=== PATIENT | female | born 1940 | race Caucasian/White ===

== ENCOUNTER → 2018-03-15 | Outpatient (CLI) | payer OTHER ==
[~2018-03-15] MED LIST: CALC600T PO; CHOL400C7 PO; CTP/1 PO; CTP1X PO; DILT240C57 PO; INDA2.5T PO; LISI-725 PO; LORA-741 PO; SOTA120T PO; WARF10TA PO; WARF5TAB90 PO
--- NOTE | 2018-03-18 07:48 | MAMMOGRAPHY REPORT ---
BILATERAL DIGITAL SCREENING MAMMOGRAM TOMOSYNTHESIS WITH CAD: 03/15/2018 CLINICAL HISTORY: Routine screening. Patient has no complaints. TECHNIQUE: Breast tomosynthesis in addition to standard 2D mammography was performed. Current study was also evaluated with a Computer Aided Detection (CAD) system. COMPARISON: Comparison is made to exams dated: 03/01/2016 mammogram, 03/01/2015 mammogram, 02/25/2014 ma mmogram, 02/24/2013 mammogram, 02/20/2012 mammogram, and 02/13/2011 mammogram - [facility] er. BREAST COMPOSITION: There are scattered areas of fibroglandular density in both breasts. FINDINGS: No suspicious masses, calcifications, or areas of architectural distortion are noted in ei ther breast. There has been no significant interval change compared to prior exams. Scattered bilater al benign-appearing calcifications are not significantly changed. IMPRESSION: ACR BI-RADS CATEGORY 2: BENIGN There is no mammographic evidence of malignancy. A 1 year screening mammogram is recommended. The pa tient will receive written notification of the results. Approximately 10% of breast cancers are not detected with mammography. A negative mammographic report should not delay biopsy if a clinically suggestive mass is present. Joceline Moctezuma M.D. /:03/15/2018 07:46:20 [employer]: Zhane PHILIPPE)(Ana), [facility] letter sent: Normal 1/2 BI-RADS Code: ACR BI-RADS Category 2: Benign
== END | disposition home or self-care (01) ==
LOC: C.MAMM 07:20
PROVIDERS: ATTEND Obstetrics & Gynecology
DX: Z12.31 Encounter for screening mammogram for malignant neoplasm of breast (principal)

== ENCOUNTER 2021-03-28 08:05 | Inpatient (IN) ==
[2021-03-28] MEDS ORDERED: STAT IV Infusion **Titration per Protocol STA ×2 (08:22→13:14)
[2021-03-28] MEDS ORDERED: dilTIAZem HCl 5 MG/ML 5 ML VIAL IV STA (08:22)
[2021-03-28] MEDS ORDERED: SODIUM CHLORIDE 0.9% 500 ML IV STA (08:22)
--- NOTE | 2021-03-28 08:30 | Emergency Department Note ---
Impression & Plan Atrial fibrillation with RVR, Chest pain ED Provider Note NAME: ROCAEL DE LEON AGE: 80 SEX: F : 1940 ARRIVES VIA: Walk-In INFORMANT: Patient ED PROVIDER(S): Chuck Sue DO CHIEF COMPLAINT: Fullness in the chest HPI: Patient is an 80-year-old female who presents the ER for chest fullness associated with shortness of breath. Patient notes that this started 2 and half days ago. Denies any belly pain, nausea, vomiting, or diarrhea. No dysuria, urgency, or frequency. She notes that she has a history of A. fib and is currently on Coumadin. She has a previous ablation as well as cardioversion as well. She has not missed any doses of her diltiazem or metoprolol. ROS: See above HPI for pertinent positives & negatives. A total of 10 systems reviewed and were otherwise negative. PAST MEDICAL HISTORY:See Below PAST SURGICAL HISTORY:See Below FAMILY HISTORY:See Below SOCIAL HISTORY:See Below HOME MEDICATIONS:See Below ALLERGIES:See Below VITALS:See Below PHYSICAL EXAMINATION: GENERAL: Sitting up in bed, alert, well appearing, well nourished, no distress, non-toxic EYE EXAM: normal conjunctiva. OROPHARYNX: no exudate, no erythema, lips, buccal mucosa, and tongue normal and mucous membranes are moist NECK: supple, no nuchal rigidity, no adenopathy, non-tender LUNGS: Clear to auscultation. Normal chest wall mechanics HEART: tachy and irregularly irregular, S1 normal and S2 normal ABDOMEN: abdomen soft, non-tender, normo-active bowel sounds, no masses, no rebound or guarding. UPPER EXTREMITIES: upper extremities are grossly normal. LOWER EXTREMITIES: No pitting edema. NEURO EXAM: Normal sensorium, cranial nerves II-XII grossly intact, normal speech, no gross weakness of arms, no gross weakness of legs. MEDICAL DECISION MAKING: Patient is an 80-year-old female who presents the ER for chest fullness and pressure. IV was established blood work was obtained. Labs show no significant leukocytosis or anemia. INR was slightly supratherapeutic at 3.3. BMP on LFTs bilirubin was unremarkable. Troponin was negative. TSH and lipase was unremarkable. Covid was negative. Chest x-ray with some mild vascular congestion. EKG showed A. fib with RVR and a heart rate of 150. She was placed on a Cardizem drip and given a 10 mg bolus of Cardizem. Patient was updated bedside. Discussed with the hospitalist. Admitted for further work-up. Heart rate trended down to low 100s. Triage Nursing notes reviewed. Limited review of prior medical records performed Vital Signs: reviewed and remarkable for HTN and tachy Differential diagnosis: Differential diagnoses includes but is not limited to pneumonia, bronchitis, COPD/Asthma exacerbation, pneumothorax, pulmonary embolism, congestive heart failure, acute coronary syndrome ER treatment provided: See below Diagnostics interpreted by me: ECG: A. fib RVR rate of 150 Normal axis Low voltage Septal Q waves QTC 486 Cardiac Monitoring: An order was placed for continuous cardiac monitoring. The m onitor shows a rate of 145 with AFIB rhythm. Laboratory studies: As stated above and show below. Imaging studies: Portable AP upright one view the chest shows no focal infiltrate or pneumothorax Consultation(s): Discussed with the hospitalist for further evaluation Procedures: none Critical Care: I have personally spent 35 minutes of critical care time in the direct management of this patient. This includes bedside care, interpretation of diagnostic studies, and testing, discussion with consultants, patient, and family members, and other required patient management activities. This 35 minutes is in excess of all separately billable procedures. Past Med/Surg History Medical History (Updated 03/28/21 @ 13:02 by Chuck Sue DO) A-fib CKD (chronic kidney disease) stage 3, GFR 30-59 ml/min DU (generalized anxiety disorder) History of bladder cancer s/op TURBT HLD (hyperlipidemia) HTN (hypertension) CHAVEZ (nonalcoholic steatohepatitis) Pre-diabetes Surgical History (Updated 03/28/21 @ 11:[address] PA-C) History of cardioversion multiple attempts, last in 2017 History of esophagogastroduodenoscopy (EGD) History of hysterectomy with oophorectomy History of radiofrequency ablation procedure for cardiac arrhythmia History of toe surgery bunion Family History (Updated 03/28/21 @ 11:[address] PA-C) Brother Myocardial infarction, Onset Age: 52 Father Myocardial infarction, Onset Age: 52 Sister Coronary heart disease Atrial fibrillation Mother , 21 [place] Social History (Updated 03/28/21 @ 11:[address] PA-C) Smoking Status: Never smoker Hx Alcohol Use: No Hx Substance Use: No Preferred Language: Lao Communication Ability: Effective marital status: Current Living Situation: Spouse current occupational status: retired Feels Safe at Home: Yes Allergies Allergies Allergy/AdvReac Type Severity Reaction Status Date / Time adhesive AdvReac Unknown Verified 03/28/21 10:54 cat dander AdvReac Unknown Verified 03/28/21 10:54 ezetimibe [From Zetia] AdvReac Unknown Verified 03/28/21 10:54 soy AdvReac Unknown Verified 03/28/21 10:54 Home Meds Home Medications Medication Instructions Recorded Confirmed diltiazem HCl 240 mg PO QAM 03/28/21 03/28/21 indapamide 5 mg PO QAM 03/28/21 03/28/21 lisinopril 5 mg PO QPM 03/28/21 03/28/21 lorazepam 0.5 mg PO BID PRN 03/28/21 03/28/21 metoprolol tartrate 50 mg PO BID 03/28/21 03/28/21 warfarin 10 mg PO UD 03/28/21 03/28/21 Results & Data (ED) Vital Signs Vital Signs - 24 hr 03/28/21 08:11 03/28/21 08:19 03/28/21 08:32 Temperature 37.0 C Temperature Source Temporal Artery Scan Pulse Rate 150 H 134 H Pulse Rate [Right Finger] 120 H Pulse Rate from SpO2 Sensor Respiratory Rate 20 22 20 Respiratory Effort / Characteristics Respiratory Depth Blood Pressure 170/114 H Blood Pressure [Right Arm] 146/84 H Blood Pressure Mean 132 Blood Pressure Mean [Right Arm] 104 Pulse Oximetry 97 94 Oxygen Delivery Method Room Air Room Air Room Air Oxygen Flow Rate Sepsis Recent Fever Within 48 Hours No Sepsis New/Unexplained Change in Mental Status N/A Sepsis Action Taken by Nursing No Action Required Pulse Oximetry Post Tiitration 03/28/21 08:38 03/28/21 08:39 03/28/21 08:40 Temperature Temperature Source Pulse Rate 104 H 119 H 107 H Pulse Rate [Right Finger] Pulse Rate from SpO2 Sensor 103 H 105 H 116 H Respiratory Rate 18 32 H 19 Respiratory Effort / Characteristics Respiratory Depth Blood Pressure 152/90 H 146/111 H Blood Pressure [Right Arm] Blood Pressure Mean 110 122 Blood Pressure Mean [Right Arm] Pulse Oximetry 92 90 93 Oxygen Delivery Method Oxygen Flow Rate Sepsis Recent Fever Within 48 Hours Sepsis New/Unexplained Change in Mental Status Sepsis Action Taken by Nursing Pulse Oximetry Post Tiitration 03/28/21 08:41 03/28/21 08:42 03/28/21 08:44 Temperature Temperature Source Pulse Rate 114 H 109 H Pulse Rate [Right Finger] 114 H 104 H Pulse Rate from SpO2 Sensor 106 H 116 H Respiratory Rate 20 25 H 22 Respiratory Effort / Characteristics Respiratory Depth Blood Pressure 150/94 H 153/83 H Blood Pressure [Right Arm] 150/94 H 153/83 H Blood Pressure Mean 112 106 Blood Pressure Mean [Right Arm] 112 106 Pulse Oximetry 96 95 93 Oxygen Delivery Method Room Air Room Air Oxygen Flow Rate Sepsis Recent Fever Within 48 Hours Sepsis New/Unexplained Change in Mental Status Sepsis Action Taken by Nursing Pulse Oximetry Post Tiitration 03/28/21 08:46 03/28/21 08:47 03/28/21 08:48 Temperature Temperature Source Pulse Rate 110 H 111 H 110 H Pulse Rate [Right Finger] 110 H Pulse Rate from SpO2 Sensor 110 H 112 H 103 H Respiratory Rate 17 17 17 Respiratory Effort / Characteristics Respiratory Depth Blood Pressure 150/104 H 160/85 H 150/93 H Blood Pressure [Right Arm] 160/85 H Blood Pressure Mean 119 110 112 Blood Pressure Mean [Right Arm] 110 Pulse Oximetry 93 93 93 Oxygen Delivery Method Room Air Oxygen Flow Rate Sepsis Recent Fever Within 48 Hours Sepsis New/Unexplained Change in Mental Status Sepsis Action Taken by Nursing Pulse Oximetry Post Tiitration 03/28/21 08:50 03/28/21 08:52 03/28/21 08:54 Temperature Temperature Source Pulse Rate 123 H 113 H 120 H Pulse Rate [Right Finger] 116 H 120 H Pulse Rate from SpO2 Sensor 119 H 101 H 129 H Respiratory Rate 21 19 18 Respiratory Effort / Characteristics Non-Labored Respiratory Depth Normal Normal Blood Pressure 154/106 H 151/95 H 163/91 H Blood Pressure [Right Arm] 154/106 H 163/91 H Blood Pressure Mean 122 113 115 Blood Pressure Mean [Right Arm] 122 115 Pulse Oximetry 92 94 91 Oxygen Delivery Method Room Air Room Air Oxygen Flow Rate Sepsis Recent Fever Within 48 Hours Sepsis New/Unexplained Change in Mental Status Sepsis Action Taken by Nursing Pulse Oximetry Post Tiitration 03/28/21 08:56 03/28/21 08:58 03/28/21 08:59 Temperature Temperature Source Pulse Rate 118 H 112 H Pulse Rate [Right Finger] 118 H Pulse Rate from SpO2 Sensor 106 H 110 H Respiratory Rate 22 18 20 Respiratory Effort / Characteristics Non-Labored Respiratory Depth Normal Blood Pressure 163/98 H 153/80 H Blood Pressure [Right Arm] 153/80 H Blood Pressure Mean 119 104 Blood Pressure Mean [Right Arm] 104 Pulse Oximetry 93 93 93 Oxygen Delivery Method Room Air Oxygen Flow Rate Sepsis Recent Fever Within 48 Hours Sepsis New/Unexplained Change in Mental Status Sepsis Action Taken by Nursing Pulse Oximetry Post Tiitration 03/28/21 09:00 03/28/21 09:01 03/28/21 09:02 Temperature Temperature Source Pulse Rate 111 H 109 H 109 H Pulse Rate [Right Finger] 114 H Pulse Rate from SpO2 Sensor 115 H 122 H 112 H Respiratory Rate 16 17 16 Respiratory Effort / Characteristics Respiratory Depth Blood Pressure 150/92 H 155/99 H Blood Pressure [Right Arm] 155/99 H Blood Pressure Mean 111 117 Blood Pressure Mean [Right Arm] 117 Pulse Oximetry 93 91 89 L Oxygen Delivery Method Room Air Oxygen Flow Rate Sepsis Recent Fever Within 48 Hours Sepsis New/Unexplained Change in Mental Status Sepsis Action Taken by Nursing Pulse Oximetry Post Tiitration 03/28/21 09:04 03/28/21 09:06 03/28/21 09:08 Temperature Temperature Source Pulse Rate 119 H 111 H 116 H Pulse Rate [Right Finger] 120 H 112 H Pulse Rate from SpO2 Sensor 106 H 114 H 119 H Respiratory Rate 16 17 15 Respiratory Effort / Characteristics Respiratory Depth Blood Pressure 137/98 145/95 H 153/90 H Blood Pressure [Right Arm] 137/98 153/90 H Blood Pressure Mean 111 111 111 Blood Pressure Mean [Right Arm] 111 111 Pulse Oximetry 91 91 89 L Oxygen Delivery Method Room Air Room Air Oxygen Flow Rate Sepsis Recent Fever Within 48 Hours Sepsis New/Unexplained Change in Mental Status Sepsis Action Taken by Nursing Pulse Oximetry Post Tiitration 03/28/21 09:10 03/28/21 09:12 03/28/21 09:14 Temperature Temperature Source Pulse Rate 100 H 115 H 110 H Pulse Rate [Right Finger] 106 H Pulse Rate from SpO2 Sensor 103 H 109 H 111 H Respiratory Rate 20 16 17 Respiratory Effort / Characteristics Respiratory Depth Blood Pressure 151/71 H 144/81 H 143/84 H Blood Pressure [Right Arm] 144/81 H Blood Pressure Mean 97 102 103 Blood Pressure Mean [Right Arm] 102 Pulse Oximetry 90 94 94 Oxygen Delivery Method Nasal Cannula Nasal Cannula Oxygen Flow Rate 2 2 Sepsis Recent Fever Within 48 Hours Sepsis New/Unexplained Change in Mental Status Sepsis Action Taken by Nursing Pulse Oximetry Post Tiitration 95 03/28/21 09:15 03/28/21 09:17 03/28/21 09:20 Temperature Temperature Source Pulse Rate 109 H 113 H Pulse Rate [Right Finger] 110 H Pulse Rate from SpO2 Sensor 101 H 109 H Respiratory Rate 14 14 14 Respiratory Effort / Characteristics Respiratory Depth Blood Pressure 135/83 138/82 Blood Pressure [Right Arm] 135/83 Blood Pressure Mean 100 100 Blood Pressure Mean [Right Arm] 100 Pulse Oximetry 93 94 93 Oxygen Delivery Method Nasal Cannula Oxygen Flow Rate 2 Sepsis Recent Fever Within 48 Hours Sepsis New/Unexplained Change in Mental Status Sepsis Action Taken by Nursing Pulse Oximetry Post Tiitration 03/28/21 09:24 03/28/21 09:25 03/28/21 09:30 Temperature Temperature Source Pulse Rate 101 H 109 H 114 H Pulse Rate [Right Finger] 108 H Pulse Rate from SpO2 Sensor 100 H 111 H 113 H Respiratory Rate 15 14 19 Respiratory Effort / Characteristics Non-Labored Respiratory Depth Normal Blood Pressure 140/83 134/84 134/96 Blood Pressure [Right Arm] 140/83 Blood Pressure Mean 102 100 108 Blood Pressure Mean [Right Arm] 102 Pulse Oximetry 90 91 91 Oxygen Delivery Method Nasal Cannula Oxygen Flow Rate 2 Sepsis Recent Fever Within 48 Hours Sepsis New/Unexplained Change in Mental Status Sepsis Action Taken by Nursing Pulse Oximetry Post Tiitration 03/28/21 09:31 03/28/21 09:35 03/28/21 09:40 Temperature Temperature Source Pulse Rate 107 H 107 H 112 H Pulse Rate [Right Finger] Pulse Rate from SpO2 Sensor 99 H 106 H 110 H Respiratory Rate 21 20 21 Respiratory Effort / Characteristics Respiratory Depth Blood Pressure 143/82 H 149/86 H Blood Pressure [Right Arm] Blood Pressure Mean 102 107 Blood Pressure Mean [Right Arm] Pulse Oximetry 92 97 96 Oxygen Delivery Method Oxygen Flow Rate Sepsis Recent Fever Within 48 Hours Sepsis New/Unexplained Change in Mental Status Sepsis Action Taken by Nursing Pulse Oximetry Post Tiitration 03/28/21 09:45 03/28/21 09:50 03/28/21 09:55 Temperature Temperature Source Pulse Rate 110 H 113 H 105 H Pulse Rate [Right Finger] Pulse Rate from SpO2 Sensor 109 H 102 H 105 H Respiratory Rate 24 21 19 Respiratory Effort / Characteristics Respiratory Depth Blood Pressure 141/99 H 145/86 H 152/89 H Blood Pressure [Right Arm] Blood Pressure Mean 113 105 110 Blood Pressure Mean [Right Arm] Pulse Oximetry 96 98 96 Oxygen Delivery Method Oxygen Flow Rate Sepsis Recent Fever Within 48 Hours Sepsis New/Unexplained Change in Mental Status Sepsis Action Taken by Nursing Pulse Oximetry Post Tiitration 03/28/21 10:00 03/28/21 10:01 03/28/21 10:05 Temperature Temperature Source Pulse Rate 108 H 104 H 112 H Pulse Rate [Right Finger] Pulse Rate from SpO2 Sensor 109 H 99 H 101 H Respiratory Rate 19 17 18 Respiratory Effort / Characteristics Respiratory Depth Blood Pressure 142/88 H 140/88 Blood Pressure [Right Arm] Blood Pressure Mean 106 105 Blood Pressure Mean [Right Arm] Pulse Oximetry 96 95 96 Oxygen Delivery Method Oxygen Flow Rate Sepsis Recent Fever Within 48 Hours Sepsis New/Unexplained Change in Mental Status Sepsis Action Taken by Nursing Pulse Oximetry Post Tiitration 03/28/21 10:10 03/28/21 10:15 03/28/21 10:20 Temperature Temperature Source Pulse Rate 108 H 99 H 98 H Pulse Rate [Right Finger] 110 H Pulse Rate from SpO2 Sensor 105 H 103 H 105 H Respiratory Rate 19 15 22 Respiratory Effort / Characteristics Non-Labored Respiratory Depth Normal Blood Pressure 144/90 H 157/92 H 145/77 H Blood Pressure [Right Arm] 145/77 H Blood Pressure Mean 108 113 99 Blood Pressure Mean [Right Arm] 99 Pulse Oximetry 98 96 97 Oxygen Delivery Method Room Air Oxygen Flow Rate Sepsis Recent Fever Within 48 Hours Sepsis New/Unexplained Change in Mental Status Sepsis Action Taken by Nursing Pulse Oximetry Post Tiitration 03/28/21 10:25 03/28/21 10:30 03/28/21 10:31 Temperature Temperature Source Pulse Rate 110 H 103 H 98 H Pulse Rate [Right Finger] Pulse Rate from SpO2 Sensor 105 H 100 H 104 H Respiratory Rate 23 27 H 18 Respiratory Effort / Characteristics Respiratory Depth Blood Pressure 141/100 H 147/79 H Blood Pressure [Right Arm] Blood Pressure Mean 113 101 Blood Pressure Mean [Right Arm] Pulse Oximetry 97 96 99 Oxygen Delivery Method Oxygen Flow Rate Sepsis Recent Fever Within 48 Hours Sepsis New/Unexplained Change in Mental Status Sepsis Action Taken by Nursing Pulse Oximetry Post Tiitration 03/28/21 10:35 03/28/21 10:40 03/28/21 10:45 Temperature Temperature Source Pulse Rate 104 H 102 H 119 H Pulse Rate [Right Finger] Pulse Rate from SpO2 Sensor 107 H 113 H 119 H Respiratory Rate 17 23 21 Respiratory Effort / Characteristics Respiratory Depth Blood Pressure 153/98 H 155/92 H 153/98 H Blood Pressure [Right Arm] Blood Pressure Mean 116 113 116 Blood Pressure Mean [Right Arm] Pulse Oximetry 97 93 95 Oxygen Delivery Method Oxygen Flow Rate Sepsis Recent Fever Within 48 Hours Sepsis New/Unexplained Change in Mental Status Sepsis Action Taken by Nursing Pulse Oximetry Post Tiitration 03/28/21 10:50 03/28/21 10:55 03/28/21 11:00 Temperature Temperature Source Pulse Rate 123 H 112 H 114 H Pulse Rate [Right Finger] Pulse Rate from SpO2 Sensor 111 H 117 H 108 H Respiratory Rate 19 23 21 Respiratory Effort / Characteristics Respiratory Depth Blood Pressure 150/87 H 149/107 H 153/92 H Blood Pressure [Right Arm] Blood Pressure Mean 108 121 112 Blood Pressure Mean [Right Arm] Pulse Oximetry 92 92 91 Oxygen Delivery Method Oxygen Flow Rate Sepsis Recent Fever Within 48 Hours Sepsis New/Unexplained Change in Mental Status Sepsis Action Taken by Nursing Pulse Oximetry Post Tiitration 03/28/21 11:30 03/28/21 11:31 03/28/21 12:00 Temperature Temperature Source Pulse Rate 115 H 87 85 Pulse Rate [Right Finger] Pulse Rate from SpO2 Sensor 106 H 90 82 Respiratory Rate 23 24 21 Respiratory Effort / Characteristics Respiratory Depth Blood Pressure 157/117 H 142/88 H Blood Pressure [Right Arm] Blood Pressure Mean 130 106 Blood Pressure Mean [Right Arm] Pulse Oximetry 92 95 93 Oxygen Delivery Method Oxygen Flow Rate Sepsis Recent Fever Within 48 Hours Sepsis New/Unexplained Change in Mental Status Sepsis Action Taken by Nursing Pulse Oximetry Post Tiitration 03/28/21 12:30 Temperature Temperature Source Pulse Rate 79 Pulse Rate [Right Finger] Pulse Rate from SpO2 Sensor 85 Respiratory Rate 21 Respiratory Effort / Characteristics Respiratory Depth Blood Pressure 130/75 Blood Pressure [Right Arm] Blood Pressure Mean 93 Blood Pressure Mean [Right Arm] Pulse Oximetry 94 Oxygen Delivery Method Oxygen Flow Rate Sepsis Recent Fever Within 48 Hours Sepsis New/Unexplained Change in Mental Status Sepsis Action Taken by Nursing Pulse Oximetry Post Tiitration Laboratory Data Result diagrams: 03/28/21 08:25 03/28/21 08:25 Lab Results 03/28/21 03/28/21 03/28/21 Range/Units 08:25 08:25 08:25 WBC 7.51 (4.8-10.8) K/uL RBC 4.79 (4.2-5.4) M/uL Hgb 13.8 (12.0-16.0) g/dL Hct 42.8 (37-47) % MCV 89.4 (80-100) fL MCH 28.8 (25-34) pg MCHC 32.2 (32-36) g/dL RDW Std Deviation 48.4 H (36.4-46.3) fL RDW Coeff of Serg 15.0 H (11.5-14.5) % Plt Count 182 (130-400) K/uL MPV 10.6 H (7.4-10.4) fL Immature Gran % (Auto) 0.1 % Neut % (Auto) 82.3 % Lymph % (Auto) 7.5 % White % (Auto) 9.2 % Eos % (Auto) 0.8 % Baso % (Auto) 0.1 % Neut # (Auto) 6.18 (1.4-6.5) K/uL Lymph # (Auto) 0.56 L (1.2-3.4) K/uL White # (Auto) 0.69 H (0.11-0.59) K/uL Eos # (Auto) 0.06 (0-0.5) K/uL Baso # (Auto) 0.01 (0-0.2) K/uL Immature Gran # (Auto) 0.01 (0.00-0.02) K/uL PT 30.3 H (9.0-12.0) Seconds INR 3.3 H (0.9-1.1) Sodium 140 (136-145) mmol/L Potassium 3.6 (3.5-5.1) mmol/L Chloride 104 (98-107) mmol/L Carbon Dioxide 28 (21-32) mmol/L Anion Gap 7.0 (3-11) BUN 21 H (7-18) mg/dl Creatinine 0.86 (0.6-1.2) mg/dl Est Cr Clr Drug Dosing 47.2 ml/min Est GFR ( Amer) 72.9 Est GFR (Non-Af Amer) 62.9 BUN/Creatinine Ratio 24.4 H (10-20) Glucose 106 H (70-99) mg/dl Calcium 9.8 (8.5-10.1) mg/dl Magnesium (1.8-2.4) mg/dl Total Bilirubin 1.0 (0.2-1) mg/dl AST 44 H (15-37) U/L ALT 69 (12-78) U/L Alkaline Phosphatase 73 (45-117) U/L Troponin I < 0.015 (0-0.045) ng/ml Total Protein 7.8 (6.4-8.2) gm/dl Albumin 4.2 (3.4-5.0) gm/dl Globulin 3.6 (2.5-4.0) gm/dl Albumin/Globulin Ratio 1.2 (0.9-2) Lipase 179 (73-393) U/L TSH (0.300-4.500) uIu/ml COVID-19 Eval Order SARS-CoV-2 (PCR) (Negative) Influenza Type A (PCR) (Neg) Influenza Type B (PCR) (Neg) RSV (RT-PCR) (Neg) 03/28/21 03/28/21 03/28/21 Range/Units 08:25 08:25 10:28 WBC (4.8-10.8) K/uL RBC (4.2-5.4) M/uL Hgb (12.0-16.0) g/dL Hct (37-47) % MCV (80-100) fL MCH (25-34) pg MCHC (32-36) g/dL RDW Std Deviation (36.4-46.3) fL RDW Coeff of Serg (11.5-14.5) % Plt Count (130-400) K/uL MPV (7.4-10.4) fL Immature Gran % (Auto) % Neut % (Auto) % Lymph % (Auto) % White % (Auto) % Eos % (Auto) % Baso % (Auto) % Neut # (Auto) (1.4-6.5) K/uL Lymph # (Auto) (1.2-3.4) K/uL White # (Auto) (0.11-0.59) K/uL Eos # (Auto) (0-0.5) K/uL Baso # (Auto) (0-0.2) K/uL Immature Gran # (Auto) (0.00-0.02) K/uL PT (9.0-12.0) Seconds INR (0.9-1.1) Sodium (136-145) mmol/L Potassium (3.5-5.1) mmol/L Chloride (98-107) mmol/L Carbon Dioxide (21-32) mmol/L Anion Gap (3-11) BUN (7-18) mg/dl Creatinine (0.6-1.2) mg/dl Est Cr Clr Drug Dosing ml/min Est GFR ( Amer) Est GFR (Non-Af Amer) BUN/Creatinine Ratio (10-20) Glucose (70-99) mg/dl Calcium (8.5-10.1) mg/dl Magnesium 1.9 (1.8-2.4) mg/dl Total Bilirubin (0.2-1) mg/dl AST (15-37) U/L ALT (12-78) U/L Alkaline Phosphatase (45-117) U/L Troponin I (0-0.045) ng/ml Total Protein (6.4-8.2) gm/dl Albumin (3.4-5.0) gm/dl Globulin (2.5-4.0) gm/dl Albumin/Globulin Ratio (0.9-2) Lipase (73-393) U/L TSH 1.720 (0.300-4.500) uIu/ml COVID-19 Eval Order [facility]Rsv at [facility] SARS-CoV-2 (PCR) (Negative) Influenza Type A (PCR) (Neg) Influenza Type B (PCR) (Neg) RSV (RT-PCR) (Neg) 03/28/21 Range/Units 10:28 WBC (4.8-10.8) K/uL RBC (4.2-5.4) M/uL Hgb (12.0-16.0) g/dL Hct (37-47) % MCV (80-100) fL MCH (25-34) pg MCHC (32-36) g/dL RDW Std Deviation (36.4-46.3) fL RDW Coeff of Serg (11.5-14.5) % Plt Count (130-400) K/uL MPV (7.4-10.4) fL Immature Gran % (Auto) % Neut % (Auto) % Lymph % (Auto) % White % (Auto) % Eos % (Auto) % Baso % (Auto) % Neut # (Auto) (1.4-6.5) K/uL Lymph # (Auto) (1.2-3.4) K/uL White # (Auto) (0.11-0.59) K/uL Eos # (Auto) (0-0.5) K/uL Baso # (Auto) (0-0.2) K/uL Immature Gran # (Auto) (0.00-0.02) K/uL PT (9.0-12.0) Seconds INR (0.9-1.1) Sodium (136-145) mmol/L Potassium (3.5-5.1) mmol/L Chloride (98-107) mmol/L Carbon Dioxide (21-32) mmol/L Anion Gap (3-11) BUN (7-18) mg/dl Creatinine (0.6-1.2) mg/dl Est Cr Clr Drug Dosing ml/min Est GFR ( Amer) Est GFR (Non-Af Amer) BUN/Creatinine Ratio (10-20) Glucose (70-99) mg/dl Calcium (8.5-10.1) mg/dl Magnesium (1.8-2.4) mg/dl Total Bilirubin (0.2-1) mg/dl AST (15-37) U/L ALT (12-78) U/L Alkaline Phosphatase (45-117) U/L Troponin I (0-0.045) ng/ml Total Protein (6.4-8.2) gm/dl Albumin (3.4-5.0) gm/dl Globulin (2.5-4.0) gm/dl Albumin/Globulin Ratio (0.9-2) Lipase (73-393) U/L TSH (0.300-4.500) uIu/ml COVID-19 Eval Order SARS-CoV-2 (PCR) NEGATIVE (Negative) Influenza Type A (PCR) Negative (Neg) Influenza Type B (PCR) Negative (Neg) RSV (RT-PCR) Negative (Neg) Administered Medications Diltiazem HCl 125 mg/ Dextrose 125 mls @ 10 mls/hr IV .[id number]; Protocol Stop: 04/27/21 08:29 Last Titration: 03/28/21 12:05 Dose: 5 mg/hr, 5 mls/hr Documented by: [id number] Cosigned by: [id number] Titration: 03/28/21 08:52 Dose: 10 mg/hr, 10 mls/hr Documented by: [id number] Cosigned by: [id number] Admin: 03/28/21 08:34 Dose: 5 mg/hr, 5 mls/hr Documented by: [id number] Cosigned by: [id number] Discontinued Medications Diltiazem HCl (Diltiazem Hcl 5 Mg/Ml 5 Ml Vial) 10 mg IV NOW STA Stop: 03/28/21 08:23 Last Admin: 03/28/21 08:29 Dose: 10 mg Documented by: [id number] Cosigned by: [id number] Diltiazem HCl (Diltiazem Hcl 240 Mg Capcr) 240 mg PO NOW STA Stop: 03/28/21 11:03 Last Admin: 03/28/21 12:18 Dose: 240 mg Documented by: [id number] Sodium Chloride (Nss) 500 mls @ 999 mls/hr IV .[id number] STA Stop: 03/28/21 08:52 Last Infusion: 03/28/21 08:56 Dose: 0 mls/hr Documented by: [id number] Admin: 03/28/21 08:29 Dose: 999 mls/hr Documented by: [id number] Magnesium Sulfate/Dextrose (Magnesium Sulfate / D5w) 1 gm in 100 mls @ 100 mls/hr IV NOW STA Stop: 03/28/21 12:06 Last Admin: 03/28/21 12:18 Dose: 100 mls/hr Documented by: [id number] Metoprolol Tartrate (Metoprolol Tartrate 50 Mg Tab) 50 mg PO NOW STA Stop: 03/28/21 10:41 Last Admin: 03/28/21 11:15 Dose: 50 mg Documented by: [id number] Miscellaneous (Stat Iv Infusion Titration Per Protocol) 1 ea N/A NOW STA Stop: 03/28/21 08:23 Last Admin: 03/28/21 08:52 Dose: 1 ea Documented by: [id number] Potassium Chloride (Potassium Chloride Crtab 20 Meq Tabcr) 40 meq PO NOW STA Stop: 03/28/21 10:41 Last Admin: 03/28/21 11:01 Dose: 40 meq Documented by: [id number] Imaging Data Radiologist's Impression: Chest X-Ray 03/28/21 08:22 XR chest 1V portable HISTORY: 80 years-old Female Chest Pain acute atypical chest pain COMPARISON: Chest radiograph 04/20/2015 TECHNIQUE: Portable AP view of the chest FINDINGS: Cardiomediastinal and hilar silhouettes are within normal limits. Calcified granulomata of the right lung. Reticular interstitial opacities without pneumothorax, large pleural effusion or overt pulmonary edema. 1.3 cm lateral right lung base opacity may reflect conglomerate granulomata, new from compar monique. Degenerative changes of the shoulders and spine. IMPRESSION: 1. Cardiomegaly with reticular opacities are new from prior and may reflect pulmonary edema, interstitial pneumonitis or fibrosis. 2. Prior granulomatous disease with 1.3 cm nodule of the right lung base likely representing a calcified granuloma. This could be confirmed with a follow-up nonemergent chest CT. ACT 112: Negative or not required by law. The above report was generated using voice recognition software. It may contain grammatical, syntax or spelling errors. Electronically signed by: Maury Cardenas M.D. 03/28/2021 9:05 AM Discharge Plan Visit Data Chief Complaint: Arrhythmia/Palpitations Stated Complaint: WATER ON HEART ED Provider: Chuck Sue Discharge Problem: Atrial fibrillation with RVR, Chest pain Patient Disposition: Admitted As Inpatient Discharge Instructions Interventions: ED Discharge Assessment Last Done: 03/28/21 12:48 Forms Stand Alone Forms: [facility] [employer] Prescriptions Prescriptions: No Action indapamide 2.5 mg tablet 5 mg PO QAM RF: 0 metoprolol tartrate 100 mg tablet 50 mg PO BID RF: 0 diltiazem HCl 240 mg capsule,extended release 24hr 240 mg PO QAM RF: 0 lorazepam 0.5 mg tablet 0.5 mg PO BID PRN (Reason: Anxiety) RF: 0 warfarin 5 mg tablet 10 mg PO UD RF: 0 lisinopril 5 mg tablet 5 mg PO QPM RF: 0 Referrals Referrals: Melania Elliott MD [Primary Care Provider] - Discharge Problem: Chest pain Qualifiers: Chest pain type: unspecified Qualified Code(s): R07.9 - Chest pain, unspecified
[2021-03-28] MEDS: dilTIAZem HCL 125 MG in DEXTROSE 5% 100 ML IV SCH (08:34)
[2021-03-28 08:42] LABS: Basophils # (auto) 0.01 K/uL (0-0.2); Basophils % (auto) 0.1 %; Eosinophils # (auto) 0.06 K/uL (0-0.5); Eosinophils % (auto) 0.8 %; Hematocrit (blood only) 42.8 % (37-47); Hemoglobin 13.8 g/dL (12.0-16.0); Immature Granulocytes # (auto) 0.01 K/uL (0.00-0.02); Immature Granulocytes % (auto) 0.1 %; Lymphocytes # (auto) 0.56 K/uL (1.2-3.4); Lymphocytes % (auto) 7.5 %; Mean Corpuscular Hemoglobin 28.8 pg (25-34); Mean Corpuscular Hgb Conc 32.2 g/dL (32-36); Mean Corpuscular Volume 89.4 fL (80-100); Mean Platelet Volume 10.6 fL (7.4-10.4); Monocytes # (auto) 0.69 K/uL (0.11-0.59); Monocytes % (auto) 9.2 %; Neutrophils # (auto) 6.18 K/uL (1.4-6.5); Neutrophils % (auto) 82.3 %; Platelet Count 182 K/uL (130-400); RDW Standard Deviation 48.4 fL (36.4-46.3); Red Blood Count 4.79 M/uL (4.2-5.4); White Blood Count 7.51 K/uL (4.8-10.8)
[2021-03-28 09:00] LABS: Alanine Aminotransferase 69 U/L (12-78); Albumin Level 4.2 gm/dl (3.4-5.0); Aspartate Aminotransferase 44 U/L (15-37); BUN Creatinine Ratio 24.4 (10-20); Blood Urea Nitrogen 21 mg/dl (7-18); Calcium 9.8 mg/dl (8.5-10.1); Carbon Dioxide 28 mmol/L (21-32); Chloride 104 mmol/L (98-107); Creatinine Clr Calc Pharmacy 47.2 ml/min; Est GFR (African American) 72.9; Est GFR (Non-African American) 62.9; Glucose 106 mg/dl (70-99); Lipase 179 U/L (73-393); Potassium 3.6 mmol/L (3.5-5.1); Sodium 140 mmol/L (136-145)
[2021-03-28 09:05] LABS: Albumin Globulin Ratio 1.2 (0.9-2); Alkaline Phosphatase 73 U/L (45-117); Globulin 3.6 gm/dl (2.5-4.0); Total Protein 7.8 gm/dl (6.4-8.2); Troponin I < 0.015 ng/ml (0-0.045)
--- NOTE | 2021-03-28 09:07 | XRay Report ---
XR chest 1V portable HISTORY: 80 years-old Female Chest Pain acute atypical chest pain COMPARISON: Chest radiograph 04/20/2015 TECHNIQUE: Portable AP view of the chest FINDINGS: Cardiomediastinal and hilar silhouettes are within normal limits. Calcified granulomata of the right lung. Reticular interstitial opacities without pneumothorax, large pleural effusion or overt pulmonar y edema. 1.3 cm lateral right lung base opacity may reflect conglomerate granulomata, new from compar monique. Degenerative changes of the shoulders and spine. IMPRESSION: 1. Cardiomegaly with reticular opacities are new from prior and may reflect pulmonary edema, intersti tial pneumonitis or fibrosis. 2. Prior granulomatous disease with 1.3 cm nodule of the right lung base likely representing a calcif ied granuloma. This could be confirmed with a follow-up nonemergent chest CT. ACT 112: Negative or not required by law. The above report was generated using voice recognition software. It may contain grammatical, syntax o r spelling errors. Electronically signed by: Maury Cardenas M.D. 03/28/2021 9:05 AM
--- NOTE | 2021-03-28 10:09 | History & Physical Report ---
Date of Service March 28, 2021 Assessment & Plan (1) Left chest pressure: (2) Atrial fibrillation with RVR: This is a 80-year-old female who has significant past medical history of permanent A. fib anticoagulated on warfarin, history of pulmonary vein isolation ablation and multiple failed DCCV followed by Dr. Beasley [facility] [place], HTN, HLD, prediabetes, CKD stage III, DU, Cabrales who presents ED secondary to chest pressure x2 days. Patient with history of pulmonary vein isolation ablation in 2008, multiple attempts at DCCV, last 2016. Patient has failed cardioversion and sotalol therapy. Currently she has managed rate control only. Follows Dr. Beasley Perla Denise. Admit to PCU Continue diltiazem drip Administer diltiazem 240 mg orally and metoprolol tartrate 50 mg x 1 now (home regimen) obtain echocardiogram repeat trop x 1 consult cardiology - discussed with Dr. Duenas replace mag and K, keep greater than 2.0 and 4.0 respectively hold warfarin today, INR 3.3 (takes 10mg daily) (3) HTN (hypertension): Blood pressure mildly elevated in ED Give metoprolol now She takes lisinopril in evening She has been off her indapamide for 1 week due to her concern for CKD Hold indapamide for now, but would resume at discharge if able (4) Pre-diabetes: Last A1c 6.0 on 12/30/2020 BSG 106 Follow fasting blood sugar, patient does not require insulin at this time (5) CKD (chronic kidney disease) stage 3, GFR 30-59 ml/min: Baseline creatinine 1.0 BUN/creatinine 21 and 0.86 today Monitor (6) Abnormal CXR: IMPRESSION: 1. Cardiomegaly with reticular opacities are new from prior and may reflect pulmonary edema, interstitial pneumonitis or fibrosis. 2. Prior granulomatous disease with 1.3 cm nodule of the right lung base likely representing a calcified granuloma. This could be confirmed with a follow-up nonemergent chest CT. Consider nonemergent CHEST CT as outpt (7) DVT prophylaxis: INR 3.3, hold warfarin today repeat in a.m. Dispo: PCU PCP: Dr. Rajan Elliott DNR/DNI Pt was seen and examined in collaboration with Dr. Plata, please see addendum History of Present Illness Chief Complaint: Chest pressure x2 days. Primary Care Provider: Melania Elliott MD This is a 80-year-old female who has significant past medical history of permanent A. fib anticoagulated on warfarin, history of pulmonary vein isolation ablation and multiple failed DCCV followed by Dr. Beasley [facility] – [place], HTN, HLD, prediabetes, CKD stage III, DU, [place] who presents ED secondary to chest pressure x2 days. Angel is at bedside. She states since Sunday she has been noticing intermittent left-sided, nonradiating chest pressure. She would describe it as a heaviness, rated 5/10, no exacerbating or relieving factors, no associated shortness of breath, nausea or lightheadedness. She states symptoms would come and go over the past 2 days however symptoms were constant ever since last evening. She complains of chronic dyspnea on exertion, but states this is unchanged. She denies any recent illness, fever, chills, sweats, lightheadedness, syncope, fall, shortness of breath at rest, hemoptysis, nausea, vomiting, abdominal pain, change in bowel or urinary habits. She does elicit a chronic cough and sinus drainage due to chronic sinusitis. She states this is unchanged. She describes drainage as clear to white. She admits to being compliant with her medications specifically metoprolol, diltiazem and warfarin. She admits to not taking her indapamide for the past week due to concern for her kidneys. Her appetite has been stable and she denies any weight loss or gain. She does complain of mild increased lower extremity swelling and attributes this to not taking her indapamide. She also has been not taking her potassium. In ED on evaluation patient was found to be in atrial relation with RVR with rates in the 150s. She was given a diltiazem bolus of 10 mg and started on diltiazem drip. Currently she states chest pressure has completely resolved and she is otherwise comfortable. Her CBC and CMP were generally unremarkable. Her potassium was 3.6 and mag was 1.9. Creatinine was stable at 0.86. Her troponin was WNL. Chest x-ray with cardiomegaly with reticular opacities which were new from prior and may reflect pulmonary edema, interstitial pneumonitis or fibrosis. Allergies Allergy/AdvReac Type Severity Reaction Status Date / Time latex Allergy Intermediate Rash Unverified 03/28/21 15:12 adhesive AdvReac Unknown Verified 03/28/21 10:54 cat dander AdvReac Unknown Verified 03/28/21 10:54 ezetimibe [From Zetia] AdvReac Unknown Verified 03/28/21 10:54 soy AdvReac Unknown Verified 03/28/21 10:54 Home Medications Medication Instructions Recorded Confirmed Type diltiazem HCl 240 mg PO QAM 03/28/21 03/28/21 History indapamide 5 mg PO QAM 03/28/21 03/28/21 History lisinopril 5 mg PO QPM 03/28/21 03/28/21 History lorazepam 0.5 mg PO BID PRN 03/28/21 03/28/21 History metoprolol tartrate 50 mg PO BID 03/28/21 03/28/21 History warfarin 10 mg PO UD 03/28/21 03/28/21 History Past Med/Surg History Medical History A-fib CKD (chronic kidney disease) stage 3, GFR 30-59 ml/min DU (generalized anxiety disorder) History of bladder cancer s/op TURBT HLD (hyperlipidemia) HTN (hypertension) CABRALES (nonalcoholic steatohepatitis) Pre-diabetes Surgical History History of cardioversion multiple attempts, last in 2017 History of esophagogastroduodenoscopy (EGD) History of hysterectomy with oophorectomy History of radiofrequency ablation procedure for cardiac arrhythmia History of toe surgery bunion Family History Brother Myocardial infarction, Onset Age: 52 Father Myocardial infarction, Onset Age: 52 Sister Coronary heart disease Atrial fibrillation Mother , 21 [place] Social History Smoking Status: Never smoker Hx Alcohol Use: No Hx Substance Use: No Preferred Language: [place] Communication Ability: Effective Rock Lather Required: No Beliefs That Will Affect Care: None marital status: Current Living Situation: Spouse current occupational status: retired Other Information That Helps Us Care for You: No Feels Safe at Home: No Is there a partner from a previous relationship who is making you feel unsafe now?: No Any Concerns about Your Family Situation: No Assistive Devices: None Review of Systems Review of Systems: All systems reviewed & are unremarkable except as noted in HPI & below Physical Exam Physical Exam: Constitutional: WD/WN, vitals as above, NAD, sitting up in bed, pleasant, conversing easily Head: Normocephalic, Atraumatic Eyes: PERRL, conjunctivae normal, anicteric sclerae ENMT: external ear and nose normal, oropharynx normal Neck: trachea midline, no thyromegaly normal visual inspection Respiratory: normal respiratory effort, lungs clear to auscultation, no wheeze, rales, rhonchi. Normal insp/exp effort, no accessory muscle use Cardiovascular: IRR/IRR, 1/6 SUAD noted RUSB, trace pretibial edema Vessels: no JVD or carotid bruit Chest: normal inspection of chest Abdomen: normal bowel sounds, soft, nontender, no hepatosplenomegaly Musculoskeletal: no cyanosis or clubbing, extremities motor strength 5/5 Skin: no rashes, warm and dry normal turgor Neurologic: PERRL, EOMI, accommodation nl, no face palsy, no dysarthria CN's II-XI intact bilaterally and moves all extremities Psychiatric: A+Ox3, euthymic affect Lymphatic: no cervical or axillary lymphadenopathy : deferred Results & Data Results & Data ([facility]) Vital Signs (Past 12 Hours) Vital Signs Temp Pulse Pulse Resp BP BP Pulse Ox 03/28/21 09:24 108 H 20 140/83 94 03/28/21 09:17 110 H 14 135/83 94 03/28/21 09:12 106 H 16 144/81 H 95 03/28/21 09:10 88 L 03/28/21 09:08 112 H 16 153/90 H 89 L 03/28/21 09:04 120 H 16 137/98 92 03/28/21 09:02 114 H 16 155/99 H 93 03/28/21 08:59 118 H 20 153/80 H 93 03/28/21 08:54 120 H 20 163/91 H 94 03/28/21 08:50 116 H 22 154/106 H 94 03/28/21 08:47 110 H 20 160/85 H 94 03/28/21 08:44 104 H 24 153/83 H 94 03/28/21 08:41 114 H 20 150/94 H 96 03/28/21 08:32 120 H 20 146/84 H 94 03/28/21 08:19 134 H 22 03/28/21 08:11 37.0 C 150 H 20 170/114 H 97 Diagnostic Findings Chest X-Ray 03/28/21 08:22 XR chest 1V portable HISTORY: 80 years-old Female Chest Pain acute atypical chest pain COMPARISON: Chest radiograph 04/20/2015 TECHNIQUE: Portable AP view of the chest FINDINGS: Cardiomediastinal and hilar silhouettes are within normal limits. Calcified granulomata of the right lung. Reticular interstitial opacities without pneumothorax, large pleural effusion or overt pulmonary edema. 1.3 cm lateral right lung base opacity may reflect conglomerate granulomata, new from comparison. Degenerative changes of the shoulders and spine. IMPRESSION: 1. Cardiomegaly with reticular opacities are new from prior and may reflect pulmonary edema, interstitial pneumonitis or fibrosis. 2. Prior granulomatous disease with 1.3 cm nodule of the right lung base likely representing a calcified granuloma. This could be confirmed with a follow-up nonemergent chest CT. ACT 112: Negative or not required by law. The above report was generated using voice recognition software. It may contain grammatical, syntax or spelling errors. Electronically signed by: Maury Cardenas M.D. 03/28/2021 9:05 AM Medications Administered Diltiazem HCl 125 mg/ Dextrose 125 mls @ 10 mls/hr IV .[id number] [facility]; Protocol Stop: 04/27/21 08:29 Last Titration: 03/28/21 08:52 Dose: 10 mg/hr, 10 mls/hr Documented by: [id number] Cosigned by: [id number] Admin: 03/28/21 08:34 Dose: 5 mg/hr, 5 mls/hr Documented by: [id number] Cosigned by: [id number] Discontinued Medications Diltiazem HCl (Diltiazem Hcl 5 Mg/Ml 5 Ml Vial) 10 mg IV NOW STA Stop: 03/28/21 08:23 Last Admin: 03/28/21 08:29 Dose: 10 mg Documented by: [id number] Cosigned by: [id number] Sodium Chloride (Nss) 500 mls @ 999 mls/hr IV .Q31M STA Stop: 03/28/21 08:52 Last Infusion: 03/28/21 08:56 Dose: 0 mls/hr Documented by: [id number] Admin: 03/28/21 08:29 Dose: 999 mls/hr Documented by: [id number] Miscellaneous (Stat Iv Infusion Titration Per Protocol) 1 ea N/A NOW STA Stop: 03/28/21 08:23 Last Admin: 03/28/21 08:52 Dose: 1 ea Documented by: [id number] Potassium Chloride (Potassium Chloride Crtab 20 Meq Tabcr) 40 meq PO NOW STA Stop: 03/28/21 10:41 Last Admin: 03/28/21 11:01 Dose: 40 meq Documented by: [id number] ECG Rate (beats per minute): 140 Rhythm: atrial fibrillation COVID-19 Results Results COVID-19 Adm Lab Results: RBC 4.79 M/uL (4.2-5.4) 03/28/21 WBC 7.51 K/uL (4.8-10.8) 03/28/21 Hgb 13.8 g/dL (12.0-16.0) 03/28/21 Hct 42.8 % (37-47) 03/28/21 Plt Count 182 K/uL (130-400) 03/28/21 Neutrophils (%) (Auto) 82.3 % 03/28/21 Lymphocytes (%) (Auto) 7.5 % 03/28/21 Monocytes # (Auto) 0.69 K/uL (0.11-0.59) H 03/28/21 Eosinophils # (Auto) 0.06 K/uL (0-0.5) 03/28/21 Immature Granulocyte % (Auto) 0.1 % 03/28/21 Neutrophils # (Auto) 6.18 K/uL (1.4-6.5) 03/28/21 Lymphocytes # (Auto) 0.56 K/uL (1.2-3.4) L 03/28/21 Monocytes # (Auto) 0.69 K/uL (0.11-0.59) H 03/28/21 Eosinophils # (Auto) 0.06 K/uL (0-0.5) 03/28/21 Basophils # (Auto) 0.01 K/uL (0-0.2) 03/28/21 Immature Granulocyte # (Auto) 0.01 K/uL (0.00-0.02) 03/28/21 Na 140 mmol/L (136-145) 03/28/21 K 3.6 mmol/L (3.5-5.1) 03/28/21 Cl 104 mmol/L (98-107) 03/28/21 CO2 28 mmol/L (21-32) 03/28/21 Anion Gap 7.0 (3-11) 03/28/21 BUN 21 mg/dl (7-18) H 03/28/21 Creatinine 0.86 mg/dl (0.6-1.2) 03/28/21 BUN/Creatinine Ratio 24.4 (10-20) H 03/28/21 Glucose Level 106 mg/dl (70-99) H 03/28/21 Ca 9.8 mg/dl (8.5-10.1) 03/28/21 Total Bilirubin 1.0 mg/dl (0.2-1) 03/28/21 AST/SGOT 44 U/L (15-37) H 03/28/21 ALT/SGPT 69 U/L (12-78) 03/28/21 Alkaline Phosphatase 73 U/L (45-117) 03/28/21 Total Protein 7.8 gm/dl (6.4-8.2) 03/28/21 Albumin 4.2 gm/dl (3.4-5.0) 03/28/21 Globulin 3.6 gm/dl (2.5-4.0) 03/28/21 Albumin/Globulin Ratio 1.2 (0.9-2) 03/28/21 Troponin I < 0.015 ng/ml (0-0.045) 03/28/21 [id number] Natriuretic Pep 2448 pg/ml (0-1800) H 03/28/21 INR 3.3 (0.9-1.1) H 03/28/21 COVID-19 PCR NEGATIVE (Negative) 03/28/21 Influenza Virus Type A (PCR) Negative (Neg) 03/28/21 Influenza Virus Type B (PCR) Negative (Neg) 03/28/21 Chest X-Ray 03/28/21 Code Status & VTE Plan Code Status DNR/DNI VTE Prophylaxis Plan VTE Prophylaxis will be ordered: Yes Supervising Physician Co-Signing Physician Notes I have seen and examined the patient and have discussed the case with the provider above. I agree with the assessment and plan as stated. 80-year-old female with known history of atrial fibrillation presented with acute chest pressure and generalized lightheadedness for the past couple of days. Found to be in atrial fibrillation with RVR. Symptoms resolved with improvement in rate control. Patient remains in atrial fibrillation with repeat echo revealing no abnormal wall motion abnormalities. Do not suspect ACS at this time. Cardiology has assessed patient. She appears to have some possible element of pulmonary edema/congestion on chest x-ray and notably has stopped taking her indapamide recently out of concerns for worsening kidney function. Her kidney function appears to be at her baseline with a creatinine of 0.86 and a GFR of 63. Will restart indapamide at this time. Rate control medicines have been adjusted per cardiology and she will continue to be monitored in the PCU and optimized. Physical exam reveals a well-nourished well-developed female in no acute distress who appears younger than her stated age. She appears compensated and euvolemic and is not in any respiratory distress. She is mentating normally. Lung exam reveals clear lungs to auscultation throughout. Heart exam reveals a 3 out of 6 stock ejection murmur throughout the precordium. This correlates with some valvulopathy seen on echocardiogram. Continue with additional rate control therapies per cardiology and restarting indapamide therapy tomorrow with monitoring in PCU closely. Additional therapies to control atrial fibrillation as needed overnight. DO Boni
[2021-03-28] MEDS ORDERED: METOPROLOL TARTRATE 50 MG TAB PO STA (10:40)
[2021-03-28] MEDS ORDERED: POTASSIUM CHLORIDE CRTAB 20 MEQ TABCR PO STA (10:40)
[2021-03-28 10:46] LABS: INR 3.3 (0.9-1.1); Prothrombin Time 30.3 Seconds (9.0-12.0)
[2021-03-28] MEDS ORDERED: dilTIAZem HCL 240 MG CAPCR PO STA (11:02)
[2021-03-28] MEDS ORDERED: MAGNESIUM SULFATE / D5W 1 GM/100 ML BAG IV STA (11:07)
[2021-03-28 11:27] LABS: Influenza A virus by PCR Negative (Neg); Influenza B virus by PCR Negative (Neg); RSV by PCR Negative (Neg); SARS CoV2 RNA(COVID-19) InHosp NEGATIVE (Negative)
[2021-03-28] MEDS ORDERED: MAGNESIUM HYDROXIDE SUSP 30 ML UDC PO PRN (13:14)
[2021-03-28] MEDS ORDERED: dilTIAZem HCL 125 MG in DEXTROSE 5% 100 ML IV SCH (13:14)
[2021-03-28] MEDS ORDERED: POLYETHYLENE (MIRALAX) 17 GM PACK PO PRN (13:14)
[2021-03-28] MEDS ORDERED: ONDANSETRON INJ 2 MG/ML 2 ML VIAL IV PRN (13:14)
[2021-03-28] MEDS ORDERED: ACETAMINOPHEN 325 MG TAB PO PRN (13:14)
[2021-03-28] MEDS ORDERED: ALUMINUM/MAGNESIUM SUSP 30 ML UDC PO PRN (13:14)
[2021-03-28] MEDS ORDERED: LORazepam 0.5 MG TAB PO PRN (13:14)
--- NOTE | 2021-03-28 16:47 | Cardiology Consultation ---
Date of Consultation March 28, 2021 Assessment & Plan (1) Atrial fibrillation with RVR: (2) Aortic stenosis: Echocardiogram performed today and reviewed independently revealed moderate concentric left ventricular hypertrophy, normal LV wall motion, LVEF 55%. Moderate mitral valve regurgitation is present Atrial fibrillation, with rapid ventricular response, associated chest pressure: Perhaps there is an element of superimposed volume overload. We will continue IV diltiazem, and wean as tolerated to keep ventricular rate less than 100 bpm. Continue home dose of diltiazem CD 240 mg daily. Increase metoprolol tartrate from 50 mg twice daily to 75 mg twice daily. As previously noted, rhythm control strategy had previously been unsuccessful, and therefore she has had permanent atrial fibrillation since 2017. May need to add a diuretic. Troponin negative x2 thus far she feels better with improved rate control. Murmur, aortic valve stenosis: Echocardiogram reveals a moderately calcified aortic valve. The Doppler data and the 2D data are discordant, as the Doppler data suggests only mild aortic valve stenosis, but the images suggest at least moderate aortic valve stenosis. We will continue to follow this. Perhaps once her rates are better controlled and she is more comfortable, more detailed gradients as an outpatient. Hepatic Cyst: Incidental finding on echo. Noted on remote prior outpatient US of abdomen. History of Present Illness Attending Physician: Corina Plata, DO History of Present Illness Angela Blair is a 80-year-old female seen in cardiology consultation per the request of Sherine Perales PA-C of the [facility] for the evaluation of recent chest pressure and finding of atrial fibrillation with rapid ventricular response. The patient follows with Dr. Noa Beasley of [facility] allergy, with most recent outpatient visit in January, at which time stable cardiac signs and symptoms were noted. Her heart rate at the time of that office visit was recorded to be 96 -110 bpm. She has a history of remote pulmonary vein isolation ablation procedure in 2008, with multiple trials of cardioversion post ablation, the most recent of which took place in 2017 at which time sotalol was discontinued and she has been treated with diltiazem CD 240 mg daily, and metoprolol tartrate 50 mg twice daily for rate control as well as Coumadin for stroke prophylaxis. She describes chest pressure onset 2 days ago as with rest and worse with minimal exertion. She arrived to the emergency department today, atrial fibrillation with rapid ventricular response, ventricular rate in excess of 150 bpm noted. She was placed on a diltiazem infusion remains on this medication at 5 mg/h, and received her outpatient morning doses of metoprolol and diltiazem. At present, she is sitting comfortably in the bedside chair in room 239-2. She has no subjective complaints and states that she is feeling much better. Allergies Allergy/AdvReac Type Severity Reaction Status Date / Time latex Allergy Intermediate Rash Unverified 03/28/21 15:12 adhesive AdvReac Unknown Verified 03/28/21 10:54 cat dander AdvReac Unknown Verified 03/28/21 10:54 ezetimibe [From Zetia] AdvReac Unknown Verified 03/28/21 10:54 soy AdvReac Unknown Verified 03/28/21 10:54 Home Medications Medication Instructions Recorded Confirmed Type diltiazem HCl 240 mg PO QAM 03/28/21 03/28/21 History indapamide 5 mg PO QAM 03/28/21 03/28/21 History lisinopril 5 mg PO QPM 03/28/21 03/28/21 History lorazepam 0.5 mg PO BID PRN 03/28/21 03/28/21 History metoprolol tartrate 50 mg PO BID 03/28/21 03/28/21 History warfarin 10 mg PO UD 03/28/21 03/28/21 History Patient History Medical History A-fib CKD (chronic kidney disease) stage 3, GFR 30-59 ml/min DU (generalized anxiety disorder) History of bladder cancer s/op TURBT HLD (hyperlipidemia) HTN (hypertension) CHAVEZ (nonalcoholic steatohepatitis) Pre-diabetes Surgical History History of cardioversion multiple attempts, last in 2017 History of esophagogastroduodenoscopy (EGD) History of hysterectomy with oophorectomy History of radiofrequency ablation procedure for cardiac arrhythmia History of toe surgery bunion Family History Brother Myocardial infarction, Onset Age: 52 Father Myocardial infarction, Onset Age: 52 Sister Coronary heart disease Atrial fibrillation Mother , 21 [place] Social History Smoking Status: Never smoker Hx Alcohol Use: No Hx Substance Use: No Preferred Language: Slovenian Communication Ability: Effective Press Breaker Required: No Beliefs That Will Affect Care: None marital status: Current Living Situation: Spouse current occupational status: retired Other Information That Helps Us Care for You: No Feels Safe at Home: No Is there a partner from a previous relationship who is making you feel unsafe now?: No Any Concerns about Your Family Situation: No Assistive Devices: None Review of Systems Review of Systems: All systems reviewed & are unremarkable except as noted in HPI & below Physical Exam Physical Exam: Temp Pulse Resp BP Pulse Ox 36.7 C 96 H 20 133/82 94 03/28/21 15:36 03/28/21 15:36 03/28/21 15:36 03/28/21 15:36 03/28/21 15:36 Constitutional: WD/WN, vitals as above Respiratory: normal respiratory effort, lungs clear to auscultation Cardiovascular: Rate/Rhythm: + irregularly irregular Heart Sounds: + murmur (1/6 systolic murmur) Vessels: no JVD Extremities: no edema Gastrointestinal (Abdomen): normal bowel sounds, soft, nontender, no hepatosplenomegaly Skin: no rashes, warm and dry Neurologic: PERRL, EOMI, accommodation nl, no face palsy, no dysarthria Results & Data ([facility]) Laboratory Results Cardiac Enzymes 03/28/21 03/28/21 Range/Units 08:25 13:49 AST 44 H (15-37) U/L Troponin I < 0.015 < 0.015 (0-0.045) ng/ml Coagulation 03/28/21 Range/Units 08:25 PT 30.3 H (9.0-12.0) Seconds CBC 03/28/21 Range/Units 08:25 WBC 7.51 (4.8-10.8) K/uL RBC 4.79 (4.2-5.4) M/uL Hgb 13.8 (12.0-16.0) g/dL Hct 42.8 (37-47) % Plt Count 182 (130-400) K/uL Neut # (Auto) 6.18 (1.4-6.5) K/uL Lymph # (Auto) 0.56 L (1.2-3.4) K/uL [place] # (Auto) 0.69 H (0.11-0.59) K/uL Eos # (Auto) 0.06 (0-0.5) K/uL Baso # (Auto) 0.01 (0-0.2) K/uL Comprehensive Metabolic Panel 03/28/21 Range/Units 08:25 Sodium 140 (136-145) mmol/L Potassium 3.6 (3.5-5.1) mmol/L Chloride 104 (98-107) mmol/L Carbon Dioxide 28 (21-32) mmol/L BUN 21 H (7-18) mg/dl Creatinine 0.86 (0.6-1.2) mg/dl Glucose 106 H (70-99) mg/dl Calcium 9.8 (8.5-10.1) mg/dl AST 44 H (15-37) U/L ALT 69 (12-78) U/L Alkaline Phosphatase 73 (45-117) U/L Total Protein 7.8 (6.4-8.2) gm/dl Albumin 4.2 (3.4-5.0) gm/dl Intake and Output 03/28/21 03/28/21 03/28/21 06:59 14:59 22:59 Intake Total 783.667 / 783.667 Balance 783.667 / 783.667 Intake: IV 633.667 / 633.667 Magnesium Sulfate / D5w 1 gm In 100 / 100 100 ml @ 100 mls/hr IV NOW STA Rx#:[id number] Sodium Chloride 0.9% 500 ml @ 500 / 500 999 mls/hr IV .Q31M STA Rx#: [id number] dilTIAZem HCL 125 mg In 33.667 / 33.667 Dextrose 5% 100 ml @ 5 MG/HR 5 mls/hr IV .Q24H LIZA Rx#: [id number] Oral 150 / 150 Other: Weight 68.8 kg Weight Measurement Method Standing Scale Patient Weight 03/29/21 06:59 Weight 68.8 kg Diagnostic Findings Chest x-ray performed on arrival, per radiology report reveals enlargement of the cardiac silhouette, with reticular opacities new compared to prior and may reflect pulmonary edema interstitial pneumonitis, or pulmonary fibrosis. 1.3 cm right lung nodule likely calcified granuloma EKG performed 03/28/2021 8019 a.m. and reviewed independently revealed atrial fibrillation at 144 bpm, age-indeterminate septal infarction pattern, which is a chronic finding for her, mild nonspecific repolarization abnormality in the inferior and lateral leads.
[2021-03-28] MEDS: METOPROLOL TARTRATE 25 MG TAB PO SCH (20:46)
[2021-03-28] MEDS: lisinopril 5 MG TAB PO SCH (20:46)
[2021-03-28] MEDS ORDERED: METOPROLOL TARTRATE 50 MG TAB PO SCH (21:00)
[2021-03-29] MEDS: dilTIAZem HCL 125 MG in DEXTROSE 5% 100 ML IV SCH ×2 (04:56→19:12)
--- NOTE | 2021-03-29 06:06 | Electrocardiogram Report ---
Test Reason : Blood Pressure : / mmHG Vent. Rate : 144 BPM Atrial Rate : 131 BPM P-R Int : 000 ms QRS Dur : 076 ms QT Int : 314 ms P-R-T Axes : 000 043 -63 degrees QTc Int : 486 ms Atrial fibrillation with rapid ventricular response Septal infarct (cited on or before 21-APR-2004) Nonspecific ST and T wave abnormality Abnormal ECG When compared with ECG of 20-APR-2015 19:56, Atrial fibrillation has replaced Sinus rhythm Vent. rate has increased BY 79 BPM Nonspecific T wave abnormality, worse in Inferior leads Nonspecific T wave abnormality, worse in Lateral leads Confirmed by Jeyson Penaloza ([id number]) on 03/29/2021 6:05:51 AM Referred By: JOAQUINA HAYES Confirmed By:Jeyson Penaloza
[2021-03-29 06:35] LABS: Hematocrit (blood only) 39.5 % (37-47); Hemoglobin 12.7 g/dL (12.0-16.0); Mean Corpuscular Hemoglobin 29.2 pg (25-34); Mean Corpuscular Hgb Conc 32.2 g/dL (32-36); Mean Corpuscular Volume 90.8 fL (80-100); Mean Platelet Volume 10.5 fL (7.4-10.4); Platelet Count 170 K/uL (130-400); RDW Coefficient of Variation 15.1 % (11.5-14.5); RDW Standard Deviation 51.5 fL (36.4-46.3); Red Blood Count 4.35 M/uL (4.2-5.4); White Blood Count 5.69 K/uL (4.8-10.8)
[2021-03-29 06:53] LABS: INR 2.5 (0.9-1.1); Prothrombin Time 23.6 Seconds (9.0-12.0)
[2021-03-29 07:24] LABS: BUN Creatinine Ratio 24.9 (10-20); Blood Urea Nitrogen 20 mg/dl (7-18); Calcium 8.9 mg/dl (8.5-10.1); Carbon Dioxide 27 mmol/L (21-32); Chloride 106 mmol/L (98-107); Creatinine Clr Calc Pharmacy 52.4 ml/min; Est GFR (African American) 80.8; Est GFR (Non-African American) 69.7; Glucose 99 mg/dl (70-99); Magnesium 1.9 mg/dl (1.8-2.4); Sodium 138 mmol/L (136-145)
[2021-03-29 07:30] LABS: Troponin I < 0.015 ng/ml (0-0.045)
[2021-03-29] MEDS: dilTIAZem HCL 240 MG CAPCR PO SCH (08:27)
[2021-03-29] MEDS: METOPROLOL TARTRATE 25 MG TAB PO SCH (08:28)
[2021-03-29] MEDS ORDERED: INDAPAMIDE 1.25 MG TAB PO SCH (09:00)
--- NOTE | 2021-03-29 10:20 | Cardiology Progress Note ---
Date of Service March 29, 2021 Assessment & Plan (1) Atrial fibrillation with RVR: (2) Aortic stenosis: Echocardiogram performed today and reviewed independently revealed moderate concentric left ventricular hypertrophy, normal LV wall motion, LVEF 55%. Moderate mitral valve regurgitation is present Atrial fibrillation, with rapid ventricular response, associated chest pressure: Perhaps there is an element of superimposed volume overload. Patient on indapamide, followed by Dr Blackmon of nephrology as outpatient. No sure if this is due to her h/o latex allergy and will need to review outpatient note, prior to considering transition to a loop diuretic such as furosemide. INR 2.5 today. Continue coumadin. Wean IV diltiazem. Metoprolol increased. Continue PO dilitazem. Murmur, aortic valve stenosis: Echocardiogram reveals a moderately calcified aortic valve. The Doppler data and the 2D data are discordant, as the Doppler data suggests only mild aortic valve stenosis, but the images suggest at least moderate aortic valve stenosis. We will continue to follow this. Perhaps once her rates are better controlled and she is more comfortable, more detailed gradients as an outpatient. Hepatic Cyst: Incidental finding on echo. Noted on remote prior outpatient US of abdomen. Admission and Anticipated Discharge Date Admission Date: March 28, 2021 Subjective Patient seen in cardiology follow up. No chest pressure. AF with ventricular rate of 100-130 noted on telemetry. Physical Exam Physical Exam: Temp Pulse Resp BP Pulse Ox 37.3 C 106 H 16 131/61 90 03/29/21 08:29 03/29/21 08:29 03/29/21 08:29 03/29/21 08:29 03/29/21 08:29 Constitutional: WD/WN, vitals as above Respiratory: normal respiratory effort, lungs clear to auscultation Cardiovascular: Rate/Rhythm: + irregularly irregular Heart Sounds: + murmur (1/6 SM) Gastrointestinal (Abdomen): normal bowel sounds, soft, nontender, no hepatosplenomegaly Neurologic: PERRL, EOMI, accommodation nl, no face palsy, no dysarthria Results & Data ([facility]) Vital Signs (Past 12 Hours) Vital Signs Temp Pulse Pulse Resp BP Pulse Ox 03/29/21 08:29 37.3 C 106 H 16 131/61 90 03/29/21 07:00 106 H 03/29/21 03:38 37.1 C 106 H 18 150/69 H 95 05/11/21 00:00 37.0 C 89 16 131/89 93 Laboratory Results Cardiac Enzymes 03/28/21 03/29/21 Range/Units 13:49 06:18 Troponin I < 0.015 < 0.015 (0-0.045) ng/ml Coagulation 03/28/21 03/29/21 Range/Units 08:25 06:18 PT 30.3 H 23.6 H (9.0-12.0) Seconds CBC 03/29/21 Range/Units 06:18 WBC 5.69 (4.8-10.8) K/uL RBC 4.35 (4.2-5.4) M/uL Hgb 12.7 (12.0-16.0) g/dL Hct 39.5 (37-47) % Plt Count 170 (130-400) K/uL Comprehensive Metabolic Panel 03/29/21 Range/Units 06:18 Sodium 138 (136-145) mmol/L Potassium 4.0 (3.5-5.1) mmol/L Chloride 106 (98-107) mmol/L Carbon Dioxide 27 (21-32) mmol/L BUN 20 H (7-18) mg/dl Creatinine 0.79 (0.6-1.2) mg/dl Glucose 99 (70-99) mg/dl Calcium 8.9 (8.5-10.1) mg/dl Intake and Output 03/28/21 03/29/21 03/29/21 22:59 06:59 14:59 Intake Total 271.041 / 1054.708 11.583 / 11.583 Output Total Balance 271.041 / 1054.708 10.583 / 10.583 Intake: IV 71.041 / 704.708 11.583 / 11.583 dilTIAZem HCL 125 mg In 71.041 / 104.708 11.583 / 11.583 Dextrose 5% 100 ml @ 2.5 MG/HR 2.5 mls/hr IV .Q24H LIZA Rx#: [id number] Oral 200 / 350 Output: # Bowel Movements Other: # Unmeasured Voids 2 Weight 67.5 kg
[2021-03-29] MEDS ORDERED: FUROSEMIDE 20 MG in SYRINGE 0 ML IV ONE (11:32)
[2021-03-29] MEDS ORDERED: FUROSEMIDE 40 MG/4 ML VIAL IV ONE (11:45)
--- NOTE | 2021-03-29 13:22 | Hospitalist Progress Note ---
Date of Service March 29, 2021 Assessment & Plan (1) Atrial fibrillation with RVR: She remains in atrial fibrillation overnight with a heart rate in the low 100s. She remains on 5 mg an hour of diltiazem intravenously and p.o. diltiazem and p.o. metoprolol per cardiology. In the PCU we will continue to wean the ideal diltiazem and the metoprolol has been increased this morning per cardiology. INR therapeutic-restart warfarin 10mg PO daily per home regimen. Patient with history of pulmonary vein isolation ablation in 2008, multiple attempts at DCC, last 2016. Patient has failed cardioversion and sotalol therapy. Follows Dr. Beasley [facility] [place]. (2) Left chest pressure: resolved (3) HTN (hypertension): at goal on home lisinopril and indapamide. Cardiology to switch indapamide to Lasix at this time. BMP in am. (4) Pre-diabetes: Last A1c 6.0 on 12/30/2020 Follow fasting blood sugar, patient does not require insulin at this time (5) Abnormal CXR: New CXR findings consistent with possible edema vs pulmonary fibrosis vs other. she is euvolemic on exam, however, receiving Lasix may be beneficial and this will need to be repeated as outpatient. Also there is a pulmonary nodule that should be followed as outpatient on repeat imaging nonurgently. (6) CKD (chronic kidney disease) stage 3, GFR 30-59 ml/min: Currently at her baseline renal function. Cont to avoid nephrotoxic substances and renally dose medications as appropriate. (7) DVT prophylaxis: Anticoagulated on Coumadin DNR/DNI Disposition-to home when medically stable Corina Plata DO [facility] Hospitalist Admission and Anticipated Discharge Date Admission Date: March 28, 2021 Subjective 80-year-old female admitted with atrial fibrillation with RVR and chest pressure. No issues with chest pressure overnight. She appears very comfortable in her room this morning. Telemetry review reveals heart rate in the 100s overnight consistently with a small burst in the 130s for approximately 30 to 60 minutes. No shortness of breath, lightheadedness, difficulty walking or other issues at this time Review of Systems Review of Systems: All systems reviewed & are unremarkable except as noted in Subjective Physical Exam Physical Exam: CONSTITUTIONAL: WNWD, vitals as above, generally well- appearing EYES: normal conjunctivae, no scleral icterus ENT: external ear and nose normal, MMM RESPIRATORY: clear to auscultation bilaterally, no crackles, rales or wheezes, normal respiratory effort CARDIOVASCULAR: regular rate and rhythm, 3/6 SUAD, no gallops or rubs, no JVD, no peripheral edema GASTROINTESTINAL: soft, nontender, nondistended. MUSCULOSKELETAL: strength 5/5 throughout, head is normocephalic and atraumatic SKIN: warm and dry NEUROLOGIC: CN 2-12 grossly intact, no sensory deficit, normal cognition, normal speech, no tremor PSYCHIATRIC: alert cooperative and oriented to person, place and time. Results & Data Results & Data ([facility]) Vital Signs (Past 12 Hours) Vital Signs Temp Pulse Pulse Resp BP Pulse Ox 03/29/21 11:26 37.3 C 94 H 18 131/78 94 03/29/21 08:29 37.3 C 106 H 16 131/61 90 03/29/21 07:00 106 H 03/29/21 03:38 37.1 C 106 H 18 150/69 H 95 Laboratory Results Short CBC 03/29/21 Range/Units 06:18 WBC 5.69 (4.8-10.8) K/uL Hgb 12.7 (12.0-16.0) g/dL Hct 39.5 (37-47) % Plt Count 170 (130-400) K/uL BMP 03/29/21 06:18 Sodium 138 Potassium 4.0 Chloride 106 Carbon Dioxide 27 BUN 20 H Creatinine 0.79 Glucose 99 Calcium 8.9 Cardiac Enzymes 03/28/21 03/29/21 Range/Units 13:49 06:18 Troponin I < 0.015 < 0.015 (0-0.045) ng/ml Medications Administered Current Inpatient Medications Acetaminophen (Acetaminophen 325 Mg Tab) 650 mg PO Q4H PRN PRN Reason: Pain or Fever Stop: 04/27/21 13:13 Al Hydrox/Mg Hydrox/Simethicone (Aluminum/Magnesium Susp 30 Ml Udc) 15 ml PO Q4H PRN PRN Reason: Dyspepsia Stop: 04/27/21 13:13 Diltiazem HCl (Diltiazem Hcl 240 Mg Capcr) 240 mg PO QAM [facility] Stop: 04/28/21 08:59 Last Admin: 03/29/21 08:27 Dose: 240 mg Documented by: Diltiazem HCl 125 mg/ Dextrose 125 mls @ 5 mls/hr IV .Q24H LIZA; Protocol Stop: 04/27/21 08:29 Last Titration: 03/29/21 07:15 Dose: 5 mg/hr, 5 mls/hr Documented by: Lisinopril (Lisinopril 5 Mg Tab) 5 mg PO QPM [facility] Stop: 04/27/21 20:59 Last Admin: 03/28/21 20:46 Dose: 5 mg Documented by: Lorazepam (Lorazepam 0.5 Mg Tab) 0.5 mg PO BID PRN PRN Reason: Anxiety Stop: 04/27/21 13:13 Magnesium Hydroxide (Magnesium Hydroxide Susp 30 Ml Udc) 30 ml PO Q12H PRN PRN Reason: Constipation Stop: 04/27/21 13:13 Metoprolol Tartrate (Metoprolol Tartrate 25 Mg Tab) 75 mg PO BID [facility] Stop: 04/27/21 20:59 Last Admin: 03/29/21 08:28 Dose: 75 mg Documented by: Ondansetron HCl (Ondansetron Inj 2 Mg/Ml 2 Ml Vial) 4 mg IV Q6H PRN PRN Reason: Nausea Stop: 04/27/21 13:13 Polyethylene Glycol (Polyethylene (Miralax) 17 Gm Pack) 17 gm PO DAILY PRN PRN Reason: Constipation Stop: 04/27/21 13:13
[2021-03-29] MEDS ORDERED: WARFARIN SOD 10 MG TAB PO SCH (16:00)
[2021-03-29] MEDS: lisinopril 5 MG TAB PO SCH (20:06)
[2021-03-29] MEDS: METOPROLOL TARTRATE 100 MG TAB PO SCH (20:06)
--- NOTE | 2021-03-30 06:31 | Electrocardiogram Report ---
Test Reason : Blood Pressure : / mmHG Vent. Rate : 106 BPM Atrial Rate : 159 BPM P-R Int : 000 ms QRS Dur : 078 ms QT Int : 368 ms P-R-T Axes : 000 039 045 degrees QTc Int : 488 ms Atrial fibrillation with rapid ventricular response Low voltage QRS Septal infarct (cited on or before 21-APR-2004) Abnormal ECG When compared with ECG of 28-MAR-2021 08:19, Nonspecific T wave abnormality, improved in Inferior leads Confirmed by Jeyson Penaloza ([id number]) on 03/30/2021 6:30:33 AM Referred By: REFERRED SELF Confirmed By:Jeyson Penaloza
[2021-03-30 07:37] LABS: INR 1.9 (0.9-1.1)
[2021-03-30 08:00] LABS: BUN Creatinine Ratio 28.5 (10-20); Calcium 9.6 mg/dl (8.5-10.1); Creatinine Clr Calc Pharmacy 50.5 ml/min; Est GFR (African American) 77.2; Est GFR (Non-African American) 66.6
[2021-03-30] MEDS: METOPROLOL TARTRATE 100 MG TAB PO SCH (08:05)
[2021-03-30] MEDS: dilTIAZem HCL 240 MG CAPCR PO SCH (08:05)
[2021-03-30 08:06] LABS: Potassium 3.5 mmol/L (3.5-5.1)
--- NOTE | 2021-03-30 14:10 | Cardiology Progress Note ---
Date of Service March 30, 2021 Assessment & Plan (1) Atrial fibrillation with RVR: - IV diltiazem off since yesterday. -Ventricular rates improved to 90s at rest. -Permanent AF -Stable for discharge. -Metoprolol tartrate increased to 100 mg two times per day. -Continue REGISTERED NURSE NURSERY diltiazem 240 mg daily. -DC indapamide. -Start furosemide 20 mg daily, next dose 03/31 at home in am. -Start potassium chloride 10 meq daily , first dose now. -Continue coumadin, INR 1.9 today. Follow up with [facility]. (2) Aortic stenosis: -mild to moderate . -Keep appointment for outpatient echo for reassessment DISPOSITION: -pt to establish with general cardiology at [facility], follow up within 1 month. Admission and Anticipated Discharge Date Admission Date: March 28, 2021 Subjective Ms Blair is seen in cardiology follow up. She feels well. Physical Exam Physical Exam: Temp Pulse Resp BP Pulse Ox 36.9 C 108 H 20 138/82 93 03/30/21 11:48 03/30/21 11:48 03/30/21 11:48 03/30/21 11:48 03/30/21 11:48 Constitutional: WD/WN, vitals as above Respiratory: normal respiratory effort, lungs clear to auscultation Cardiovascular: Rate/Rhythm: + irregularly irregular Heart Sounds: + murmur (1/6 SM) Vessels: no JVD Extremities: no edema Gastrointestinal (Abdomen): normal bowel sounds, soft, nontender, no hepatosplenomegaly Neurologic: PERRL, EOMI, accommodation nl, no face palsy, no dysarthria Results & Data ([facility]) Vital Signs (Past 12 Hours) Vital Signs Temp Pulse Resp BP Pulse Ox 03/30/21 11:48 36.9 C 108 H 20 138/82 93 03/30/21 07:55 135 H 03/30/21 07:21 37.3 C 112 H 20 148/87 H 95 03/30/21 04:05 36.7 C 92 H 18 138/78 92 Laboratory Results Coagulation 03/30/21 Range/Units 07:09 PT 18.0 H (9.0-12.0) Seconds Comprehensive Metabolic Panel 03/30/21 Range/Units 07:09 Sodium 136 (136-145) mmol/L Potassium 3.5 (3.5-5.1) mmol/L Chloride 100 (98-107) mmol/L Carbon Dioxide 31 (21-32) mmol/L BUN 23 H (7-18) mg/dl Creatinine 0.82 (0.6-1.2) mg/dl Glucose 91 (70-99) mg/dl Calcium 9.6 (8.5-10.1) mg/dl Intake and Output 03/29/21 03/30/21 03/30/21 22:59 06:59 14:59 Intake Total 940 / 1463.833 240 / 1463.833 Balance 940 / 1462.833 240 / 1462.833 Intake: Oral 940 / 1420 240 / 1420 Other: # Unmeasured Voids 5 Weight 66.7 kg Weight Measurement Method Standing Scale
[2021-03-30] MEDS ORDERED: POTASSIUM CHLORIDE 10 MEQ TABCR PO SCH (14:15)
--- NOTE | 2021-03-30 14:53 | Hospitalist Progress Note ---
Date of Service March 30, 2021 Assessment & Plan (1) Atrial fibrillation with RVR: Heart rate is better controlled now, appreciate input from cardiology, patient will be discharged with metoprolol tartrate 100 mg twice daily Diltiazem to 40 mg daily Outpatient follow-up with [facility] cardiology Dr. Duenas in 1 month Continue anticoagulation with Coumadin, goal INR 23 (2) Left chest pressure: no Symptom now Possibly secondary to A. fib RVR, heart rate much better now, patient denies of any chest heaviness or discomfort (3) HTN (hypertension): Patient started on Lasix 20 mg daily, will be discharged with diltiazem and metoprolol as low as outlined before, continue home medication of lisinopril 5 mg daily (4) Pre-diabetes: Last A1c 6.0 on 12/30/2020 Follow fasting blood sugar, patient does not require insulin at this time (5) Abnormal CXR: Diastolic heart failure: Patient started on Lasix 20 mg daily with potassium supplement, Volume status stable, cardiology follow-up in 1 month (6) CKD (chronic kidney disease) stage 3, GFR 30-59 ml/min: Currently at her baseline renal function. Cont to avoid nephrotoxic substances and renally dose medications as appropriate. (7) DVT prophylaxis: Anticoagulated on Coumadin DNR/DNI Patient is stable to be discharged home today Admission and Anticipated Discharge Date Admission Date: March 28, 2021 Subjective Patient sitting on the chair, states she is feeling much better, no chest discomfort no palpitation, no dyspnea on exertion Heart rate remains stable in 90s to low 100s Appreciate input from cardiology, stable to be discharged home today Review of Systems Review of Systems: All systems reviewed & are unremarkable except as noted in Subjective Physical Exam Physical Exam: Physical exam: General: No acute distress, alert awake oriented x3 HEENT: PERRLA, EOMI, Heart: Regular S1-S2, no carotid bruit, no JVD, no lower extremity edema Lungs: Clear to auscultate, no wheeze or rales Abdomen: Soft nontender, no organomegaly Extremity: No cyanosis, no deformity, normal strength 5 out of 5 with upper and lower Neuro: No focal neurological deficit normal speech, normal visual field, Motor strength : normal both upper and lower extremity, sensation intact Psych: Alert awake oriented x3, normal affect Results & Data Results & Data ([facility]) Vital Signs (Past 12 Hours) Vital Signs Temp Pulse Resp BP Pulse Ox 03/30/21 11:48 36.9 C 108 H 20 138/82 93 03/30/21 07:55 135 H 03/30/21 07:21 37.3 C 112 H 20 148/87 H 95 03/30/21 04:05 36.7 C 92 H 18 138/78 92
--- NOTE | 2021-03-31 05:59 | Electrocardiogram Report ---
Test Reason : Blood Pressure : / mmHG Vent. Rate : 111 BPM Atrial Rate : 163 BPM P-R Int : 000 ms QRS Dur : 078 ms QT Int : 342 ms P-R-T Axes : 000 041 -09 degrees QTc Int : 465 ms Atrial fibrillation with rapid ventricular response Low voltage QRS Septal infarct (cited on or before 21-APR-2004) Abnormal ECG When compared with ECG of 29-MAR-2021 06:07, No significant change was found Confirmed by Jeyson Penaloza ([id number]) on 03/31/2021 5:59:04 AM Referred By: REFERRED SELF Confirmed By:Jeyson Penaloza
--- NOTE | 2021-03-31 08:00 | Discharge Summary ---
Date of Service March 31, 2021 Admission HPI Per Admitting Provider This is a 80-year-old female who has significant past medical history of permanent A. fib anticoagulated on warfarin, history of pulmonary vein isolation ablation and multiple failed DCCV followed by Dr. Beasley [facility] [place], HTN, HLD, prediabetes, CKD stage III, DU, Cabrales who presents ED secondary to chest pressure x2 days. Angel is at bedside. She states since Sunday she has been noticing intermittent left-sided, nonradiating chest pressure. She would describe it as a heaviness, rated 5/10, no exacerbating or relieving factors, no associated shortness of breath, nausea or lightheadedness. She states symptoms would come and go over the past 2 days however symptoms were constant ever since last evening. She complains of chronic dyspnea on exertion, but states this is unchanged. She denies any recent illness, fever, chills, sweats, lightheadedness, syncope, fall, shortness of breath at rest, hemoptysis, nausea, vomiting, abdominal pain, change in bowel or urinary habits. She does elicit a chronic cough and sinus drainage due to chronic sinusitis. She states this is unchanged. She describes drainage as clear to white. She admits to being compliant with her medications specifically metoprolol, diltiazem and warfarin. She admits to not taking her indapamide for the past week due to concern for her kidneys. Her appetite has been stable and she denies any weight loss or gain. She does complain of mild increased lower extremity swelling and attributes this to not taking her indapamide. She also has been not taking her potassium. In ED on evaluation patient was found to be in atrial relation with RVR with rates in the 150s. She was given a diltiazem bolus of 10 mg and started on diltiazem drip. Currently she states chest pressure has completely resolved and she is otherwise comfortable. Her CBC and CMP were generally unremarkable. Her potassium was 3.6 and mag was 1.9. Creatinine was stable at 0.86. Her troponin was WNL. Chest x-ray with cardiomegaly with reticular o pacities which were new from prior and may reflect pulmonary edema, interstitial pneumonitis or fibrosis. Principal Diagnosis Repeat heart rate: A. fib RVR Chronic kidney disease. Hypertension Generalized anxiety disorder Discharge Exam Constitutional WD/WN, vitals as above Respiratory normal respiratory effort, lungs clear to auscultation Cardiovascular Rate/Rhythm: + irregularly irregular Heart Sounds: + murmur (1/6 SM) Vessels: no JVD Extremities: no edema Gastrointestinal (Abdomen) normal bowel sounds, soft, nontender, no hepatosplenomegaly Skin no rashes, warm and dry Neurologic PERRL, EOMI, accommodation nl, no face palsy, no dysarthria Discharge Data Allergies Allergy/AdvReac Type Severity Reaction Status Date / Time latex Allergy Intermediate Rash Unverified 03/28/21 15:12 adhesive AdvReac Unknown Verified 03/28/21 10:54 cat dander AdvReac Unknown Verified 03/28/21 10:54 ezetimibe [From Zetia] AdvReac Unknown Verified 03/28/21 10:54 soy AdvReac Unknown Verified 03/28/21 10:54 Consultations 03/28/21 09:44 ED Decision to Admit Stat 03/28/21 09:58 Consult Cardiology Routine Hospital Course (1) Atrial fibrillation with RVR: Heart rate is better controlled now, appreciate input from cardiology, patient will be discharged with metoprolol tartrate 100 mg twice daily Diltiazem to 40 mg daily Outpatient follow-up with [facility] cardiology Dr. Duenas in 1 month Continue anticoagulation with Coumadin, goal INR 23 (2) Left chest pressure: no Symptom now Possibly secondary to A. fib RVR, heart rate much better now, patient denies of any chest heaviness or discomfort (3) HTN (hypertension): Patient started on Lasix 20 mg daily, will be discharged with diltiazem and metoprolol as low as outlined before, continue home medication of lisinopril 5 mg daily (4) Pre-diabetes: Last A1c 6.0 on 12/30/2020 Follow fasting blood sugar, patient does not require insulin at this time (5) Abnormal CXR: Diastolic heart failure: Patient started on Lasix 20 mg daily with potassium supplement, Volume status stable, cardiology follow-up in 1 month (6) CKD (chronic kidney disease) stage 3, GFR 30-59 ml/min: Currently at her baseline renal function. Cont to avoid nephrotoxic substances and renally dose medications as appropriate. (7) DVT prophylaxis: Anticoagulated on Coumadin DNR/DNI Patient is stable to be discharged home today Total Time Total Time Spent Total Time Spent (In Minutes): 35 mins Total Time Includes: Examination of the Patient, Discharge Planning, Medication Reconciliation and Communication With Other Providers Discharge Plan Discharge Items Patient Disposition: Home - Self-Care Reason For Visit: AFIB RVR Discharge Diagnosis: Repeat heart rate: A. fib RVR Chronic kidney disease. Hypertension Generalized anxiety disorder Activity: Resume your previous activity Non-emergency contact: Primary Care Provider and Ditch Cleaner Call non-emergency contact if: you have any medication questions Follow-up/Referrals: Rajinder Duenas DO [Ditch Cleaner] - (Cardiology follow-up in 1 month at [facility].) Melania Elliott MD [Primary Care Provider] - 04/05/21 2:00 pm (Date & Time 04/05/2021 2:00 PM Provider Melania Elliott MD Department General Internal Medicine [facility] ) Diet: Heart Healthy Addtl Attending Provider Instructions: Please take all medications as instructed on discharge list below. It is recommended that you follow-up with your primary care physician within 1-2 weeks of hospital discharge to ensure you are still doing well. Please call if you have any questions or problems. You can reach a [facility] hospitalist on duty at [facility] 24 hours a day by calling [phone] Pending Studies at Discharge: No Stand-Alone Forms: My [facility], Smoking Cessation Medications and DC Order Prescriptions: New furosemide 20 mg Tablet 20 mg PO QAM 30 Days Qty: 30 RF: 0 potassium chloride [Klor-Con M10] 10 mEq Tablet,Er Particles/Crystals 10 meq PO DAILY 30 Days Qty: 30 RF: 0 Continued diltiazem HCl 240 mg capsule,extended release 24hr 240 mg PO QAM RF: 0 lorazepam 0.5 mg tablet 0.5 mg PO BID PRN (Reason: Anxiety) RF: 0 warfarin 5 mg tablet 10 mg PO UD RF: 0 lisinopril 5 mg tablet 5 mg PO QPM RF: 0 Changed metoprolol tartrate 100 mg tablet 100 mg PO BID 30 Days Qty: 60 RF: 0 Discontinued indapamide 2.5 mg tablet 5 mg PO QAM RF: 0 Discharge Orders: Discharge Order (Routine); Ordered 03/30/21 Ordered By: Polina Shaw Admission Data Admit Date/Time: 03/28/21 09:58 Attending Provider: Polina Shaw Admit Provider: Cornia Plata Primary Care Provider: Melania Elliott Other Providers: Corina Plata ; Rajinder Duenas Other Interventions: Discharge Summary Assessment (RN) Last Done: 03/30/21 15:20
[2021-03-31] MEDS ORDERED: FUROSEMIDE 20 MG TAB PO SCH (09:00)
--- NOTE | 2021-04-08 07:08 | Coding Query ---
CODING QUERY To promote full compliance with coding requirements relating to patient care, provider participation is requested in all cases of open cut examiner uncertainty. Please assist us with the question(s) below: Coding Question(s): "Diastolic Heart Failure" is documented on progress note and Discharge. Please specify below: Diastolic Heart Failure ( ) Acute xChronic ( ) Acute on Chronic ( ) Unknown ( ) Other Please Explain: Thank you Pierre Goss Principal Diagnosis: "that condition established after study, to be chiefly responsible for occasioning the admission of the patient to the hospital for care." Co-Existing Principal Diagnosis: "when two or more diagnoses equally meet the criteria for principal diagnosis as determined by the circumstances of admission, diagnostic work up, and/or therapy provided, and the Alphabetic Index, Tabular List, or another coding guideline does not provide sequencing direction, any one of the diagnoses may be sequenced first." "When the physician has documented what appears to be a current diagnosis in the body of the record, but has not included the diagnosis in the final diagnostic statement, the physician should be asked whether the diagnosis should be added." (Source Coding Clinic 2 QTR90. p3-4) JARROD
== END 2021-03-30 15:37 | disposition home or self-care (01) | DRG 309 ==
LOC: ED 08:05 → 2S 09:58 → SUATTDRO 09:58 → 2S 12:48

== ENCOUNTER 2021-10-01 13:57 | Inpatient (IN) ==
[2021-10-01] MEDS ORDERED: METOPROLOL TARTRATE 1 MG/ML VIAL IV STA (14:48)
[2021-10-01] MEDS ORDERED: MAGNESIUM SULFATE / D5W 1 GM/100 ML BAG IV SCH (14:50)
--- NOTE | 2021-10-01 15:20 | XRay Report ---
XR chest 1V portable CLINICAL HISTORY: weakness. Evaluate cardiopulmonary status COMPARISON STUDY: 09/26/2021 TECHNIQUE: 1 view of the chest FINDINGS: Single frontal view of the chest demonstrates the cardiomediastinal silhouette to be within normal li mits. The lungs are clear of alveolar opacities. There is no evidence for pleural effusion. There is no evidence for vascular congestion. There is no acute osseous pathology. IMPRESSION: No acute cardiopulmonary disease. ACT 112: Negative or not required by law. Electronically signed by: Koko Ackerman M.D. 10/01/2021 3:18 PM
--- NOTE | 2021-10-01 15:24 | Emergency Department Note ---
Impression & Plan Hallucinations, Atrial fibrillation with RVR, Depression, Acute anxiety ED Provider Note Provider: Josse Szymanski MD DATE OF SERVICE: 10/01/2021 CHIEF COMPLAINT: Hallucinations, anxiety HISTORY OF PRESENT ILLNESS: Patient is a 81-year-old female past medical history including CKD, atrial fibrillation on Coumadin, hypertension, prediabetes, and Cabrales presenting here with her today from home. states over the past several months they have noticed that she has been a little bit more confused to time. Was seen here approximately 5 days ago on Sunday for evaluation of illness and is currently on antibiotics and taking antibiotics for the UTI. Was treated on Sunday with some Lopressor for A. fib RVR and this reportedly improved. states the last day or 2 things have started to get a bit worse and in particular today. He states now the patient is having chirs hallucinations. She reports that of Mr. Foley and Mr. Gomze have been coming and talking to her. She is seeing them at times. She states she believes they may be here at the hospital. Evidently she states that they told her to go outside to an exercise program in the cold weather. Patient's states he went away for very brief period today for some errands and came back and the patient was in the yard by herself. He is concerned about her safety given these changes in her wandering. No traumas reported. She denies significant headache, chest pain, or abdominal pain. She did have some food today. Again she reportedly has been compliant with her home antibiotic. Patient states she is very anxious and is scared of these visual hallucinations and thinks she may . REVIEW OF SYSTEMS: A total of 10 review of systems was obtained and negative except as stated above in the HPI. PAST MEDICAL HISTORY: As noted above MEDICATIONS: Reviewed home medications SOCIAL HISTORY: Lives at home with PHYSICAL EXAM: GENERAL: alert and oriented to person, year, and in the room seated on the stretcher appears quite anxious and trembling at points. Head: normocephalic and atraumatic EYES: No injection, discharge or icterus. NECK: Trachea midline. Supple. ENT: Mucous membranes pink and moist. LUNGS: Airway patent. No retractions. Breath sounds clear with good air entry bilaterally. HEART: Irregular regular tachycardic rate and rhythm. No chest wall tenderness ABDOMEN: Soft and non-tender, without guarding or rebound. SKIN: Acyanotic, warm, dry EXTREMITIES: Without swelling, tenderness or deformity NEUROLOGICAL: No focal deficits. No aphasia. No facial droop or slurred speech. Normal strength and tone in the extremities. Sensation to gross touch normal. Psychiatric: Reports visual hallucinations at times but does not seem better at this point. These loose Nations he reports this talk to her. She is not responding to external stimuli at this time. Appears quite anxious. Patient does report some depression but denies any SI. EK beats radial fibrillation with rapid ventricular response. No acute ST segment elevation but some lateral ST depression and T wave inversions are noted. QTc 422. CONTINUOUS CARDIAC MONITORING: was ordered and showed a heart rate of 70s to 120s bpm in atrial fibrillation with rapid ventricular response Patient's laboratory studies and imaging reviewed. Differential includes Infection, dehydration, metabolic abnormality, hypo/hyperglycemia, electrolyte disturbance, anemia, hypoxia, cardiac sources, intracerebral event, toxicologic, neurologic, psychiatric as well as other pathologies. IMPRESSION/MEDICAL DECISION MAKING: Patient quite anxious and appears to be in A. fib RVR upon arrival given a dose of Lopressor. Patient is reportedly had some mild memory issues mild hallucinations but significant worsened recently according to . Currently under treatment for UTI with Keflex. Urine culture and records from Sunday were reviewed. Denies significant headache and does not have focal neurological deficit given his history of Coumadin usage and hallucinations a CT of the head was obtained. Basic labs were sent. very concerned about her safety at home given the wandering The does not feel comfortable taking home in any event while given his concerns. Heart rate transiently improved with IV metoprolol but given some increase again will start a diltiazem drip at this point. CT the head and chest x-ray per radiology without significant abnormality. No significant anemia or leukocytosis. INR therapeutic at 3. Hyponatremia noted but this is similar to recent values and not sure this explains symptoms. Slight AST ALT elevation noted but no significant abdominal symptoms and unsure if this is significant. Troponin is undetectable and Covid is negative and TSH is within normal limits. and patient both report that she has been depressed and is requesting further evaluation here at the hospital for this while here. Hospitalist was contacted for further care here given her loose Nations and rapid A. fib. DIAGNOSIS: Visual hallucinations, A. fib RVR, depression, anxious DISPOSITION: Hospitalist will evaluate Patient was agreeable with this plan. Critical Care I have personally spent 32 minutes of critical care time in the direct management of this patient. This includes bedside care, interpretation of paxton gnostic studies, and testing, discussion with consultants, patient, and family members, and other required patient management activities. These 32 minutes is in excess of all separately billable procedures. Past Med/Surg History Medical History A-fib CKD (chronic kidney disease) stage 3, GFR 30-59 ml/min DU (generalized anxiety disorder) History of bladder cancer s/op TURBT HLD (hyperlipidemia) HTN (hypertension) CABRALES (nonalcoholic steatohepatitis) Pre-diabetes Surgical History History of cardioversion multiple attempts, last in 2017 History of esophagogastroduodenoscopy (EGD) History of hysterectomy with oophorectomy History of radiofrequency ablation procedure for cardiac arrhythmia History of toe surgery bunion Family History Brother Myocardial infarction, Onset Age: 52 Father Myocardial infarction, Onset Age: 52 Sister Coronary heart disease Atrial fibrillation Mother , 21 [place] Social History Smoking Status: Unknown if ever smoked Hx Alcohol Use: No Hx Substance Use: No Preferred Language: Brazilian Communication Ability: Effective Economic Development Specialist Required: No Beliefs That Will Affect Care: None marital status: Current Living Situation: Spouse current occupational status: retired Feels Safe at Home: Yes Assistive Devices: None Allergies Allergies Allergy/AdvReac Type Severity Reaction Status Date / Time latex Allergy Intermediate Rash Unverified 10/01/21 15:30 adhesive AdvReac Unknown Verified 10/01/21 15:30 cat dander AdvReac Unknown Verified 10/01/21 15:30 ezetimibe [From Zetia] AdvReac Unknown Verified 10/01/21 15:30 soy AdvReac Unknown Verified 10/01/21 15:30 Home Meds Home Medications Medication Instructions Recorded Confirmed diltiazem HCl 240 mg 240 mg PO QAM 03/28/21 10/01/21 capsule,extended release 24 hr lisinopril 5 mg tablet 5 mg PO QPM 03/28/21 10/01/21 lorazepam 0.5 mg tablet 0.5 mg PO BID PRN 03/28/21 10/01/21 warfarin 5 mg tablet 10 mg PO [id number] 03/28/21 10/01/21 potassium chloride 10 mEq 10 meq PO DAILY 06/05/21 10/01/21 tablet,extended release(part/cryst) ipratropium bromide 21 mcg (0.03 2 spray INTRANASAL Q12 09/26/21 10/01/21 %) nasal spray cephalexin 500 mg capsule 500 mg PO TID 10/01/21 10/01/21 furosemide 20 mg tablet 20 mg PO DAILY 10/01/21 10/01/21 metoprolol tartrate 100 mg tablet 100 mg PO BID 10/01/21 10/01/21 warfarin 5 mg tablet 15 mg PO WK 10/01/21 10/01/21 Results & Data (ED) Vital Signs Vital Signs - 24 hr 10/01/21 14:23 10/01/21 15:00 10/01/21 15:33 Temperature 36.8 C 37 C Temperature Source Oral Oral Pulse Rate 129 H Pulse Rate [Apical] 100 H 120 H Respiratory Rate 20 18 24 Blood Pressure 167/100 H Blood Pressure [Left Arm] 161/80 H 160/121 H Blood Pressure Mean 122 Blood Pressure Mean [Left Arm] 107 134 Pulse Oximetry 98 98 98 Oxygen Delivery Method Room Air Room Air Room Air Sepsis Recent Fever Within 48 Hours No Sepsis New/Unexplained Change in Mental Status No Sepsis Action Taken by Nursing No Action Required Laboratory Data Result diagrams: 10/01/21 14:48 10/01/21 14:48 Lab Results 10/01/21 10/01/21 10/01/21 Range/Units 14:48 14:48 14:48 WBC 8.29 (4.8-10.8) K/uL RBC 5.07 (4.2-5.4) M/uL Hgb 14.7 (12.0-16.0) g/dL Hct 43.7 (37-47) % MCV 86.2 (80-100) fL MCH 29.0 (25-34) pg MCHC 33.6 (32-36) g/dL RDW Std Deviation 46.5 H (36.4-46.3) fL RDW Coeff of Serg 14.7 H (11.5-14.5) % Plt Count 305 (130-400) K/uL MPV 10.1 (7.4-10.4) fL Immature Gran % (Auto) 0.1 % Neut % (Auto) 83.9 % Lymph % (Auto) 8.0 % [place] % (Auto) 7.6 % Eos % (Auto) 0.2 % Baso % (Auto) 0.2 % Neut # (Auto) 6.95 H (1.4-6.5) K/uL Lymph # (Auto) 0.66 L (1.2-3.4) K/uL [place] # (Auto) 0.63 H (0.11-0.59) K/uL Eos # (Auto) 0.02 (0-0.5) K/uL Baso # (Auto) 0.02 (0-0.2) K/uL Immature Gran # (Auto) 0.01 (0.00-0.02) K/uL Absolute Nucleated RBC 0.02 H (0-0) K/uL Nucleated RBC % (auto) 0.2 % PT 27.9 H (9.0-12.0) Seconds INR 3.0 H (0.9-1.1) Sodium 130 L (136-145) mmol/L Potassium 4.0 (3.5-5.1) mmol/L Chloride 95 L (98-107) mmol/L Carbon Dioxide 27 (21-32) mmol/L Anion Gap 8.0 (3-11) BUN 25 H (7-18) mg/dl Creatinine 1.05 (0.6-1.2) mg/dl Est Cr Clr Drug Dosing Not Reportable Est GFR ( Amer) 56.9 ml/min Est GFR (Non-Af Amer) 49.1 ml/min BUN/Creatinine Ratio 24.1 H (10-20) Glucose 153 H (70-99) mg/dl Calcium 9.8 (8.5-10.1) mg/dl Magnesium 2.0 (1.8-2.4) mg/dl Total Bilirubin 1.1 H (0.2-1) mg/dl AST 99 H (15-37) U/L ALT 118 H (12-78) U/L Alkaline Phosphatase 107 (45-117) U/L Troponin I < 0.015 (0-0.045) ng/ml Total Protein 8.6 H (6.4-8.2) gm/dl Albumin 4.8 (3.4-5.0) gm/dl Globulin 3.8 (2.5-4.0) gm/dl Albumin/Globulin Ratio 1.3 (0.9-2) TSH 1.500 (0.300-4.500) uIu/ml Administered Medications Diltiazem HCl 125 mg/ Dextrose 125 mls @ 5 mls/hr IV .Q24H LIZA; Protocol Stop: 10/31/21 17:14 Last Admin: 10/01/21 17:36 Dose: 5 mg/hr, 5 mls/hr Documented by: [id number] Cosigned by: [id number] Discontinued Medications Magnesium Sulfate/Dextrose (Magnesium Sulfate / D5w) 1 gm in 100 mls @ 400 mls/hr IV Q15M LIZA Stop: 10/01/21 15:04 Last Infusion: 10/01/21 16:30 Dose: 0 mls/hr Documented by: [id number] Admin: 10/01/21 15:29 Dose: 400 mls/hr Documented by: [id number] Metoprolol Tartrate (Metoprolol Tartrate 1 Mg/Ml Vial) 5 mg IV NOW STA Stop: 10/01/21 14:49 Last Admin: 10/01/21 15:29 Dose: 5 mg Documented by: [id number] Miscellaneous (Stat Iv Infusion Titration Per Protocol) 1 ea N/A NOW STA Stop: 10/01/21 17:10 Last Admin: 10/01/21 17:37 Dose: 1 ea Documented by: [id number] Imaging Data Radiologist's Impression: Chest X-Ray 10/01/21 14:48 XR chest 1V portable CLINICAL HISTORY: weakness. Evaluate cardiopulmonary status COMPARISON STUDY: 09/26/2021 TECHNIQUE: 1 view of the chest FINDINGS: Single frontal view of the chest demonstrates the cardiomediastinal silhouette to be within normal limits. The lungs are clear of alveolar opacities. There is no evidence for pleural effusion. There is no evidence for vascular congestion. There is no acute osseous pathology. IMPRESSION: No acute cardiopulmonary disease. ACT 112: Negative or not required by law. Electronically signed by: Koko Ackerman M.D. 10/01/2021 3:[address] 10/01/21 14:48 CT head/brain wo con CLINICAL HISTORY: hallucinations . Confusion COMPARISON STUDY: No previous studies for comparison. CT DOSE: 537.48 mGy.cm TECHNIQUE: Standard CT of the Brain was performed without IV contrast. A dose lowering technique was utilized adhering to the principles of ALARA. FINDINGS: Extraaxial space: There is no evidence for subdural hematoma. There are no extra-axial fluid collections. Ventricles and cisterns: The ventricles are mildly dilated bilaterally. There i s no evidence for midline shift or mass effect. Parenchyma: There is no subarachnoid or intraparenchymal hemorrhage. There is no evidence for an acute infarct or cerebral edema. There is mild cerebral cortical atrophy and decreased attenuation in the periventricular white matter representing remote small vessel disease. There are no gross mass lesions. Osseous structures: There is no evidence for an acute fracture. The visualized paranasal sinuses are clear. The mastoid air cells are clear bilaterally. Soft tissues: There is no evidence for focal soft tissue swelling. IMPRESSION: No acute intracerebral pathology. Mild cerebral cortical atrophy and extensive remote small vessel disease. ACT 112: Negative or not required by law. Electronically signed by: Koko Ackerman M.D. 10/01/2021 4:47 PM Discharge Plan Visit Data Chief Complaint: Mental Health Evaluation Stated Complaint: HALLUCINATIONS,HIGH BLOOD PRESSURE ED Provider: Josse Szymanski Discharge Problem: Hallucinations, Atrial fibrillation with RVR, Depression, Acute anxiety Patient Disposition: Being Evaluated by Hospitalist Discharge Instructions Interventions: ED Discharge Assessment Last Done: 10/01/21 18:57
[2021-10-01 15:37] LABS: Basophils # (auto) 0.02 K/uL (0-0.2); Basophils % (auto) 0.2 %; Eosinophils # (auto) 0.02 K/uL (0-0.5); Eosinophils % (auto) 0.2 %; Hematocrit (blood only) 43.7 % (37-47); Hemoglobin 14.7 g/dL (12.0-16.0); Immature Granulocytes # (auto) 0.01 K/uL (0.00-0.02); Immature Granulocytes % (auto) 0.1 %; Lymphocytes # (auto) 0.66 K/uL (1.2-3.4); Mean Corpuscular Hgb Conc 33.6 g/dL (32-36); Mean Corpuscular Volume 86.2 fL (80-100); Mean Platelet Volume 10.1 fL (7.4-10.4); Monocytes # (auto) 0.63 K/uL (0.11-0.59); Monocytes % (auto) 7.6 %; Neutrophils # (auto) 6.95 K/uL (1.4-6.5); Neutrophils % (auto) 83.9 %; Nucleated RBC # (auto) 0.02 K/uL (0-0); Nucleated RBC % (auto) 0.2 %; Platelet Count 305 K/uL (130-400); RDW Coefficient of Variation 14.7 % (11.5-14.5); RDW Standard Deviation 46.5 fL (36.4-46.3); Red Blood Count 5.07 M/uL (4.2-5.4); White Blood Count 8.29 K/uL (4.8-10.8)
[2021-10-01 15:47] LABS: Prothrombin Time 27.9 Seconds (9.0-12.0)
[2021-10-01 15:55] LABS: Alanine Aminotransferase 118 U/L (12-78); Albumin Level 4.8 gm/dl (3.4-5.0); Aspartate Aminotransferase 99 U/L (15-37); BUN Creatinine Ratio 24.1 (10-20); Blood Urea Nitrogen 25 mg/dl (7-18); Calcium 9.8 mg/dl (8.5-10.1); Carbon Dioxide 27 mmol/L (21-32); Chloride 95 mmol/L (98-107); Est GFR (African American) 56.9 ml/min; Est GFR (Non-African American) 49.1 ml/min; Glucose 153 mg/dl (70-99); Sodium 130 mmol/L (136-145)
[2021-10-01 16:05] LABS: Albumin Globulin Ratio 1.3 (0.9-2); Alkaline Phosphatase 107 U/L (45-117); Bilirubin,Total 1.1 mg/dl (0.2-1); Globulin 3.8 gm/dl (2.5-4.0); Total Protein 8.6 gm/dl (6.4-8.2); Troponin I < 0.015 ng/ml (0-0.045)
--- NOTE | 2021-10-01 16:49 | CT Scan Report ---
CT head/brain wo con CLINICAL HISTORY: hallucinations . Confusion COMPARISON STUDY: No previous studies for comparison. CT DOSE: 537.48 mGy.cm TECHNIQUE: Standard CT of the Brain was performed without IV contrast. A dose lowering technique was utilized adhering to the principles of ALARA. FINDINGS: Extraaxial space: There is no evidence for subdural hematoma. There are no extra-axial fluid collecti ons. Ventricles and cisterns: The ventricles are mildly dilated bilaterally. There is no evidence for mid line shift or mass effect. Parenchyma: There is no subarachnoid or intraparenchymal hemorrhage. There is no evidence for an acu te infarct or cerebral edema. There is mild cerebral cortical atrophy and decreased attenuation in th e periventricular white matter representing remote small vessel disease. There are no gross mass lesi ons. Osseous structures: There is no evidence for an acute fracture. The visualized paranasal sinuses are clear. The mastoid air cells are clear bilaterally. Soft tissues: There is no evidence for focal soft tissue swelling. IMPRESSION: No acute intracerebral pathology. Mild cerebral cortical atrophy and extensive remote sma ll vessel disease. ACT 112: Negative or not required by law. Electronically signed by: Koko Ackerman M.D. 10/01/2021 4:47 PM
[2021-10-01] MEDS ORDERED: STAT IV Infusion **Titration per Protocol STA (17:09)
--- NOTE | 2021-10-01 17:11 | History & Physical Report ---
Date of Service October 01, 2021 Assessment & Plan (1) Atrial fibrillation with rapid ventricular response: Plan: - Admit PCU - Was given metoprolol in the ER without improvement, Continue on cardizem gtt, hold p.o. Cardizem -Consult cardiology -Currently without any chest pain, patient does not feel flutter/palpitation, lightheadedness, or dizziness and has never in her past felt true symptoms associated with A. fib -INR therapeutic -Takes Coumadin 15 mg on Mondays, 10 mg all other days of the week-continue (2) Urinary tract infection: Plan: -Repeat urine culture in process, patient has not provided sample yet -Continue p.o. 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 agent to men who are threatening to her at this point (4) Depression: Plan: -History of such, as above, appears to be more hallucination involved than depressive mood (5) Aortic stenosis: Plan: -Noted, chronic, continue antihypertensive medications - hold lasix (6) HTN (hypertension): Plan: -Continue diltiazem as above, lisinopril, metoprolol DVT ppx: - teds, scds CODE: Full code Dispo: From home, likely to remain in the hospital x 1-2 days History of Present Illness Primary Care Provider: Melania Elliott MD This is a 81 yo F with PMhx of afib on coumadin, pulmonary vein isolation ablation and multiple failed DC cardioversion followed by Dr. Beasley [facility] [place], HTN, HLD, prediabetes, CKD stage III, UD, CABRALES who presents to the ER with worsening visual and auditory hallucinations. , Angel who is sitting at bedside reports his has been talking to an intercom called "ready photo" over the past 2 to 3 months, but that is significantly worsened within the past 4 to 5 days. Patient admits to seeing and hearing two men, "Mr. Abreu and Mr. Norman" who are from a federal agency who are threatening her, telling her to do certain things, ordering her around, and causing her to become nearly tearful while asking her to describe some of the things they say to her. reports he left the house yesterday to run an errand, and found her outside wandering around the front yard. She is not sleeping well, and reports she is more anxious because of these people who she believes are real. Her at bedside confirms that they are not real people and they have never known anybody by these names. Patient notes that she has not changed any medication other than starting Keflex for urinary tract infections. Feels no further urinary symptoms at this time, but admits to not drinking as much as she should. She feels somewhat constipated and is dry in her mouth. She denies any other abdominal complaints; no nausea no vomiting, no change in appetite. Denies any headaches changes in vision, including diplopia or blurred vision. She is vaccinated against COVID-19 and got booster shot on 09/27 but otherwise feels well. Allergies Allergy/AdvReac Type Severity Reaction Status Date / Time latex Allergy Intermediate Rash Unverified 10/01/21 15:30 adhesive AdvReac Unknown Verified 10/01/21 15:30 cat dander AdvReac Unknown Verified 10/01/21 15:30 ezetimibe [From Zetia] AdvReac Unknown Verified 10/01/21 15:30 soy AdvReac Unknown Verified 10/01/21 15:30 Home Medications Medication Instructions Recorded Confirmed Type diltiazem HCl 240 mg 240 mg PO QAM 03/28/21 10/01/21 History capsule,extended release 24 hr lisinopril 5 mg tablet 5 mg PO QPM 03/28/21 10/01/21 History lorazepam 0.5 mg tablet 0.5 mg PO BID PRN 03/28/21 10/01/21 History warfarin 5 mg tablet 10 mg PO [id number] 03/28/21 10/01/21 History potassium chloride 10 mEq 10 meq PO DAILY 06/05/21 10/01/21 History tablet,extended release(part/cryst) ipratropium bromide 21 mcg (0.03 2 spray INTRANASAL Q12 09/26/21 10/01/21 History %) nasal spray cephalexin 500 mg capsule 500 mg PO TID 10/01/21 10/01/21 History furosemide 20 mg tablet 20 mg PO DAILY 10/01/21 10/01/21 History metoprolol tartrate 100 mg tablet 100 mg PO BID 10/01/21 10/01/21 History warfarin 5 mg tablet 15 mg PO WK 10/01/21 10/01/21 History Past Med/Surg History Medical History A-fib CKD (chronic kidney disease) stage 3, GFR 30-59 ml/min DU (generalized anxiety disorder) History of bladder cancer s/op TURBT HLD (hyperlipidemia) HTN (hypertension) CABRALES (nonalcoholic steatohepatitis) Pre-diabetes Surgical History History of cardioversion multiple attempts, last in 2017 History of esophagogastroduodenoscopy (EGD) History of hysterectomy with oophorectomy History of radiofrequency ablation procedure for cardiac arrhythmia History of toe surgery bunion Family History Brother Myocardial infarction, Onset Age: 52 Father Myocardial infarction, Onset Age: 52 Sister Coronary heart disease Atrial fibrillation Mother , 21 [place] Social History Smoking Status: Never smoker Hx Alcohol Use: Yes Alcohol type: wine Hx Substance Use: No Preferred Language: Palauan Communication Ability: Impaired Electrical Wirer Required: No Beliefs That Will Affect Care: None marital status: Current Living Situation: Spouse current occupational status: retired Feels Safe at Home: Yes Safety Concerns: Feels Safe At This Time Assistive Devices: Glasses Assistive Devices Comment: Reading glasses as needed Review of Systems Review of Systems: Constitutional: No fever, sweats or chills Eyes: No diplopia, no worsening or blurred vision ENT: normal hearing, no trouble swallowing, no headache Respiratory: No cough, sputum, dyspnea at rest or on exertion Cardiovascular: No chest pain, tightness or palpitations Abdomen: No pain, nausea, vomiting, diarrhea, + constipation Musculoskeletal: No joint pain, calf pain, swelling Neurologic: No weakness, numbness/tingling, or balance problems, no falls Psychiatric: + visual and auditory hallucinations, + anxiety, no depression Skin: No rash or itch Physical Exam Physical Exam: General: awake, alert, no apparent distress Head: Normocephalic, atraumatic ENT: PERRL, EOMI, no pharyngeal exudate, mucous membranes slightly dry Chest: Clear to auscultation, on room air, no adventitious breath sounds Cardiac: Irregularly irregular, loud systolic murmur, no JVD, normal peripheral pulses, good capillary refill Abdominal: NABS x 4 quadrants, soft, nondistended, nontender to palpation, no rebound or guarding Extremities: Normal inspection, no peripheral edema or erythema, calfs nontender to palpation Psych: Normal mood and affect Neuro: AAO x 3, strength intact bilaterally and rated 5/5, no motor deficits, speech is clear, no peripheral sensory deficits, negative pronator drift, ambulatory Results & Data Results & Data ([facility]) Vital Signs (Past 12 Hours) Vital Signs Temp Pulse Pulse Resp BP BP Pulse Ox 10/01/21 15:33 37 C 120 H 24 160/121 H 98 10/01/21 14:23 36.8 C 129 H 20 167/100 H 98 Laboratory Results Abnormal Labs 10/01/21 10/01/21 10/01/21 14:48 14:48 14:48 RDW Std Deviation 46.5 H RDW Coeff of Serg 14.7 H Neut # (Auto) 6.95 H Lymph # (Auto) 0.66 L Swain # (Auto) 0.63 H Absolute Nucleated RBC 0.02 H PT 27.9 H INR 3.0 H Sodium 130 L Chloride 95 L BUN 25 H BUN/Creatinine Ratio 24.1 H Glucose 153 H Total Bilirubin 1.1 H AST 99 H ALT 118 H Total Protein 8.6 H Diagnostic Findings Chest X-Ray 10/01/21 14:48 XR chest 1V portable CLINICAL HISTORY: weakness. Evaluate cardiopulmonary status COMPARISON STUDY: 09/26/2021 TECHNIQUE: 1 view of the chest FINDINGS: Single frontal view of the chest demonstrates the cardiomediastinal silhouette to be within normal limits. The lungs are clear of alveolar opacities. There is no evidence for pleural effusion. There is no evidence for vascular congestion. There is no acute osseous pathology. IMPRESSION: No acute cardiopulmonary disease. ACT 112: Negative or not required by law. Electronically signed by: Koko Ackerman M.D. 10/01/2021 3:[address] 10/01/21 14:48 CT head/brain wo con CLINICAL HISTORY: hallucinations . Confusion COMPARISON STUDY: No previous studies for comparison. CT DOSE: 537.48 mGy.cm TECHNIQUE: Standard CT of the Brain was performed without IV contrast. A dose lowering technique was utilized adhering to the principles of ALARA. FINDINGS: Extraaxial space: There is no evidence for subdural hematoma. There are no extra-axial fluid collections. Ventricles and cisterns: The ventricles are mildly dilated bilaterally. There is no evidence for midline shift or mass effect. Parenchyma: There is no subarachnoid or intraparenchymal hemorrhage. There is no evidence for an acute infarct or cerebral edema. There is mild cerebral cortical atrophy and decreased attenuation in the periventricular white matter representing remote small vessel disease. There are no gross mass lesions. Osseous structures: There is no evidence for an acute fracture. The visualized paranasal sinuses are clear. The mastoid air cells are clear bilaterally. Soft tissues: There is no evidence for focal soft tissue swelling. IMPRESSION: No acute intracerebral pathology. Mild cerebral cortical atrophy and extensive remote small vessel disease. ACT 112: Negative or not required by law. Electronically signed by: Koko Ackerman M.D. 10/01/2021 4:47 PM ECG Additional Comments: 01-OCT-2021 14:39:18 [facility]-EDSTAT ROUTINE RETRIEVAL Poor data quality, interpretation may be adversely affected Atrial fibrillation with rapid ventricular response Anteroseptal infarct (cited on or before 21-APR-2004) ST & T wave abnormality, consider inferolateral ischemia Abnormal ECG When compared with ECG of 26-SEP-2021 19:07, Questionable change in initial forces of Anterior leads Non-specific change in ST segment in Inferior leads Nonspecific T wave abnormality, improved in Anterior leads 25mm/s 10mm/mV 150Hz 9.0.9 12SL 241 HD DB: 12 Referred by: REFERRED SELF Unconfirmed Vent. rate 133 BPM FL interval * ms QRS duration 74 ms QT/QTc 284/422 ms Code Status & VTE Plan Code Status Full code - discussed with the patient at bedside Supervising Physician Co-Signing Physician Notes And is an 81-year-old female with history of atrial fibrillation on Coumadin, hypertension, CKD and Cabrales presents with history of worsening auditory and visual hallucinations since past few months. Patient was found to be in A. fib RVR while in ED. She denies any memory loss, vision loss, seizure-like activity, headaches. She also denies any chest pain, shortness of breath, palpitations. She is currently on Keflex for UTI. Please review HPI for complete details of presentation. On exam patient is moderately built and nourished, no apparent distress, normocephalic atraumatic, lungs are clear to auscultation, normal breath sounds, irregularly irregular, tachycardia,+ murmur, trace pedal edema, abdomen soft, nontender, normal bowel sounds, alert, awake, oriented, grossly no focal deficits. Patient is admitted for management of A. fib RVR, hallucinations. She was started on Cardizem drip while in ED. Continue Cardizem drip. INR therapeutic at 3.0. Will consult cardiology, monitor on telemetry. Replace electrolytes as needed. Hyponatremia--? Chronic. Will obtain urine sodium, urine osmolality and serum osmolality. Will give gentle IV fluids. Monitor sodium levels closely. Continue Keflex for UTI--has 4 doses left. Bowel regimen to help with constipation. Will consult psychiatry for evaluation for hallucinations. Check MRI brain, EEG and drug screen. Consider neurology evaluation if needed. Fall precautions, PT OT eval requested. I personally reviewed the record. Patient is interviewed and examined at bedside. Patient's care is coordinated with Dana Cardoza PA-C. Please refer to the documentation above for details of patient's presentation and for discussion of other issues. (1) Urinary tract infection Hematuria presence: without hematuria Urinary tract infection type: acute cystitis Qualified Code(s): N30.00 - Acute cystitis without hematuria (2) Depression Active/Remission status: currently active Depression Type: major depressive disorder Major depression episode severity: unspecified Major depression recurrence: unspecified whether recurrent Qualified Code(s): F32.9 - Major depressive disorder, single episode, unspecified
[2021-10-01] MEDS: dilTIAZem HCL 125 MG in DEXTROSE 5% 100 ML IV SCH (17:36)
[2021-10-01] MEDS ORDERED: ONDANSETRON INJ 2 MG/ML 2 ML VIAL IV PRN (19:03)
[2021-10-01] MEDS ORDERED: ACETAMINOPHEN 325 MG TAB PO PRN (19:03)
[2021-10-01] MEDS ORDERED: WARFARIN SOD 5 MG TAB PO ONE (19:30)
[2021-10-01 19:56] LABS: Appearance Urine Clear (Clear); Bilirubin Urine Negative (Negative); Blood Urine Negative (Negative); Color Urine Yellow; Glucose Urine UA Negative (Negative); Ketones Urine Negative (Negative); Leukocyte Esterase Urine Negative (Negative); Nitrite Urine Negative (Negative); Protein Urine Negative (Negative); Specific Gravity Urine 1.004 (1.000-1.030); Urobilinogen Urine Negative (Negative)
[2021-10-01] MEDS ORDERED: DOCUSATE SODIUM 100 MG CAP PO PRN (20:42)
[2021-10-01] MEDS ORDERED: LABETALOL HCL IV 5 MG/ML 20ML IV PRN (20:47)
[2021-10-01 20:50] LABS: Amphetamines+Metham, Urine Neg (Neg); Barbiturates, Urine Neg (Neg); Benzodiazepine, Urine Neg (Neg); Cocaine, Urine Neg (Neg); MDMA (Ecstacy), Urine Neg (Neg); Methadone, Urine Neg (Neg); Opiate, Urine Neg (Neg); Phencyclidine, Urine Neg (Neg)
[2021-10-01] MEDS ORDERED: OLANZapine ZYDIS 5 MG ORALLY DIS. TAB PO STA (21:38)
[2021-10-01] MEDS: cephALEXin 500 MG CAP PO SCH (21:51)
[2021-10-01] MEDS: METOPROLOL TARTRATE 100 MG TAB PO SCH (21:52)
[2021-10-01] MEDS: lisinopril 5 MG TAB PO SCH (21:53)
[2021-10-01] MEDS: POLYETHYLENE (MIRALAX) 17 GM PACK PO SCH (21:53)
[2021-10-01] MEDS: IPRATROPIUM BROMIDE NASAL SPRAY 0.06% 15ML NAE SCH (21:54)
[2021-10-01] MEDS: bisacodyL 5 MG TABEC PO SCH (21:55)
[2021-10-02 04:40] LABS: Hematocrit (blood only) 42.2 % (37-47); Hemoglobin 14.2 g/dL (12.0-16.0); Mean Corpuscular Hgb Conc 33.6 g/dL (32-36); Mean Corpuscular Volume 86.1 fL (80-100); Mean Platelet Volume 9.4 fL (7.4-10.4); Platelet Count 210 K/uL (130-400); RDW Coefficient of Variation 14.6 % (11.5-14.5); White Blood Count 5.02 K/uL (4.8-10.8)
[2021-10-02 04:55] LABS: INR 2.7 (0.9-1.1); Prothrombin Time 25.1 Seconds (9.0-12.0)
[2021-10-02 04:58] LABS: Albumin Level 3.9 gm/dl (3.4-5.0); BUN Creatinine Ratio 19.9 (10-20); Bilirubin Direct 0.4 mg/dl (0-0.2); Calcium 9.6 mg/dl (8.5-10.1); Creatinine Clr Calc Pharmacy 48.7 ml/min; Est GFR (African American) 69.5 ml/min; Est GFR (Non-African American) 59.9 ml/min; Magnesium 2.2 mg/dl (1.8-2.4); Potassium 3.6 mmol/L (3.5-5.1)
[2021-10-02 05:01] LABS: Bilirubin,Total 1.3 mg/dl (0.2-1); Globulin 3.8 gm/dl (2.5-4.0); Total Protein 7.7 gm/dl (6.4-8.2)
[2021-10-02] MEDS: bisacodyL 5 MG TABEC PO SCH (07:46)
[2021-10-02] MEDS: IPRATROPIUM BROMIDE NASAL SPRAY 0.06% 15ML NAE SCH ×2 (07:47→21:36)
[2021-10-02] MEDS: cephALEXin 500 MG CAP PO SCH ×3 (07:47→21:37)
[2021-10-02] MEDS: POLYETHYLENE (MIRALAX) 17 GM PACK PO SCH (07:48)
[2021-10-02] MEDS: POTASSIUM CHLORIDE 10 MEQ TABCR PO SCH (07:48)
[2021-10-02] MEDS: METOPROLOL TARTRATE 100 MG TAB PO SCH ×2 (07:48→21:38)
--- NOTE | 2021-10-02 09:24 | Magnetic Resonance Report ---
MR brain wo con CLINICAL HISTORY: Hallucination, eval for infarct TECHNIQUE: Multiplanar and multisequence MR images of the brain were obtained without intravenous con trast. Comparison: None available at the time of this dictation. FINDINGS: No abnormal restricted diffusion is identified. Foci of T2 and FLAIR hyperintensity are noted in the paraventricular areas consistent with chronic small vessel ischemic disease. Ex vacuo ventriculomegal y and sulcal enlargement is noted compatible with diffuse encephalomalacia. No extra axial fluid angela ections are seen. There are no masses, mass effect, or midline shift. The corpus callosum, pituitary gland, and cerebellar tonsils appear grossly unremarkable. Flow voids of the major intracranial arterial vessels are identified. The imaged portions of the para nasal sinuses, mastoid air cells, and orbits are unremarkable. IMPRESSION: Expected age-related changes without evidence of acute infarct. ACT 112: Negative or not required by law. Electronically signed by: Laz Hill M.D. 10/02/2021 9:23 AM
[2021-10-02] MEDS: dilTIAZem HCL 125 MG in DEXTROSE 5% 100 ML IV SCH (09:28)
--- NOTE | 2021-10-02 11:42 | Cardiology Consultation ---
Date of Consultation October 02, 2021 Assessment & Plan (1) Atrial fibrillation with rapid ventricular response: (2) Acute delirium: (3) HTN (hypertension): (4) CKD (chronic kidney disease) stage 3, GFR 30-59 ml/min: Patient is an 81-year-old female history of long-term persistent atrial fibrillation who presents with an acute delirium and elevated ventricular response rate. Suspect rhythm issues are being driven by underlying medical issues including acute agitation and delirium. Heart rates however been trending slightly higher on outpatient records. No signs of myocardial injury or congestive heart failure Plan: Discontinue IV diltiazem resuming usual dose of oral diltiazem. Patient may warrant increase in beta-ruchi therapy if rates not adequately controlled Continue chronic anticoagulation with warfarin History of Present Illness Reason for Consultation: Chronic atrial fibrillation with elevated ventricular response Requesting Physician: Dr. Redmond Attending Physician: Karlie Redmond MD History of Present Illness Patient is an 81-year-old female with ongoing issues which include 1. Longstanding persistent atrial fibrillation with prior failed cardioversion and antiarrhythmic therapy 2. Hypertension 3. Moderate aortic stenosis 4. CHAVEZ 5. CKD stage III Patient presents this admission brought by due to increasing delirium and confusion. Had been seen in the emergency room with agitation and urinary tract infection earlier in the week. On presentation patient was found to be in atrial fibrillation with elevated ventricular response rate. Patient was begun on IV diltiazem for rate control. Patient currently appears oriented. Denies any chest pain shortness of breath dizziness or lightheadedness. No bleeding issues on chronic anticoagulation. No fevers chills or unexplained infections currently. Lying flat in bed and comfortable. Appetite is generally good and patient denies difficulty taking medications. Allergies Allergy/AdvReac Type Severity Reaction Status Date / Time latex Allergy Intermediate Rash Unverified 10/01/21 15:30 adhesive AdvReac Unknown Verified 10/01/21 15:30 cat dander AdvReac Unknown Verified 10/01/21 15:30 ezetimibe [From Zetia] AdvReac Unknown Verified 10/01/21 15:30 soy AdvReac Unknown Verified 10/01/21 15:30 Home Medications Medication Instructions Recorded Confirmed Type diltiazem HCl 240 mg 240 mg PO QAM 03/28/21 10/01/21 History capsule,extended release 24 hr lisinopril 5 mg tablet 5 mg PO QPM 03/28/21 10/01/21 History lorazepam 0.5 mg tablet 0.5 mg PO BID PRN 03/28/21 10/01/21 History warfarin 5 mg tablet 10 mg PO [id number] 03/28/21 10/01/21 History potassium chloride 10 mEq 10 meq PO DAILY 06/05/21 10/01/21 History tablet,extended release(part/cryst) ipratropium bromide 21 mcg (0.03 2 spray INTRANASAL Q12 09/26/21 10/01/21 History %) nasal spray cephalexin 500 mg capsule 500 mg PO TID 10/01/21 10/01/21 History furosemide 20 mg tablet 20 mg PO DAILY 10/01/21 10/01/21 History metoprolol tartrate 100 mg tablet 100 mg PO BID 10/01/21 10/01/21 History warfarin 5 mg tablet 15 mg PO WK 10/01/21 10/01/21 History Patient History Medical History A-fib CKD (chronic kidney disease) stage 3, GFR 30-59 ml/min DU (generalized anxiety disorder) History of bladder cancer s/op TURBT HLD (hyperlipidemia) HTN (hypertension) CHAVEZ (nonalcoholic steatohepatitis) Pre-diabetes Surgical History History of cardioversion multiple attempts, last in 2017 History of esophagogastroduodenoscopy (EGD) History of hysterectomy with oophorectomy History of radiofrequency ablation procedure for cardiac arrhythmia History of toe surgery bunion Family History Brother Myocardial infarction, Onset Age: 52 Father Myocardial infarction, Onset Age: 52 Sister Coronary heart disease Atrial fibrillation Mother , 21 [place] Social History Smoking Status: Never smoker Hx Alcohol Use: Yes Alcohol type: wine Hx Substance Use: No Preferred Language: Sinhala Communication Ability: Impaired Gas Worker Required: No Beliefs That Will Affect Care: None marital status: Current Living Situation: Spouse current occupational status: retired Feels Safe at Home: Yes Safety Concerns: Feels Safe At This Time Assistive Devices: Glasses Assistive Devices Comment: Reading glasses as needed Review of Systems Review of Systems: All systems reviewed & are unremarkable except as noted in HPI & below Physical Exam Constitutional: no acute distress Age-appropriate female answering questions appropriately Eyes: PERRL, conjunctivae normal, anicteric sclerae ENMT: external ear and nose normal, oropharynx normal Neck: trachea midline, no thyromegaly Respiratory: normal respiratory effort, lungs clear to auscultation Cardiovascular: Rate/Rhythm: + irregularly irregular Heart Sounds: normal S1, normal S2 and + murmur (Grade 2/6 systolic no diastolic); no gallop Palpation: normal PMI Vessels: normal carotid upstroke and radial pulses present; no JVD and no carotid bruit Extremities: no edema Gastrointestinal (Abdomen): normal bowel sounds, soft, nontender, no hepatosplenomegaly Musculoskeletal: no cyanosis or clubbing, extremities motor strength 5/5 Skin: no rashes, warm and dry Neurologic: PERRL, EOMI, accommodation nl, no face palsy, no dysarthria Psychiatric: A+Ox3, euthymic affect Results & Data ([facility]) Vital Signs (Past 12 Hours) Vital Signs Temp Pulse Pulse Resp BP Pulse Ox Pulse Ox 10/02/21 08:00 37 C 68 80 19 136/80 97 97 10/02/21 03:39 85 23 158/95 H 94 10/01/21 23:39 36.5 C 63 18 144/81 H 94 Laboratory Results Laboratory Results - last 24 hr 10/01/21 10/01/21 10/01/21 11:13 14:48 14:48 WBC 8.29 RBC 5.07 Hgb 14.7 Hct 43.7 MCV 86.2 MCH 29.0 MCHC 33.6 RDW Std Deviation 46.5 H RDW Coeff of Serg 14.7 H Plt Count 305 MPV 10.1 Immature Gran % (Auto) 0.1 Neut % (Auto) 83.9 Lymph % (Auto) 8.0 [place] % (Auto) 7.6 Eos % (Auto) 0.2 Baso % (Auto) 0.2 Neut # (Auto) 6.95 H Lymph # (Auto) 0.66 L [place] # (Auto) 0.63 H Eos # (Auto) 0.02 Baso # (Auto) 0.02 Immature Gran # (Auto) 0.01 Absolute Nucleated RBC 0.02 H Nucleated RBC % (auto) 0.2 PT 27.9 H INR 3.0 H Sodium Potassium Chloride Carbon Dioxide Anion Gap BUN Creatinine Est Cr Clr Drug Dosing Est GFR ( Amer) Est GFR (Non-Af Amer) BUN/Creatinine Ratio Glucose Osmolality Calcium Magnesium Total Bilirubin Direct Bilirubin AST ALT Alkaline Phosphatase Ammonia Troponin I Total Protein Albumin Globulin Albumin/Globulin Ratio TSH Urine Color Urine Appearance Urine pH Ur Specific [place] Urine Protein Urine Glucose (UA) Urine Ketones Urine Blood Urine Nitrite Urine Bilirubin Urine Urobilinogen Ur Leukocyte Esterase Urine Osmolality Ur Random Sodium Urine Opiates Screen Neg Ur Methadone, Qual Neg Urine Barbiturates Neg Ur Phencyclidine (PCP) Neg U Amphetamin/Meth Scrn Neg MDMA (Ecstasy) Screen Neg U Benzodiazepines Scrn Neg Ur Cocaine Metabolite Neg U Marijuana (THC) Screen Neg COVID-19 Eval Order SARS-CoV-2 (PCR) 10/01/21 10/01/21 10/01/21 14:48 20:26 20:26 WBC RBC Hgb Hct MCV MCH MCHC RDW Std Deviation RDW Coeff of Serg Plt Count MPV Immature Gran % (Auto) Neut % (Auto) Lymph % (Auto) [place] % (Auto) Eos % (Auto) Baso % (Auto) Neut # (Auto) Lymph # (Auto) [place] # (Auto) Eos # (Auto) Baso # (Auto) Immature Gran # (Auto) Absolute Nucleated RBC Nucleated RBC % (auto) PT INR Sodium 130 L Potassium 4.0 Chloride 95 L Carbon Dioxide 27 Anion Gap 8.0 BUN 25 H Creatinine 1.05 Est Cr Clr Drug Dosing Not Reportable Est GFR ( Amer) 56.9 Est GFR (Non-Af Amer) 49.1 BUN/Creatinine Ratio 24.1 H Glucose 153 H Osmolality Cancelled Calcium 9.8 Magnesium 2.0 Total Bilirubin 1.1 H Direct Bilirubin AST 99 H ALT 118 H Alkaline Phosphatase 107 Ammonia Cancelled Troponin I < 0.015 Total Protein 8.6 H Albumin 4.8 Globulin 3.8 Albumin/Globulin Ratio 1.3 TSH 1.500 Urine Color Urine Appearance Urine pH Ur Specific [place] Urine Protein Urine Glucose (UA) Urine Ketones Urine Blood Urine Nitrite Urine Bilirubin Urine Urobilinogen Ur Leukocyte Esterase Urine Osmolality Ur Random Sodium Urine Opiates Screen Ur Methadone, Qual Urine Barbiturates Ur Phencyclidine (PCP) U Amphetamin/Meth Scrn MDMA (Ecstasy) Screen U Benzodiazepines Scrn Ur Cocaine Metabolite U Marijuana (THC) Screen COVID-19 Eval Order SARS-CoV-2 (PCR) 10/01/21 10/01/21 10/01/21 21:37 21:37 Unknown WBC RBC Hgb Hct MCV MCH MCHC RDW Std Deviation RDW Coeff of Serg Plt Count MPV Immature Gran % (Auto) Neut % (Auto) Lymph % (Auto) [place] % (Auto) Eos % (Auto) Baso % (Auto) Neut # (Auto) Lymph # (Auto) [place] # (Auto) Eos # (Auto) Baso # (Auto) Immature Gran # (Auto) Absolute Nucleated RBC Nucleated RBC % (auto) PT INR Sodium Potassium Chloride Carbon Dioxide Anion Gap BUN Creatinine Est Cr Clr Drug Dosing Est GFR ( Amer) Est GFR (Non-Af Amer) BUN/Creatinine Ratio Glucose Osmolality 285 Calcium Magnesium Total Bilirubin Direct Bilirubin AST ALT Alkaline Phosphatase Ammonia 11.1 Troponin I Total Protein Albumin Globulin Albumin/Globulin Ratio TSH Urine Color Urine Appearance Urine pH Ur Specific [place] Urine Protein Urine Glucose (UA) Urine Ketones Urine Blood Urine Nitrite Urine Bilirubin Urine Urobilinogen Ur Leukocyte Esterase Urine Osmolality Ur Random Sodium Urine Opiates Screen Ur Methadone, Qual Urine Barbiturates Ur Phencyclidine (PCP) U Amphetamin/Meth Scrn MDMA (Ecstasy) Screen U Benzodiazepines Scrn Ur Cocaine Metabolite U Marijuana (THC) Screen COVID-19 Eval Order Covid19 at [facility] SARS-CoV-2 (PCR) 10/01/21 10/01/21 10/01/21 Unknown Unknown Unknown WBC RBC Hgb Hct MCV MCH MCHC RDW Std Deviation RDW Coeff of Serg Plt Count MPV Immature Gran % (Auto) Neut % (Auto) Lymph % (Auto) [place] % (Auto) Eos % (Auto) Baso % (Auto) Neut # (Auto) Lymph # (Auto) [place] # (Auto) Eos # (Auto) Baso # (Auto) Immature Gran # (Auto) Absolute Nucleated RBC Nucleated RBC % (auto) PT INR Sodium Potassium Chloride Carbon Dioxide Anion Gap BUN Creatinine Est Cr Clr Drug Dosing Est GFR ( Amer) Est GFR (Non-Af Amer) BUN/Creatinine Ratio Glucose Osmolality Calcium Magnesium Total Bilirubin Direct Bilirubin AST ALT Alkaline Phosphatase Ammonia Troponin I Total Protein Albumin Globulin Albumin/Globulin Ratio TSH Urine Color Yellow Urine Appearance Clear Urine pH 7.0 Ur Specific [place] 1.004 Urine Protein Negative Urine Glucose (UA) Negative Urine Ketones Negative Urine Blood Negative Urine Nitrite Negative Urine Bilirubin Negative Urine Urobilinogen Negative Ur Leukocyte Esterase Negative Urine Osmolality 200 L Ur Random Sodium Urine Opiates Screen Ur Methadone, Qual Urine Barbiturates Ur Phencyclidine (PCP) U Amphetamin/Meth Scrn MDMA (Ecstasy) Screen U Benzodiazepines Scrn Ur Cocaine Metabolite U Marijuana (THC) Screen COVID-19 Eval Order SARS-CoV-2 (PCR) NEGATIVE 10/01/21 10/02/21 10/02/21 Unknown 04:30 04:30 WBC 5.02 RBC 4.90 Hgb 14.2 Hct 42.2 MCV 86.1 MCH 29.0 MCHC 33.6 RDW Std Deviation 46.0 RDW Coeff of Serg 14.6 H Plt Count 210 MPV 9.4 Immature Gran % (Auto) Neut % (Auto) Lymph % (Auto) [place] % (Auto) Eos % (Auto) Baso % (Auto) Neut # (Auto) Lymph # (Auto) [place] # (Auto) Eos # (Auto) Baso # (Auto) Immature Gran # (Auto) Absolute Nucleated RBC Nucleated RBC % (auto) PT 25.1 H INR 2.7 H Sodium Potassium Chloride Carbon Dioxide Anion Gap BUN Creatinine Est Cr Clr Drug Dosing Est GFR ( Amer) Est GFR (Non-Af Amer) BUN/Creatinine Ratio Glucose Osmolality Calcium Magnesium Total Bilirubin Direct Bilirubin AST ALT Alkaline Phosphatase Ammonia Troponin I Total Protein Albumin Globulin Albumin/Globulin Ratio TSH Urine Color Urine Appearance Urine pH Ur Specific [place] Urine Protein Urine Glucose (UA) Urine Ketones Urine Blood Urine Nitrite Urine Bilirubin Urine Urobilinogen Ur Leukocyte Esterase Urine Osmolality Ur Random Sodium 73 Urine Opiates Screen Ur Methadone, Qual Urine Barbiturates Ur Phencyclidine (PCP) U Amphetamin/Meth Scrn MDMA (Ecstasy) Screen U Benzodiazepines Scrn Ur Cocaine Metabolite U Marijuana (THC) Screen COVID-19 Eval Order SARS-CoV-2 (PCR) 10/02/21 04:30 WBC RBC Hgb Hct MCV MCH MCHC RDW Std Deviation RDW Coeff of Serg Plt Count MPV Immature Gran % (Auto) Neut % (Auto) Lymph % (Auto) [place] % (Auto) Eos % (Auto) Baso % (Auto) Neut # (Auto) Lymph # (Auto) [place] # (Auto) Eos # (Auto) Baso # (Auto) Immature Gran # (Auto) Absolute Nucleated RBC Nucleated RBC % (auto) PT INR Sodium 132 L Potassium 3.6 Chloride 96 L Carbon Dioxide 32 Anion Gap 4.0 BUN 18 Creatinine 0.89 Est Cr Clr Drug Dosing 48.7 Est GFR ( Amer) 69.5 Est GFR (Non-Af Amer) 59.9 BUN/Creatinine Ratio 19.9 Glucose 102 H Osmolality Calcium 9.6 Magnesium 2.2 Total Bilirubin 1.3 H Direct Bilirubin 0.4 H AST 66 H ALT 91 H Alkaline Phosphatase 88 Ammonia Troponin I Total Protein 7.7 Albumin 3.9 Globulin 3.8 Albumin/Globulin Ratio 1.0 TSH Urine Color Urine Appearance Urine pH Ur Specific [place] Urine Protein Urine Glucose (UA) Urine Ketones Urine Blood Urine Nitrite Urine Bilirubin Urine Urobilinogen Ur Leukocyte Esterase Urine Osmolality Ur Random Sodium Urine Opiates Screen Ur Methadone, Qual Urine Barbiturates Ur Phencyclidine (PCP) U Amphetamin/Meth Scrn MDMA (Ecstasy) Screen U Benzodiazepines Scrn Ur Cocaine Metabolite U Marijuana (THC) Screen COVID-19 Eval Order SARS-CoV-2 (PCR) Diagnostic Findings Echocardiogram 06/23/2021 Normal LV chamber size with mild concentric LVH, sigmoid appearing septum. Normal LV systolic function without regional wall motion abnormality. Calculated LV ejection Fraction = 54% (bi-plane method of discs). Moderate aortic valve stenosis is present. Heavily calcified anterior mitral valve leaflet. Moderate tricuspid regurgitation. The estimated pulmonary artery systolic pressure is 43mm Hg. Severe left atrial enlargement. Chest x-ray 10/01/2021: Normal size cardiac silhouette with mild increase in interstitial markings ECG Additional Comments: EKG on presentation: Atrial fibrillation with elevated ventricular response rate [address] segment changes
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
[2021-10-02] MEDS: dilTIAZem HCL 240 MG CAPCR PO SCH (12:28)
--- NOTE | 2021-10-02 14:35 | Hospitalist Progress Note ---
Date of Service October 02, 2021 Assessment & Plan (1) Atrial fibrillation with rapid ventricular response: Plan: - Was given metoprolol in the ER without improvement, Continue on cardizem gtt, hold p.o. Cardizem -Currently without any chest pain, patient does not feel flutter/palpitation, lightheadedness, or dizziness and has never in her past felt true symptoms associated with A. fib -Has been on Cardizem drip and the rate controlled -Denies any palpitation and/or chest pain or shortness of breath -Appreciate cardiology input and recommendation (2) Urinary tract infection: Plan: -Pansensitive E. coli on 09/26/2021 -Repeat urine culture in process, patient has not provided sample yet -Continue p.o. Keflex for now (3) Hallucinations: Plan: -Check MRI of the brain-extended is related change without any acute infarct. CT of the head was negative -No infection except urine culture positive which was taken on eighth of this month -checking ammonia level with history of Cabrales-has been negative -Noted sodium of 130 appears to have been low in the past however last spring was in the high 130s, continue IV fluids for rehydration -Psych consulted, only psychiatric medication includes lorazepam 0.5 mg twice daily as needed, will continue this for now as she feels extremely anxious from seeing visual/auditory hallucinations of career agent to men who are threatening to her at this point -Appreciate psychiatric input and recommendation-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 -Hallucination has disappeared (4) Depression: Plan: -History of such, as above, appears to be more hallucination involved than depressive mood (5) Aortic stenosis: Plan: -Noted, chronic, continue antihypertensive medications -Asymptomatic, no chest pain, palpitation or CHF - hold lasix (6) HTN (hypertension): Plan: -Continue diltiazem as above, lisinopril, metoprolol DVT ppx: - teds, scds -Has been on Coumadin and INR is therapeutic CODE: Full code Dispo: From home, likely to remain in the hospital x 1-2 days Admission and Anticipated Discharge Date Admission Date: October 01, 2021 Subjective 10/02/2021 The patient was seen and examined in the emergency room in the [facility] area She was admitted with acute confusion with hallucination and noted to have UTI with A. fib and RVR She was noted to be calm and quiet this morning and denies to have any more hallucinations Denied any other symptoms during my examination Review of Systems Review of Systems: All systems reviewed and are unremarkable except as noted below Cardiovascular: Additional Comments: No palpitation and no chest pain Physical Exam Physical Exam: Lying in bed comfortably Constitutional: + ill appearing and average body habitus Eyes: PERRL, conjunctivae normal, anicteric sclerae ENMT: external ear and nose normal, oropharynx normal Neck: trachea midline, no thyromegaly Respiratory: no respiratory distress Auscultation: lungs clear to auscultation bilaterally Cardiovascular: Rate/Rhythm: + irregularly irregular; not tachycardic Heart Sounds: normal S1, normal S2 and + murmur (2/6 ESM over precordium) Gastrointestinal (Abdomen): Inspection/Auscultation: normal bowel sounds; abdomen not distended Percussion/Palpation: abdomen soft; abdomen nontender Musculoskeletal: No acute arthritis in any joint Neurologic: Alert, awake and oriented x3. Generally quite with weakness but no focal neuro deficit and denies any more hallucinations Lymphatic: no cervical or axillary lymphadenopathy Results & Data Results & Data ([facility]) Vital Signs (Past 12 Hours) Vital Signs Temp Pulse Pulse Resp BP Pulse Ox Pulse Ox 10/02/21 12:00 36.6 C 70 17 128/75 95 10/02/21 08:00 37 C 68 80 19 136/80 97 97 10/02/21 03:39 85 23 158/95 H 94 Laboratory Results Short CBC 10/01/21 10/02/21 Range/Units 14:48 04:30 WBC 8.29 5.02 (4.8-10.8) K/uL Hgb 14.7 14.2 (12.0-16.0) g/dL Hct 43.7 42.2 (37-47) % Plt Count 305 210 (130-400) K/uL BMP 10/01/21 10/02/21 14:48 04:30 Sodium 130 L 132 L Potassium 4.0 3.6 Chloride 95 L 96 L Carbon Dioxide 27 32 BUN 25 H 18 Creatinine 1.05 0.89 Glucose 153 H 102 H Calcium 9.8 9.6 Cardiac Enzymes 10/01/21 Range/Units 14:48 Troponin I < 0.015 (0-0.045) ng/ml Liver Function 10/01/21 10/02/21 Range/Units 14:48 04:30 Total Bilirubin 1.1 H 1.3 H (0.2-1) mg/dl Direct Bilirubin 0.4 H (0-0.2) mg/dl AST 99 H 66 H (15-37) U/L ALT 118 H 91 H (12-78) U/L Alkaline Phosphatase 107 88 (45-117) U/L Albumin 4.8 3.9 (3.4-5.0) gm/dl Urine 10/01/21 Range/Units Unknown Urine Color Yellow Urine Appearance Clear (Clear) Urine pH 7.0 (4.5-7.5) Ur Specific [place] 1.004 (1.000-1.030) Urine Protein Negative (Negative) Urine Glucose (UA) Negative (Negative) Medications Administered Current Inpatient Medications Acetaminophen (Acetaminophen 325 Mg Tab) 650 mg PO Q4H PRN PRN Reason: Moderate Pain Stop: 10/31/21 19:02 Bisacodyl (Bisacodyl 5 Mg Tabec) 5 mg PO DAILY [facility] Stop: 10/31/21 19:14 Last Admin: 10/02/21 07:46 Dose: Not Given Documented by: Cephalexin HCl (Cephalexin 500 Mg Cap) 500 mg PO TID [facility]; Protocol Stop: 10/02/21 21:01 Last Admin: 10/02/21 07:47 Dose: 500 mg Documented by: Diltiazem HCl (Diltiazem Hcl 240 Mg Capcr) 240 mg PO QAM [facility] Stop: 11/01/21 11:44 Last Admin: 10/02/21 12:28 Dose: 240 mg Documented by: Docusate Sodium (Docusate Sodium 100 Mg Cap) 100 mg PO BID PRN PRN Reason: Constipation Stop: 10/31/21 20:59 Ipratropium [place] (Ipratropium [place] Nasal [place] 0.06% 15ml) 1 sprays XIAO Q12 [facility] Stop: 10/31/21 20:59 Last Admin: 10/02/21 07:47 Dose: 1 sprays Documented by: Lisinopril (Lisinopril 5 Mg Tab) 5 mg PO QPM [facility] Stop: 10/31/21 20:59 Last Admin: 10/01/21 21:53 Dose: 5 mg Documented by: Metoprolol Tartrate (Metoprolol Tartrate 100 Mg Tab) 100 mg PO BID [facility] Stop: 10/31/21 20:59 Last Admin: 10/02/21 07:48 Dose: 100 mg Documented by: Ondansetron HCl (Ondansetron Inj 2 Mg/Ml 2 Ml Vial) 4 mg IV Q4H PRN PRN Reason: Nausea And Vomiting Stop: 10/31/21 19:02 Polyethylene Glycol (Polyethylene (Miralax) 17 Gm Pack) 17 gm PO DAILY [facility] Stop: 10/31/21 19:14 Last Admin: 10/02/21 07:48 Dose: Not Given Documented by: Potassium Chloride (Potassium Chloride 10 Meq Tabcr) 10 meq PO DAILY [facility] Stop: 11/01/21 08:59 Last Admin: 10/02/21 07:48 Dose: 10 meq Documented by: Warfarin Sodium (Warfarin Sod 10 Mg Tab) 10 mg PO SuTuWeThFrSa@1600 [facility] Stop: 11/01/21 15:59 Warfarin Sodium (Warfarin Sod 7.5 Mg Tab) 15 mg PO Mo@1600 [facility] Stop: 11/02/21 15:59 (1) Urinary tract infection Hematuria presence: without hematuria Urinary tract infection type: acute cystitis Qualified Code(s): N30.00 - Acute cystitis without hematuria (2) Depression Active/Remission status: currently active Depression Type: major depressive disorder Major depression episode severity: unspecified Major depression recurrence: unspecified whether recurrent Qualified Code(s): F32.9 - Major depressive disorder, single episode, unspecified
[2021-10-02] MEDS: WARFARIN SOD 10 MG TAB PO SCH (16:45)
[2021-10-02] MEDS: lisinopril 5 MG TAB PO SCH (21:37)
--- NOTE | 2021-10-02 23:20 | Electrocardiogram Report ---
Test Reason : Blood Pressure : / mmHG Vent. Rate : 133 BPM Atrial Rate : 076 BPM P-R Int : 000 ms QRS Dur : 074 ms QT Int : 284 ms P-R-T Axes : 000 042 153 degrees QTc Int : 422 ms Poor data quality, interpretation may be adversely affected Atrial fibrillation with rapid ventricular response Anteroseptal infarct (cited on or before 21-APR-2004) Nonspecific ST and T wave abnormality Abnormal ECG When compared with ECG of 26-SEP-2021 19:07, Questionable change in initial forces of Anterior leads Non-specific change in ST segment in Inferior leads Nonspecific T wave abnormality, improved in Anterior leads Confirmed by Jeyson Penaloza ([id number]) on 10/02/2021 11:20:28 PM Referred By: REFERRED SELF Confirmed By:Jeyson Penaloza
[2021-10-03 07:32] LABS: Hematocrit (blood only) 46.5 % (37-47); Hemoglobin 15.6 g/dL (12.0-16.0); Mean Corpuscular Hemoglobin 29.1 pg (25-34); Mean Corpuscular Hgb Conc 33.5 g/dL (32-36); Mean Corpuscular Volume 86.8 fL (80-100); Mean Platelet Volume 9.5 fL (7.4-10.4); Platelet Count 270 K/uL (130-400); RDW Coefficient of Variation 14.7 % (11.5-14.5); RDW Standard Deviation 46.7 fL (36.4-46.3); Red Blood Count 5.36 M/uL (4.2-5.4)
[2021-10-03 07:42] LABS: INR 2.7 (0.9-1.1); Prothrombin Time 25.5 Seconds (9.0-12.0)
[2021-10-03 07:57] LABS: BUN Creatinine Ratio 19.8 (10-20); Calcium 9.4 mg/dl (8.5-10.1); Creatinine Clr Calc Pharmacy 28.7 ml/min; Est GFR (African American) 40.5 ml/min
[2021-10-03 08:01] LABS: Bilirubin,Total 0.9 mg/dl (0.2-1); Globulin 4.1 gm/dl (2.5-4.0); Total Protein 8.1 gm/dl (6.4-8.2)
[2021-10-03] MEDS: dilTIAZem HCL 240 MG CAPCR PO SCH (09:14)
[2021-10-03] MEDS: METOPROLOL TARTRATE 100 MG TAB PO SCH ×2 (09:14→21:41)
[2021-10-03 09:37] LABS: Folate (Folic Acid) > 20.00 ng/ml (>5.38); Vitamin B12 1277 pg/ml (193-986)
[2021-10-03] MEDS: IPRATROPIUM BROMIDE NASAL SPRAY 0.06% 15ML NAE SCH ×2 (10:08→21:41)
[2021-10-03] MEDS: POTASSIUM CHLORIDE 10 MEQ TABCR PO SCH (10:08)
[2021-10-03] MEDS: bisacodyL 5 MG TABEC PO SCH (10:08)
[2021-10-03] MEDS: POLYETHYLENE (MIRALAX) 17 GM PACK PO SCH (10:08)
--- NOTE | 2021-10-03 11:37 | Psychiatric Progress Note ---
Date of Service October 03, 2021 Impression / Recommendations Impression 81 yo woman with no significant past psychiatric history except periods of anxiety with history of afib, HTN, CKD who presented to the ED with her for increasing paranoia, AH, VH, and confusion in the setting of a recent diagnosis of a UTI. Psychiatry was consulted for diagnostic and management recommendations. Diagnostically most consistent with delirium given recent timeframe of AH and VH and no past psychiatric history as well as recent UTI. Given that some of the paranoia has been present for the last two-three months she may also have early stages of mild cognitive impairment in which paranoia can occur and VH can often occur with Lewy Body dementia. Therefore must be very cautious with any antipsychotic use given high risk for EPS. Collateral from consistent with possible lewy body dementia with superimposed delirium. 10/03/21: significant change today with increased paranoia and lack of engagement, such fluctuations certainly consistent with delirium but can also occur and be quite striking in Lewy Body dementia. (1) Acute delirium: -could consider seroquel 12.5 mg qhs prn if paranoia and/or VH/AH worsen and there is concern for her safety due to agitation or wandering; if she refuses use olanzapine 2.5 mg IM for behavioral emergency; monitor closely for EPS if used given risks with lewy body dementia -continue with medical workup and management for presumed delirium, likely 2/2 recent UTI -continue with frequent re-orientation as needed, open blinds during the day, close at night, encourage communication with her family to help treat delirium Risk Factors Assessment Do You Have Access To A Gun?: No (locked up in home without access) Substance Use Disorders: No Previous Attempt: No Hopelessness: No Interval History Identifying Information 81 yo woman with no significant past psychiatric history except periods of anxiety with history of afib, HTN, CKD who presented to the ED with her for increasing paranoia, AH, VH, and confusion in the setting of a recent diagnosis of a UTI. Psychiatry was consulted for diagnostic and management recommendations. Chief Complaint "You know who they are!". Review of Systems Notes Unable to assess due to her cognitive status. Subjective Subjective Patient was seen & assessed and interval progress reviewed. This morning she was sitting in bed staring at the window with no spontaneous speech or movements offered when we entered the room. With prompting about meeting her yesterday and asking if she had been bothered by the two men who have been the focus of her paranoia she stated "you know who they are" but otherwise would not engage at all. Per discussion with her nurses she was agitated this morning and refusing medications and care. Later in the morning she became acutely agitated and required emergency medication. Discussed recommendation with Dr. Redmond at that time. Physical Exam Psychiatric Orientation: alert and + guarded Apperance: + disheveled Eye Contact: + poor eye contact Motor Behavior: + psychomotor retardation Speech: + loud speech Affect: + flat affect Mood: + irritable mood Thought Process: + concrete thought process and + incoherent thought process Thought Content: + paranoid Hallucinations: + auditory hallucinations (likely responding to internal stimuli though unable to assess) and + visual hallucinations Insight: + impaired insight Judgement: + severely impaired judgement Vital Signs (Past 24 Hours) Last Vital Signs Temp 36.5 C 10/03/21 08:00 Pulse 125 H 10/03/21 08:00 Resp 16 10/03/21 08:00 BP 169/99 H 10/03/21 08:00 Pulse Ox 94 10/03/21 08:00 Results & Data ([facility]) Laboratory Results Laboratory Results - last 24 hr 10/03/21 10/03/21 10/03/21 07:11 07:11 07:11 WBC 5.60 RBC 5.36 Hgb 15.6 Hct 46.5 MCV 86.8 MCH 29.1 MCHC 33.5 RDW Std Deviation 46.7 H RDW Coeff of Serg 14.7 H Plt Count 270 MPV 9.5 PT 25.5 H INR 2.7 H Sodium Potassium Chloride Carbon Dioxide Anion Gap BUN Creatinine Est Cr Clr Drug Dosing Est GFR ( Amer) Est GFR (Non-Af Amer) BUN/Creatinine Ratio Glucose Calcium Total Bilirubin AST ALT Alkaline Phosphatase Total Protein Albumin Globulin Albumin/Globulin Ratio Vitamin B12 1277 H Folate > 20.00 10/03/21 07:11 WBC RBC Hgb Hct MCV MCH MCHC RDW Std Deviation RDW Coeff of Serg Plt Count MPV PT INR Sodium 134 L Potassium 4.0 Chloride 100 Carbon Dioxide 24 Anion Gap 10.0 BUN 28 H D Creatinine 1.39 H D Est Cr Clr Drug Dosing 28.7 Est GFR ( Amer) 40.5 Est GFR (Non-Af Amer) 35.0 BUN/Creatinine Ratio 19.8 Glucose 100 H Calcium 9.4 Total Bilirubin 0.9 AST 54 H ALT 79 H Alkaline Phosphatase 92 Total Protein 8.1 Albumin 4.0 Globulin 4.1 H Albumin/Globulin Ratio 1.0 Vitamin B12 Folate Current Inpatient Medications Current Inpatient Medications: Current Inpatient Medications Acetaminophen (Acetaminophen 325 Mg Tab) 650 mg PO Q4H PRN PRN Reason: Moderate Pain Stop: 10/31/21 19:02 Bisacodyl (Bisacodyl 5 Mg Tabec) 5 mg PO DAILY [facility] Stop: 10/31/21 19:14 Last Admin: 10/03/21 10:08 Dose: Not Given Documented by: Diltiazem HCl (Diltiazem Hcl 240 Mg Capcr) 240 mg PO QAM [facility] Stop: 11/01/21 11:44 Last Admin: 10/03/21 09:14 Dose: 240 mg Documented by: Docusate Sodium (Docusate Sodium 100 Mg Cap) 100 mg PO BID PRN PRN Reason: Constipation Stop: 10/31/21 20:59 Ipratropium [place] (Ipratropium [place] Nasal [place] 0.06% 15ml) 1 sprays XIAO Q12 [facility] Stop: 10/31/21 20:59 Last Admin: 10/03/21 10:08 Dose: Not Given Documented by: Lisinopril (Lisinopril 5 Mg Tab) 5 mg PO QPM [facility] Stop: 10/31/21 20:59 Last Admin: 10/02/21 21:37 Dose: 5 mg Documented by: Metoprolol Tartrate (Metoprolol Tartrate 100 Mg Tab) 100 mg PO BID [facility] Stop: 10/31/21 20:59 Last Admin: 10/03/21 09:14 Dose: 100 mg Documented by: Ondansetron HCl (Ondansetron Inj 2 Mg/Ml 2 Ml Vial) 4 mg IV Q4H PRN PRN Reason: Nausea And Vomiting Stop: 10/31/21 19:02 Polyethylene Glycol (Polyethylene (Miralax) 17 Gm Pack) 17 gm PO DAILY [facility] Stop: 10/31/21 19:14 Last Admin: 10/03/21 10:08 Dose: Not Given Documented by: Potassium Chloride (Potassium Chloride 10 Meq Tabcr) 10 meq PO DAILY [facility] Stop: 11/01/21 08:59 Last Admin: 10/03/21 10:08 Dose: Not Given Documented by: Warfarin Sodium (Warfarin Sod 10 Mg Tab) 10 mg PO SuTuWeThFrSa@1600 [facility] Stop: 11/01/21 15:59 Last Admin: 10/02/21 16:45 Dose: 10 mg Documented by: Warfarin Sodium (Warfarin Sod 7.5 Mg Tab) 15 mg PO Mo@1600 [facility] Stop: 11/02/21 15:59
--- NOTE | 2021-10-03 11:45 | Cardiology Progress Note ---
Date of Service October 03, 2021 Assessment & Plan (1) Atrial fibrillation with rapid ventricular response: (2) Acute delirium: (3) HTN (hypertension): (4) CKD (chronic kidney disease) stage 3, GFR 30-59 ml/min: Plan: Patient is an 81-year-old female history of long-term persistent atrial fibrillation who presents with an acute delirium and elevated ventricular response rate. Suspect rhythm issues are being driven by underlying medical issues including acute agitation and delirium. Plan: Continue oral medications. May need to increase beta-ruchi therapy but will reassess later in the day Will likely need family's help and patient continue with oral medication intake Admission and Anticipated Discharge Date Admission Date: October 01, 2021 Subjective Patient seen and examined, chart, medications, telemetry reviewed. Worsening agitation and delirium overnight alert and acutely paranoid this morning Initially refusing to take her medications but later states she took her medications unobserved. No fevers chills or chest discomfort. Heart rates elevated with agitation Physical Exam Constitutional: no acute distress Eyes: PERRL, conjunctivae normal, anicteric sclerae ENMT: external ear and nose normal, oropharynx normal Neck: trachea midline, no thyromegaly Respiratory: normal respiratory effort, lungs clear to auscultation Cardiovascular: Rate/Rhythm: + irregularly irregular Heart Sounds: normal S1, normal S2 and + murmur (Grade 2/6 systolic no diastolic); no gallop Palpation: normal PMI Vessels: normal carotid upstroke and radial pulses present; no JVD and no carotid bruit Extremities: no edema Gastrointestinal (Abdomen): normal bowel sounds, soft, nontender, no hepatosplenomegaly Musculoskeletal: no cyanosis or clubbing, extremities motor strength 5/5 Skin: no rashes, warm and dry Neurologic: PERRL, EOMI, accommodation nl, no face palsy, no dysarthria Results & Data ([facility]) Vital Signs (Past 12 Hours) Vital Signs Temp Pulse Resp BP Pulse Ox 10/03/21 08:00 36.5 C 125 H 16 169/99 H 94 10/03/21 03:59 36.5 C 85 18 126/75 95
[2021-10-03] MEDS ORDERED: OLANZapine 10 MG/2.1 ML SDV IM STA ×2 (12:14→15:41)
[2021-10-03] MEDS ORDERED: OLANZapine 10 MG/2.1 ML SDV IM ONE (12:16)
--- NOTE | 2021-10-03 13:21 | Hospitalist Progress Note ---
Date of Service October 03, 2021 Assessment & Plan (1) Atrial fibrillation with rapid ventricular response: Plan: - Was given metoprolol in the ER without improvement, Continue on cardizem gtt, hold p.o. Cardizem -Currently without any chest pain, patient does not feel flutter/palpitation, lightheadedness, or dizziness and has never in her past felt true symptoms associated with A. fib -Has been on Cardizem drip and the rate controlled -Denies any palpitation and/or chest pain or shortness of breath -Appreciate cardiology input and recommendation -Remains tachycardic and the patient is refusing medications or any treatment (2) Urinary tract infection: Plan: -Pansensitive E. coli on 09/26/2021 -Repeat urine culture in process, patient has not provided sample yet -Continue p.o. Keflex for now (3) Hallucinations: Plan: -Check MRI of the brain-extended is related change without any acute infarct. CT of the head was negative -No infection except urine culture positive which was taken on eighth of this month -checking ammonia level with history of Cabrales-has been negative -Noted sodium of 130 appears to have been low in the past however last spring was in the high 130s, continue IV fluids for rehydration -Psych consulted, only psychiatric medication includes lorazepam 0.5 mg twice daily as needed, will continue this for now as she feels extremely anxious from seeing visual/auditory hallucinations of hotel guest service agent to men who are threatening to her at this point -Appreciate psychiatric input and recommendation-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 -Hallucination has disappeared -Has been fairly confused this morning with aggressiveness and refusing anything offered -Appreciate psychiatry input and follow-up today-we will try olanzapine 2.5 mg IM as needed for aggressiveness with confusion (4) Depression: Plan: -History of such, as above, appears to be more hallucination involved than depressive mood (5) Aortic stenosis: Plan: -Noted, chronic, continue antihypertensive medications -Asymptomatic, no chest pain, palpitation or CHF - hold lasix (6) HTN (hypertension): Plan: -Continue diltiazem as above, lisinopril, metoprolol DVT ppx: - teds, scds -Has been on Coumadin and INR is therapeutic CODE: Full code Dispo: From home, likely to remain in the hospital x 1-2 days Admission and Anticipated Discharge Date Admission Date: October 01, 2021 Subjective 10/02/2021 The patient was seen and examined in the emergency room in the [facility] area She was admitted with acute confusion with hallucination and noted to have UTI with A. fib and RVR She was noted to be calm and quiet this morning and denies to have any more hallucinations Denied any other symptoms during my examination 10/03/2021 The patient was seen and examined in telemetry unit She has been very confused and to the point of being very aggressive as well Has not been taking any medications She wants to see Kathryn Kaye therapist who is all around her Review of Systems Review of Systems: All systems reviewed and are unremarkable except as noted below Cardiovascular: Additional Comments: No palpitation and no chest pain Physical Exam Physical Exam: Lying in bed very confused and agitated Constitutional: + ill appearing and average body habitus Eyes: PERRL, conjunctivae normal, anicteric sclerae ENMT: external ear and nose normal, oropharynx normal Neck: trachea midline, no thyromegaly Respiratory: no respiratory distress Auscultation: lungs clear to auscultation bilaterally Cardiovascular: Rate/Rhythm: + irregularly irregular; not tachycardic Heart Sounds: normal S1, normal S2 and + murmur (2/6 ESM over precordium) Gastrointestinal (Abdomen): Inspection/Auscultation: normal bowel sounds; abdomen not distended Percussion/Palpation: abdomen soft; abdomen nontender Neurologic: Alert and awake. Acute confusion with agitation Lymphatic: no cervical or axillary lymphadenopathy Results & Data Results & Data ([facility]) Vital Signs (Past 12 Hours) Vital Signs Temp Pulse Resp BP Pulse Ox 10/03/21 08:00 36.5 C 125 H 16 169/99 H 94 10/03/21 03:59 36.5 C 85 18 126/75 95 Laboratory Results Short CBC 10/03/21 Range/Units 07:11 WBC 5.60 (4.8-10.8) K/uL Hgb 15.6 (12.0-16.0) g/dL Hct 46.5 (37-47) % Plt Count 270 (130-400) K/uL BMP 10/03/21 07:11 Sodium 134 L Potassium 4.0 Chloride 100 Carbon Dioxide 24 BUN 28 H D Creatinine 1.39 H D Glucose 100 H Calcium 9.4 Liver Function 10/03/21 Range/Units 07:11 Total Bilirubin 0.9 (0.2-1) mg/dl AST 54 H (15-37) U/L ALT 79 H (12-78) U/L Alkaline Phosphatase 92 (45-117) U/L Albumin 4.0 (3.4-5.0) gm/dl Medications Administered Current Inpatient Medications Acetaminophen (Acetaminophen 325 Mg Tab) 650 mg PO Q4H PRN PRN Reason: Moderate Pain Stop: 10/31/21 19:02 Bisacodyl (Bisacodyl 5 Mg Tabec) 5 mg PO DAILY [facility] Stop: 10/31/21 19:14 Last Admin: 10/03/21 10:08 Dose: Not Given Documented by: Diltiazem HCl (Diltiazem Hcl 240 Mg Capcr) 240 mg PO QAM [facility] Stop: 11/01/21 11:44 Last Admin: 10/03/21 09:14 Dose: 240 mg Documented by: Docusate Sodium (Docusate Sodium 100 Mg Cap) 100 mg PO BID PRN PRN Reason: Constipation Stop: 10/31/21 20:59 Ipratropium [place] (Ipratropium [place] Nasal [place] 0.06% 15ml) 1 sprays XIAO Q12 [facility] Stop: 10/31/21 20:59 Last Admin: 10/03/21 10:08 Dose: Not Given Documented by: Lisinopril (Lisinopril 5 Mg Tab) 5 mg PO QPM [facility] Stop: 10/31/21 20:59 Last Admin: 10/02/21 21:37 Dose: 5 mg Documented by: Metoprolol Tartrate (Metoprolol Tartrate 100 Mg Tab) 100 mg PO BID [facility] Stop: 10/31/21 20:59 Last Admin: 10/03/21 09:14 Dose: 100 mg Documented by: Ondansetron HCl (Ondansetron Inj 2 Mg/Ml 2 Ml Vial) 4 mg IV Q4H PRN PRN Reason: Nausea And Vomiting Stop: 10/31/21 19:02 Polyethylene Glycol (Polyethylene (Miralax) 17 Gm Pack) 17 gm PO DAILY [facility] Stop: 10/31/21 19:14 Last Admin: 10/03/21 10:08 Dose: Not Given Documented by: Potassium Chloride (Potassium Chloride 10 Meq Tabcr) 10 meq PO DAILY [facility] Stop: 11/01/21 08:59 Last Admin: 10/03/21 10:08 Dose: Not Given Documented by: Warfarin Sodium (Warfarin Sod 10 Mg Tab) 10 mg PO SuTuWeThFrSa@1600 [facility] Stop: 11/01/21 15:59 Last Admin: 10/02/21 16:45 Dose: 10 mg Documented by: Warfarin Sodium (Warfarin Sod 7.5 Mg Tab) 15 mg PO Mo@1600 [facility] Stop: 11/02/21 15:59 (1) Urinary tract infection Hematuria presence: without hematuria Urinary tract infection type: acute cystitis Qualified Code(s): N30.00 - Acute cystitis without hematuria (2) Depression Active/Remission status: currently active Depression Type: major depressive disorder Major depression episode severity: unspecified Major depression recurrence: unspecified whether recurrent Qualified Code(s): F32.9 - Major depressive disorder, single episode, unspecified
[2021-10-03] MEDS ORDERED: WARFARIN SOD 7.5 MG TAB PO SCH (16:00)
[2021-10-03] MEDS ORDERED: METOPROLOL TARTRATE 1 MG/ML VIAL IV STA (19:43)
[2021-10-03] MEDS ORDERED: dilTIAZem HCl 5 MG/ML 5 ML VIAL IV STA (21:47)
[2021-10-03] MEDS: OLANZapine 10 MG/2.1 ML SDV IM PRN (22:08)
[2021-10-04] MEDS: OLANZapine 10 MG/2.1 ML SDV IM PRN (07:44)
[2021-10-04 09:29] LABS: Hematocrit (blood only) 41.9 % (37-47); Hemoglobin 14.2 g/dL (12.0-16.0); Mean Corpuscular Hemoglobin 28.5 pg (25-34); Mean Corpuscular Hgb Conc 33.9 g/dL (32-36); Mean Corpuscular Volume 84.1 fL (80-100); Mean Platelet Volume 9.1 fL (7.4-10.4); Platelet Count 231 K/uL (130-400); RDW Coefficient of Variation 14.4 % (11.5-14.5); RDW Standard Deviation 44.5 fL (36.4-46.3); Red Blood Count 4.98 M/uL (4.2-5.4); White Blood Count 9.79 K/uL (4.8-10.8)
[2021-10-04] MEDS: dilTIAZem HCL 240 MG CAPCR PO SCH (09:33)
[2021-10-04] MEDS: POTASSIUM CHLORIDE 10 MEQ TABCR PO SCH (09:35)
[2021-10-04] MEDS: bisacodyL 5 MG TABEC PO SCH (09:35)
[2021-10-04] MEDS: METOPROLOL TARTRATE 100 MG TAB PO SCH ×2 (09:36→21:14)
[2021-10-04 09:37] LABS: INR 2.7 (0.9-1.1); Prothrombin Time 25.1 Seconds (9.0-12.0)
[2021-10-04] MEDS: POLYETHYLENE (MIRALAX) 17 GM PACK PO SCH (09:37)
[2021-10-04] MEDS: IPRATROPIUM BROMIDE NASAL SPRAY 0.06% 15ML NAE SCH ×2 (09:38→21:15)
[2021-10-04 10:09] LABS: Albumin Level 3.9 gm/dl (3.4-5.0); BUN Creatinine Ratio 24.6 (10-20); Bilirubin,Total 1.4 mg/dl (0.2-1); Calcium 9.7 mg/dl (8.5-10.1); Creatinine Clr Calc Pharmacy 39.1 ml/min; Est GFR (African American) 58.9 ml/min; Est GFR (Non-African American) 50.8 ml/min; Globulin 3.8 gm/dl (2.5-4.0); Total Protein 7.7 gm/dl (6.4-8.2)
--- NOTE | 2021-10-04 11:26 | Psychiatric Progress Note ---
Date of Service October 04, 2021 Impression / Recommendations Impression 81 yo woman with no significant past psychiatric history except periods of anxiety with history of afib, HTN, CKD who presented to the ED with her for increasing paranoia, AH, VH, and confusion in the setting of a recent diagnosis of a UTI. Psychiatry was consulted for diagnostic and management recommendations. Diagnostically most consistent with delirium given recent timeframe of AH and VH worsening over the last week and no past psychiatric history as well as recent UTI. Given that some of the paranoia has been present for the last two-three months she may also have early stages of mild cognitive impairment in which paranoia can occur and VH can often occur with Lewy Body dementia. The more complex paranoid schema and fluctuating cognition can also be characteristic of LBD. Therefore must be very cautious with any antipsychotic use given high risk for EPS. Collateral from consistent with possible lewy body dementia with superimposed delirium. 10/04/21: able to engage today but still with significant paranoia, such fluctuations certainly consistent with delirium but can also occur and be quite striking in Lewy Body dementia especially since she has remained fully oriented per nursing even while agitated. (1) Acute delirium: -could try seroquel 12.5 mg BID prn given ongoing agitation; if she refuses use olanzapine 2.5 mg IM for behavioral emergency (do not exceed 10mg total daily dose per day); monitor closely for EPS if used given risks with lewy body dementia (no evidence of side effects today), monitor QTc given risks for prolongation with antipsychotic use -continue with medical workup and management for presumed delirium, likely 2/2 recent UTI -continue with frequent re-orientation as needed, open blinds during the day, close at night, encourage communication with her family to help treat delirium -could consider neurology to weigh-in re: possibility of lewy body dementia and any additional recommendations for agitation management in this context Risk Factors Assessment Do You Have Access To A Gun?: No (locked up in home without access) Substance Use Disorders: No Previous Attempt: No Hopelessness: No Interval History Identifying Information 81 yo woman with no significant past psychiatric history except periods of anxiety with history of afib, HTN, CKD who presented to the ED with her for increasing paranoia, AH, VH, and confusion in the setting of a recent diagnosis of a UTI. Psychiatry was consulted for diagnostic and management rec ommendations. Chief Complaint "I'm solemn because the PD is taking me to skilled nursing tomorrow". Review of Systems Notes Poor sleep overnight, refused food this morning due to paranoia per nursing (thought she would go to skilled nursing if she ate) Subjective Subjective Patient was seen & assessed and interval progress reviewed. She has required multiple doses of olanzapine 2.5 mg IM over the last 24 hours (appears to be 4 times, total dose=10 mg/24 hours). Was aggressive toward her yesterday. 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 This morning was reportedly responding to visual and auditory hallucinations. With me she presents as fully oriented, much calmer and pleasant though continues to have paranoia including a new belief that she will be taken to skilled nursing tomorrow from the hospital which is causing her anxiety. Discussed that she is safe here and reassured her that she will not be going to skilled nursing and that we would never let that happen. Opened her blinds and encouraged her to call her . She denied any muscle stiffness or pain. No evidence of tremor with outstretched hands. No evidence for Parkinsonism or EPS side effects from olanzapine doses yesterday. Physical Exam Psychiatric Orientation: alert, oriented to person, oriented to place and oriented to time Apperance: + disheveled Eye Contact: good eye contact Motor Behavior: no abnormal motor movements; n EPS and n tremor Speech: normal rate/rhythm/volume of speech Affect: + constricted affect Mood: + anxious mood Thought Process: goal directed thought process Thought Content: + paranoid and + delusions Suicidal Thoughts: denies suicidal thoughts Homicidal Thoughts: denies homicidal thoughts Hallucinations: + auditory hallucinations and + visual hallucinations Insight: + impaired insight Judgement: + severely impaired judgement Vital Signs (Past 24 Hours) Last Vital Signs Temp 36.5 C 10/04/21 08:20 Pulse 127 H 10/04/21 08:20 Resp 22 10/04/21 08:20 BP 155/93 H 10/04/21 08:20 Pulse Ox 97 10/04/21 08:20 Results & Data ([facility]) Laboratory Results Laboratory Results - last 24 hr 10/04/21 10/04/21 10/04/21 09:11 09:11 09:11 WBC 9.79 RBC 4.98 Hgb 14.2 Hct 41.9 MCV 84.1 MCH 28.5 MCHC 33.9 RDW Std Deviation 44.5 RDW Coeff of Serg 14.4 Plt Count 231 MPV 9.1 PT 25.1 H INR 2.7 H Sodium 125 L D Potassium 4.0 Chloride 90 L Carbon Dioxide 27 Anion Gap 8.0 BUN 25 H Creatinine 1.02 Est Cr Clr Drug Dosing 39.1 Est GFR ( Amer) 58.9 Est GFR (Non-Af Amer) 50.8 BUN/Creatinine Ratio 24.6 H Glucose 120 H Calcium 9.7 Total Bilirubin 1.4 H D AST 45 H ALT 61 Alkaline Phosphatase 87 Total Protein 7.7 Albumin 3.9 Globulin 3.8 Albumin/Globulin Ratio 1.0 Current Inpatient Medications Current Inpatient Medications: Current Inpatient Medications Acetaminophen (Acetaminophen 325 Mg Tab) 650 mg PO Q4H PRN PRN Reason: Moderate Pain Stop: 10/31/21 19:02 Bisacodyl (Bisacodyl 5 Mg Tabec) 5 mg PO DAILY LIZA Stop: 10/31/21 19:14 Last Admin: 10/04/21 09:35 Dose: 5 mg Documented by: Diltiazem HCl (Diltiazem Hcl 240 Mg Capcr) 240 mg PO QAM LIZA Stop: 11/01/21 11:44 Last Admin: 10/04/21 09:33 Dose: 240 mg Documented by: Docusate Sodium (Docusate Sodium 100 Mg Cap) 100 mg PO BID PRN PRN Reason: Constipation Stop: 10/31/21 20:59 Ipratropium [place] (Ipratropium [place] Nasal [place] 0.06% 15ml) 1 sprays XIAO Q12 LIZA Stop: 10/31/21 20:59 Last Admin: 10/04/21 09:38 Dose: 1 sprays Documented by: Lisinopril (Lisinopril 5 Mg Tab) 5 mg PO QPM LIZA Stop: 10/31/21 20:59 Last Admin: 10/02/21 21:37 Dose: 5 mg Documented by: Metoprolol Tartrate (Metoprolol Tartrate 100 Mg Tab) 100 mg PO BID LIZA Stop: 10/31/21 20:59 Last Admin: 10/04/21 09:36 Dose: 100 mg Documented by: Olanzapine (Olanzapine 10 Mg/2.1 Ml Sdv) 2.5 mg IM Q4H PRN PRN Reason: Agitation Stop: 11/02/21 19:44 Last Admin: 10/04/21 07:44 Dose: 2.5 mg Documented by: Ondansetron HCl (Ondansetron Inj 2 Mg/Ml 2 Ml Vial) 4 mg IV Q4H PRN PRN Reason: Nausea And Vomiting Stop: 10/31/21 19:02 Polyethylene Glycol (Polyethylene (Miralax) 17 Gm Pack) 17 gm PO DAILY [facility] Stop: 10/31/21 19:14 Last Admin: 10/04/21 09:37 Dose: 17 gm Documented by: Potassium Chloride (Potassium Chloride 10 Meq Tabcr) 10 meq PO DAILY [facility] Stop: 11/01/21 08:59 Last Admin: 10/04/21 09:35 Dose: 10 meq Documented by: Warfarin Sodium (Warfarin Sod 10 Mg Tab) 10 mg PO SuTuWeThFrSa@1600 [facility] Stop: 11/01/21 15:59 Last Admin: 10/02/21 16:45 Dose: 10 mg Documented by: Warfarin Sodium (Warfarin Sod 7.5 Mg Tab) 15 mg PO Mo@1600 [facility] Stop: 11/02/21 15:59 Last Admin: 10/03/21 17:07 Dose: Not Given Documented by:
--- NOTE | 2021-10-04 11:48 | Cardiology Progress Note ---
Date of Service October 04, 2021 Assessment & Plan (1) Atrial fibrillation with rapid ventricular response: (2) Acute delirium: (3) HTN (hypertension): (4) CKD (chronic kidney disease) stage 3, GFR 30-59 ml/min: Plan: Patient is an 81-year-old female history of long-term persistent atrial fibrillation who presents with an acute delirium and elevated ventricular response rate. Suspect rhythm issues are being driven by underlying medical issues including acute agitation and delirium. Plan: Patient was agreeable to taking cardiac medications this morning. Expect heart rate to improve. Hyponatremia slightly worse. Would continue to hold lisinopril, consider fluid restriction Will likely need family's help and patient continue with oral medication intake Admission and Anticipated Discharge Date Admission Date: October 01, 2021 Subjective Patient seen and examined, chart, medications, telemetry reviewed. Less agitation this morning and slightly more cooperative. Required dose of Zyprexa this morning After nonforced discussion patient was agreeable to taking medications while I observed Review of Systems Review of Systems: All systems reviewed & are unremarkable except as noted in Subjective Physical Exam Constitutional: no acute distress Eyes: PERRL, conjunctivae normal, anicteric sclerae ENMT: external ear and nose normal, oropharynx normal Neck: trachea midline, no thyromegaly Respiratory: normal respiratory effort, lungs clear to auscultation Cardiovascular: Rate/Rhythm: + irregularly irregular Heart Sounds: normal S1, normal S2 and + murmur (Grade 2/6 systolic no diastolic); no gallop Palpation: normal PMI Vessels: normal carotid upstroke and radial pulses present; no JVD and no carotid bruit Extremities: no edema Gastrointestinal (Abdomen): normal bowel sounds, soft, nontender, no hepatosplenomegaly Musculoskeletal: no cyanosis or clubbing, extremities motor strength 5/5 Skin: no rashes, warm and dry Neurologic: PERRL, EOMI, accommodation nl, no face palsy, no dysarthria Psychiatric: A+Ox3, euthymic affect Results & Data ([facility]) Vital Signs (Past 12 Hours) Vital Signs Temp Pulse Pulse Resp BP Pulse Ox 10/04/21 11:31 36.8 C 108 H 16 120/84 92 10/04/21 08:20 36.5 C 127 H 22 155/93 H 97 10/04/21 07:55 137 H 10/04/21 03:00 36.5 C 105 H 19 140/96 94 Laboratory Results Laboratory Results - last 24 hr 10/04/21 10/04/21 10/04/21 09:11 09:11 09:11 WBC 9.79 RBC 4.98 Hgb 14.2 Hct 41.9 MCV 84.1 MCH 28.5 MCHC 33.9 RDW Std Deviation 44.5 RDW Coeff of Serg 14.4 Plt Count 231 MPV 9.1 PT 25.1 H INR 2.7 H Sodium 125 L D Potassium 4.0 Chloride 90 L Carbon Dioxide 27 Anion Gap 8.0 BUN 25 H Creatinine 1.02 Est Cr Clr Drug Dosing 39.1 Est GFR ( Amer) 58.9 Est GFR (Non-Af Amer) 50.8 BUN/Creatinine Ratio 24.6 H Glucose 120 H Calcium 9.7 Total Bilirubin 1.4 H D AST 45 H ALT 61 Alkaline Phosphatase 87 Total Protein 7.7 Albumin 3.9 Globulin 3.8 Albumin/Globulin Ratio 1.0
--- NOTE | 2021-10-04 11:50 | Neurology Consultation ---
Date of Consultation October 04, 2021 Assessment & Plan (1) Hallucinations: 1. needs RPR recheck sodium low at 125 2. B12, folate, TSH - WNL 3. MRI with no acute findings 4. psychiatry on board for medication management 5. further work up for dementia as outpatient will see in our office 4-6 weeks from discharge (2) Urinary tract infection: 1. currently on antibiotic therapy Supervising Physician Co-Signing Physician Notes I have seen and discussed above patient with Dr Melanie Aggarwal, neurology. Pt seen and examined, hx reviewed. Labs notable for NA 125. Hallucinations x4-5 months with some cognitive impairment which has difficulty explaining.pt tapered off ativan 1+ month ago. no change in judgment. pt was disoriented at home. exam notable for 1/3 memory at 3 min, no parkinsonian features. Imp possible LBD with some hospital induced delirium, query contribution from hyponatremia. Agree with zyprexa at present, gradual correction of NA, labs for tx etiologies of cognitive dysfunction. Should see [facility] as outpt. No driving. md Chacha History of Present Illness Reason for Consultation: Lewy body dementia? Requesting Physician: Karlie Redmond MD Attending Physician: Karlie Redmond MD History of Present Illness Angela is a 81 year old female with PMH- afib on coumadin, pulmonary vein isolation ablation and multiple failed DC cardioversion followed by Dr. Beasley [facility] [place] [place], HTN, HLD, prediabetes, CKD stage III, DU, CHAVEZ who presents to the [facility] ER 10/01/2021 with worsening visual and auditory hallucinations. says his has been talking to an intercom called "ready photo" over the past 2 to 3 months, but that is significantly worsened within the past 4 to 5 days. She reports seeing and hearing two men, ". Brady and Mr. Emerson" who are from a federal agency who are threatening her, telling her to do certain things, ordering her around, and causing her to become nearly tearful while asking her to describe some of the things they say to her. He left the house to run an errand, and found her outside wandering around the front yard. She is not sleeping well, and reports she is more anxious because of these people who she believes are real. her is in the room and gives history. According to his report she was doing her normal activities of cooking, cleaning. about 2-3 months ago she started having the hallucinations and contact a relative that is a CUSTOMER ORDERS CLERK and she thought psychiatry was needed. This then escalated to her being less cooperative and unable to stay at home alone. She has been eating well. 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 since halfway she has stayed very active. She has no loss of bowel or bladder and no vomiting. Allergies Allergy/AdvReac Type Severity Reaction Status Date / Time latex Allergy Intermediate Rash Unverified 10/01/21 15:30 adhesive AdvReac Unknown Verified 10/01/21 15:30 cat dander AdvReac Unknown Verified 10/01/21 15:30 ezetimibe [From Zetia] AdvReac Unknown Verified 10/01/21 15:30 soy AdvReac Unknown Verified 10/01/21 15:30 Home Medications Medication Instructions Recorded Confirmed Type diltiazem HCl 240 mg 240 mg PO QAM 03/28/21 10/01/21 History capsule,extended release 24 hr lisinopril 5 mg tablet 5 mg PO QPM 03/28/21 10/01/21 History lorazepam 0.5 mg tablet 0.5 mg PO BID PRN 03/28/21 10/01/21 History warfarin 5 mg tablet 10 mg PO [id number] 03/28/21 10/01/21 History potassium chloride 10 mEq 10 meq PO DAILY 06/05/21 10/01/21 History tablet,extended release(part/cryst) ipratropium bromide 21 mcg (0.03 2 spray INTRANASAL Q12 09/26/21 10/01/21 History %) nasal spray cephalexin 500 mg capsule 500 mg PO TID 10/01/21 10/01/21 History furosemide 20 mg tablet 20 mg PO DAILY 10/01/21 10/01/21 History metoprolol tartrate 100 mg tablet 100 mg PO BID 10/01/21 10/01/21 History warfarin 5 mg tablet 15 mg PO WK 10/01/21 10/01/21 History Patient History Medical History A-fib CKD (chronic kidney disease) stage 3, GFR 30-59 ml/min DU (generalized anxiety disorder) History of bladder cancer s/op TURBT HLD (hyperlipidemia) HTN (hypertension) CHAVEZ (nonalcoholic steatohepatitis) Pre-diabetes Surgical History History of cardioversion multiple attempts, last in 2017 History of esophagogastroduodenoscopy (EGD) History of hysterectomy with oophorectomy History of radiofrequency ablation procedure for cardiac arrhythmia History of toe surgery bunion Family History Brother Myocardial infarction, Onset Age: 52 Father Myocardial infarction, Onset Age: 52 Sister Coronary heart disease Atrial fibrillation Mother , 21 [place] Social History Smoking Status: Never smoker Hx Alcohol Use: Yes Alcohol type: wine Hx Substance Use: No Preferred Language: Hungarian Communication Ability: Impaired Aircraft Navigator Required: No Beliefs That Will Affect Care: None marital status: Current Living Situation: Spouse current occupational status: retired Feels Safe at Home: Yes Assistive Devices: None Review of Systems Review of Systems: All systems reviewed & are unremarkable except as noted in HPI & below Physical Exam Physical Exam: Physical Exam: Constitutional: appearance nourished, healthy Ears, Nose, Mouth and Throat: mucous membranes moist, no injection and skin normal, eyes normal Cardiovascular: irregular Respiratory: clear to auscultation (CTA) Musculoskeletal: no peripheral edema and good distal pulses Skin: no stigmata of neurocutaneous disease noted and normal and intact Eyes: extraocular muscles intact (EOMI) and pupils equal, round and reactive to light (PERRL), normal eye blink NEUROLOGIC EXAMINATION: Mental status: Alert and interactive Oriented to thinks she is at home but knows September, [place] next month Oriented to person Speech fluent with no evidence of aphasia Cranial Nerves facial symmetry Reflexes: Deep tendon reflexes were symmetrical and graded 2/5. Sensory: light and cool intact Coordination: no tremor resting or reaching, no cogwheeling Gait/Stance: Posture normal. very fidgety and needs redirected Motor: Negative for pronator drift of out stretched arms with eyes closed. 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 triceps 5/5 bilaterally hip flex 5/5 Results & Data ([facility]) Vital Signs (Past 12 Hours) Vital Signs Temp Pulse Pulse Resp BP Pulse Ox 10/04/21 11:31 36.8 C 108 H 16 120/84 92 10/04/21 08:20 36.5 C 127 H 22 155/93 H 97 10/04/21 07:55 137 H 10/04/21 03:00 36.5 C 105 H 19 140/96 94 Laboratory Results Abnormal lab results 10/04/21 10/04/21 Range/Units 09:11 09:11 PT 25.1 H (9.0-12.0) Seconds INR 2.7 H (0.9-1.1) Sodium 125 L D (136-145) mmol/L Chloride 90 L (98-107) mmol/L BUN 25 H (7-18) mg/dl BUN/Creatinine Ratio 24.6 H (10-20) Glucose 120 H (70-99) mg/dl Total Bilirubin 1.4 H D (0.2-1) mg/dl AST 45 H (15-37) U/L Diagnostic Findings CXR-No acute cardiopulmonary disease. CT head-No acute intracerebral pathology. Mild cerebral cortical atrophy and extensive remote small vessel disease. MRI brain-Expected age-related changes without evidence of acute infarct. (1) Urinary tract infection Hematuria presence: without hematuria Urinary tract infection type: acute cystitis Qualified Code(s): N30.00 - Acute cystitis without hematuria
--- NOTE | 2021-10-04 15:12 | Hospitalist Progress Note ---
Date of Service October 04, 2021 Assessment & Plan (1) Atrial fibrillation with rapid ventricular response: Plan: - Was given metoprolol in the ER without improvement, Continue on cardizem gtt, hold p.o. Cardizem -Currently without any chest pain, patient does not feel flutter/palpitation, lightheadedness, or dizziness and has never in her past felt true symptoms associated with A. fib -Has been on Cardizem drip and the rate controlled -Denies any palpitation and/or chest pain or shortness of breath -Appreciate cardiology input and recommendation -Remains tachycardic and the patient is refusing medications or any treatment -Heart rate remains around 100 without any cardiac symptoms (2) Urinary tract infection: Plan: -Pansensitive E. coli on 09/26/2021 -Repeat urine culture in process, patient has not provided sample yet -Continue p.o. Keflex for now (3) Hallucinations: Plan: -Check MRI of the brain-extended is related change without any acute infarct. CT of the head was negative -No infection except urine culture positive which was taken on eighth of this month -checking ammonia level with history of Cabrales-has been negative -Noted sodium of 130 appears to have been low in the past however last spring was in the high 130s, continue IV fluids for rehydration -Psych consulted, only psychiatric medication includes lorazepam 0.5 mg twice daily as needed, will continue this for now as she feels extremely anxious from seeing visual/auditory hallucinations of extension agent to men who are threatening to her at this point -Appreciate psychiatric input and recommendation-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 -Hallucination has disappeared -Has been fairly confused this morning with aggressiveness and refusing anything offered -Appreciate psychiatry input and follow-up today-we will try olanzapine 2.5 mg IM as needed for aggressiveness with confusion -She has been getting Zyprexa 2.5 mg IM every 4 hourly as needed for agitation -We will try oral Seroquel 12.5 mg twice daily to improve agitation rather than using Zyprexa which has more side effect Likely has Lewy body dementia Will ask advice from neurologist for any other recommendation (4) Depression: Plan: -History of such, as above, appears to be more hallucination involved than d epressive mood (5) Aortic stenosis: Plan: -Noted, chronic, continue antihypertensive medications -Asymptomatic, no chest pain, palpitation or CHF - hold lasix (6) HTN (hypertension): Plan: -Continue diltiazem as above, lisinopril, metoprolol DVT ppx: - teds, scds -Has been on Coumadin and INR is therapeutic CODE: Full code Dispo: From home, likely to remain in the hospital x 1-2 days Admission and Anticipated Discharge Date Admission Date: October 01, 2021 Subjective 10/02/2021 The patient was seen and examined in the emergency room in the [facility] area She was admitted with acute confusion with hallucination and noted to have UTI with A. fib and RVR She was noted to be calm and quiet this morning and denies to have any more hallucinations Denied any other symptoms during my examination 10/03/2021 The patient was seen and examined in telemetry unit She has been very confused and to the point of being very aggressive as well Has not been taking any medications She wants to see Kathryn Kaye therapist who is all around her 10/04/2021 Patient was seen and examined in telemetry unit She has been calm and quiet today and not being aggressive during my examination She required a dose of Zyprexa this morning She was agreeable to take her medications Review of Systems Review of Systems: All systems reviewed and are unremarkable except as noted below Cardiovascular: Additional Comments: No palpitation and no chest pain Physical Exam Physical Exam: Lying in bed without any acute issues Constitutional: + ill appearing and average body habitus Eyes: PERRL, conjunctivae normal, anicteric sclerae ENMT: external ear and nose normal, oropharynx normal Neck: trachea midline, no thyromegaly Respiratory: no respiratory distress Auscultation: lungs clear to auscultation bilaterally Cardiovascular: Rate/Rhythm: + irregularly irregular; not tachycardic Heart Sounds: normal S1, normal S2 and + murmur (2/6 ESM over precordium) Gastrointestinal (Abdomen): Inspection/Auscultation: normal bowel sounds; abdomen not distended Percussion/Palpation: abdomen soft; abdomen nontender Musculoskeletal: No acute arthritis in any joint Neurologic: Alert and awake. Pleasantly confused. Moving all the limbs equally Lymphatic: no cervical or axillary lymphadenopathy Results & Data Results & Data ([facility]) Vital Signs (Past 12 Hours) Vital Signs Temp Pulse Pulse Resp BP Pulse Ox 10/04/21 11:31 36.8 C 108 H 16 120/84 92 10/04/21 08:20 36.5 C 127 H 22 155/93 H 97 10/04/21 07:55 137 H Laboratory Results Short CBC 10/04/21 Range/Units 09:11 WBC 9.79 (4.8-10.8) K/uL Hgb 14.2 (12.0-16.0) g/dL Hct 41.9 (37-47) % Plt Count 231 (130-400) K/uL BMP 10/04/21 09:11 Sodium 125 L D Potassium 4.0 Chloride 90 L Carbon Dioxide 27 BUN 25 H Creatinine 1.02 Glucose 120 H Calcium 9.7 Liver Function 10/04/21 Range/Units 09:11 Total Bilirubin 1.4 H D (0.2-1) mg/dl AST 45 H (15-37) U/L ALT 61 (12-78) U/L Alkaline Phosphatase 87 (45-117) U/L Albumin 3.9 (3.4-5.0) gm/dl Medications Administered Current Inpatient Medications Acetaminophen (Acetaminophen 325 Mg Tab) 650 mg PO Q4H PRN PRN Reason: Moderate Pain Stop: 10/31/21 19:02 Bisacodyl (Bisacodyl 5 Mg Tabec) 5 mg PO DAILY LIZA Stop: 10/31/21 19:14 Last Admin: 10/04/21 09:35 Dose: 5 mg Documented by: Diltiazem HCl (Diltiazem Hcl 240 Mg Capcr) 240 mg PO QAM LIZA Stop: 11/01/21 11:44 Last Admin: 10/04/21 09:33 Dose: 240 mg Documented by: Docusate Sodium (Docusate Sodium 100 Mg Cap) 100 mg PO BID PRN PRN Reason: Constipation Stop: 10/31/21 20:59 Ipratropium [place] (Ipratropium [place] Nasal [place] 0.06% 15ml) 1 sprays XIAO Q12 LIZA Stop: 10/31/21 20:59 Last Admin: 10/04/21 09:38 Dose: 1 sprays Documented by: Lisinopril (Lisinopril 5 Mg Tab) 5 mg PO QPM LIZA Stop: 10/31/21 20:59 Last Admin: 10/02/21 21:37 Dose: 5 mg Documented by: Metoprolol Tartrate (Metoprolol Tartrate 100 Mg Tab) 100 mg PO BID [facility] Stop: 10/31/21 20:59 Last Admin: 10/04/21 09:36 Dose: 100 mg Documented by: Olanzapine (Olanzapine 10 Mg/2.1 Ml Sdv) 2.5 mg IM Q4H PRN PRN Reason: Agitation Stop: 11/02/21 19:44 Last Admin: 10/04/21 07:44 Dose: 2.5 mg Documented by: Ondansetron HCl (Ondansetron Inj 2 Mg/Ml 2 Ml Vial) 4 mg IV Q4H PRN PRN Reason: Nausea And Vomiting Stop: 10/31/21 19:02 Polyethylene Glycol (Polyethylene (Miralax) 17 Gm Pack) 17 gm PO DAILY [facility] Stop: 10/31/21 19:14 Last Admin: 10/04/21 09:37 Dose: 17 gm Documented by: Potassium Chloride (Potassium Chloride 10 Meq Tabcr) 10 meq PO DAILY [facility] Stop: 11/01/21 08:59 Last Admin: 10/04/21 09:35 Dose: 10 meq Documented by: Warfarin Sodium (Warfarin Sod 10 Mg Tab) 10 mg PO [id number]@1600 [facility] Stop: 11/01/21 15:59 Last Admin: 10/02/21 16:45 Dose: 10 mg Documented by: Warfarin Sodium (Warfarin Sod 7.5 Mg Tab) 15 mg PO Mo@1600 [facility] Stop: 11/02/21 15:59 Last Admin: 10/03/21 17:07 Dose: Not Given Documented by: (1) Urinary tract infection Hematuria presence: without hematuria Urinary tract infection type: acute cystitis Qualified Code(s): N30.00 - Acute cystitis without hematuria (2) Depression Active/Remission status: currently active Depression Type: major depressive disorder Major depression episode severity: unspecified Major depression recurrence: unspecified whether recurrent Qualified Code(s): F32.9 - Major depressive disorder, single episode, unspecified
[2021-10-04] MEDS: WARFARIN SOD 10 MG TAB PO SCH (16:07)
[2021-10-05 05:52] LABS: INR 2.6 (0.9-1.1); Prothrombin Time 24.1 Seconds (9.0-12.0)
[2021-10-05 06:18] LABS: BUN Creatinine Ratio 27.5 (10-20); Calcium 9.3 mg/dl (8.5-10.1); Creatinine Clr Calc Pharmacy 33.3 ml/min; Est GFR (African American) 48.4 ml/min; Est GFR (Non-African American) 41.8 ml/min; Magnesium 2.1 mg/dl (1.8-2.4); Potassium 4.2 mmol/L (3.5-5.1)
[2021-10-05] MEDS: bisacodyL 5 MG TABEC PO SCH (08:21)
[2021-10-05] MEDS: POLYETHYLENE (MIRALAX) 17 GM PACK PO SCH (08:21)
[2021-10-05] MEDS: IPRATROPIUM BROMIDE NASAL SPRAY 0.06% 15ML NAE SCH ×2 (08:21→22:16)
[2021-10-05] MEDS: dilTIAZem HCL 240 MG CAPCR PO SCH (08:21)
[2021-10-05] MEDS: METOPROLOL TARTRATE 100 MG TAB PO SCH ×2 (08:22→22:16)
[2021-10-05] MEDS: POTASSIUM CHLORIDE 10 MEQ TABCR PO SCH (08:24)
--- NOTE | 2021-10-05 13:31 | Psychiatric Progress Note ---
Date of Service October 05, 2021 Impression / Recommendations Impression 81 yo woman with no significant past psychiatric history except periods of anxiety with history of afib, HTN, CKD who presented to the ED with her for increasing paranoia, AH, VH, and confusion in the setting of a recent diagnosis of a UTI. Psychiatry was consulted for diagnostic and management recommendations. Diagnostically most consistent with delirium given recent timeframe of AH and VH worsening over the last week and no past psychiatric history as well as recent UTI. Given that some of the paranoia has been present for the last two-three months she may also have early stages of mild cognitive impairment in which paranoia can occur and VH can often occur with Lewy Body dementia. The more complex paranoid schema and fluctuating cognition can also be characteristic of LBD. Therefore must be very cautious with any antipsychotic use given high risk for EPS. Collateral from consistent with possible lewy body dementia with superimposed delirium. 10/05/21: continues to have fluctuations but agitation seems to be improving. She's tolerating low doses of olanzapine IM when needed and has seroquel prn ordered if she will accept po as this carries lower side effect burden for susp ected Lewy Body dementia. Reviewed neurology's recommendations which are consistent with suspicion for possible lewy body dementia and delirium. She will follow-up with neurology after discharge. (1) Acute delirium: -seroquel 12.5 mg BID prn for agitation or unsafe behaviors, should be used sparingly; if she refuses use olanzapine 2.5 mg IM for behavioral emergency (do not exceed 10mg total daily dose per day); monitor closely for EPS if used given risks with lewy body dementia (no evidence of side effects today), monitor QTc given risks for prolongation with antipsychotic use -continue with medical workup and management for presumed delirium, likely 2/2 recent UTI -continue with frequent re-orientation as needed, open blinds during the day, close at night, encourage communication with her family to help treat delirium -psychiatry will sign off at this point but please don't hesitate to reach out should agitation worsen again and not respond to medication recommendations or if other concerns emerge Risk Factors Assessment Do You Have Access To A Gun?: No (locked up in home without access) Substance Use Disorders: No Previous Attempt: No Hopelessness: No Interval History Identifying Information 81 yo woman with no significant past psychiatric history except periods of anxiety with history of afib, HTN, CKD who presented to the ED with her for increasing paranoia, AH, VH, and confusion in the setting of a recent diagnosis of a UTI. Psychiatry was consulted for diagnostic and management recommendations. Chief Complaint "I'm good but sleepy". Review of Systems Notes Reports stable sleep and appetite. Denies any pain. Subjective Subjective Patient was seen & assessed and interval progress reviewed. Discussed progress with her nurse. Last evening and overnight Angela did well without any episodes of agitation, was possibly responding to some AH last night but calm this morning. She did not require any prn seroquel this morning and took her other medications. She reports "good" mood and is able to joke about the hallmark movie she is watching. Fully oriented. No evidence for EPS, parkinsonism side effects today. Was also seen by neurology. Physical Exam Psychiatric Orientation: alert and oriented x 3 Apperance: appropriately dressed and appropriately groomed Eye Contact: good eye contact Motor Behavior: no abnormal motor movements Speech: normal rate/rhythm/volume of speech Affect: euthymic affect Mood: no depressed mood, no anxious mood and no irritable mood Thought Process: goal directed thought process Thought Content: reality based without delusions Suicidal Thoughts: denies suicidal thoughts Homicidal Thoughts: denies homicidal thoughts Hallucinations: no auditory hallucinations and no visual hallucinations Cognition: attention grossly intact and language grossly intact Estimated Intelligence: consistent with education level Insight: + impaired insight Judgement: + impaired judgement Vital Signs (Past 24 Hours) Last Vital Signs Temp 36.4 C L 10/05/21 11:42 Pulse 84 10/05/21 11:42 Resp 14 10/05/21 11:42 BP 97/61 L 10/05/21 11:42 Pulse Ox 98 10/05/21 11:42 Results & Data ([facility]) Laboratory Results Laboratory Results - last 24 hr 10/05/21 10/05/21 05:28 05:28 PT 24.1 H INR 2.6 H Sodium 130 L Potassium 4.2 Chloride 97 L Carbon Dioxide 27 Anion Gap 6.0 BUN 33 H Creatinine 1.20 Est Cr Clr Drug Dosing 33.3 Est GFR ( Amer) 48.4 Est GFR (Non-Af Amer) 41.8 BUN/Creatinine Ratio 27.5 H Glucose 83 Calcium 9.3 Magnesium 2.1 Current Inpatient Medications Current Inpatient Medications: Current Inpatient Medications Acetaminophen (Acetaminophen 325 Mg Tab) 650 mg PO Q4H PRN PRN Reason: Moderate Pain Stop: 10/31/21 19:02 Bisacodyl (Bisacodyl 5 Mg Tabec) 5 mg PO DAILY LIZA Stop: 10/31/21 19:14 Last Admin: 10/05/21 08:21 Dose: 5 mg Documented by: Diltiazem HCl (Diltiazem Hcl 240 Mg Capcr) 240 mg PO QAM LIZA Stop: 11/01/21 11:44 Last Admin: 10/05/21 08:21 Dose: 240 mg Documented by: Docusate Sodium (Docusate Sodium 100 Mg Cap) 100 mg PO BID PRN PRN Reason: Constipation Stop: 10/31/21 20:59 Ipratropium [place] (Ipratropium [place] Nasal [place] 0.06% 15ml) 1 sprays XIAO Q12 LIZA Stop: 10/31/21 20:59 Last Admin: 10/05/21 08:21 Dose: 1 sprays Documented by: Lisinopril (Lisinopril 5 Mg Tab) 5 mg PO QPM LIZA Stop: 10/31/21 20:59 Last Admin: 10/02/21 21:37 Dose: 5 mg Documented by: Metoprolol Tartrate (Metoprolol Tartrate 100 Mg Tab) 100 mg PO BID [facility] Stop: 10/31/21 20:59 Last Admin: 10/05/21 08:22 Dose: 100 mg Documented by: Olanzapine (Olanzapine 10 Mg/2.1 Ml Sdv) 2.5 mg IM Q4H PRN PRN Reason: Agitation Stop: 11/02/21 19:44 Last Admin: 10/04/21 07:44 Dose: 2.5 mg Documented by: Ondansetron HCl (Ondansetron Inj 2 Mg/Ml 2 Ml Vial) 4 mg IV Q4H PRN PRN Reason: Nausea And Vomiting Stop: 10/31/21 19:02 Polyethylene Glycol (Polyethylene (Miralax) 17 Gm Pack) 17 gm PO DAILY LIZA Stop: 10/31/21 19:14 Last Admin: 10/05/21 08:21 Dose: 17 gm Documented by: Potassium Chloride (Potassium Chloride 10 Meq Tabcr) 10 meq PO DAILY LIZA Stop: 11/01/21 08:59 Last Admin: 10/05/21 08:24 Dose: 10 meq Documented by: Quetiapine Fumarate (Quetiapine Fumarate 25 Mg Tablet) 12.5 mg PO BID PRN PRN Reason: Agitation Stop: 11/04/21 09:44 Warfarin Sodium (Warfarin Sod 10 Mg Tab) 10 mg PO [id number]@1600 [facility] Stop: 11/01/21 15:59 Last Admin: 10/04/21 16:07 Dose: 10 mg Documented by: Warfarin Sodium (Warfarin Sod 7.5 Mg Tab) 15 mg PO Mo@1600 [facility] Stop: 11/02/21 15:59 Last Admin: 10/03/21 17:07 Dose: Not Given Documented by:
--- NOTE | 2021-10-05 14:06 | Cardiology Progress Note ---
Date of Service October 05, 2021 Assessment & Plan (1) Atrial fibrillation with rapid ventricular response: (2) Acute delirium: (3) HTN (hypertension): (4) CKD (chronic kidney disease) stage 3, GFR 30-59 ml/min: Plan: Patient is an 81-year-old female history of long-term persistent atrial fibrillation who presents with an acute delirium and elevated ventricular response rate. Suspect rhythm issues are being driven by underlying medical issues including acute agitation and delirium. Heart rate and delirium improved Plan: Continue current therapies but continue to hold lisinopril given hyponatremia and relatively low blood pressure Admission and Anticipated Discharge Date Admission Date: October 01, 2021 Subjective Patient seen and examined, chart, medications, telemetry reviewed. Patient lucid this morning without agitation. Heart rates have improved substantially since resumption of usual outpatient therapies. Physical Exam Constitutional: no acute distress Eyes: PERRL, conjunctivae normal, anicteric sclerae ENMT: external ear and nose normal, oropharynx normal Neck: trachea midline, no thyromegaly Respiratory: normal respiratory effort, lungs clear to auscultation Cardiovascular: Rate/Rhythm: + irregularly irregular Heart Sounds: normal S1, normal S2 and + murmur (Grade 2/6 systolic no diastolic); no gallop Palpation: normal PMI Vessels: normal carotid upstroke and radial pulses present; no JVD and no carotid bruit Extremities: no edema Gastrointestinal (Abdomen): normal bowel sounds, soft, nontender, no hepato splenomegaly Musculoskeletal: no cyanosis or clubbing, extremities motor strength 5/5 Skin: no rashes, warm and dry Neurologic: PERRL, EOMI, accommodation nl, no face palsy, no dysarthria Psychiatric: A+Ox3, euthymic affect Results & Data ([facility]) Vital Signs (Past 12 Hours) Vital Signs Temp Pulse Resp BP Pulse Ox 10/05/21 11:42 36.4 C L 84 14 97/61 L 98 10/05/21 08:20 109 H 135/81 10/05/21 07:00 36.8 C 87 18 121/66 96 10/05/21 03:03 36.7 C 98 H 20 131/78 96 Laboratory Results Laboratory Results - last 24 hr 10/05/21 10/05/21 05:28 05:28 PT 24.1 H INR 2.6 H Sodium 130 L Potassium 4.2 Chloride 97 L Carbon Dioxide 27 Anion Gap 6.0 BUN 33 H Creatinine 1.20 Est Cr Clr Drug Dosing 33.3 Est GFR ( Amer) 48.4 Est GFR (Non-Af Amer) 41.8 BUN/Creatinine Ratio 27.5 H Glucose 83 Calcium 9.3 Magnesium 2.1
[2021-10-05] MEDS: OLANZapine 10 MG/2.1 ML SDV IM PRN ×3 (17:02→21:04)
[2021-10-05] MEDS: WARFARIN SOD 10 MG TAB PO SCH (17:38)
--- NOTE | 2021-10-05 19:56 | Hospitalist Progress Note ---
Date of Service October 05, 2021 Assessment & Plan (1) Acute delirium: (2) Atrial fibrillation with rapid ventricular response: (3) Urinary tract infection: Plan: #. Atrial fibrillation with rapid ventricular response: -Initially patient received Cardizem drip, later on transition to her home p.o. Cardizem. -Currently without any chest pain, patient does not feel flutter/palpitation, lightheadedness, or dizziness -But later in the evening, patient got delirious/agitated and her heart rate went up to 130s, heart rate settled down to low 100s after receiving dose of Zyprexa. Cardiology on board, remains tachycardic and patient refuses medications ON treatment per prior providers note. Heart rate generally around 100 without any cardiac symptoms. #. Urinary tract infection: -Pansensitive E. coli on 09/26/2021 -Status post antibiotic. #. Hallucinations: #. Acute Delirium -MRI brain-expected age related change without any acute infarct. CT of the head was negative -No infection except urine culture positive which was taken on eighth of this month, status post treatment. -History of Cabrales, ammonia level negative. -Noted sodium of 130 appears to have been low in the past however last spring was in the high 130s, continue to monitor -Psychiatry on board: Seroquel 12.5 mg twice daily as needed for agitation unsafe severe, uses sparingly; if refuses use olanzapine 2.5 mg IM for behavioral emergency [did not exceed 10 mg total daily dose]. Monitor for EPS and QTC, continue with frequent reorientation. -On and off hallucination and acute delirium. 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 Follow-up with neurology as an outpatient. Likely secondary to Lewy body dementia, continue to monitor. #. Depression: -History of such, as above, appears to be more hallucination involved than depressive mood #. Aortic stenosis: -Noted, chronic, continue antihypertensive medications -Asymptomatic, no chest pain, palpitation or CHF - hold lasix #. HTN (hypertension): -Continue diltiazem as above, lisinopril, metoprolol DVT ppx: - teds, scds -Has been on Coumadin and INR is therapeutic CODE: Full code Dispo: From home, likely to remain in the hospital x 1-2 days Admission and Anticipated Discharge Date Admission Date: October 01, 2021 Subjective Patient was sitting up in chair, on room air, NAD, AOx3, no acute events overnight per patient. Patient denies any headache/dizziness/chills/sore throat/chest pain/belly pain/other review of symptoms. Patient was swallowing crossword puzzle chest prior to my arrival. Patient aware why she is here in the hospital. Per telemetry, her heart rate were in 80s to 90s overnight and in A. fib. During the evening, patient got confused, AO x1 on examination, minimally cooperative, her heart rate went up to 130s, received a dose of Zyprexa, heart rate settled down with her calming down. Physical Exam Physical Exam: GENERAL: Alert and oriented x3. NAD, on RA. HEENT: No pallor, no icterus. Pupils equal, round and reactive to light. Oral mucosa moist. NECK: No JVD, no neck masses. HEART: S1 and S2 heard. Regular rate and rhythm. No murmur, no gallop. RESPIRATORY SYSTEM: Normal AP diameter. No accessory muscle use. No wheezing, no crackles. ABDOMEN: Soft, bowel sounds present, nontender, no distention. CENTRAL NERVOUS SYSTEM: No facial droop. Speech is clear. Obeys simple commands. Moves extremities. EXTREMITIES: No edema, no erythema seen. Results & Data Results & Data ([facility]) Vital Signs (Past 12 Hours) Vital Signs Temp Pulse Pulse Resp BP Pulse Ox 10/05/21 15:00 36.6 C 133 H 20 169/104 H 96 10/05/21 11:42 36.4 C L 84 14 97/61 L 98 10/05/21 11:30 92 H 10/05/21 08:20 109 H 135/81 (1) Urinary tract infection Hematuria presence: without hematuria Urinary tract infection type: acute cystitis Qualified Code(s): N30.00 - Acute cystitis without hematuria
[2021-10-05] MEDS ORDERED: LORazepam 0.5 MG/1 ML VIAL IV STA (21:01)
[2021-10-05] MEDS ORDERED: SODIUM CHLORIDE 0.9% 500 ML IV STA (21:19)
[2021-10-05] MEDS ORDERED: DIGOXIN 250 MCG in SYRINGE 9 ML IV ONE (21:20)
--- NOTE | 2021-10-06 00:18 | Communication Note ---
Date of Service: October 06, 2021 Code ibarra called. Patient agitation not responsive to Zyprexa as needed. Patient calmer after IV Ativan trial. Hold Zyprexa. Low-dose Ativan as needed agitation Will relay to AM provider.
[2021-10-06] MEDS: LORazepam 0.25 MG/0.5 ML VIAL IV PRN (01:07)
[2021-10-06 06:49] LABS: BUN Creatinine Ratio 27.3 (10-20); Calcium 9.2 mg/dl (8.5-10.1); Creatinine Clr Calc Pharmacy 32.2 ml/min; Est GFR (African American) 46.5 ml/min; Est GFR (Non-African American) 40.1 ml/min; Magnesium 2.2 mg/dl (1.8-2.4); Phosphorus 3.9 mg/dl (2.5-4.9); Potassium 4.7 mmol/L (3.5-5.1)
--- NOTE | 2021-10-06 08:40 | Electrocardiogram Report ---
Test Reason : Blood Pressure : / mmHG Vent. 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
[2021-10-06] MEDS: POLYETHYLENE (MIRALAX) 17 GM PACK PO SCH (10:37)
[2021-10-06] MEDS: POTASSIUM CHLORIDE 10 MEQ TABCR PO SCH (10:37)
[2021-10-06] MEDS: bisacodyL 5 MG TABEC PO SCH (10:37)
[2021-10-06] MEDS: QUEtiapine FUMARATE 25 MG TABLET PO PRN (10:37)
[2021-10-06] MEDS: IPRATROPIUM BROMIDE NASAL SPRAY 0.06% 15ML NAE SCH ×2 (10:38→23:01)
[2021-10-06] MEDS: dilTIAZem HCL 240 MG CAPCR PO SCH (10:38)
[2021-10-06] MEDS: METOPROLOL TARTRATE 100 MG TAB PO SCH ×2 (10:38→23:01)
--- NOTE | 2021-10-06 10:38 | Cardiology Progress Note ---
Date of Service October 06, 2021 Assessment & Plan (1) Atrial fibrillation with rapid ventricular response: (2) Acute delirium: (3) HTN (hypertension): (4) CKD (chronic kidney disease) stage 3, GFR 30-59 ml/min: Plan: Patient is an 81-year-old female history of long-term persistent atrial fibrillation who presents with an acute delirium and elevated ventricular response rate. Suspect rhythm issues are being driven by underlying medical issues including acute agitation and delirium, and non compliance with medications. Metoprolol held last night for one borderline low BP reading, but then BP trended high. Would not hold in the future, unless BP remains persistently low. She was treated with Zyprexa and ativan last night. Encourage medication compliance when she awakens. Plan: Continue current therapies but continue to hold lisinopril given hyponat remia and relatively low blood pressure Resume metoprolol for rate control this morning. Case discussed with Dr. Lemus. Will follow. Admission and Anticipated Discharge Date Admission Date: October 01, 2021 Supervising Physician Co-Signing Physician Notes Patient seen and examined, chart, medications, telemetry reviewed. Patient very sedate this morning after treatment of underlying anxiety acute delirium. Heart rates very variable as above but predominantly in relationship to medications. Would continue diltiazem and metoprolol as ordered. Currently no indications for further change in medications or IV therapies We will follow Subjective Patient sleeping soundly, snoring. Does not awaken to voice or touch. Appears comfortable. Last evening, patient became combative and Code Brown called. She was treated with Zyprexa and Ativan. Did not take her metoprolol last evening. HR's were elevated last night. Metoprolol had been held due to one low BP reading. She was then treated with IV digoxin. Has not had AM meds. Review of Systems Review of Systems: Unobtainable due to cognitive status Physical Exam Constitutional: no acute distress Eyes: PERRL, conjunctivae normal, anicteric sclerae ENMT: external ear and nose normal, oropharynx normal Neck: trachea midline, no thyromegaly Respiratory: normal respiratory effort, lungs clear to auscultation Cardiovascular: Rate/Rhythm: + irregularly irregular Heart Sounds: normal S1, normal S2 and + murmur (Grade 2/6 systolic no diastolic); no gallop Palpation: normal PMI Vessels: normal carotid upstroke and radial pulses present; no JVD and no carotid bruit Extremities: no edema Gastrointestinal (Abdomen): normal bowel sounds, soft, nontender, no hepatosplenomegaly Musculoskeletal: no cyanosis or clubbing, extremities motor strength 5/5 Skin: no rashes, warm and dry Neurologic: PERRL, EOMI, accommodation nl, no face palsy, no dysarthria Psychiatric: A+Ox3, euthymic affect Results & Data ([facility]) Vital Signs (Past 12 Hours) Vital Signs Temp Pulse Pulse Resp BP Pulse Ox 10/06/21 07:40 36.5 C 123 H 16 151/79 H 94 10/06/21 03:00 36.5 C 110 H 20 106/71 94 10/05/21 23:33 36.6 C 102 H 18 128/81 95 10/05/21 23:00 95 H Laboratory Results 10/06/21 Range/Units 05:43 Sodium 134 L (136-145) mmol/L Potassium 4.7 (3.5-5.1) mmol/L Chloride 99 (98-107) mmol/L Carbon Dioxide 26 (21-32) mmol/L Anion Gap 8.0 (3-11) BUN 34 H (7-18) mg/dl Creatinine 1.24 H (0.6-1.2) mg/dl Est Cr Clr Drug Dosing 32.2 ml/min Est GFR ( Amer) 46.5 ml/min Est GFR (Non-Af Amer) 40.1 ml/min BUN/Creatinine Ratio 27.3 H (10-20) Glucose 77 (70-99) mg/dl Calcium 9.2 (8.5-10.1) mg/dl Phosphorus 3.9 (2.5-4.9) mg/dl Magnesium 2.2 (1.8-2.4) mg/dl Diagnostic Findings Telemetry reviewed - Persistent afib, with elevated rates ranging 100-140's Medications Administered Current Inpatient Medications Acetaminophen (Acetaminophen 325 Mg Tab) 650 mg PO Q4H PRN PRN Reason: Moderate Pain Stop: 10/31/21 19:02 Bisacodyl (Bisacodyl 5 Mg Tabec) 5 mg PO DAILY [facility]ZA Stop: 10/31/21 19:14 Last Admin: 10/05/21 08:21 Dose: 5 mg Documented by: Diltiazem HCl (Diltiazem Hcl 240 Mg Capcr) 240 mg PO QAM [facility] Stop: 11/01/21 11:44 Last Admin: 10/05/21 08:21 Dose: 240 mg Documented by: Docusate Sodium (Docusate Sodium 100 Mg Cap) 100 mg PO BID PRN PRN Reason: Constipation Stop: 10/31/21 20:59 Lorazepam (Ativan) 0.25 mg in 0.5 mls @ 0.5 mls/min IV Q4H PRN PRN Reason: Anxiety/agitation Stop: 11/05/21 00:17 Last Admin: 10/06/21 01:07 Dose: 0.5 mls/min Documented by: Ipratropium [place] (Ipratropium [place] Nasal [place] 0.06% 15ml) 1 sprays XIAO Q12 LIZA Stop: 10/31/21 20:59 Last Admin: 10/05/21 22:16 Dose: Not Given Documented by: Lisinopril (Lisinopril 5 Mg Tab) 5 mg PO QPM [facility]ZA Stop: 10/31/21 20:59 Last Admin: 10/02/21 21:37 Dose: 5 mg Documented by: Metoprolol Tartrate (Metoprolol Tartrate 100 Mg Tab) 100 mg PO BID [facility] Stop: 10/31/21 20:59 Last Admin: 10/05/21 22:16 Dose: Not Given Documented by: Olanzapine (Olanzapine 10 Mg/2.1 Ml Sdv) 2.5 mg IM Q4H PRN PRN Reason: Agitation Stop: 11/02/21 19:44 Last Admin: 10/05/21 21:04 Dose: 2.5 mg Documented by: Ondansetron HCl (Ondansetron Inj 2 Mg/Ml 2 Ml Vial) 4 mg IV Q4H PRN PRN Reason: Nausea And Vomiting Stop: 10/31/21 19:02 Polyethylene Glycol (Polyethylene (Miralax) 17 Gm Pack) 17 gm PO DAILY [facility]ZA Stop: 10/31/21 19:14 Last Admin: 10/05/21 08:21 Dose: 17 gm Documented by: Potassium Chloride (Potassium Chloride 10 Meq Tabcr) 10 meq PO DAILY [facility]ZA Stop: 11/01/21 08:59 Last Admin: 10/05/21 08:24 Dose: 10 meq Documented by: Quetiapine Fumarate (Quetiapine Fumarate 25 Mg Tablet) 12.5 mg PO BID PRN PRN Reason: Agitation Stop: 11/04/21 09:44 Warfarin Sodium (Warfarin Sod 10 Mg Tab) 10 mg PO [id number]@1600 [facility] Stop: 11/01/21 15:59 Last Admin: 10/05/21 17:38 Dose: Not Given Documented by: Warfarin Sodium (Warfarin Sod 7.5 Mg Tab) 15 mg PO Mo@1600 [facility] Stop: 11/02/21 15:59 Last Admin: 10/03/21 17:07 Dose: Not Given Documented by:
--- NOTE | 2021-10-06 11:05 | Psychiatric Progress Note ---
Date of Service October 06, 2021 Impression / Recommendations Impression 81 yo woman with no significant past psychiatric history except periods of anxiety with history of afib, HTN, CKD who presented to the ED with her for increasing paranoia, AH, VH, and confusion in the setting of a recent diagnosis of a UTI. Psychiatry was consulted for diagnostic and management recommendations. Diagnostically most consistent with delirium given recent timeframe of AH and VH worsening over the last week and no past psychiatric history as well as recent UTI. Given that some of the paranoia has been present for the last two-three months she may also have early stages of mild cognitive impairment in which paranoia can occur and VH can often occur with Lewy Body dementia. The more complex paranoid schema and fluctuating cognition can also be characteristic of LBD. Therefore must be very cautious with any antipsychotic use given high risk for EPS. Collateral from consistent with possible lewy body dementia with superimposed delirium. 10/06/21: continues to have fluctuations but agitation with behavioral event overnight. She's tolerating low doses of olanzapine IM when needed and has seroquel prn ordered if she will accept po as this carries lower side effect burden for suspected Lewy Body dementia. Ok to use lorazepam as necessary though caution that this can increase risk for delirium/worsen existing suspected delirium. She will follow-up with neurology after discharge. Remains to be seen if as delirium improves whether or not she'll be appropriate for returning to independent living setting. (1) Acute delirium: -seroquel 12.5 mg BID prn for agitation or unsafe behaviors, should be used sparingly; if she refuses use olanzapine 2.5 mg IM for behavioral emergency (do not exceed 10mg total daily dose per day); monitor closely for EPS if used given risks with lewy body dementia (no evidence of side effects today), monitor QTc given risks for prolongation with antipsychotic use -ok to use lorazepam 0.5 to 1 mg qd prn for acute agitation if unresponsive to seroquel or zyprexa, caution this is likely to worsen delirium -continue with medical workup and management for presumed delirium, likely superimposed on lewy body dementia -continue with frequent re-orientation as needed, open blinds during the day, close at night, encourage communication with her family to help treat delirium Risk Factors Assessment Do You Have Access To A Gun?: No (locked up in home without access) Substance Use Disorders: No Previous Attempt: No Hopelessness: No Interval History Identifying Information 81 yo woman with no significant past psychiatric history except periods of anxiety with history of afib, HTN, CKD who presented to the ED with her for increasing paranoia, AH, VH, and confusion in the setting of a recent diagnosis of a UTI. Psychiatry was consulted for diagnostic and management recommendations. Chief Complaint Mute today Review of Systems Notes Behavioral events overnight so did not sleep well until after getting ativan, fair appetite Subjective Subjective Patient was seen & assessed and interval progress reviewed. Had two code events overnight once for unresponsiveness and once for behavioral code. Required zyprexa 2.5 mg IM and then later received ativan 1mg IV. Today continues to present as withdrawal with no spontaneous encouragement though allowing of some nursing care. Appears in the afternoon she was expressing confusion, requesting her umbrella from the car, and somewhat paranoid about her medications. Physical Exam Psychiatric Orientation: alert and + guarded Apperance: appropriately dressed and + disheveled Eye Contact: + poor eye contact Motor Behavior: no abnormal motor movements; n EPS and n tremor Affect: + flat affect Thought Process: + incoherent thought process Thought Content: + paranoid and + delusions Cognition: + attention not intact Insight: + impaired insight Judgement: + impaired judgement Vital Signs (Past 24 Hours) Last Vital Signs Temp 36.5 C 10/06/21 07:40 Pulse 123 H 10/06/21 07:40 Resp 16 10/06/21 07:40 BP 151/79 H 10/06/21 07:40 Pulse Ox 94 10/06/21 07:40 Results & Data ([facility]) Laboratory Results Laboratory Results - last 24 hr 10/06/21 05:43 Sodium 134 L Potassium 4.7 Chloride 99 Carbon Dioxide 26 Anion Gap 8.0 BUN 34 H Creatinine 1.24 H Est Cr Clr Drug Dosing 32.2 Est GFR ( Amer) 46.5 Est GFR (Non-Af Amer) 40.1 BUN/Creatinine Ratio 27.3 H Glucose 77 Calcium 9.2 Phosphorus 3.9 Magnesium 2.2 Current Inpatient Medications Current Inpatient Medications: Current Inpatient Medications Acetaminophen (Acetaminophen 325 Mg Tab) 650 mg PO Q4H PRN PRN Reason: Moderate Pain Stop: 10/31/21 19:02 Bisacodyl (Bisacodyl 5 Mg Tabec) 5 mg PO DAILY LIZA Stop: 12/13/21 19:14 Last Admin: 10/06/21 10:37 Dose: 5 mg Documented by: Diltiazem HCl (Diltiazem Hcl 240 Mg Capcr) 240 mg PO QAM LIZA Stop: 11/01/21 11:44 Last Admin: 10/06/21 10:38 Dose: 240 mg Documented by: Docusate Sodium (Docusate Sodium 100 Mg Cap) 100 mg PO BID PRN PRN Reason: Constipation Stop: 10/31/21 20:59 Last Admin: 10/06/21 10:37 Dose: 100 mg Documented by: Lorazepam (Ativan) 0.25 mg in 0.5 mls @ 0.5 mls/min IV Q4H PRN PRN Reason: Anxiety/agitation Stop: 11/05/21 00:17 Last Admin: 10/06/21 01:07 Dose: 0.5 mls/min Documented by: Ipratropium [place] (Ipratropium [place] Nasal [place] 0.06% 15ml) 1 sprays XIAO Q12 LIZA Stop: 10/31/21 20:59 Last Admin: 10/06/21 10:38 Dose: 1 sprays Documented by: Lisinopril (Lisinopril 5 Mg Tab) 5 mg PO QPM LIZA Stop: 10/31/21 20:59 Last Admin: 10/02/21 21:37 Dose: 5 mg Documented by: Metoprolol Tartrate (Metoprolol Tartrate 100 Mg Tab) 100 mg PO BID LIZA Stop: 10/31/21 20:59 Last Admin: 10/06/21 10:38 Dose: 100 mg Documented by: Olanzapine (Olanzapine 10 Mg/2.1 Ml Sdv) 2.5 mg IM Q4H PRN PRN Reason: Agitation Stop: 11/02/21 19:44 Last Admin: 10/05/21 21:04 Dose: 2.5 mg Documented by: Ondansetron HCl (Ondansetron Inj 2 Mg/Ml 2 Ml Vial) 4 mg IV Q4H PRN PRN Reason: Nausea And Vomiting Stop: 10/31/21 19:02 Polyethylene Glycol (Polyethylene (Miralax) 17 Gm Pack) 17 gm PO DAILY [facility]ZA Stop: 10/31/21 19:14 Last Admin: 10/06/21 10:37 Dose: 17 gm Documented by: Potassium Chloride (Potassium Chloride 10 Meq Tabcr) 10 meq PO DAILY [facility] Stop: 11/01/21 08:59 Last Admin: 10/06/21 10:37 Dose: 10 meq Documented by: Quetiapine Fumarate (Quetiapine Fumarate 25 Mg Tablet) 12.5 mg PO BID PRN PRN Reason: Agitation Stop: 11/04/21 09:44 Last Admin: 10/06/21 10:37 Dose: 12.5 mg Documented by: Warfarin Sodium (Warfarin Sod 10 Mg Tab) 10 mg PO [id number]@1600 [facility] Stop: 11/01/21 15:59 Last Admin: 10/05/21 17:38 Dose: Not Given Documented by: Warfarin Sodium (Warfarin Sod 7.5 Mg Tab) 15 mg PO Mo@1600 [facility] Stop: 11/02/21 15:59 Last Admin: 10/03/21 17:07 Dose: Not Given Documented by:
--- NOTE | 2021-10-06 15:56 | Hospitalist Progress Note ---
Date of Service October 06, 2021 Assessment & Plan (1) Acute delirium: (2) Atrial fibrillation with rapid ventricular response: (3) Urinary tract infection: Plan: #. Atrial fibrillation with rapid ventricular response: -Initially patient received Cardizem drip, later on transition to her home p.o. Cardizem. -Currently without any chest pain, patient does not feel palpitation, lightheadedness, or dizziness -Likely secondary to her underlying agitation/delirium, goes into RVR whenever she is agitated. -Continue with metoprolol, do not hold for borderline low blood pressure reading. Cardiology on board, remains tachycardic and patient refuses medications ON treatment per prior providers note. Continue to hold lisinopril given hyponatremia. Heart rate generally around 100 without any cardiac symptoms. #. Urinary tract infection: -Pansensitive E. coli on 09/26/2021 -Status post antibiotic. #. Hallucinations: #. Acute Delirium #. Hyponatremia -MRI brain-expected age related change without any acute infarct. CT of the head was negative -No infection except urine culture positive which was taken on eighth of this month, status post treatment. -History of [place], ammonia level negative. -Na appears to have been low in the past however last spring was in the high 130s, continue to monitor. Improving -Psychiatry on board: Seroquel 12.5 mg twice daily as needed for agitation or unsafe behavior, use sparingly; if refuses use olanzapine 2.5 mg IM for behavioral emergency [do not exceed 10 mg total daily dose]. Monitor for EPS and QTC, continue with frequent reorientation. Okay to use lorazepam 0.5 to 1 mg daily as needed for acute agitation if unresponsive to priors. -On and off hallucination and acute delirium. 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 Follow-up with neurology as an outpatient. Likely secondary to Lewy body dementia, continue to monitor. Hyponatremia improving. Patient more lethargic and confused compared to yesterday morning. #. Depression: -History of such, as above, appears to be more hallucination involved than depressive mood #. Aortic stenosis: -Noted, chronic, continue antihypertensive medications -Asymptomatic, no chest pain, palpitation or CHF - hold lasix #. HTN (hypertension): -Continue diltiazem as above, lisinopril, metoprolol DVT ppx: - teds, scds -Has been on Coumadin and INR is therapeutic CODE: Full code Dispo: From home, likely need placement. 10/05: Patient's was updated at bedside, he seemed understanding and agreeable to plan of care. 10/06: Patient's was again updated at bedside, he mentioned that she does not have POA. Discussed in detail the plan of care for her and the role of palliative care. He agreed to have palliative care see her for discussion of goals of care. Admission and Anticipated Discharge Date Admission Date: October 01, 2021 Subjective Patient seen and examined at bedside. Patient was sitting up in chair, room air, NAD. Patient has just woke up from sleep. Per RN patient slept up till 10:30 AM in the morning. Overnight patient got agitated and required IV Ativan to control. Psychiatry updated about the condition. Patient denies any headache/dizziness/chest pain/palpitation/other review of symptoms. Patient sleeping soundly, snoring. Does not awaken to voice or touch. Appears comfortable. Last evening, patient became combative and Maurisio Brown called. She was treated with Zyprexa and Ativan. Did not take her metoprolol last evening. HR's were elevated last night. Metoprolol had been held due to one low BP reading. She was then treated with IV digoxin. Has not had AM meds. Physical Exam Physical Exam: GENERAL: Alert and oriented x3. NAD, on RA. HEENT: No pallor, no icterus. Pupils equal, round and reactive to light. Oral mucosa moist. NECK: No JVD, no neck masses. HEART: S1 and S2 heard. Regular rate and rhythm. No murmur, no gallop. RESPIRATORY SYSTEM: Normal AP diameter. No accessory muscle use. No wheezing, no crackles. ABDOMEN: Soft, bowel sounds present, nontender, no distention. CENTRAL NERVOUS SYSTEM: No facial droop. Speech is clear. Obeys simple commands. Moves extremities. EXTREMITIES: No edema, no erythema seen. Results & Data Results & Data ([facility]) Vital Signs (Past 12 Hours) Vital Signs Temp Pulse Resp BP Pulse Ox 10/06/21 15:22 36.3 C L 84 18 100/68 97 10/06/21 12:09 80 109/72 10/06/21 11:00 36.2 C L 70 18 74/51 L 95 10/06/21 07:40 36.5 C 123 H 16 151/79 H 94 (1) Urinary tract infection Hematuria presence: without hematuria Urinary tract infection type: acute cystitis Qualified Code(s): N30.00 - Acute cystitis without hematuria
[2021-10-06] MEDS: WARFARIN SOD 10 MG TAB PO SCH (16:10)
[2021-10-07] MEDS: LORazepam 0.25 MG/0.5 ML VIAL IV PRN (03:11)
[2021-10-07 08:02] LABS: BUN Creatinine Ratio 26.8 (10-20); Calcium 9.3 mg/dl (8.5-10.1); Creatinine Clr Calc Pharmacy 38.4 ml/min; Est GFR (African American) 57.5 ml/min; Est GFR (Non-African American) 49.6 ml/min; Potassium 4.4 mmol/L (3.5-5.1)
[2021-10-07] MEDS: POTASSIUM CHLORIDE 10 MEQ TABCR PO SCH (08:49)
[2021-10-07] MEDS: bisacodyL 5 MG TABEC PO SCH (08:49)
[2021-10-07] MEDS: dilTIAZem HCL 240 MG CAPCR PO SCH (08:50)
[2021-10-07] MEDS: IPRATROPIUM BROMIDE NASAL SPRAY 0.06% 15ML NAE SCH ×2 (08:50→22:12)
[2021-10-07] MEDS: POLYETHYLENE (MIRALAX) 17 GM PACK PO SCH (08:50)
[2021-10-07] MEDS: METOPROLOL TARTRATE 100 MG TAB PO SCH ×2 (08:50→22:13)
--- NOTE | 2021-10-07 10:22 | Cardiology Progress Note ---
Date of Service October 07, 2021 Assessment & Plan (1) Atrial fibrillation with rapid ventricular response: (2) Acute delirium: (3) HTN (hypertension): (4) CKD (chronic kidney disease) stage 3, GFR 30-59 ml/min: Plan: Patient is an 81-year-old female history of long-term persistent atrial fibrillation who presents with an acute delirium and elevated ventricular response rate. Suspect rhythm issues are being driven by underlying medical issues including acute agitation and delirium, and non compliance with medications. Metoprolol held last night for one borderline low BP reading, but then BP trended high. Would not hold in the future, unless BP remains persistently low. Plan: Continue current therapies but continue to hold lisinopril given hyponatremia Heart rates and blood pressure were adequately controlled on metoprolol and diltiazem. Would not interrupt if possible Delirium as per neurology and psychiatry. Currently on as needed medications Cardiology will sign off contact with questions Admission and Anticipated Discharge Date Admission Date: October 01, 2021 Subjective Patient seen and examined, chart, medications, telemetry reviewed. Patient lucid, reading paper. Took medications this morning with good heart rate control Review of Systems Review of Systems: All systems reviewed & are unremarkable except as noted in Subjective Physical Exam Constitutional: no acute distress Eyes: PERRL, conjunctivae normal, anicteric sclerae ENMT: external ear and nose normal, oropharynx normal Neck: trachea midline, no thyromegaly Respiratory: normal respiratory effort, lungs clear to auscultation Cardiovascular: Rate/Rhythm: + irregularly irregular Heart Sounds: normal S1, normal S2 and + murmur (Grade 2/6 systolic no diastolic); no gallop Palpation: normal PMI Vessels: normal carotid upstroke and radial pulses present; no JVD and no carotid bruit Extremities: no edema Gastrointestinal (Abdomen): normal bowel sounds, soft, nontender, no hepatosplenomegaly Musculoskeletal: no cyanosis or clubbing, extremities motor strength 5/5 Skin: no rashes, warm and dry Neurologic: PERRL, EOMI, accommodation nl, no face palsy, no dysarthria Psychiatric: A+Ox3, euthymic affect Results & Data ([facility]) Vital Signs (Past 12 Hours) Vital Signs Temp Pulse Resp BP BP Pulse Ox 10/07/21 07:49 36.6 C 76 20 118/74 96 10/07/21 03:42 36.8 C 93 H 18 113/74 93 10/07/21 00:19 36.4 C L 82 18 125/85 95 Laboratory Results Laboratory Results - last 24 hr 10/07/21 06:28 Sodium 136 Potassium 4.4 Chloride 102 Carbon Dioxide 24 Anion Gap 9.0 BUN 28 H Creatinine 1.04 Est Cr Clr Drug Dosing 38.4 Est GFR ( Amer) 57.5 Est GFR (Non-Af Amer) 49.6 BUN/Creatinine Ratio 26.8 H Glucose 64 L Calcium 9.3 Medications Administered Current Medications Acetaminophen (Acetaminophen 325 Mg Tab) 650 mg PO Q4H PRN PRN Reason: Moderate Pain Stop: 10/31/21 19:02 Bisacodyl (Bisacodyl 5 Mg Tabec) 5 mg PO DAILY [facility] Stop: 10/31/21 19:14 Last Admin: 10/07/21 08:49 Dose: 5 mg Documented by: Diltiazem HCl (Diltiazem Hcl 240 Mg Capcr) 240 mg PO QAM [facility] Stop: 11/01/21 11:44 Last Admin: 10/07/21 08:50 Dose: 240 mg Documented by: Docusate Sodium (Docusate Sodium 100 Mg Cap) 100 mg PO BID PRN PRN Reason: Constipation Stop: 10/31/21 20:59 Last Admin: 10/06/21 10:37 Dose: 100 mg Documented by: Lorazepam (Ativan) 0.25 mg in 0.5 mls @ 0.5 mls/min IV Q4H PRN PRN Reason: Anxiety/agitation Stop: 11/05/21 00:17 Last Admin: 10/07/21 03:11 Dose: 0.5 mls/min Documented by: Ipratropium [place] (Ipratropium [place] Nasal [place] 0.06% 15ml) 1 sprays XIAO Q12 [facility] Stop: 10/31/21 20:59 Last Admin: 10/07/21 08:50 Dose: 1 sprays Documented by: Lisinopril (Lisinopril 5 Mg Tab) 5 mg PO QPM [facility] Stop: 10/31/21 20:59 Last Admin: 10/02/21 21:37 Dose: 5 mg Documented by: Metoprolol Tartrate (Metoprolol Tartrate 100 Mg Tab) 100 mg PO BID [facility] Stop: 10/31/21 20:59 Last Admin: 10/07/21 08:50 Dose: 100 mg Documented by: Olanzapine (Olanzapine 10 Mg/2.1 Ml Sdv) 2.5 mg IM Q4H PRN PRN Reason: Agitation Stop: 11/02/21 19:44 Last Admin: 10/05/21 21:04 Dose: 2.5 mg Documented by: Ondansetron HCl (Ondansetron Inj 2 Mg/Ml 2 Ml Vial) 4 mg IV Q4H PRN PRN Reason: Nausea And Vomiting Stop: 10/31/21 19:02 Polyethylene Glycol (Polyethylene (Miralax) 17 Gm Pack) 17 gm PO DAILY [facility] Stop: 10/31/21 19:14 Last Admin: 10/07/21 08:50 Dose: 17 gm Documented by: Potassium Chloride (Potassium Chloride 10 Meq Tabcr) 10 meq PO DAILY [facility] Stop: 11/01/21 08:59 Last Admin: 10/07/21 08:49 Dose: 10 meq Documented by: Quetiapine Fumarate (Quetiapine Fumarate 25 Mg Tablet) 12.5 mg PO BID PRN PRN Reason: Agitation Stop: 11/04/21 09:44 Last Admin: 10/06/21 10:37 Dose: 12.5 mg Documented by: Warfarin Sodium (Warfarin Sod 10 Mg Tab) 10 mg PO [id number]@1600 [facility] Stop: 11/01/21 15:59 Last Admin: 10/06/21 16:10 Dose: 10 mg Documented by: Warfarin Sodium (Warfarin Sod 7.5 Mg Tab) 15 mg PO Mo@1600 [facility] Stop: 11/02/21 15:59 Last Admin: 10/03/21 17:07 Dose: Not Given Documented by:
--- NOTE | 2021-10-07 12:37 | Psychiatric Progress Note ---
Date of Service October 07, 2021 Impression / Recommendations Impression 81 yo woman with no significant past psychiatric history except periods of anxiety with history of afib, HTN, CKD who presented to the ED with her for increasing paranoia, AH, VH, and confusion in the setting of a recent diagnosis of a UTI. Psychiatry was consulted for diagnostic and management recommendations. Diagnostically most consistent with delirium given recent timeframe of AH and VH worsening over the last week and no past psychiatric history as well as recent UTI. Given that some of the paranoia has been present for the last two-three months she may also have early stages of mild cognitive impairment in which paranoia can occur and VH can often occur with Lewy Body dementia. The more complex paranoid schema and fluctuating cognition can also be characteristic of LBD. Therefore must be very cautious with any antipsychotic use given high risk for EPS. Collateral from consistent with possible lewy body dementia with superimposed delirium. 10/07/21: continues to have fluctuations with agitation overnight, doing well today. She's tolerating low doses of olanzapine IM when needed and has seroquel prn ordered if she will accept po as this carries lower side effect burden for suspected Lewy Body dementia. Ok to use lorazepam as necessary though caution that this can increase risk for delirium/worsen existing suspected delirium. She will follow-up with neurology after discharge. Remains to be seen if as delirium improves whether or not she'll be appropriate for returning to independent living setting. (1) Acute delirium: -seroquel 12.5 mg BID prn for agitation or unsafe behaviors, should be used sparingly; if she refuses use olanzapine 2.5 mg IM for behavioral emergency (do not exceed 10mg total daily dose per day); monitor closely for EPS if used given risks with lewy body dementia (no evidence of side effects today), monitor QTc given risks for prolongation with antipsychotic use -ok to use lorazepam 0.5 to 1 mg qd prn for acute agitation if unresponsive to seroquel or zyprexa, caution this is likely to worsen delirium -continue with medical workup and management for presumed delirium, likely superimposed on lewy body dementia -continue with frequent re-orientation as needed, open blinds during the day, close at night, encourage communication with her family to help treat delirium Risk Factors Assessment Do You Have Access To A Gun?: No (locked up in home without access) Substance Use Disorders: No Previous Attempt: No Hopelessness: No Interval History Identifying Information 81 yo woman with no significant past psychiatric history except periods of anxiety with history of afib, HTN, CKD who presented to the ED with her for increasing paranoia, AH, VH, and confusion in the setting of a recent diagnosis of a UTI. Psychiatry was consulted for diagnostic and management recommendations. Chief Complaint "I'm good". Review of Systems Notes Endorses some hip stiffness. Slept poorly overnight, napping all morning. Stable appetite. Subjective Subjective Patient was seen & assessed and interval progress reviewed. Received ativan IV last night for agitation. This morning thought she was being discharged and that her family was waiting downstairs for her but calm when redirected and told she will be staying in the hospital, likely for at least a few more days. 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 Physical Exam Psychiatric Orientation: alert and oriented x 3 Apperance: appropriately dressed and appropriately groomed Eye Contact: good eye contact Motor Behavior: no abnormal motor movements; n EPS and n tremor Speech: normal rate/rhythm/volume of speech Affect: euthymic affect Mood: no depressed mood, no anxious mood and no irritable mood Thought Process: goal directed thought process Thought Content: + paranoid and + delusions Suicidal Thoughts: denies suicidal thoughts Homicidal Thoughts: denies homicidal thoughts Hallucinations: no auditory hallucinations and no visual hallucinations Cognition: remote memory grossly intact and language grossly intact; + recent memory not intact and + attention not intact Estimated Intelligence: consistent with education level Insight: + impaired insight Judgement: + impaired judgement Vital Signs (Past 24 Hours) Last Vital Signs Temp 36.6 C 10/07/21 07:49 Pulse 76 10/07/21 07:49 Resp 20 10/07/21 07:49 BP 118/74 10/07/21 07:49 Pulse Ox 96 10/07/21 07:49 Results & Data ([facility]) Laboratory Results Laboratory Results - last 24 hr 10/07/21 06:28 Sodium 136 Potassium 4.4 Chloride 102 Carbon Dioxide 24 Anion Gap 9.0 BUN 28 H Creatinine 1.04 Est Cr Clr Drug Dosing 38.4 Est GFR ( Amer) 57.5 Est GFR (Non-Af Amer) 49.6 BUN/Creatinine Ratio 26.8 H Glucose 64 L Calcium 9.3 Current Inpatient Medications Current Inpatient Medications: Current Inpatient Medications Acetaminophen (Acetaminophen 325 Mg Tab) 650 mg PO Q4H PRN PRN Reason: Moderate Pain Stop: 10/31/21 19:02 Bisacodyl (Bisacodyl 5 Mg Tabec) 5 mg PO DAILY LIZA Stop: 10/31/21 19:14 Last Admin: 10/07/21 08:49 Dose: 5 mg Documented by: Diltiazem HCl (Diltiazem Hcl 240 Mg Capcr) 240 mg PO QAM [facility]ZA Stop: 11/01/21 11:44 Last Admin: 10/07/21 08:50 Dose: 240 mg Documented by: Docusate Sodium (Docusate Sodium 100 Mg Cap) 100 mg PO BID PRN PRN Reason: Constipation Stop: 10/31/21 20:59 Last Admin: 10/06/21 10:37 Dose: 100 mg Documented by: Lorazepam (Ativan) 0.25 mg in 0.5 mls @ 0.5 mls/min IV Q4H PRN PRN Reason: Anxiety/agitation Stop: 11/05/21 00:17 Last Admin: 10/07/21 03:11 Dose: 0.5 mls/min Documented by: Ipratropium [place] (Ipratropium [place] Nasal [place] 0.06% 15ml) 1 sprays XIAO Q12 LIZA Stop: 10/31/21 20:59 Last Admin: 10/07/21 08:50 Dose: 1 sprays Documented by: Lisinopril (Lisinopril 5 Mg Tab) 5 mg PO QPM LIZA Stop: 10/31/21 20:59 Last Admin: 10/02/21 21:37 Dose: 5 mg Documented by: Metoprolol Tartrate (Metoprolol Tartrate 100 Mg Tab) 100 mg PO BID LIZA Stop: 10/31/21 20:59 Last Admin: 10/07/21 08:50 Dose: 100 mg Documented by: Olanzapine (Olanzapine 10 Mg/2.1 Ml Sdv) 2.5 mg IM Q4H PRN PRN Reason: Agitation Stop: 11/02/21 19:44 Last Admin: 10/05/21 21:04 Dose: 2.5 mg Documented by: Ondansetron HCl (Ondansetron Inj 2 Mg/Ml 2 Ml Vial) 4 mg IV Q4H PRN PRN Reason: Nausea And Vomiting Stop: 10/31/21 19:02 Polyethylene Glycol (Polyethylene (Miralax) 17 Gm Pack) 17 gm PO DAILY [facility] Stop: 10/31/21 19:14 Last Admin: 10/07/21 08:50 Dose: 17 gm Documented by: Potassium Chloride (Potassium Chloride 10 Meq Tabcr) 10 meq PO DAILY [facility] Stop: 11/01/21 08:59 Last Admin: 10/07/21 08:49 Dose: 10 meq Documented by: Quetiapine Fumarate (Quetiapine Fumarate 25 Mg Tablet) 12.5 mg PO BID PRN PRN Reason: Agitation Stop: 11/04/21 09:44 Last Admin: 10/06/21 10:37 Dose: 12.5 mg Documented by: Warfarin Sodium (Warfarin Sod 10 Mg Tab) 10 mg PO SuTuWeThFrSa@1600 [facility] Stop: 11/01/21 15:59 Last Admin: 10/06/21 16:10 Dose: 10 mg Documented by: Warfarin Sodium (Warfarin Sod 7.5 Mg Tab) 15 mg PO Mo@1600 [facility] Stop: 11/02/21 15:59 Last Admin: 10/03/21 17:07 Dose: Not Given Documented by:
[2021-10-07] MEDS: QUEtiapine FUMARATE 25 MG TABLET PO PRN (14:00)
[2021-10-07] MEDS: WARFARIN SOD 10 MG TAB PO SCH (16:02)
--- NOTE | 2021-10-07 16:23 | Hospitalist Progress Note ---
Date of Service October 07, 2021 Assessment & Plan (1) Acute delirium: (2) Atrial fibrillation with rapid ventricular response: (3) Urinary tract infection: Plan: #. Atrial fibrillation with rapid ventricular response: -Initially patient received Cardizem drip, later on transition to her home p.o. Cardizem. -Currently without any chest pain, patient does not feel palpitation, lightheadedness, or dizziness -Likely secondary to her underlying agitation/delirium, goes into RVR whenever she is agitated. -Continue with metoprolol and cardizem, do not hold for borderline low blood pressure reading. Cardiology on board, remains tachycardic and patient refuses medications ON treatment per prior providers note. Continue to hold lisinopril given hyponatremia. Heart rate generally around 100 without any cardiac symptoms. #. Urinary tract infection: -Pansensitive E. coli on 09/26/2021 -Status post antibiotic. #. Hallucinations: #. Acute Delirium #. Hyponatremia -MRI brain-expected age related change without any acute infarct. CT of the head was negative -No infection except urine culture positive which was taken on eighth of this month, status post treatment. -History of [place], ammonia level negative. -Na appears to have been low in the past however last spring was in the high 130s, continue to monitor. Normal. -Psychiatry on board: Seroquel 12.5 mg HS LIZA as per phone discussion;can use olanzapine 2.5 mg IM for behavioral emergency [do not exceed 10 mg total daily dose]. Monitor for EPS and QTC, continue with frequent reorientation. Okay to use lorazepam 0.5 to 1 mg daily as needed for acute agitation if unresponsive to priors. -On and off hallucination and acute delirium. 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 Follow-up with neurology as an outpatient. Likely secondary to Lewy body dementia, continue to monitor. Hyponatremia resolved; UTI treated. Patient still lethargic, continue to monitor. D/W psychiatry. #. Depression: -History of such, as above, appears to be more hallucination involved than depressive mood #. Aortic stenosis: -Noted, chronic, continue antihypertensive medications -Asymptomatic, no chest pain, palpitation or CHF - hold lasix #. HTN (hypertension): -Continue diltiazem as above, lisinopril, metoprolol DVT ppx: - teds, scds -Has been on Coumadin and INR is therapeutic CODE: Full code Dispo: From home, likely need placement. 10/05: Patient's was updated at bedside, he seemed understanding and agreeable to plan of care. 10/06: Patient's was again updated at bedside, he mentioned that she does not have POA. Discussed in detail the plan of care for her and the role of palliative care. He agreed to have palliative care see her for discussion of goals of care. 10/07: Family meeting with patient's and patient's daughter [Federica], case planner joined the conversation. Discussed about how the prognosis looks like from neurology/psychiatry and my view for her, discussed the need for needing placement. Answered all the questions. Patient's daughter is RN by profession and voiced understanding and seemed agreeable to the plan of care. Admission and Anticipated Discharge Date Admission Date: October 01, 2021 Subjective Patient seen and examined at bedside, on room air, lying in bed, NAD and lucid. No acute events overnight. Patient is eating okay. Patient denies any headache/dizziness/chest pain/palpitation/other review of symptoms. Physical Exam Physical Exam: GENERAL: Alert and oriented x3. NAD, on RA. HEENT: No pallor, no icterus. Pupils equal, round and reactive to light. Oral mucosa moist. NECK: No JVD, no neck masses. HEART: S1 and S2 heard. Regular rate and rhythm. No murmur, no gallop. RESPIRATORY SYSTEM: Normal AP diameter. No accessory muscle use. No wheezing, no crackles. ABDOMEN: Soft, bowel sounds present, nontender, no distention. CENTRAL NERVOUS SYSTEM: No facial droop. Speech is clear. Obeys simple commands. Moves extremities. EXTREMITIES: No edema, no erythema seen. Results & Data Results & Data ([facility]) Vital Signs (Past 12 Hours) Vital Signs Temp Pulse Resp BP Pulse Ox 10/07/21 16:03 36.6 C 82 19 140/79 95 10/07/21 11:23 36.5 C 83 16 123/76 96 10/07/21 07:49 36.6 C 76 20 118/74 96 (1) Urinary tract infection Hematuria presence: without hematuria Urinary tract infection type: acute cystitis Qualified Code(s): N30.00 - Acute cystitis without hematuria
[2021-10-07] MEDS ORDERED: QUEtiapine FUMARATE 25 MG TABLET PO SCH (21:00)
[2021-10-08] MEDS: POTASSIUM CHLORIDE 10 MEQ TABCR PO SCH (08:36)
[2021-10-08] MEDS: dilTIAZem HCL 240 MG CAPCR PO SCH (08:37)
[2021-10-08] MEDS: METOPROLOL TARTRATE 100 MG TAB PO SCH ×2 (08:37→19:50)
[2021-10-08] MEDS: bisacodyL 5 MG TABEC PO SCH (08:37)
[2021-10-08] MEDS: DICLOFENAC SOD 1% GEL 100 GM TUBE EXT PRN ×3 (08:38→19:49)
[2021-10-08] MEDS: POLYETHYLENE (MIRALAX) 17 GM PACK PO SCH (08:38)
[2021-10-08] MEDS: IPRATROPIUM BROMIDE NASAL SPRAY 0.06% 15ML NAE SCH ×2 (08:39→19:49)
--- NOTE | 2021-10-08 11:57 | Psychiatric Progress Note ---
Date of Service October 08, 2021 Impression / Recommendations Impression 81 yo woman with no significant past psychiatric history except periods of anxiety with history of afib, HTN, CKD who presented to the ED with her for increasing paranoia, AH, VH, and confusion in the setting of a recent diagnosis of a UTI. Psychiatry was consulted for diagnostic and management recommendations. Diagnostically most consistent with delirium given recent timeframe of AH and VH worsening over the last week and no past psychiatric history as well as recent UTI. Given that some of the paranoia has been present for the last two-three months she may also have early stages of mild cognitive impairment in which paranoia can occur and VH can often occur with Lewy Body dementia. The more complex paranoid schema and fluctuating cognition can also be characteristic of LBD. Therefore must be very cautious with any antipsychotic use given high risk for EPS. Collateral from consistent with possible lewy body dementia with superimposed delirium. 10/08/21: no agitation overnight after getting seroquel, remains paranoid with complex delusions about men coming to kill her and being wary of food/water and pills "make sure they aren't tainted with anything". Tolerating the scheduled seroquel well without any signs of EPS, ok to increase to BID to help with her anxiety due to paranoia. She's tolerating low doses of olanzapine IM when needed and has seroquel prn ordered if she will accept po as this carries lower side effect burden for suspected Lewy Body dementia. Ok to use lorazepam as necessary though caution that this can increase risk for delirium/worsen existing suspec boris delirium. She will follow-up with neurology after discharge. Remains to be seen if as delirium improves whether or not she'll be appropriate for returning to independent living setting. (1) Acute delirium: -seroquel 12.5 mg BID scheduled; if she refuses use olanzapine 2.5 mg IM for behavioral emergency (do not exceed 10mg total daily dose per day); monitor closely for EPS if used given risks with lewy body dementia (no evidence of side effects so far), monitor QTc given risks for prolongation with antipsychotic use -ok to use lorazepam 0.5 to 1 mg qd prn for acute agitation if unresponsive to seroquel or zyprexa, caution this is likely to worsen delirium -continue with medical workup and management for presumed delirium, likely superimposed on lewy body dementia -continue with frequent re-orientation as needed, open blinds during the day, close at night, encourage communication with her family to help treat delirium Risk Factors Assessment Do You Have Access To A Gun?: No (locked up in home without access) Substance Use Disorders: No Previous Attempt: No Hopelessness: No Interval History Identifying Information 81 yo woman with no significant past psychiatric history except periods of anxiety with history of afib, HTN, CKD who presented to the ED with her for increasing paranoia, AH, VH, and confusion in the setting of a recent diagnosis of a UTI. Psychiatry was consulted for diagnostic and management recommendations. Chief Complaint "I'm really scared because they are going to come kill me". Review of Systems Notes Reports fair sleep and stable appetite. Subjective Subjective Patient was seen & assessed and interval progress reviewed. Took her scheduled seroquel 12.5 mg last night. This morning was refusing care initially and took her nurse multiple attempts to get her to take her medications. 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 However then begins to discuss her belief that Mr. Mcintosh and Mr. Abreu will be coming to kill her. She asks if I am wearing a camera and expresses paranoia about a medical provider in the hallway and nursing staff. Remains convinced that these men will come to get her even after asking me to shake her hand to confirm my statement that I promise no harm will come to her while she's here. She requests my help repeatedly in getting her to a local motel so she can avoid these men coming to kill her. Attempted to provide reassurance of her safety. Physical Exam Psychiatric Orientation: alert, oriented to person, oriented to place and cooperative Apperance: appropriately dressed and appropriately groomed Eye Contact: good eye contact Motor Behavior: no abnormal motor movements; n EPS and n tremor Speech: normal rate/rhythm/volume of speech Affect: + anxious affect Mood: + anxious mood Thought Process: + perseveration Thought Content: + paranoid and + delusions Suicidal Thoughts: denies suicidal thoughts Homicidal Thoughts: denies homicidal thoughts Hallucinations: + visual hallucinations; no auditory hallucinations Cognition: remote memory grossly intact and language grossly intact; + recent memory not intact and + attention not intact Estimated Intelligence: consistent with education level Insight: + impaired insight Judgement: + impaired judgement Vital Signs (Past 24 Hours) Last Vital Signs Temp 36.7 C 10/08/21 07:03 Pulse 87 10/08/21 07:21 Resp 19 10/08/21 07:03 BP 148/96 H 10/08/21 07:28 Pulse Ox 96 10/08/21 07:03 Results & Data ([facility]) Current Inpatient Medications Current Inpatient Medications: Current Inpatient Medications Acetaminophen (Acetaminophen 325 Mg Tab) 650 mg PO Q4H PRN PRN Reason: Moderate Pain Stop: 10/31/21 19:02 Bisacodyl (Bisacodyl 5 Mg Tabec) 5 mg PO DAILY [facility] Stop: 10/31/21 19:14 Last Admin: 10/08/21 08:37 Dose: 5 mg Documented by: Diclofenac Sodium (Diclofenac Sod 1% Gel 100 Gm Tube) 2 gm EXT QID PRN PRN Reason: knee pain Stop: 11/07/21 08:59 Last Admin: 10/08/21 08:38 Dose: 2 gm Documented by: Diltiazem HCl (Diltiazem Hcl 240 Mg Capcr) [address] [facility] Stop: 11/01/21 11:44 Last Admin: 10/08/21 08:37 Dose: 240 mg Documented by: Docusate Sodium (Docusate Sodium 100 Mg Cap) 100 mg PO BID PRN PRN Reason: Constipation Stop: 10/31/21 20:59 Last Admin: 10/06/21 10:37 Dose: 100 mg Documented by: Lorazepam (Ativan) 0.25 mg in 0.5 mls @ 0.5 mls/min IV Q4H PRN PRN Reason: Anxiety/agitation Stop: 11/05/21 00:17 Last Admin: 10/07/21 03:11 Dose: 0.5 mls/min Documented by: Ipratropium [place] (Ipratropium [place] Nasal [place] 0.06% 15ml) 1 sprays XIAO Q12 [facility]ZA Stop: 10/31/21 20:59 Last Admin: 10/08/21 08:39 Dose: 1 sprays Documented by: Lisinopril (Lisinopril 5 Mg Tab) 5 mg PO QPM [facility] Stop: 10/31/21 20:59 Last Admin: 10/02/21 21:37 Dose: 5 mg Documented by: Metoprolol Tartrate (Metoprolol Tartrate 100 Mg Tab) [address] [facility] Stop: 10/31/21 20:59 Last Admin: 10/08/21 08:37 Dose: 100 mg Documented by: Olanzapine (Olanzapine 10 Mg/2.1 Ml Sdv) 2.5 mg IM Q4H PRN PRN Reason: Agitation Stop: 11/02/21 19:44 Last Admin: 10/05/21 21:04 Dose: 2.5 mg Documented by: Ondansetron HCl (Ondansetron Inj 2 Mg/Ml 2 Ml Vial) 4 mg IV Q4H PRN PRN Reason: Nausea And Vomiting Stop: 10/31/21 19:02 Polyethylene Glycol (Polyethylene (Miralax) 17 Gm Pack) [address] [facility] Stop: 10/31/21 19:14 Last Admin: 10/08/21 08:38 Dose: Not Given Documented by: Potassium Chloride (Potassium Chloride 10 Meq Tabcr) [address] [facility] Stop: 11/01/21 08:59 Last Admin: 10/08/21 08:36 Dose: 10 meq Documented by: Quetiapine Fumarate (Quetiapine Fumarate 25 Mg Tablet) 12.[address] [facility] Stop: 11/06/21 20:59 Last Admin: 10/07/21 22:13 Dose: 12.5 mg Documented by: Warfarin Sodium (Warfarin Sod 10 Mg Tab) 10 mg PO SuTuWeThFrSa@1600 [facility] Stop: 11/01/21 15:59 Last Admin: 10/07/21 16:02 Dose: 10 mg Documented by: Warfarin Sodium (Warfarin Sod 7.5 Mg Tab) 15 mg PO Mo@1600 [facility] Stop: 11/02/21 15:59 Last Admin: 10/03/21 17:07 Dose: Not Given Documented by:
[2021-10-08 14:41] LABS: BUN Creatinine Ratio 19.1 (10-20); Creatinine Clr Calc Pharmacy 27.3 ml/min; Est GFR (African American) 38.2 ml/min; Est GFR (Non-African American) 32.9 ml/min; Potassium 4.8 mmol/L (3.5-5.1)
[2021-10-08] MEDS: WARFARIN SOD 10 MG TAB PO SCH (16:17)
[2021-10-08] MEDS: QUEtiapine FUMARATE 25 MG TABLET PO SCH (19:49)
--- NOTE | 2021-10-08 20:22 | Hospitalist Progress Note ---
Date of Service October 08, 2021 Assessment & Plan (1) Acute delirium: (2) Atrial fibrillation with rapid ventricular response: (3) Urinary tract infection: Plan: #. Atrial fibrillation with rapid ventricular response: -Initially patient received Cardizem drip, later on transition to her home p.o. Cardizem. -Currently without any chest pain, patient does not feel palpitation, lightheadedness, or dizziness -Likely secondary to her underlying agitation/delirium, goes into RVR whenever she is agitated. -Continue with metoprolol and cardizem, do not hold for borderline low blood pressure reading. Cardiology on board, remains tachycardic and patient refuses medications ON treatment per prior providers note. Continue to hold lisinopril given hyponatremia. Heart rate generally around 100 without any cardiac symptoms. #. Urinary tract infection: -Pansensitive E. coli on 09/26/2021 -Status post antibiotic. #. Hallucinations: #. Acute Delirium #. Hyponatremia -MRI brain-expected age related change without any acute infarct. CT of the head was negative -No infection except urine culture positive which was taken on eighth of this month, status post treatment. -History of Cabrales, ammonia level negative. -Na appears to have been low in the past however last spring was in the high 130s, continue to monitor. Normal. -Psychiatry on board: Seroquel 12.5 mg BID LIZA as per discussion;can use olanzapine 2.5 mg IM for behavioral emergency [do not exceed 10 mg total daily dose]. Monitor for EPS and QTC, continue with frequent reorientation. Okay to use lorazepam 0.5 to 1 mg daily as needed for acute agitation if unresponsive to priors. -On and off hallucination and acute delirium. 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 Follow-up with neurology as an outpatient. Likely secondary to Lewy body dementia, continue to monitor. Hyponatremia resolved; UTI treated. Patient still lethargic, continue to monitor. D/W psychiatry. #. Depression: -History of such, as above, appears to be more hallucination involved than depressive mood #. Aortic stenosis: -Noted, chronic, continue antihypertensive medications -Asymptomatic, no chest pain, palpitation or CHF - hold lasix #. HTN (hypertension): -Continue diltiazem as above, lisinopril, metoprolol DVT ppx: - teds, scds -Has been on Coumadin and INR is therapeutic CODE: Full code Dispo: From home, CM working on placement. 10/05: Patient's was updated at bedside, he seemed understanding and agreeable to plan of care. 10/06: Patient's was again updated at bedside, he mentioned that she does not have POA. Discussed in detail the plan of care for her and the role of palliative care. He agreed to have palliative care see her for discussion of goals of care. 10/07: Family meeting with patient's and patient's daughter [Federica], counter caser joined the conversation. Discussed about how the prognosis looks like from neurology/psychiatry and my view for her, discussed the need for needing placement. Answered all the questions. Patient's daughter is RN by profession and voiced understanding and seemed agreeable to the plan of care. Admission and Anticipated Discharge Date Admission Date: October 01, 2021 Subjective Patient seen and examined at bedside, at the bedside, on room air, lying in bed, NAD and lucid. No acute events overnight. Patient is eating okay. Patient denies any headache/dizziness/chest pain/palpitation/other review of symptoms. Physical Exam Physical Exam: GENERAL: Alert and oriented x3. NAD, on RA. HEENT: No pallor, no icterus. Pupils equal, round and reactive to light. Oral mucosa moist. NECK: No JVD, no neck masses. HEART: S1 and S2 heard. Regular rate and rhythm. No murmur, no gallop. RESPIRATORY SYSTEM: Normal AP diameter. No accessory muscle use. No wheezing, no crackles. ABDOMEN: Soft, bowel sounds present, nontender, no distention. CENTRAL NERVOUS SYSTEM: No facial droop. Speech is clear. Obeys simple commands. Moves extremities. EXTREMITIES: No edema, no erythema seen. Results & Data Results & Data ([facility]) Vital Signs (Past 12 Hours) Vital Signs Temp Pulse Pulse Resp BP BP Pulse Ox 10/08/21 19:10 36.7 C 97 H 18 125/79 92 10/08/21 15:21 75 10/08/21 15:11 37.1 C 71 20 120/69 96 10/08/21 12:04 36.6 C 58 L 14 117/65 95 (1) Urinary tract infection Hematuria presence: without hematuria Urinary tract infection type: acute cystitis Qualified Code(s): N30.00 - Acute cystitis without hematuria
[2021-10-08] MEDS ORDERED: SODIUM CHLORIDE 0.9% 1000ML 1,000 ML IV SCH (20:30)
[2021-10-09] MEDS: POTASSIUM CHLORIDE 10 MEQ TABCR PO SCH (08:18)
[2021-10-09] MEDS: QUEtiapine FUMARATE 25 MG TABLET PO SCH ×2 (08:18→23:23)
[2021-10-09] MEDS: dilTIAZem HCL 240 MG CAPCR PO SCH (08:18)
[2021-10-09] MEDS: METOPROLOL TARTRATE 100 MG TAB PO SCH ×2 (08:18→23:23)
[2021-10-09] MEDS: bisacodyL 5 MG TABEC PO SCH (08:18)
[2021-10-09] MEDS: IPRATROPIUM BROMIDE NASAL SPRAY 0.06% 15ML NAE SCH ×2 (08:19→23:24)
[2021-10-09 08:27] LABS: BUN Creatinine Ratio 27.1 (10-20); Calcium 9.3 mg/dl (8.5-10.1); Creatinine Clr Calc Pharmacy 40.3 ml/min; Est GFR (African American) 61.1 ml/min; Est GFR (Non-African American) 52.7 ml/min; Potassium 4.1 mmol/L (3.5-5.1)
[2021-10-09] MEDS: POLYETHYLENE (MIRALAX) 17 GM PACK PO SCH (09:07)
--- NOTE | 2021-10-09 10:42 | Psychiatric Progress Note ---
Date of Service October 09, 2021 Impression / Recommendations Impression 81 yo woman with no significant past psychiatric history except periods of anxiety with history of afib, HTN, CKD who presented to the ED with her for increasing paranoia, AH, VH, and confusion in the setting of a recent diagnosis of a UTI. Psychiatry was consulted for diagnostic and management recommendations. Diagnostically most consistent with delirium given recent timeframe of AH and VH worsening over the last week and no past psychiatric history as well as recent UTI. Given that some of the paranoia has been present for the last two-three months she may also have early stages of mild cognitive impairment in which paranoia can occur and VH can often occur with Lewy Body dementia. The more complex paranoid schema and fluctuating cognition can also be characteristic of LBD. Therefore must be very cautious with any antipsychotic use given high risk for EPS. Collateral from consistent with possible lewy body dementia with superimposed delirium. 10/09/21: asleep this morning but no agitation overnight after getting seroquel and pleasant this morning with nursing stuff and accepted her medications, no signs of EPS. Remains to be seen if as delirium improves whether or not she'll be appropriate for returning to independent living setting versus requiring SNF. (1) Acute delirium: -seroquel 12.5 mg BID scheduled; if she refuses use olanzapine 2.5 mg IM for behavioral emergency (do not exceed 10mg total daily dose per day); monitor closely for EPS if used given risks with lewy body dementia (no evidence of side effects so far), monitor QTc given risks for prolongation with antipsychotic use -ok to use lorazepam 0.5 to 1 mg qd prn for acute agitation if unresponsive to seroquel or zyprexa, caution this is likely to worsen delirium -continue with medical workup and management for presumed delirium, likely superimposed on lewy body dementia -continue with frequent re-orientation as needed, open blinds during the day, close at night, encourage communication with her family to help treat delirium Risk Factors Assessment Do You Have Access To A Gun?: No (locked up in home without access) Substance Use Disorders: No Previous Attempt: No Hopelessness: No Interval History Identifying Information 81 yo woman with no significant past psychiatric history except periods of anxiety with history of afib, HTN, CKD who presented to the ED with her for increasing paranoia, AH, VH, and confusion in the setting of a recent diagnosis of a UTI. Psychiatry was consulted for diagnostic and management recommendations. Chief Complaint asleep Review of Systems Notes Slept well overnight, eating meals Subjective Subjective Patient was seen & assessed and interval progress reviewed. She was very paranoid through yesterday evening but took her qhs scheduled seroquel and did well overnight. She also accepted her medications this morning including her seroquel and per her nurse has been pleasant and cooperative with care. On my two attempts at assessment she was asleep and I did not find it would be therapeutic to wake her. No evidence of EPS or parkinsonism side effects from seroquel. Physical Exam Psychiatric Orientation: + not alert (asleep) Apperance: appropriately dressed and appropriately groomed Eye Contact: + not good eye contact Motor Behavior: no abnormal motor movements; n EPS Thought Process: + looseness of associations and + perseveration Thought Content: + paranoid and + delusions Hallucinations: + visual hallucinations; no auditory hallucinations Cognition: remote memory grossly intact and language grossly intact; + recent memory not intact and + attention not intact Estimated Intelligence: consistent with education level Insight: + impaired insight Judgement: + impaired judgement Vital Signs (Past 24 Hours) Last Vital Signs Temp 36.5 C 10/09/21 07:36 Pulse 101 H 10/09/21 07:36 Resp 16 10/09/21 07:36 BP 163/93 H 10/09/21 07:36 Pulse Ox 99 10/09/21 07:36 Results & Data ([facility]) Laboratory Results Laboratory Results - last 24 hr 10/08/21 10/09/21 14:04 07:31 Sodium 134 L 136 Potassium 4.8 4.1 Chloride 101 103 Carbon Dioxide 26 27 Anion Gap 8.0 6.0 BUN 28 H 27 H Creatinine 1.46 H D 0.99 D Est Cr Clr Drug Dosing 27.3 40.3 Est GFR ( Amer) 38.2 61.1 Est GFR (Non-Af Amer) 32.9 52.7 BUN/Creatinine Ratio 19.1 27.1 H Glucose 185 H 92 Calcium 9.0 9.3 Current Inpatient Medications Current Inpatient Medications: Current Inpatient Medications Acetaminophen (Acetaminophen 325 Mg Tab) 650 mg PO Q4H PRN PRN Reason: Moderate Pain Stop: 10/31/21 19:02 Bisacodyl (Bisacodyl 5 Mg Tabec) 5 mg PO DAILY LIZA Stop: 10/31/21 19:14 Last Admin: 10/09/21 08:18 Dose: 5 mg Documented by: Diclofenac Sodium (Diclofenac Sod 1% Gel 100 Gm Tube) 2 gm EXT QID PRN PRN Reason: knee pain Stop: 11/07/21 08:59 Last Admin: 10/08/21 19:49 Dose: 2 gm Documented by: Diltiazem HCl (Diltiazem Hcl 240 Mg Capcr) 240 mg PO QAM LIZA Stop: 11/01/21 11:44 Last Admin: 10/09/21 08:18 Dose: 240 mg Documented by: Docusate Sodium (Docusate Sodium 100 Mg Cap) 100 mg PO BID PRN PRN Reason: Constipation Stop: 10/31/21 20:59 Last Admin: 10/06/21 10:37 Dose: 100 mg Documented by: Lorazepam (Ativan) 0.25 mg in 0.5 mls @ 0.5 mls/min IV Q4H PRN PRN Reason: Anxiety/agitation Stop: 11/05/21 00:17 Last Admin: 10/07/21 03:11 Dose: 0.5 mls/min Documented by: Ipratropium [place] (Ipratropium [place] Nasal [place] 0.06% 15ml) 1 sprays XIAO Q12 LIZA Stop: 10/31/21 20:59 Last Admin: 10/09/21 08:19 Dose: 1 sprays Documented by: Lisinopril (Lisinopril 5 Mg Tab) 5 mg PO QPM LIZA Stop: 10/31/21 20:59 Last Admin: 10/02/21 21:37 Dose: 5 mg Documented by: Metoprolol Tartrate (Metoprolol Tartrate 100 Mg Tab) 100 mg PO BID LIZA Stop: 10/31/21 20:59 Last Admin: 10/09/21 08:18 Dose: 100 mg Documented by: Olanzapine (Olanzapine 10 Mg/2.1 Ml Sdv) 2.5 mg IM Q4H PRN PRN Reason: Agitation Stop: 11/02/21 19:44 Last Admin: 10/05/21 21:04 Dose: 2.5 mg Documented by: Ondansetron HCl (Ondansetron Inj 2 Mg/Ml 2 Ml Vial) 4 mg IV Q4H PRN PRN Reason: Nausea And Vomiting Stop: 10/31/21 19:02 Polyethylene Glycol (Polyethylene (Miralax) 17 Gm Pack) 17 gm PO DAILY [facility] Stop: 10/31/21 19:14 Last Admin: 10/09/21 09:07 Dose: Not Given Documented by: Potassium Chloride (Potassium Chloride 10 Meq Tabcr) 10 meq PO DAILY [facility] Stop: 11/01/21 08:59 Last Admin: 10/09/21 08:18 Dose: 10 meq Documented by: Quetiapine Fumarate (Quetiapine Fumarate 25 Mg Tablet) 12.5 mg PO BID [facility] Stop: 11/07/21 20:59 Last Admin: 10/09/21 08:18 Dose: 12.5 mg Documented by: Warfarin Sodium (Warfarin Sod 10 Mg Tab) 10 mg PO SuTuWeThFrSa@1600 [facility] Stop: 11/01/21 15:59 Last Admin: 10/08/21 16:17 Dose: 10 mg Documented by: Warfarin Sodium (Warfarin Sod 7.5 Mg Tab) 15 mg PO Mo@1600 [facility] Stop: 11/02/21 15:59 Last Admin: 10/03/21 17:07 Dose: Not Given Documented by:
--- NOTE | 2021-10-09 15:43 | Hospitalist Progress Note ---
Date of Service October 09, 2021 Assessment & Plan (1) Acute delirium: (2) Atrial fibrillation with rapid ventricular response: (3) Urinary tract infection: Plan: #. Atrial fibrillation with rapid ventricular response: -Initially patient received Cardizem drip, later on transition to her home p.o. Cardizem. -Currently without any chest pain, patient does not feel palpitation, lightheadedness, or dizziness -Likely secondary to her underlying agitation/delirium, goes into RVR whenever she is agitated. -Continue with metoprolol and cardizem, do not hold for borderline low blood pressure reading. Cardiology on board, remains tachycardic and patient refuses medications ON treatment per prior providers note. Continue to hold lisinopril given hyponatremia. Heart rate generally around 100 without any cardiac symptoms. #. Urinary tract infection: -Pansensitive E. coli on 09/26/2021 -Status post antibiotic. #. Hallucinations: #. Acute Delirium #. Hyponatremia -MRI brain-expected age related change without any acute infarct. CT of the head was negative -No infection except urine culture positive which was taken on eighth of this month, status post treatment. -History of Cabrales, ammonia level negative. -Na appears to have been low in the past however last spring was in the high 130s, continue to monitor. Normal. -Psychiatry on board: Seroquel 12.5 mg BID LIZA as per discussion;can use olanzapine 2.5 mg IM for behavioral emergency [do not exceed 10 mg total daily dose]. Monitor for EPS and QTC, continue with frequent reorientation. Okay to use lorazepam 0.5 to 1 mg daily as needed for acute agitation if unresponsive to priors. -On and off hallucination and acute delirium. 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 Follow-up with neurology as an outpatient. Likely secondary to Lewy body dementia, continue to monitor. Hyponatremia resolved; UTI treated. On and off confused and delirious, continue to monitor. #. Depression: -History of such, as above, appears to be more hallucination involved than depressive mood #. Aortic stenosis: -Noted, chronic, continue antihypertensive medications -Asymptomatic, no chest pain, palpitation or CHF - hold lasix #. HTN (hypertension): -Continue diltiazem as above, lisinopril [held], metoprolol DVT ppx: - teds, scds -Has been on Coumadin and INR is therapeutic CODE: Full code Dispo: From home, CM working on placement. 10/05: Patient's was updated at bedside, he seemed understanding and agreeable to plan of care. 10/06: Patient's was again updated at bedside, he mentioned that she does not have POA. Discussed in detail the plan of care for her and the role of palliative care. He agreed to have palliative care see her for discussion of goals of care. 10/07: Family meeting with patient's and patient's daughter [Federica], vocational case manager joined the conversation. Discussed about how the prognosis looks like from neurology/psychiatry and my view for her, discussed the need for needing placement. Answered all the questions. Patient's daughter is RN by profession and voiced understanding and seemed agreeable to the plan of care. Admission and Anticipated Discharge Date Admission Date: October 01, 2021 Subjective Patient seen and examined at bedside, on room air, lying in bed, sleeping, easily woke up, NAD and lucid. No acute events overnight. Patient is eating okay. Patient denies any headache/dizziness/chest pain/palpitation/other review of symptoms. Physical Exam Physical Exam: GENERAL: Alert and oriented x3. NAD, on RA. HEENT: No pallor, no icterus. Pupils equal, round and reactive to light. Oral mucosa moist. NECK: No JVD, no neck masses. HEART: S1 and S2 heard. Regular rate and rhythm. No murmur, no gallop. RESPIRATORY SYSTEM: Normal AP diameter. No accessory muscle use. No wheezing, no crackles. ABDOMEN: Soft, bowel sounds present, nontender, no distention. CENTRAL NERVOUS SYSTEM: No facial droop. Speech is clear. Obeys simple commands. Moves extremities. EXTREMITIES: No edema, no erythema seen. Results & Data Results & Data ([facility]) Vital Signs (Past 12 Hours) Vital Signs Temp Pulse Resp BP Pulse Ox 10/09/21 11:29 36.6 C 71 18 136/86 95 10/09/21 07:36 36.5 C 101 H 16 163/93 H 99 10/09/21 05:00 36.6 C 81 18 134/85 97 (1) Urinary tract infection Hematuria presence: without hematuria Urinary tract infection type: acute cystitis Qualified Code(s): N30.00 - Acute cystitis without hematuria
[2021-10-09] MEDS: WARFARIN SOD 10 MG TAB PO SCH (16:22)
[2021-10-09] MEDS: DICLOFENAC SOD 1% GEL 100 GM TUBE EXT PRN (16:23)
[2021-10-09] MEDS: lisinopril 5 MG TAB PO SCH (23:23)
[2021-10-10] MEDS: dilTIAZem HCL 240 MG CAPCR PO SCH (08:02)
[2021-10-10] MEDS: bisacodyL 5 MG TABEC PO SCH (08:02)
[2021-10-10] MEDS: METOPROLOL TARTRATE 100 MG TAB PO SCH ×2 (08:02→20:39)
[2021-10-10] MEDS: POTASSIUM CHLORIDE 10 MEQ TABCR PO SCH (08:02)
[2021-10-10] MEDS: QUEtiapine FUMARATE 25 MG TABLET PO SCH ×2 (08:02→20:40)
[2021-10-10] MEDS: IPRATROPIUM BROMIDE NASAL SPRAY 0.06% 15ML NAE SCH ×2 (08:03→20:40)
[2021-10-10] MEDS: POLYETHYLENE (MIRALAX) 17 GM PACK PO SCH (08:03)
[2021-10-10 11:08] LABS: INR 3.5 (0.9-1.1); Prothrombin Time 32.3 Seconds (9.0-12.0)
--- NOTE | 2021-10-10 11:35 | Psychiatric Progress Note ---
Date of Service October 10, 2021 Impression / Recommendations Impression as per Dr. Hoang: 81 yo woman with no significant past psychiatric history except periods of anxiety with history of afib, HTN, CKD who presented to the ED with her for increasing paranoia, AH, VH, and confusion in the setting of a recent diagnosis of a UTI. Psychiatry was consulted for diagnostic and management recommendations. Diagnostically most consistent with delirium given recent timeframe of AH and VH worsening over the last week and no past psychiatric history as well as recent UTI. Given that some of the paranoia has been present for the last two-three months she may also have early stages of mild cognitive impairment in which paranoia can occur and VH can often occur with Lewy Body dementia. The more complex paranoid schema and fluctuating cognition can also be characteristic of LBD. Therefore must be very cautious with any antipsychotic use given high risk for EPS. Collateral from consistent with possible lewy body dementia with superimposed delirium. 10/10/21: likely some sundowning, no agitation. (1) Acute delirium: hasn't required prn Zyprexa since 10/05 or prn Ativan since 10/07. Continue Seroquel 12.5 mg BID as ordered, she is not able to engage in discussion around risks associated with atypical antispsychotics in elderly but benefits outweighing the risks for acute delirium and family has reviewed tx plan with family. Risk Factors Assessment Do You Have Access To A Gun?: No (locked up in home without access) Substance Use Disorders: No Previous Attempt: No Hopelessness: No Interval History Identifying Information 81 yo woman with no significant past psychiatric history except periods of anxiety with history of afib, HTN, CKD who presented to the ED with her for increasing paranoia, AH, VH, and confusion in the setting of a recent diagnosis of a UTI. Psychiatry was consulted for diagnostic and management recommendations. The patient was seen by Angela Hoang MD 10/02/21 and regularly for progress updates since. Chief Complaint "no, I'm not speaking with you". Subjective Subjective Patient was seen & assessed and interval progress reviewed with nursing. Interim chart reviewed as now covering for psychiatric consult service. Patient sher foss more cooperative on days, initially refused hs meds but ultimately accepted. Tolerating Seroquel BID dosing. Physical Exam Psychiatric unable to fully assess, did not appear to be responding to internal stimuli, no agitation, fair attention to tv. Vital Signs (Past 24 Hours) Last Vital Signs Temp 36.5 C 10/09/21 23:25 Pulse 78 10/10/21 07:00 Resp 18 10/09/21 23:25 BP 175/89 H 10/09/21 23:25 Pulse Ox 95 10/09/21 23:25 Results & Data ([facility]) Laboratory Results Laboratory Results - last 24 hr 10/10/21 10:37 PT 32.3 H INR 3.5 H Current Inpatient Medications Current Inpatient Medications: Current Inpatient Medications Acetaminophen (Acetaminophen 325 Mg Tab) 650 mg PO Q4H PRN PRN Reason: Moderate Pain Stop: 10/31/21 19:02 Bisacodyl (Bisacodyl 5 Mg Tabec) 5 mg PO DAILY LIZA Stop: 10/31/21 19:14 Last Admin: 10/10/21 08:02 Dose: 5 mg Documented by: Diclofenac Sodium (Diclofenac Sod 1% Gel 100 Gm Tube) 2 gm EXT QID PRN PRN Reason: knee pain Stop: 11/07/21 08:59 Last Admin: 10/09/21 16:23 Dose: 2 gm Documented by: Diltiazem HCl (Diltiazem Hcl 240 Mg Capcr) 240 mg PO QAM [facility] Stop: 11/01/21 11:44 Last Admin: 10/10/21 08:02 Dose: 240 mg Documented by: Docusate Sodium (Docusate Sodium 100 Mg Cap) 100 mg PO BID PRN PRN Reason: Constipation Stop: 10/31/21 20:59 Last Admin: 10/06/21 10:37 Dose: 100 mg Documented by: Lorazepam (Ativan) 0.25 mg in 0.5 mls @ 0.5 mls/min IV Q4H PRN PRN Reason: Anxiety/agitation Stop: 11/05/21 00:17 Last Admin: 10/07/21 03:11 Dose: 0.5 mls/min Documented by: Ipratropium [place] (Ipratropium [place] Nasal [place] 0.06% 15ml) 1 sprays XIAO Q12 LIZA Stop: 10/31/21 20:59 Last Admin: 10/10/21 08:03 Dose: 1 sprays Documented by: Lisinopril (Lisinopril 5 Mg Tab) 5 mg PO QPM LIZA Stop: 10/31/21 20:59 Last Admin: 10/09/21 23:23 Dose: 5 mg Documented by: Metoprolol Tartrate (Metoprolol Tartrate 100 Mg Tab) 100 mg PO BID [facility] Stop: 10/31/21 20:59 Last Admin: 10/10/21 08:02 Dose: 100 mg Documented by: Olanzapine (Olanzapine 10 Mg/2.1 Ml Sdv) 2.5 mg IM Q4H PRN PRN Reason: Agitation Stop: 11/02/21 19:44 Last Admin: 10/05/21 21:04 Dose: 2.5 mg Documented by: Ondansetron HCl (Ondansetron Inj 2 Mg/Ml 2 Ml Vial) 4 mg IV Q4H PRN PRN Reason: Nausea And Vomiting Stop: 10/31/21 19:02 Polyethylene Glycol (Polyethylene (Miralax) 17 Gm Pack) 17 gm PO DAILY [facility] Stop: 10/31/21 19:14 Last Admin: 10/10/21 08:03 Dose: 17 gm Documented by: Potassium Chloride (Potassium Chloride 10 Meq Tabcr) 10 meq PO DAILY [facility] Stop: 11/01/21 08:59 Last Admin: 10/10/21 08:02 Dose: 10 meq Documented by: Quetiapine Fumarate (Quetiapine Fumarate 25 Mg Tablet) 12.5 mg PO BID [facility] Stop: 11/07/21 20:59 Last Admin: 10/10/21 08:02 Dose: 12.5 mg Documented by: Warfarin Sodium (Warfarin Sod 10 Mg Tab) 10 mg PO SuTuWeThFrSa@1600 [facility] Stop: 11/01/21 15:59 Last Admin: 10/09/21 16:22 Dose: 10 mg Documented by: Warfarin Sodium (Warfarin Sod 7.5 Mg Tab) 15 mg PO Mo@1600 [facility] Stop: 11/02/21 15:59 Last Admin: 10/03/21 17:07 Dose: Not Given Documented by:
--- NOTE | 2021-10-10 12:13 | Palliative Care Consultation ---
Date of Consultation October 10, 2021 Assessment & Plan (1) DU (generalized anxiety disorder): She is being followed by psychiatry and has prn lorazepam ordered. Last dose 10/07. (2) Hallucinations: On routine seroquel per psychiatry. (3) Palliative care encounter: I was able to have a conversation with Angela about her care. We discussed going to SNF for rehab and she agrees that she needs rehab but she feels that this could be done at home. I asked her if her had health problems and she indicated that he would be able to care for her. I was not able to reach him by phone. I also asked Angela about discrepancy in code status which had been DNR on last admission. She initially tells me that she would not want CPR or defibrillation but thinks that intubation and vent support would be ok. I attempted to discuss this further with her but she became frustrated and said, "let me think about it". Palliative care will follow. (4) Atrial fibrillation with RVR: (5) CHAVEZ (nonalcoholic steatohepatitis): History of Present Illness Reason for Consultation: goals of care Requesting Physician: Dr. Lang Attending Physician: Lilia Lang MD History of Present Illness 81 yo lady who was admitted with confusion and hallucinations which had been present for 2-3 months but escalating in the days prior to admission. She has a history of atrial fibrillation with RVR and is followed by Dr. Beasley at [facility]. She has had multiple unsuccessful cardioversions in the past. She also has CHAVEZ, CKD and prediabetes. She has history of anxiety and has been anxious at times during her hospital stay. At the time of my visit, she is awake and alert, eating her lunch. She denies pain or discomfort. She is able to tell me when she came into the hospital and where she lives. When I asked her about her understanding of her medical problems she told me about her heart problems. Allergies Allergy/AdvReac Type Severity Reaction Status Date / Time latex Allergy Intermediate Rash Unverified 10/01/21 15:30 adhesive AdvReac Unknown Unknown Verified 10/10/21 11:57 cat dander AdvReac Unknown Unknown Verified 10/10/21 11:57 ezetimibe [From Zetia] AdvReac Unknown Unknown Verified 10/10/21 11:57 soy AdvReac Unknown Unknown Verified 10/10/21 11:57 Home Medications Medication Instructions Recorded Confirmed Type diltiazem HCl 240 mg 240 mg PO QAM 03/28/21 10/01/21 History capsule,extended release 24 hr lisinopril 5 mg tablet 5 mg PO QPM 03/28/21 10/01/21 History lorazepam 0.5 mg tablet 0.5 mg PO BID PRN 03/28/21 10/01/21 History warfarin 5 mg tablet 10 mg PO [id number] 03/28/21 10/01/21 History potassium chloride 10 mEq 10 meq PO DAILY 06/05/21 10/01/21 History tablet,extended release(part/cryst) ipratropium bromide 21 mcg (0.03 2 spray INTRANASAL Q12 09/26/21 10/01/21 History %) nasal spray cephalexin 500 mg capsule 500 mg PO TID 10/01/21 10/01/21 History furosemide 20 mg tablet 20 mg PO DAILY 10/01/21 10/01/21 History metoprolol tartrate 100 mg tablet 100 mg PO BID 10/01/21 10/01/21 History warfarin 5 mg tablet 15 mg PO WK 10/01/21 10/01/21 History Patient History Medical History A-fib CKD (chronic kidney disease) stage 3, GFR 30-59 ml/min DU (generalized anxiety disorder) History of bladder cancer s/op TURBT HLD (hyperlipidemia) HTN (hypertension) CHAVEZ (nonalcoholic steatohepatitis) Pre-diabetes Surgical History History of cardioversion multiple attempts, last in 2017 History of esophagogastroduodenoscopy (EGD) History of hysterectomy with oophorectomy History of radiofrequency ablation procedure for cardiac arrhythmia History of toe surgery bunion Family History Brother Myocardial infarction, Onset Age: 52 Father Myocardial infarction, Onset Age: 52 Sister Coronary heart disease Atrial fibrillation Mother , 21 [place] Social History Smoking Status: Never smoker Hx Alcohol Use: Yes Alcohol type: wine Hx Substance Use: No Preferred Language: [place] Communication Ability: Impaired Validation Analyst Required: No Beliefs That Will Affect Care: None marital status: Current Living Situation: Spouse current occupational status: retired Feels Safe at Home: Yes Assistive Devices: None Review of Systems Review of Systems: [place] Symptom Assessment Scale Pain 0/3 Dyspnea 0/3 Anxiety 1/3 Anorexia 0/3 Nausea 0/3 Fatigue 2/3 Palliative Performance Score 50% Physical Exam Constitutional: no acute distress Respiratory: normal respiratory effort; no labored breathing Cardiovascular: Rate/Rhythm: + irregularly irregular Neurologic: moves all extremities and awake Psychiatric: no current hallucinations Results & Data ([facility]) Vital Signs (Past 12 Hours) Vital Signs Temp Pulse Resp BP Pulse Ox 10/10/21 11:00 97.9 F 60 18 122/66 98 10/10/21 08:13 97.5 F L 81 18 121/82 95 10/10/21 07:00 78 PG Care Time/CCT Total # of Minutes Spent Total Time Spent: 55 Total Time Spent with Patient: Total time spent is greater than 50% in coordination of care (as documented) at patient's floor/unit and/or counseling patient:goals of care Coding Level of Care Code 23092 Initial Inpt Care Lvl 2 Diagnoses DU (generalized anxiety disorder) F41.1 Palliative care encounter Z51.5 Atrial fibrillation with RVR I48.91 CHAVEZ (nonalcoholic steatohepatitis) K75.81 Hallucinations R44.3
--- NOTE | 2021-10-10 17:49 | Hospitalist Progress Note ---
Date of Service October 10, 2021 Assessment & Plan (1) Acute delirium: (2) Atrial fibrillation with rapid ventricular response: (3) Urinary tract infection: Plan: #. Atrial fibrillation with rapid ventricular response: -Initially patient received Cardizem drip, later on transition to her home p.o. Cardizem. -Currently without any chest pain, patient does not feel palpitation, lightheadedness, or dizziness -Likely secondary to her underlying agitation/delirium, goes into RVR whenever she is agitated. -Continue with metoprolol and cardizem, do not hold for borderline low blood pressure reading. Cardiology evaluated, remains tachycardic and patient refuses medications ON treatment per prior providers note. Heart rate generally around 100 without any cardiac symptoms. #. Urinary tract infection: -Pansensitive E. coli on 09/26/2021 -Status post antibiotic. #. Hallucinations: #. Acute Delirium #. Hyponatremia -MRI brain-expected age related change without any acute infarct. CT of the head was negative -No infection except urine culture positive which was taken on eighth of this month, status post treatment. -History of [place], ammonia level negative. -Na appears to have been low in the past however last spring was in the high 130s, continue to monitor. Normal. -Psychiatry on board: Seroquel 12.5 mg BID LIZA as per discussion;DC Olanzipine 2.5 mg IM . Monitor for EPS and QTC, continue with frequent reorientation. -On and off hallucination and acute delirium. Has not required olanzipine and ativan in the last few days. 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 Follow-up with neurology as an outpatient. Likely secondary to Lewy body dementia, continue to monitor. Hyponatremia resolved; UTI treated. On and off confused and delirious, continue to monitor. Continue reorientation. #. Depression: -History of such, as above, appears to be more hallucination involved than depressive mood #. Aortic stenosis: -Noted, chronic, continue antihypertensive medications -Asymptomatic, no chest pain, palpitation or CHF - hold lasix #. HTN (hypertension): -Continue diltiazem as above, lisinopril, metoprolol DVT ppx: - teds, scds -Has been on Coumadin and INR is therapeutic CODE: Full code Dispo: From home, CM working on placement. Stable for DC. 10/05: Patient's was updated at bedside, he seemed understanding and agreeable to plan of care. 10/06: Patient's was again updated at bedside, he mentioned that she does not have POA. Discussed in detail the plan of care for her and the role of palliative care. He agreed to have palliative care see her for discussion of goals of care. 10/07: Family meeting with patient's and patient's daughter [Federica], medical case worker joined the conversation. Discussed about how the prognosis looks like from neurology/psychiatry and my view for her, discussed the need for needing placement. Answered all the questions. Patient's daughter is RN by profession and voiced understanding and seemed agreeable to the plan of care. Admission and Anticipated Discharge Date Admission Date: October 01, 2021 Subjective Patient seen and examined at bedside, on room air, lying in bed, sleeping, easily woke up, NAD and lucid. Patient initially denied examination or conversation citing that she will get charged tomorrow if seen by another doctor. In my second attempt, patient agreed for examination/conversation No acute events overnight. Patient is eating okay. Patient denies any headache/ dizziness/chest pain/palpitation/other review of symptoms. Physical Exam Physical Exam: GENERAL: Alert and oriented x3. NAD, on RA. HEENT: No pallor, no icterus. Pupils equal, round and reactive to light. Oral mucosa moist. NECK: No JVD, no neck masses. HEART: S1 and S2 heard. Regular rate and rhythm. No murmur, no gallop. RESPIRATORY SYSTEM: Normal AP diameter. No accessory muscle use. No wheezing, no crackles. ABDOMEN: Soft, bowel sounds present, nontender, no distention. CENTRAL NERVOUS SYSTEM: No facial droop. Speech is clear. Obeys simple commands. Moves extremities. EXTREMITIES: No edema, no erythema seen. Results & Data Results & Data ([facility]) Vital Signs (Past 12 Hours) Vital Signs Temp Pulse Resp BP BP Pulse Ox 10/10/21 15:00 36.3 C L 65 16 109/48 L 96 10/10/21 11:00 36.6 C 60 18 122/66 98 10/10/21 08:13 36.4 C L 81 18 121/82 95 10/10/21 07:00 78 (1) Urinary tract infection Hematuria presence: without hematuria Urinary tract infection type: acute cystitis Qualified Code(s): N30.00 - Acute cystitis without hematuria
[2021-10-10] MEDS: lisinopril 5 MG TAB PO SCH (20:40)
--- NOTE | 2021-10-11 05:48 | Electrocardiogram Report ---
Test Reason : Blood Pressure : / mmHG Vent. Rate : 068 BPM Atrial Rate : 340 BPM P-R Int : 000 ms QRS Dur : 082 ms QT Int : 396 ms P-R-T Axes : 000 022 060 degrees QTc Int : 421 ms Atrial fibrillation Anteroseptal infarct (cited on or before 21-APR-2004) Abnormal ECG When compared with ECG of 05-OCT-2021 16:49, Vent. rate has decreased BY 60 BPM Nonspecific T wave abnormality no longer evident in Inferior leads Confirmed by Jeyson Penaloza ([id number]) on 10/11/2021 5:48:35 AM Referred By: REFERRED SELF Confirmed By:Jeyson Penaloza
[2021-10-11 06:38] LABS: INR 3.1 (0.9-1.1); Prothrombin Time 28.8 Seconds (9.0-12.0)
[2021-10-11 07:13] LABS: BUN Creatinine Ratio 26.9 (10-20); Calcium 9.6 mg/dl (8.5-10.1); Creatinine Clr Calc Pharmacy 33.8 ml/min; Est GFR (African American) 49.4 ml/min; Est GFR (Non-African American) 42.6 ml/min; Magnesium 2.3 mg/dl (1.8-2.4); Potassium 4.2 mmol/L (3.5-5.1)
[2021-10-11 07:15] LABS: Phosphorus 3.5 mg/dl (2.5-4.9)
[2021-10-11] MEDS: QUEtiapine FUMARATE 25 MG TABLET PO SCH (08:02)
[2021-10-11] MEDS: METOPROLOL TARTRATE 100 MG TAB PO SCH (08:02)
[2021-10-11] MEDS: dilTIAZem HCL 240 MG CAPCR PO SCH (08:03)
[2021-10-11] MEDS: POTASSIUM CHLORIDE 10 MEQ TABCR PO SCH (08:03)
[2021-10-11] MEDS: IPRATROPIUM BROMIDE NASAL SPRAY 0.06% 15ML NAE SCH (08:04)
[2021-10-11] MEDS: bisacodyL 5 MG TABEC PO SCH (08:06)
[2021-10-11] MEDS: POLYETHYLENE (MIRALAX) 17 GM PACK PO SCH (08:06)
[2021-10-11] MEDS: WARFARIN SOD 10 MG TAB PO SCH (09:49)
--- NOTE | 2021-10-11 10:26 | Palliative Care Progress Note ---
Date of Service October 11, 2021 Assessment & Plan (1) DU (generalized anxiety disorder): Plan: No prn ativan use since 10/07 (2) Hallucinations: Plan: Improved on seroquel. PRN zyprexa discontinued, not used. (3) Palliative care encounter: Plan: Angela asked me when she is going home. I discussed with her the concern that she may not have the support at home that she needs right now and would benefit from SNF for rehab. She tells me that she does not like that idea and would prefer to go home with visiting nurse. She was able to give me both her and her 's cell phone numbers. I tried to call at home and cell as well as daughter, Federica without success. Discussed with RN and case management. With regard to code status, Angela has been DNR in the past. She indicates that she would not want CPR but was unsure about intubation. Will discuss with family when able to clarify. (4) Atrial fibrillation with RVR: (5) CHAVEZ (nonalcoholic steatohepatitis): Admission and Anticipated Discharge Date Admission Date: October 01, 2021 Subjective Sitting up in bed doing word search puzzle. She recalls what she had for breakfast and reports good appetite. Denies pain or dyspnea. Review of Systems Review of Systems: [place] Symptom Assessment Scale Pain 0/3 Dyspnea 0/3 Anxiety 0/3 Fatigue 1/3 Drowsiness 0/3 Palliative Performance Score 50% Physical Exam Constitutional: no acute distress Respiratory: normal respiratory effort; no labored breathing Cardiovascular: Rate/Rhythm: + irregularly irregular Musculoskeletal: Extremities: extremities normal to inspection Neurologic: moves all extremities and awake Psychiatric: denies hallucinations, confused at times per RN Results & Data ([facility]) Vital Signs (Past 12 Hours) Vital Signs Temp Pulse Resp BP BP Pulse Ox 10/11/21 08:21 97.7 F 90 16 167/81 H 96 10/10/21 22:49 98.2 F 75 17 147/86 H 93 PG Care Time/CCT Total # of Minutes Spent Total Time Spent with Patient: Total time spent is greater than 50% in coordination of care (as documented) at patient's floor/unit and/or counseling patient: Coding Level of Care Code 28201 Subseq Hosp Care Lvl 2 Diagnoses Hallucinations R44.3 Palliative care encounter Z51.5 Atrial fibrillation with RVR I48.91 CHAVEZ (nonalcoholic steatohepatitis) K75.81 DU (generalized anxiety disorder) F41.1
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
== END 2021-10-11 18:25 | disposition home health service (06) | DRG 309 ==
LOC: ED 13:57 → EDINP 17:27 → SUATTDRO 17:27 → 2S 10-02 17:38 → 3N 10-10 13:16

== ENCOUNTER 2024-02-27 14:20 | Inpatient (IN) ==
--- NOTE | 2024-02-27 14:44 | ED Triage Note ---
Date of Service February 27, 2024 Provider in Triage Author: Roxie Rashid History of Present Illness This patient was briefly evaluated while in triage. An abbreviated physical exam was performed. This patient is a 83-year-old Female who presents to the ED for evaluation of black and tarry stools. Patient was brought in by BLS due to black and tarry stools as well as nausea. Patient has had a decreased oral intake. She does take Coumadin due to a cardiac history. Physical Exam GENERAL: Pale, generally unwell appearing. HEENT: Pupils equal. No obvious scleral icterus. HEART: Bradycardic. LUNGS: Clear to auscultation. No accessory muscle use. ABDOMEN: Nontender NEURO: Alert and oriented. No obvious neurological deficits on quick neuro exam. Initial orders for labs and / or imaging were placed and patient was placed in the waiting area until a bed is available. Please see further documentation for the full ED course. MDM / Impression Impression Impression: Acute GI bleeding, Melena, Supratherapeutic INR, Anemia requiring transfusions, Symptomatic bradycardia
[2024-02-27] MEDS ORDERED: SODIUM CHLORIDE 0.9% 250 ML IV PRN ×2 (15:05→16:19)
--- NOTE | 2024-02-27 15:08 | Emergency Department Note ---
Impression & Plan Acute GI bleeding, Melena, Supratherapeutic INR, Anemia requiring transfusions, Symptomatic bradycardia ED Provider Note HISTORY OF PRESENT ILLNESS: Patient is an 83-year-old female presenting with melanotic stool. Patient reports that she has had dark tarry stools for the last 3 days. She is also had intermittent episodes of nausea. states she has had some dark discoloration to her vomit and has been having dry heaves over the last 24 hours. She is on Coumadin and aspirin for history of an aortic valve replacement. She has had decreased oral intake since yesterday secondary to nausea and vomiting. Patient denies any abdominal pain. Denies any chest pain or shortness of breath. Reports intermittently feeling lightheaded over the last few days. ROS: as above PHYSICAL EXAM: Constitutional: Patient appears in no acute distress. HENT: Head: Normocephalic and atraumatic. Eyes: EOMI, PERRL Mouth/Throat: Mucous membranes moist. Neck: Trachea midline. Neck supple. Cardiovascular: RRR, No murmurs, rubs or gallops. Intact distal pulses. Pulmonary/Chest: No respiratory distress. Breath sounds clear and equal bilaterally. No wheezes or rales. Abdominal: Abdomen soft, no tenderness, rebound or guarding. Rectal: Chaperoned by nursing staff. No palpable masses or hemorrhoids. Patient has chris hematuria on the glove. Hemoccult positive. Musculoskeletal: No edema, tenderness or deformity noted. Skin: Warm and dry. Patient is ashen and ibarra in color. Psychiatric: Appropriate mood and affect for situation. Neurological: Alert and keenly responsive. CN II-XII grossly intact, moving all extremities equally and fully. MDM: - Vitals signs stable - History obtained via patient. History as above. - Chronic conditions affecting care: CKD; CHAVEZ; HLD; Afib; HTN - Differential diagnoses include, but are not limited to: upper GI bleed; diverticular bleed; hemorrhoids; electrolyte abnormality; dehydration - Order placed for continuous cardiac monitoring. At this time, monitor showed rate of 40 bpm with normal sinus rhythm, per my interpretation. - External medical records reviewed. Discharge summary dated 10/11/2021 was reviewed. Patient was admitted at that time for visual and auditory hallucinations and A-fib with RVR. - EKG that was obtained at 1714 and interpreted by myself showed sinus rhythm with a wide QRS complex. Rate 46 bpm. QRS 128. Not have a right bundle branch block. - Laboratory workup interpreted by myself showed leukocytosis (WBC 11.63); anemia (Hgb 5.7); supratherapeutic INR (5.6); elevated anion gap (23); elevated BUN (91); BRITTANY (Cr 1.47); elevated troponin (254.7) - POC INR 5.8. Discussed case with Heme/onc, Dr. Chris, at 15:43. She was in agreement for reversal of patient's coumadin. I ordered 10 mg IV vitamin K and Dr. Chris ordered KCentra. I discussed reversal of her anticoagulation with the patient. She did consent to this, understanding the small but real risk of a potential catastrophic clot like a stroke. She was in agreement to reversing her Coumadin and was given IV vitamin K and Kcentra. - Patient's BP became 70s systolic at 16:35. Decision was made to give the patient 2 units of uncrossed blood. 2 units of FFP were ordered, but they are taking some time to thaw out. - Patient consented for blood products. Patient is on diltiazem and metoprolol. She is profoundly bradycardic despite her hypotension. Decision was made to give her 1 g of calcium gluconate and 5 mg of glucagon for reversal of her rate control medications. She was given 4 mg of Zofran for nausea. Patient was given additional 1 g of IV calcium gluconate for her continued bradycardia. Also attempted giving the patient 0.5 mg of atropine to see if that improves her heart rate, but little improvement in heart rate resulted. Considered starting the patient on a glucagon drip, but will defer to the hospitalist and ICU services. - Discussed CODE STATUS with the patient, and she reports that she is a full code. - Discussed case with ICU for admission, given patient's hypotension. - Discussed case with GI physician, Dr. Wells. He recommends reversal and resuscitation before GI procedures can be performed. - Discussion was had with outsole caser about patient's case and need for admission - Hospitalist consulted for admission - Patient admitted to [facility] for further evaluation and management. I have personally spent 93 minutes of critical care time in the direct management of this patient. This includes bedside care, interpretation of diagnostic studies, and testing, discussion with consultants, patient, and family members, and other required patient management activities. This 93 minutes is in excess of all separately billable procedures. ASSESSMENT AND PLAN: Diagnosis: melena; GI bleed; anemia requiring transfusion; supratherapeutic INR; symptomatic bradycardia Plan: admit Past Med/Surg History Medical History A-fib CKD (chronic kidney disease) stage 3, GFR 30-59 ml/min DU (generalized anxiety disorder) History of bladder cancer s/op TURBT HLD (hyperlipidemia) HTN (hypertension) CHAVEZ (nonalcoholic steatohepatitis) Pre-diabetes Surgical History History of cardioversion multiple attempts, last in 2017 History of esophagogastroduodenoscopy (EGD) History of hysterectomy with oophorectomy History of radiofrequency ablation procedure for cardiac arrhythmia History of toe surgery bunion Family History Brother Myocardial infarction, Onset Age: 52 Father Myocardial infarction, Onset Age: 52 Sister Coronary heart disease Atrial fibrillation Mother , 21 [place] Social History Smoking Status: Never smoker Hx Alcohol Use: Yes Alcohol type: wine Hx Substance Use: No Preferred Language: Irish Communication Ability: Impaired 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 Beliefs That Will Affect Care: None marital status: Current Living Situation: Spouse current occupational status: retired Feels Safe at Home: Yes Assistive Devices: None Allergies Allergies Allergy/AdvReac Type Severity Reaction Status Date / Time latex Allergy Intermediate Rash Verified 02/27/24 16:20 [id number] Reductase Allergy Unknown PER Verified 02/27/24 16:20 Inhibitor [facility] soy AdvReac Mild Dizziness Verified 02/27/24 16:20 adhesive AdvReac Unknown PER Verified 02/27/24 16:20 [facility] cat dander AdvReac Unknown PER Verified 02/27/24 16:20 [facility] ezetimibe [From Zetia] AdvReac Unknown PER Verified 02/27/24 16:20 [facility] Home Meds Home Medications Medication Instructions Recorded Confirmed lisinopril 5 mg tablet 5 mg PO QAM 03/28/21 02/27/24 warfarin 5 mg tablet 0 mg PO DIRECTED 03/28/21 02/27/24 potassium chloride 10 mEq 10 meq PO DAILY 06/05/21 02/27/24 tablet,extended release(part/cryst) ipratropium bromide 21 mcg (0.03 2 spray intranasal TID 09/26/21 02/27/24 %) nasal spray furosemide 20 mg tablet 20 mg PO DAILY 10/01/21 02/27/24 amoxicillin 500 mg capsule 2,000 mg PO DIRECTED PRN 1 HR 02/27/24 02/27/24 PRIOR TO DENTAL PROCEDURES aspirin 81 mg chewable tablet 81 mg PO QAM 02/27/24 02/27/24 metoprolol succinate 100 mg 100 mg PO BID 02/27/24 02/27/24 tablet,extended release 24 hr Previous Rx's Medication Instructions Recorded diltiazem HCl 240 mg 240 mg PO QA #30 caps 10/11/21 capsule,extended release 24 hr Results & Data (ED) Vital Signs Vital Signs - 24 hr 02/27/24 14:42 02/27/24 14:55 02/27/24 15:00 Temperature 36.5 C Temperature Source Temporal Artery Scan Pulse Rate 74 43 L 42 L Pulse Rate from SpO2 Sensor 43 L Pulse Rhythm Respiratory Rate 20 22 21 Respiratory Effort / Characteristics Non-Labored Spontaneous Respiratory Depth Normal Blood Pressure 112/63 Blood Pressure Mean 79 Pulse Oximetry 98 90 73 L Oxygen Delivery Method Oxygen Flow Rate Sepsis Recent Fever Within 48 Hours No Sepsis New/Unexplained Change in Mental Status No Sepsis Action Taken by Nursing No Action Required 02/27/24 15:10 02/27/24 15:42 02/27/24 15:49 Temperature Temperature Source Pulse Rate 40 L 41 L 54 L Pulse Rate from SpO2 Sensor 41 L 41 L Pulse Rhythm Respiratory Rate 18 21 Respiratory Effort / Characteristics Respiratory Depth Blood Pressure Blood Pressure Mean Pulse Oximetry 86 L 99 Oxygen Delivery Method Oxygen Flow Rate Sepsis Recent Fever Within 48 Hours Sepsis New/Unexplained Change in Mental Status Sepsis Action Taken by Nursing 02/27/24 15:50 02/27/24 15:50 02/27/24 16:00 Temperature Temperature Source Pulse Rate 51 L Pulse Rate from SpO2 Sensor 48 L 41 L Pulse Rhythm Respiratory Rate 21 Respiratory Effort / Characteristics Respiratory Depth Blood Pressure 91/44 L Blood Pressure Mean 73 Pulse Oximetry 98 99 Oxygen Delivery Method Oxygen Flow Rate Sepsis Recent Fever Within 48 Hours Sepsis New/Unexplained Change in Mental Status Sepsis Action Taken by Nursing 02/27/24 16:04 02/27/24 16:04 02/27/24 16:10 Temperature Temperature Source Pulse Rate 50 L Pulse Rate from SpO2 Sensor Pulse Rhythm Respiratory Rate 21 17 Respiratory Effort / Characteristics Respiratory Depth Blood Pressure 98/46 L Blood Pressure Mean 68 Pulse Oximetry 95 Oxygen Delivery Method Oxygen Flow Rate Sepsis Recent Fever Within 48 Hours Sepsis New/Unexplained Change in Mental Status Sepsis Action Taken by Nursing 02/27/24 16:20 02/27/24 16:21 02/27/24 16:21 Temperature Temperature Source Pulse Rate 41 L 41 L Pulse Rate from SpO2 Sensor 41 L 42 L Pulse Rhythm Respiratory Rate 18 20 Respiratory Effort / Characteristics Respiratory Depth Blood Pressure 96/39 L Blood Pressure Mean 51 Pulse Oximetry 96 93 Oxygen Delivery Method Oxygen Flow Rate Sepsis Recent Fever Within 48 Hours Sepsis New/Unexplained Change in Mental Status Sepsis Action Taken by Nursing 02/27/24 16:24 02/27/24 16:24 02/27/24 16:25 Temperature Temperature Source Pulse Rate 42 L Pulse Rate from SpO2 Sensor 41 L Pulse Rhythm Respiratory Rate 18 Respiratory Effort / Characteristics Respiratory Depth Blood Pressure 96/69 L 98/69 L Blood Pressure Mean 75 87 Pulse Oximetry 100 Oxygen Delivery Method Oxygen Flow Rate Sepsis Recent Fever Within 48 Hours Sepsis New/Unexplained Change in Mental Status Sepsis Action Taken by Nursing 02/27/24 16:25 02/27/24 16:31 02/27/24 16:48 Temperature 35.1 C L Temperature Source Axillary Pulse Rate 41 L 42 L 49 L Pulse Rate from SpO2 Sensor 42 L Pulse Rhythm Respiratory Rate 18 18 Respiratory Effort / Characteristics Respiratory Depth Blood Pressure 149/62 H Blood Pressure Mean 91 Pulse Oximetry 100 94 100 Oxygen Delivery Method Room Air Oxygen Flow Rate 4 Sepsis Recent Fever Within 48 Hours Sepsis New/Unexplained Change in Mental Status Sepsis Action Taken by Nursing 02/27/24 17:03 Temperature 36.1 C L Temperature Source Axillary Pulse Rate 52 L Pulse Rate from SpO2 Sensor Pulse Rhythm Regular Respiratory Rate 30 H Respiratory Effort / Characteristics Respiratory Depth Blood Pressure 115/74 Blood Pressure Mean 87 Pulse Oximetry 100 Oxygen Delivery Method Oxygen Flow Rate 4 Sepsis Recent Fever Within 48 Hours Sepsis New/Unexplained Change in Mental Status Sepsis Action Taken by Nursing Laboratory Data 02/27/24 15:01 02/27/24 15:01 Lab Results 02/27/24 02/27/24 02/27/24 Range/Units 15:01 15:11 15:53 WBC 11.63 H (4.8-10.8) K/ul RBC 2.24 L (4.20-5.40) M/uL Hgb 5.7 L* (12.0-16.0) g/dl POC Hgb 6.1 L* (12.0-16.0) g/dl Hct 19.7 L* (37.0-47.0) % POC Hct 18 L* (37-47) % MCV 87.9 (80.0-100.0) fL MCH 25.4 (25.0-34.0) pg MCHC 28.9 L (32.0-36.0) g/dL RDW Std Deviation 57.0 H (36.4-46.3) fL RDW Coeff of Serg 17.9 H (11.5-14.5) % Plt Count 292 (130-400) K/uL MPV 10.8 (9.4-12.4) fL Immature Gran % (Auto) 1.0 % Neut % (Auto) 85.6 % Lymph % (Auto) 5.1 % [place] % (Auto) 8.1 % Eos % (Auto) 0.0 % Baso % (Auto) 0.2 % Neut # (Auto) 9.96 H (1.40-6.50) K/uL Lymph # (Auto) 0.59 L (1.20-3.40) K/uL [place] # (Auto) 0.94 H (0.11-0.59) K/uL Eos # (Auto) 0.00 (0.00-0.50) K/uL Baso # (Auto) 0.02 (0.00-0.20) K/uL Immature Gran # (Auto) 0.12 (0.01-0.20) K/uL Polychromasia 1+ Hypochromasia Present Echinocytes 2+ PT 55.3 H (9.0-12.0) Seconds POC INR 5.8 H* (0.9-1.1) INR 5.6 H* (0.9-1.1) APTT 32 H (21-31) Seconds PTT Ratio 1.1 POC Sodium 135 (135-144) mmol/L Sodium 138 (136-145) mmol/L POC Potassium 4.3 (3.3-5.0) mmol/L Potassium 4.4 (3.5-5.1) mmol/L POC Chloride 103 (101-112) mmol/L Chloride 104 (98-107) mmol/L Carbon Dioxide 11 L (21-32) mmol/L POC Total CO2 12 L (24-31) mmol/L Anion Gap 23 H (3-11) POC Anion Gap 25.0 (16-25) mmol/L POC BUN 96 H (7-18) mg/dl BUN 91 H (6-23) mg/dl Creatinine 1.47 H (0.6-1.2) mg/dl POC Creatinine 1.6 H (0.6-1.3) mg/dl Est Cr Clr Drug Dosing Not Reportable Est GFR ( Amer) 37.3 ml/min Est GFR (Non-Af Amer) 32.2 ml/min BUN/Creatinine Ratio 61.9 H (10-20) Glucose 145 H (70-99(Fasting)) mg/dl POC Glucose (70-99) mg/dl POC Glucose (other) 135 H (70-99) mg/dl Calcium 8.8 (8.6-10.3) mg/dl POC Ioniz Calcium Patty 1.12 (1.12-1.32) mmol/l Magnesium 2.0 (1.7-2.4) mg/dl Iron 26 L (35-150) mcg/dl TIBC 374 (250-450) mcg/dl Unsaturated IBC 348 (155-355) mcg/dl Transferrin % Sat 7 L (15-50) % Total Bilirubin 0.8 (0.2-1.0) mg/dl AST 47 H (13-39) U/L ALT 37 (7-52) U/L Alkaline Phosphatase 48 (34-104) U/L Troponin I High Sens 254.7 H* (0-14) pg/ml Total Protein 5.6 L (6.0-8.3) gm/dl Albumin 3.4 (3.4-5.0) gm/dl Globulin 2.2 L (2.5-4.0) gm/dl Albumin/Globulin Ratio 1.5 (0.9-2) Blood Type A Positive Blood Type Recheck Antibody Screen NEGATIVE Crossmatch See Detail 02/27/24 02/27/24 Range/Units 16:08 16:29 WBC (4.8-10.8) K/ul RBC (4.20-5.40) M/uL Hgb (12.0-16.0) g/dl POC Hgb (12.0-16.0) g/dl Hct (37.0-47.0) % POC Hct (37-47) % MCV (80.0-100.0) fL MCH (25.0-34.0) pg MCHC (32.0-36.0) g/dL RDW Std Deviation (36.4-46.3) fL RDW Coeff of Serg (11.5-14.5) % Plt Count (130-400) K/uL MPV (9.4-12.4) fL Immature Gran % (Auto) % Neut % (Auto) % Lymph % (Auto) % [place] % (Auto) % Eos % (Auto) % Baso % (Auto) % Neut # (Auto) (1.40-6.50) K/uL Lymph # (Auto) (1.20-3.40) K/uL [place] # (Auto) (0.11-0.59) K/uL Eos # (Auto) (0.00-0.50) K/uL Baso # (Auto) (0.00-0.20) K/uL Immature Gran # (Auto) (0.01-0.20) K/uL Polychromasia Hypochromasia Echinocytes PT (9.0-12.0) Seconds POC INR (0.9-1.1) INR (0.9-1.1) APTT (21-31) Seconds PTT Ratio POC Sodium (135-144) mmol/L Sodium (136-145) mmol/L POC Potassium (3.3-5.0) mmol/L Potassium (3.5-5.1) mmol/L POC Chloride (101-112) mmol/L Chloride (98-107) mmol/L Carbon Dioxide (21-32) mmol/L POC Total CO2 (24-31) mmol/L Anion Gap (3-11) POC Anion Gap (16-25) mmol/L POC BUN (7-18) mg/dl BUN (6-23) mg/dl Creatinine (0.6-1.2) mg/dl POC Creatinine (0.6-1.3) mg/dl Est Cr Clr Drug Dosing Est GFR ( Amer) ml/min Est GFR (Non-Af Amer) ml/min BUN/Creatinine Ratio (10-20) Glucose (70-99(Fasting)) mg/dl POC Glucose 146 H (70-99) mg/dl POC Glucose (other) (70-99) mg/dl Calcium (8.6-10.3) mg/dl POC Ioniz Calcium Patty (1.12-1.32) mmol/l Magnesium (1.7-2.4) mg/dl Iron (35-150) mcg/dl TIBC (250-450) mcg/dl Unsaturated IBC (155-355) mcg/dl Transferrin % Sat (15-50) % Total Bilirubin (0.2-1.0) mg/dl AST (13-39) U/L ALT (7-52) U/L Alkaline Phosphatase (34-104) U/L Troponin I High Sens (0-14) pg/ml Total Protein (6.0-8.3) gm/dl Albumin (3.4-5.0) gm/dl Globulin (2.5-4.0) gm/dl Albumin/Globulin Ratio (0.9-2) Blood Type Blood Type Recheck A Positive Antibody Screen Crossmatch Administered Medications Prothrombin Complex Concent ( (Human) 3,000 units/ Syringe) 120 mls @ 10 mls/min IV TODAY@1600 LIZA; Protocol Stop: 02/27/24 18:00 Last Admin: 02/27/24 16:11 Dose: 10 mls/min Documented By: HS Discontinued Medications Atropine Sulfate (Atropine Sulfate 0.1 Mg/Ml 5ml Syr) Confirm Administered Dose 0.5 mg IV .STK-MED ONE Stop: 02/27/24 17:14 Last Admin: 02/27/24 17:15 Dose: 0.5 mg Documented By: HS Pantoprazole Sodium 80 mg/ (Dextrose) 120 mls @ 480 mls/hr IV ONE STA Stop: 02/27/24 15:22 Last Admin: 02/27/24 15:58 Dose: 480 mls/hr Documented By: HS Phytonadione 10 mg/ Dextrose 51 mls @ 102 mls/hr IV ONE ONE Stop: 02/27/24 16:28 Last Admin: 02/27/24 16:11 Dose: 102 mls/hr Documented By: HS Glucagon 5 mg/ Syringe 5 mls @ 1 mls/min IV ONE ONE Stop: 02/27/24 16:34 Last Admin: 02/27/24 16:44 Dose: 1 mls/min Documented By: HS Calcium Gluconate () 1,000 mg in 60 mls @ 240 mls/hr IV ONE STA Stop: 02/27/24 16:32 Last Admin: 02/27/24 16:27 Dose: 240 mls/hr Documented By: HS Ondansetron HCl (Ondansetron Inj 2 Mg/Ml 2 Ml Vial) 4 mg IV NOW ONE Stop: 02/27/24 16:31 Last Admin: 02/27/24 16:26 Dose: 4 mg Documented By: HS Discharge Plan Visit Data Chief Complaint: GI Bleed Stated Complaint: [facility] ED Provider: Jennifer Urena Discharge Problem: Acute GI bleeding, Melena, Supratherapeutic INR, Anemia requiring transfusions, Symptomatic bradycardia Forms Stand Alone Forms: My [facility] Prescriptions Prescriptions: No Action warfarin 5 mg tablet 0 mg PO DIRECTED Rx Instructions: DIRECTED PER ANTICOAG lisinopril 5 mg tablet 5 mg PO QAM ipratropium bromide 21 mcg (0.03 %) spray,non-aerosol 2 spray INTRANASAL TID furosemide 20 mg tablet 20 mg PO DAILY diltiazem HCl 240 mg Capsule,Extended Release 24hr 240 mg PO QAM Qty: 30 0RF potassium chloride 10 mEq tablet,ER particles/crystals 10 meq PO DAILY amoxicillin 500 mg Capsule 2,000 mg PO DIRECTED PRN (Reason: 1 HR PRIOR TO DENTAL PROCEDURES) metoprolol succinate 100 mg tablet extended release 24 hr 100 mg PO BID aspirin 81 mg tablet,chewable 81 mg PO QAM Referrals Referrals: Melania Elliott MD [Primary Care Provider] -
[2024-02-27 15:24] LABS: iSTAT Creatinine 1.6 mg/dl (0.6-1.3); iSTAT Hemoglobin 6.1 g/dl (12.0-16.0); iSTAT Ionized Calcium 1.12 mmol/l (1.12-1.32); iSTAT Potassium 4.3 mmol/L (3.3-5.0)
[2024-02-27 15:33] LABS: Hematocrit (blood only) 19.7 % (37.0-47.0); Hemoglobin 5.7 g/dl (12.0-16.0); Mean Corpuscular Hemoglobin 25.4 pg (25.0-34.0); Mean Corpuscular Hgb Conc 28.9 g/dL (32.0-36.0); Mean Corpuscular Volume 87.9 fL (80.0-100.0); Mean Platelet Volume 10.8 fL (9.4-12.4); Platelet Count 292 K/uL (130-400); RDW Coefficient of Variation 17.9 % (11.5-14.5); Red Blood Count 2.24 M/uL (4.20-5.40); White Blood Count 11.63 K/ul (4.8-10.8)
[2024-02-27 15:52] LABS: Alanine Aminotransferase 37 U/L (7-52); Albumin Globulin Ratio 1.5 (0.9-2); Albumin Level 3.4 gm/dl (3.4-5.0); Alkaline Phosphatase 48 U/L (34-104); Anion Gap 23 (3-11); Aspartate Aminotransferase 47 U/L (13-39); BUN Creatinine Ratio 61.9 (10-20); Basophils # (auto) 0.02 K/uL (0.00-0.20); Basophils % (auto) 0.2 %; Bilirubin,Total 0.8 mg/dl (0.2-1.0); Blood Urea Nitrogen 91 mg/dl (6-23); Calcium 8.8 mg/dl (8.6-10.3); Carbon Dioxide 11 mmol/L (21-32); Chloride 104 mmol/L (98-107); Echinocytes 2+; Est GFR (African American) 37.3 ml/min; Est GFR (Non-African American) 32.2 ml/min; Globulin 2.2 gm/dl (2.5-4.0); Glucose 145 mg/dl (70-99(Fasting)); Hypochromasia Present; Immature Granulocytes # (auto) 0.12 K/uL (0.01-0.20); Lymphocytes # (auto) 0.59 K/uL (1.20-3.40); Lymphocytes % (auto) 5.1 %; Monocytes # (auto) 0.94 K/uL (0.11-0.59); Monocytes % (auto) 8.1 %; Neutrophils # (auto) 9.96 K/uL (1.40-6.50); Neutrophils % (auto) 85.6 %; Polychromasia 1+; Potassium 4.4 mmol/L (3.5-5.1); Sodium 138 mmol/L (136-145); Total Protein 5.6 gm/dl (6.0-8.3)
[2024-02-27] MEDS: PANTOprazole 80 MG in DEXTROSE 5% 100 ML IV STA (15:58)
[2024-02-27 16:00] LABS: Iron 26 mcg/dl (35-150); Total Iron Binding Cap Calc 374 mcg/dl (250-450); Transferrin (FE) Percent Satur 7 % (15-50); Unsaturated Iron Binding Cap 348 mcg/dl (155-355)
[2024-02-27 16:01] LABS: Partial Thromboplastin Ratio 1.1; Partial Thromboplastin Time 32 Seconds (21-31); Prothrombin Time 55.3 Seconds (9.0-12.0)
[2024-02-27 16:03] LABS: Troponin I High Sensitivity 254.7 pg/ml (0-14)
[2024-02-27 16:08] LABS: INR 5.6 (0.9-1.1)
[2024-02-27] MEDS: PHYTONADIONE 10 MG in DEXTROSE 5% 50 ML IV ONE (16:11)
[2024-02-27] MEDS: PROTHROMBIN COMP CONC- KCENTRA 3,000 UNITS in SYRINGE 0 ML IV SCH (16:11)
[2024-02-27] MEDS: ONDANSETRON INJ 2 MG/ML 2 ML VIAL IV ONE (16:26)
[2024-02-27] MEDS: CALCIUM GLUCONATE 1,000 MG/60 ML BAG IV STA (16:27)
[2024-02-27] MEDS: GLUCAGON 5 MG in SYRINGE 0 ML IV ONE (16:44)
[2024-02-27] MEDS: ATROPINE SULFATE 0.1 MG/ML 5ML SYR IV ONE ×3 (17:15→19:14)
--- NOTE | 2024-02-27 17:39 | History & Physical Report ---
Date of Service February 27, 2024 Assessment & Plan (1) Acute GI bleeding: (2) Melena: (3) Supratherapeutic INR: (4) Anemia: (5) Symptomatic bradycardia: (6) Hypotension: Plan: Patient is 83 year old female with PMH aortic stenosis s/p TAVR 09/2023, permanent atrial fibrillation anticoagulated on Coumadin, LBBB, Nonobstructive CAD on cath 07/2023, HTN, dyslipidemia, CHAVEZ, nocturnal hypoxia presented to ER with c/o melena x 3 days. In ER found to be significant bradycardic and hypotensive. Rectal exam with dark black stool. Labs with significant anemia with H/H: 5.7/19 and INR: 5.6. She was given Protonix bolus, Vitamin K 10mg IV, KCentra. Typed and cross PRBC, however patient continued hypotension so uncrossed blood being transfused and FFP ordered. She was also given glucagon, calcium gluconate and atropine. ER physician in contact with transit mix operator. Contacted GI, Dr Wells who recommended transfusion Admitted to ICU Plan to monitor H&H and follow INR NPO Hold aspirin, warfarin Continue PPI drip GI consult pacer pads at bedside Cardiology consult Further plan per transit mix operator (7) Elevated troponin: Plan: Troponin: 254 Trend troponin NSTEMI vs demand ischemia in setting of acute blood loss/anemia Echo Cardiology consult (8) Aortic stenosis: Plan: S/P TAVR 10/02/2023 at [facility] (9) Permanent atrial fibrillation: Plan: Anticoagulated on Coumadin Supratherapeutic INR with acute anemia and GI bleed as per above Coumadin, diltiazem, metoprolol succinate to be held (10) CAD (coronary artery disease): Plan: History nonobstructive CAD on preop TAVR cath 08/10/2023 Plan to hold aspirin with acute GI bleed (11) HTN (hypertension): Plan: Currently hypotensive Holding home lisinopril, diltiazem, metoprolol (12) HLD (hyperlipidemia): Plan: History of statin intolerance DVT Prophylaxis SCDs Full Code as per discussion with patient's at bedside Follows with Dr Melania Elliott for routine care Pt was seen and care coordinated with Dr Wilkerson. See addendum I spent a total of 79 minutes reviewing notes, outpatient records, labs, medication, coordinating, documenting and providing care for this patient excluding time spent in the performance of separately billed services. History of Present Illness Chief Complaint: black stools Primary Care Provider: Melania Elliott MD Patient is 83 year old female with PMH aortic stenosis s/p TAVR 09/2023, permanent atrial fibrillation anticoagulated on Coumadin, LBBB, Nonobstructive CAD on cath 07/2023, HTN, dyslipidemia, CHAVEZ, nocturnal hypoxia presented to ER with c/o melena x 3 days. History obtained from patients , outpatient and inpatient chart review. states patient has had black color stools for past 3 days. reports patient having some nausea and vomiting. Patient was complaining of some lightheadedness. feels patient was in normal mental state this morning. States today patient seemed weak and was unable to get her up so called EMS. doesn't think patient took medication today. Patient arrived to ER and found to be bradycardic and hypotensive. Rectal exam with dark black stool. Labs with significant anemia with H/H: 5.7/19 and INR: 5.6. She was given Protonix bolus, Vitamin K 10mg IV, KCentra, Uncrossed blood being transfused and FFP ordered. She was also given glucagon, calcium gluconate and atropine. Currently sitting up in bed, very nausous, however able to answer simple questions appropriately. denies any chest pain , shortness of breath or abdominal pain. Moves extremities. Confirms having dark stools for 3 days. Discussed with ED physician at the bedside in detail and contacted transit mix operator - plan to admit pt to ICU. at the bedisde updated about the plan of care as well. Allergies Allergy/AdvReac Type Severity Reaction Status Date / Time latex Allergy Intermediate Rash Verified 02/27/24 16:20 [id number] Reductase Allergy Unknown PER Verified 02/27/24 16:20 Inhibitor [facility] soy AdvReac Mild Dizziness Verified 02/27/24 16:20 adhesive AdvReac Unknown PER Verified 02/27/24 16:20 [facility] cat dander AdvReac Unknown PER Verified 02/27/24 16:20 [facility] ezetimibe [From Zetia] AdvReac Unknown PER Verified 02/27/24 16:20 [facility] Home Medications Medication Instructions Recorded Confirmed Type lisinopril 5 mg tablet 5 mg PO QAM 03/28/21 02/27/24 History warfarin 5 mg tablet 5 mg PO DIRECTED 03/28/21 02/27/24 History potassium chloride 10 mEq 10 meq PO DAILY 06/05/21 02/27/24 History tablet,extended release(part/cryst) ipratropium bromide 21 mcg (0.03 2 spray intranasal TID 09/26/21 02/27/24 History %) nasal spray furosemide 20 mg tablet 20 mg PO DAILY 10/01/21 02/27/24 History diltiazem HCl 240 mg 240 mg PO QAM #30 caps 10/11/21 02/27/24 Rx capsule,extended release 24 hr amoxicillin 500 mg capsule 2,000 mg PO DIRECTED PRN 1 HR 02/27/24 02/27/24 History PRIOR TO DENTAL PROCEDURES aspirin 81 mg chewable tablet 81 mg PO QAM 02/27/24 02/27/24 History metoprolol succinate 100 mg 100 mg PO BID 02/27/24 02/27/24 History tablet,extended release 24 hr Past Med/Surg History Medical History CAD (coronary artery disease) Permanent atrial fibrillation CKD (chronic kidney disease) stage 3, GFR 30-59 ml/min CHAVEZ (nonalcoholic steatohepatitis) Pre-diabetes History of bladder cancer s/op TURBT DU (generalized anxiety disorder) HLD (hyperlipidemia) A-fib HTN (hypertension) Surgical History S/P TAVR (transcatheter aortic valve replacement) History of toe surgery bunion History of hysterectomy with oophorectomy History of esophagogastroduodenoscopy (EGD) History of cardioversion multiple attempts, last in 2017 History of radiofrequency ablation procedure for cardiac arrhythmia Family History Brother Myocardial infarction, Onset Age: 52 Father Myocardial infarction, Onset Age: 52 Sister Coronary heart disease Atrial fibrillation Mother , 21 [address] Social History Smoking Status: Never smoker Hx Alcohol Use: No Hx Substance Use: No Preferred Language: Croatian Communication Ability: Effective White Hat Hacker Required: No Beliefs That Will Affect Care: None marital status: Current Living Situation: Spouse current occupational status: retired Other Information That Helps Us Care for You: No Feels Safe at Home: Yes Safety Concerns: Feels Safe At This Time Assistive Devices: Cane Review of Systems Review of Systems: All systems reviewed & are unremarkable except as noted in Subjective Physical Exam Physical Exam: PE per Dr Wilkerson Results & Data Results & Data Vital Signs (Past 12 Hours) Vital Signs Temp Pulse Resp BP Pulse Ox O2 Del Method O2 Flow Rate 02/27/24 17:33 136/55 L 02/27/24 17:33 54 L 19 100 02/27/24 17:30 99 02/27/24 17:28 43 L 20 80/63 L 96 02/27/24 17:21 80/63 L 02/27/24 17:21 96 02/27/24 17:20 96 02/27/24 17:18 36.2 C L 44 L 28 H 80/63 L 98 4 02/27/24 17:10 97 02/27/24 17:03 36.1 C L 52 L 30 H 115/74 100 4 02/27/24 17:02 115/47 L 02/27/24 17:02 49 L 18 100 02/27/24 17:00 98/76 L 02/27/24 17:00 99 02/27/24 17:00 70 19 99 02/27/24 16:51 64 23 99 02/27/24 16:51 154/55 H 02/27/24 16:50 97 02/27/24 16:49 149/62 H 02/27/24 16:49 96 02/27/24 16:48 35.1 C L 49 L 18 149/62 H 100 4 02/27/24 16:45 125/73 02/27/24 16:45 54 L 20 94 02/27/24 16:40 38 L 19 100 02/27/24 16:33 41 L 19 100 02/27/24 16:33 78/27 L 02/27/24 16:31 42 L 94 Room Air 02/27/24 16:30 54 L 16 100 02/27/24 16:25 41 L 18 100 02/27/24 16:25 98/69 L 02/27/24 16:24 42 L 18 100 02/27/24 16:24 96/69 L 02/27/24 16:21 41 L 20 93 02/27/24 16:21 96/39 L 02/27/24 16:20 41 L 18 96 02/27/24 16:10 17 95 02/27/24 16:04 98/46 L 02/27/24 16:04 50 L 21 02/27/24 16:00 99 02/27/24 15:50 91/44 L 02/27/24 15:50 51 L 21 98 02/27/24 15:49 54 L 02/27/24 15:42 41 L 21 99 02/27/24 15:10 40 L 18 86 L 02/27/24 15:00 42 L 21 73 L 02/27/24 14:55 43 L 22 90 02/27/24 14:42 36.5 C 74 20 112/63 98 Laboratory Results Short CBC 02/27/24 Range/Units 15:01 WBC 11.63 H (4.8-10.8) K/ul Hgb 5.7 L* (12.0-16.0) g/dl Hct 19.7 L* (37.0-47.0) % Plt Count 292 (130-400) K/uL BMP 02/27/24 15:01 Sodium 138 Potassium 4.4 Chloride 104 Carbon Dioxide 11 L BUN 91 H Creatinine 1.47 H Glucose 145 H Calcium 8.8 Liver Function 02/27/24 Range/Units 15:01 Total Bilirubin 0.8 (0.2-1.0) mg/dl AST 47 H (13-39) U/L ALT 37 (7-52) U/L Alkaline Phosphatase 48 (34-104) U/L Albumin 3.4 (3.4-5.0) gm/dl Code Status & VTE Plan VTE Prophylaxis Plan VTE Prophylaxis will be ordered: Yes Supervising Physician Co-Signing Physician Notes Pt seen and examined by me, care coordinated with Zulma Dorsey PA-C pls refer to her note above for further detail. Pt is an 83 yo F female with hx of aortic stenosis s/p TAVR 09/2023, permanent atrial fibrillation anticoagulated on Coumadin, LBBB, Nonobstructive CAD on cath 07/2023, HTN, dyslipidemia, CHAVEZ, nocturnal hypoxia presented to ER with c/o melena x 3 days, one episode of coffee ground emesis. In ER pt found to be bradycardic and hypotensive. Rectal exam with dark black stool. Labs with significant anemia with H/H: 5.7/19 and INR: 5.6. She was given Protonix bolus, Vitamin K 10mg IV, KCentra, Uncrossed blood being transfused and FFP ordered. She was also given glucagon, calcium gluconate and atropine. Also, with metabolic acidosis , bicarb 11 and anion gap 23. lactic acid ordered. Currently sitting up in bed, awake and alert, very nausous, however able to answer simple questions appropriately. denies any chest pain , shortness of breath or abdominal pain. Lungs are clear to auscultation, heart sounds - bradycardic, abdomen soft, nontender, + bowel sounds. Moves extremities. Discussed with ED physician at the bedside in detail and contacted transit mix operator - plan to admit pt to ICU. GI and cardiology also consulted. at the bedside updated about the plan of care as well. MD Rhea
[2024-02-27] MEDS: CALCIUM CHLORIDE 10% 1,000 MG in DEXTROSE 5% 50 ML IV STA (19:15)
--- NOTE | 2024-02-27 19:17 | Critical Care Consultation ---
Date of Consultation February 27, 2024 Assessment & Plan (1) Acute GI bleeding: Reason Critically Ill: 83-year-old female with past medical history significant for atrial fibrillation (on Coumadin), diastolic heart failure, aortic stenosis (s/p TAVR), HTN, CAD, who presented to the emergency department earlier this evening with 3 days of melena and 1 episode of hematemesis and found to be bradycardic, hypotensive with acute GI bleed and supratherapeutic INR. Status post anticoagulant reversal and transfusion of RBCs and FFP. Admitted to ICU pending endoscope. Neuro - [facility] ICU: Negative. Neurologically at baseline according to . Cardiac - Hypotensionimproved following transfusion. Bradycardia was likely playing a role as well. No indication for vasopressors at this time. - Continue with fluid resuscitation. Transfuse as needed -Holding lisinopril and MTP -Maintain MAP greater than 65 Bradycardia/A-fib RVRpatient initially bradycardic with left bundle branch block. She does take metoprolol 100 mg twice daily per med rec. She did receive glucagon in the emergency department -Seems to have improved following resuscitation with fluids/blood products. Patient now actually tachycardic with A-fib RVR -Diltiazem/metoprolol p.o. meds currently on hold. Could consider diltiazem drip if remains uncontrolled with goal heart rate 90-1 20 -Elevated troponin likely demand ischemia. No ST elevation on EKG -Cardiology consult pending -Continuous monitor on telemetry Respiratory - No history of pulmonary disease. Patient currently maintaining oxygen saturation on nasal cannula, weaning oxygen as tolerated Continuous pulse ox monitoring GI - Acute GI bleedsuspect this is likely secondary to supratherapeutic INR. -GI consulted, recommended transfusion and correction of coagulopathy prior to endoscope -Protonix drip -See anemia for transfusion -N.p.o. RENAL/LYTES - AKIcreatinine currently 1.48 with previous baseline 1.18. Suspect prerenal in the setting of hypotension/GI bleed -Continue IV fluid resuscitation with Plasma-Lyte at 80 mL/h while n.p.o. -Monitor routine BMPs -Avoid nephrotoxins and renally adjust medication Metabolic acidosisHCO3 11 with high anion gap of 23 on initial BMP. Would suspect lactic acidosis in the setting of hypotension/GI bleed -Lactic acid, repeat BMP, and VBG currently pending. Will assess need for bicarb although expect to improve following resuscitation - Hematuriasecondary to supratherapeutic INR. Expect to improve with correction of coagulopathy. Monitor strict I's and O's ENDO - No history of diabetes or thyroid disease. ICU hyperglycemic protocol HEME - Acute blood loss anemiapatient with baseline hemoglobin of 14, now presents with hemoglobin of 5.7 in the setting of supratherapeutic INR with GI bleed and hematuria -Received 10 mg IV vitamin K, in addition to prothrombin complex, 2 units FFP. -Repeat INR and fibrinogen pending -2 units RBCs transfused -Follow-up repeat H&H and trend every 4 hours. Continue transfuse as indicated for hemoglobin less than 7 ID - No negation for Vach process at this time LINES/IV ACCESS - Peripheral IV DVT PROPHYLAXIS - SCDs, anticoagulation on hold due to supratherapeutic INR/GI bleed I have personally spent 55 minutes of critical care time in the direct management of this patient. This is a life/limb threatening event. This includes time spent evaluating patient, direct bedside care, chart review, placing orders, interpretation of diagnostic studies, discussion with consultants, patient, and family members, as well as other required patient management activities. This time is exclusive of all separately billable procedures, and teaching time and separate from and in addition to any other critical care service time. Thank you for allowing us to participate in the care of this patient. Please refer to my attending physician's documentation for any further recommendations. (2) Atrial fibrillation with rapid ventricular response: (3) Hypotension: (4) Symptomatic bradycardia: (5) CAD (coronary artery disease): (6) Supratherapeutic INR: (7) Melena: (8) Aortic stenosis: (9) CHAVEZ (nonalcoholic steatohepatitis): History of Present Illness Attending Physician: Cesar Wilkerson MD History of Present Illness Patient is a 83-year-old female with significant past medical history of atrial fibrillation (on Coumadin), ill BBB, CAD, aortic stenosis (s/p TAVR 10/11), HLD, CHAVEZ, who presented to the emergency department earlier this evening with complaints of dark tarry stools and 1 episode of coffee-ground emesis over the past 3 days. Patient also reports having nausea and vomiting lightheadedness with weakness. On arrival to the emergency department she was noted to have hemoglobin of 5.7 supratherapeutic INR of 5.6 and was noted to be bradycardic with heart rate in the 30s and hypotensive. She initially received glucagon, calcium gluconate, and atropine for bradycardia along with 10 mg vitamin K IV, and Kcentra. In addition she received 2 units FFP and 2 units RBCs. She was also started on Protonix drip. GI consulted and recommended correction of coagulopathy along with transfusion, with plan to undergo endoscope tomorrow morning. Patient now admitted to ICU for further management at this time. On arrival to the ICU the patient is alert and oriented. She does report feeling weak and dizzy, although symptoms are reported to be improving per patient. She has not had additional episode of hematemesis or melena since arrival to the ICU, she was noted to have hematuria in the ED and states this has been happening at home with pink-tinged urine. She denies headache, recent illness or fevers, sore throat, congestion, cough, chest pain or palpitations, abdominal pain. She does report some mild swelling in her feet. She also reports ongoing shortness of breath for the past few days. Allergies Allergy/AdvReac Type Severity Reaction Status Date / Time latex Allergy Intermediate Rash Verified 02/27/24 16:20 [id number] Reductase Allergy Unknown PER Verified 02/27/24 16:20 Inhibitor [facility] soy AdvReac Mild Dizziness Verified 02/27/24 16:20 adhesive AdvReac Unknown PER Verified 02/27/24 16:20 [facility] cat dander AdvReac Unknown PER Verified 02/27/24 16:20 [facility] ezetimibe [From Zetia] AdvReac Unknown PER Verified 02/27/24 16:20 [facility] Home Medications Medication Instructions Recorded Confirmed Type lisinopril 5 mg tablet 5 mg PO QAM 03/28/21 02/27/24 History warfarin 5 mg tablet 5 mg PO DIRECTED 03/28/21 02/27/24 History potassium chloride 10 mEq 10 meq PO DAILY 06/05/21 02/27/24 History tablet,extended release(part/cryst) ipratropium bromide 21 mcg (0.03 2 spray intranasal TID 09/26/21 02/27/24 History %) nasal spray furosemide 20 mg tablet 20 mg PO DAILY 10/01/21 02/27/24 History diltiazem HCl 240 mg 240 mg PO QAM #30 caps 10/11/21 02/27/24 Rx capsule,extended release 24 hr amoxicillin 500 mg capsule 2,000 mg PO DIRECTED PRN 1 HR 02/27/24 02/27/24 History PRIOR TO DENTAL PROCEDURES aspirin 81 mg chewable tablet 81 mg PO QAM 02/27/24 02/27/24 History metoprolol succinate 100 mg 100 mg PO BID 02/27/24 02/27/24 History tablet,extended release 24 hr Patient History Medical History (Updated 02/27/24 @ 22:23 by GABRIEL Acuna) CAD (coronary artery disease) Permanent atrial fibrillation CKD (chronic kidney disease) stage 3, GFR 30-59 ml/min CHAVEZ (nonalcoholic steatohepatitis) Pre-diabetes History of bladder cancer s/op TURBT DU (generalized anxiety disorder) HLD (hyperlipidemia) A-fib HTN (hypertension) Surgical History (Updated 02/27/24 @ 20:12 by Aditi Dorsey PA-C) S/P TAVR (transcatheter aortic valve replacement) History of toe surgery bunion History of hysterectomy with oophorectomy History of esophagogastroduodenoscopy (EGD) History of cardioversion multiple attempts, last in 2017 History of radiofrequency ablation procedure for cardiac arrhythmia Family History Brother Myocardial infarction, Onset Age: 52 Father Myocardial infarction, Onset Age: 52 Sister Coronary heart disease Atrial fibrillation Mother , 21 [address] Social History Smoking Status: Never smoker Hx Alcohol Use: No Hx Substance Use: No Preferred Language: Armenian Communication Ability: Effective [employer] Wiring Technician Required: No Beliefs That Will Affect Care: None marital status: Current Living Situation: Spouse current occupational status: retired Other Information That Helps Us Care for You: No Feels Safe at Home: Yes Safety Concerns: Feels Safe At This Time Assistive Devices: Cane Review of Systems Review of Systems: All systems reviewed & are unremarkable except as noted in HPI & below Physical Exam Constitutional: + frail appearing, cooperative and comfo rtable Eyes: PERRL, conjunctivae normal, anicteric sclerae ENMT: external ear and nose normal, oropharynx normal Neck: trachea midline, no thyromegaly Respiratory: normal respiratory effort, lungs clear to auscultation Cardiovascular: Rate/Rhythm: regular rate and + bradycardic Heart Sounds: + murmur Vessels: no JVD Extremities: + edema (+1 bilateral pedal edema) Gastrointestinal (Abdomen): Abdomen soft, nondistended, nontender, bowel sounds auscultated all 4 quadrants Musculoskeletal: no cyanosis or clubbing, extremities motor strength 5/5 Skin: no rashes, warm and dry Neurologic: PERRL, EOMI, accommodation nl, no face palsy, no dysarthria Psychiatric: A+Ox3, euthymic affect Results & Data Results & Data Vital Signs (Past 12 Hours) Vital Signs Temp Pulse Resp BP Pulse Ox O2 Del Method O2 Flow Rate 02/27/24 19:06 483 H 02/27/24 18:33 36.5 C 02/27/24 18:29 Nasal Cannula 02/27/24 18:20 36.4 C L 45 L 20 100 Nasal Cannula 02/27/24 18:18 36.3 C L 50 L 17 100 Nasal Cannula 02/27/24 18:18 100/58 L 02/27/24 18:10 98 Nasal Cannula 02/27/24 18:08 Room Air 02/27/24 18:00 99/63 L 02/27/24 18:00 96 Nasal Cannula 02/27/24 17:56 36.2 C L 42 L 26 H 118/37 L 97 4 02/27/24 17:55 96 Nasal Cannula 02/27/24 17:40 26 H 118/37 L 97 Nasal Cannula 02/27/24 17:33 136/55 L 02/27/24 17:33 54 L 19 100 02/27/24 17:30 99 02/27/24 17:28 43 L 20 80/63 L 96 02/27/24 17:21 80/63 L 02/27/24 17:21 96 02/27/24 17:20 96 02/27/24 17:18 36.2 C L 44 L 28 H 80/63 L 98 4 02/27/24 17:10 97 02/27/24 17:03 36.1 C L 52 L 30 H 115/74 100 4 02/27/24 17:02 115/47 L 04/10/24 17:02 49 L 18 100 02/27/24 17:00 98/76 L 02/27/24 17:00 99 02/27/24 17:00 70 19 99 02/27/24 16:51 64 23 99 02/27/24 16:51 154/55 H 02/27/24 16:50 97 02/27/24 16:49 149/62 H 02/27/24 16:49 96 02/27/24 16:48 35.1 C L 49 L 18 149/62 H 100 4 02/27/24 16:45 125/73 02/27/24 16:45 54 L 20 94 02/27/24 16:40 38 L 19 100 02/27/24 16:33 41 L 19 100 02/27/24 16:33 78/27 L 02/27/24 16:31 42 L 94 Room Air 02/27/24 16:30 54 L 16 100 02/27/24 16:25 41 L 18 100 02/27/24 16:25 98/69 L 02/27/24 16:24 42 L 18 100 02/27/24 16:24 96/69 L 02/27/24 16:21 41 L 20 93 02/27/24 16:21 96/39 L 02/27/24 16:20 41 L 18 96 02/27/24 16:10 17 95 02/27/24 16:04 98/46 L 02/27/24 16:04 50 L 21 02/27/24 16:00 99 02/27/24 15:50 91/44 L 02/27/24 15:50 51 L 21 98 02/27/24 15:49 54 L 02/27/24 15:42 41 L 21 99 02/27/24 15:10 40 L 18 86 L 02/27/24 15:00 42 L 21 73 L 02/27/24 14:55 43 L 22 90 02/27/24 14:42 36.5 C 74 20 112/63 98 Coding Level of Care Code 12142 CRITICAL CARE 1ST 30-74M Diagnoses Acute GI bleeding K92.2 Atrial fibrillation with rapid ventricular response I48.91 Hypotension I95.9 Symptomatic bradycardia R00.1 CAD (coronary artery disease) I25.10 Supratherapeutic INR R79.1 Melena K92.1 Aortic stenosis I35.0 CHAVEZ (nonalcoholic steatohepatitis) K75.81
[2024-02-27] MEDS: ICU Protocol for HYPERglycemia SCH (21:06)
[2024-02-27] MEDS: PANTOprazole 40 MG in DEXTROSE 5% MINI-B 100 ML IV SCH (21:48)
[2024-02-27] MEDS: PLASMA-LYTE A 1,000 ML IV SCH (21:48)
[2024-02-27] MEDS: METOPROLOL TARTRATE 1 MG/ML VIAL IV SCH (21:54)
[2024-02-27 21:56] LABS: Base Excess VBG -4.2 mEq/L; HCO3 VBG 21 mmol/L; Oxygen Saturation VBG 65.9 %; PCO2 VBG 38 mmHg (38-50); PO2 VBG 41 mmHg; pH VBG 7.35 (7.36-7.41)
[2024-02-27 22:19] LABS: Albumin Globulin Ratio 1.6 (0.9-2); Albumin Level 3.5 gm/dl (3.4-5.0); BUN Creatinine Ratio 60.1 (10-20); Bilirubin,Total 1.8 mg/dl (0.2-1.0); Calcium 9.9 mg/dl (8.6-10.3); Creatinine Clr Calc Pharmacy 26.8 ml/min; Globulin 2.2 gm/dl (2.5-4.0); Potassium 4.6 mmol/L (3.5-5.1); Total Protein 5.7 gm/dl (6.0-8.3)
[2024-02-27 22:30] LABS: Hematocrit (blood only) 23.2 % (37.0-47.0); Hemoglobin 7.6 g/dl (12.0-16.0); Mean Corpuscular Hemoglobin 27.3 pg (25.0-34.0); Mean Corpuscular Hgb Conc 32.8 g/dL (32.0-36.0); Mean Corpuscular Volume 83.5 fL (80.0-100.0); Mean Platelet Volume 10.3 fL (9.4-12.4); Platelet Count 121 K/uL (130-400); Platelet Estimate Decreased (Normal); RDW Coefficient of Variation 15.7 % (11.5-14.5); RDW Standard Deviation 47.4 fL (36.4-46.3); Red Blood Count 2.78 M/uL (4.20-5.40); White Blood Count 12.14 K/ul (4.8-10.8)
[2024-02-27] MEDS ORDERED: STAT IV Infusion **Titration per Protocol STA (22:31)
[2024-02-27 22:36] LABS: Fibrinogen 230 mg/dl (184-400); INR 1.5 (0.9-1.1); Prothrombin Time 15.8 Seconds (9.0-12.0)
[2024-02-27] MEDS: dilTIAZem HCL 125 MG in DEXTROSE 5% 100 ML IV SCH (22:50)
[2024-02-27 23:13] LABS: Hematocrit (blood only) 22.2 % (37.0-47.0); Hemoglobin 7.2 g/dl (12.0-16.0)
[2024-02-28 03:59] LABS: Basophils # (auto) 0.01 K/uL (0.00-0.20); Basophils % (auto) 0.1 %; Hematocrit (blood only) 22.4 % (37.0-47.0); Hemoglobin 7.2 g/dl (12.0-16.0); Immature Granulocytes # (auto) 0.07 K/uL (0.01-0.20); Immature Granulocytes % (auto) 0.6 %; Lymphocytes # (auto) 0.57 K/uL (1.20-3.40); Lymphocytes % (auto) 5.1 %; Mean Corpuscular Hgb Conc 32.1 g/dL (32.0-36.0); Mean Corpuscular Volume 83.9 fL (80.0-100.0); Mean Platelet Volume 10.8 fL (9.4-12.4); Monocytes # (auto) 0.92 K/uL (0.11-0.59); Monocytes % (auto) 8.3 %; Neutrophils # (auto) 9.54 K/uL (1.40-6.50); Neutrophils % (auto) 85.9 %; Platelet Count 117 K/uL (130-400); RDW Coefficient of Variation 15.8 % (11.5-14.5); RDW Standard Deviation 47.2 fL (36.4-46.3); Red Blood Count 2.67 M/uL (4.20-5.40); White Blood Count 11.11 K/ul (4.8-10.8)
[2024-02-28 04:08] LABS: Albumin Globulin Ratio 1.5 (0.9-2); Albumin Level 3.4 gm/dl (3.4-5.0); BUN Creatinine Ratio 55.8 (10-20); Bilirubin,Total 1.6 mg/dl (0.2-1.0); Calcium 9.3 mg/dl (8.6-10.3); Est GFR (African American) 37.3 ml/min; Est GFR (Non-African American) 32.2 ml/min; Globulin 2.2 gm/dl (2.5-4.0); Magnesium 1.9 mg/dl (1.7-2.4); Total Protein 5.6 gm/dl (6.0-8.3)
[2024-02-28 04:13] LABS: INR 1.6 (0.9-1.1); Partial Thromboplastin Ratio 0.9; Partial Thromboplastin Time 24 Seconds (21-31); Prothrombin Time 16.7 Seconds (9.0-12.0)
[2024-02-28 04:16] LABS: Troponin I High Sensitivity 693.2 pg/ml (0-14)
[2024-02-28 04:30] LABS: Polychromasia 1+
--- NOTE | 2024-02-28 07:29 | Critical Care Progress Note ---
Date of Service February 28, 2024 Assessment & Plan (1) ASCVD (arteriosclerotic cardiovascular disease): (2) Symptomatic anemia: (3) Permanent atrial fibrillation: (4) Elevated troponin: (5) Hypotension: (6) Anemia: (7) Symptomatic bradycardia: (8) Anemia requiring transfusions: (9) Supratherapeutic INR: (10) Melena: (11) Acute GI bleeding: (12) Atrial fibrillation with rapid ventricular response: Plan Reason Critically Ill: 83-year-old female with past medical history significant for atrial fibrillation (on Coumadin), diastolic heart failure, aortic stenosis (s/p TAVR), HTN, CAD, who presented to the emergency department earlier this evening with 3 days of melena and 1 episode of hematemesis and found to be bradycardic, hypotensive with acute GI bleed and supratherapeutic INR. Status post anticoagulant reversal and transfusion of RBCs and FFP. Admitted to ICU pending endoscope. Neuro - [facility] ICU: Negative. Neurologically at baseline according to . Cardiac - Hypotensionimproved following transfusion. Bradycardia was likely playing a role as well. No indication for vasopressors at this time. -Improved overnight with resuscitation -Holding lisinopril and MTP -Maintain MAP greater than 65 Bradycardia/A-fib RVRpatient initially bradycardic with left bundle branch block. She does take metoprolol 100 mg twice daily per med rec. She did receive glucagon in the emergency department -Seems to have improved following resuscitation with fluids/blood products. Remains in afib w/RVR -Diltiazem/metoprolol p.o. meds currently on hold. -On diltiazem drip currently. Goal heart rate 90-120 -Elevated troponin likely demand ischemia. No ST elevation on EKG -Cardiology consult pending f/u recs -Continuous monitor on telemetry Respiratory - No history of pulmonary disease. Patient currently maintaining oxygen saturation on nasal cannula, weaning oxygen as tolerated Continuous pulse ox monitoring GI - Acute GI bleedsuspect this is likely secondary to supratherapeutic INR. -GI consulted, recommended transfusion and correction of coagulopathy prior to endoscope -Protonix drip -See anemia for transfusion -N.p.o. RENAL/LYTES - AKIcreatinine currently 1.48 with previous baseline 1.18. Suspect prerenal in the setting of hypotension/GI bleed -Continue IV fluid resuscitation with Plasma-Lyte at 80 mL/h while n.p.o. -Monitor routine BMPs -Avoid nephrotoxins and renally adjust medication Metabolic acidosisHCO3 11 with high anion gap of 23 on initial BMP. Would suspect lactic acidosis in the setting of hypotension/GI bleed -Lactic acid, repeat BMP, and VBG currently pending. Will assess need for bicarb although expect to improve following resuscitation - Hematuriasecondary to supratherapeutic INR. Expect to improve with correction of coagulopathy. Monitor strict I's and O's ENDO - No history of diabetes or thyroid disease. ICU hyperglycemic protocol HEME - Acute blood loss anemiapatient with baseline hemoglobin of 14, Hb this am 7.3 s/p 2U PRBCs -Received 10 mg IV vitamin K, in addition to prothrombin complex, 2 units FFP. -INR 1.6 this AM -Follow-up repeat H&H and trend every 4 hours. Continue transfuse as indicated for hemoglobin less than 7 ID - No negation for Vach process at this time LINES/IV ACCESS - Peripheral IV DVT PROPHYLAXIS - SCDs, anticoagulation on hold due to supratherapeutic INR/GI bleed Thank you for allowing us to participate in the care of this patient. Please refer to my attending physician's documentation for any further recommendations. Admission and Anticipated Discharge Date Admission Date: February 27, 2024 Supervising Physician Co-Signing Physician Notes Dr. Taylor was resident physician during care of patient. I separately evaluated patient for gomez portions of the history and the exam. I was present during the critical portion of medical decision making, and I discussed the case with the resident. I generally agree with the findings and plan. N.p.o. for possible scope, on systemic anticoagulation for chronic A-fib, was supratherapeutic that has been since corrected. She has a bioprosthetic aortic valve. Plan for possible EGD today, n.p.o. on proton. Wean off Cardizem drip transition to IV beta-blockade. There is a possibility she may have taken an additional dose or possibly too much of beta-ruchi as she was bradycardic in the emergency department. Currently hemodynamics are reassuring and she is rate controlled. I have personally spent 45 minutes of critical care time in the direct management of this patient. This is a life/limb threatening event. This includes time spent evaluating patient, direct bedside care, chart review, placing orders, interpretation of diagnostic studies, discussion with consultants, patient, and/or family members regarding treatment decisions, as well as other required patient management activities. This time is exclusive of all separately billable procedures, and teaching time and separate from and in addition to any other critical care service time. Subjective Patient seen and evaluated at bedside this morning. No acute events overnight. pt comfortable this am, no acute complaints, no further episodes of hematemesis/melena Review of Systems Review of Systems: reviewed, per HPI Physical Exam Physical Exam: Constitutional: ill appearing, NAD HEENT: NCAT, no conjunctival injection CV: irregularly irregular rhythm, no murmur appreciated, extremities well- perfused, moderate LE edema Resp: CTABL, no wheezes/rales/rhonchi appreciated, no increased work of breathing GI: soft, nondistended, nontender, BS normoactive MSK: no gross deformities appreciated Skin: warm, dry, no rash appreciated Neuro: alert, no focal neurologic deficit appreciated Results & Data Results & Data Vital Signs (Past 12 Hours) Vital Signs Temp Pulse Resp BP Pulse Ox O2 Del Method O2 Flow Rate 02/28/24 06:01 37.1 C 88 11 L 94 02/28/24 06:01 122/63 02/28/24 06:00 37.1 C 87 14 94 02/28/24 05:30 105/70 02/28/24 05:30 37.1 C 88 20 95 02/28/24 05:00 117/72 02/28/24 05:00 37.1 C 90 0 L 96 02/28/24 04:30 115/56 L 02/28/24 04:30 37.1 C 87 1 L 97 02/28/24 04:00 121/69 02/28/24 04:00 37.1 C 105 H 16 95 1 02/28/24 03:30 127/74 02/28/24 03:30 37.1 C 96 H 13 95 1 02/28/24 03:00 37.2 C 91 H 17 95 1 02/28/24 03:00 121/65 02/28/24 02:30 115/73 02/28/24 02:30 37.3 C 112 H 18 95 02/28/24 02:00 117/72 02/28/24 02:00 37.3 C 109 H 17 96 2 02/28/24 01:30 131/84 02/28/24 01:30 37.4 C 106 H 17 97 02/28/24 01:00 131/76 02/28/24 01:00 37.4 C 122 H 15 98 02/28/24 00:30 113/77 02/28/24 00:30 37.5 C 111 H 18 90 02/28/24 00:00 104/63 02/28/24 00:00 37.6 C H 120 H 12 94 02/27/24 23:56 120 H 02/27/24 23:30 120/68 02/27/24 23:30 37.6 C H 137 H 14 97 02/27/24 23:00 107/78 02/27/24 23:00 37.6 C H 136 H 19 98 02/27/24 22:49 37.6 C H 128 H 19 99 02/27/24 22:49 121/82 02/27/24 22:30 103/65 02/27/24 22:30 37.6 C H 133 H 14 94 02/27/24 22:09 133 H 103/65 02/27/24 22:00 121/75 02/27/24 22:00 37.6 C H 135 H 14 99 02/27/24 21:54 37.6 C H 152 H 15 100 02/27/24 21:54 134/91 02/27/24 21:54 131 H 134/91 02/27/24 21:40 37.5 C 143 H 18 99 02/27/24 21:30 135/66 02/27/24 21:30 37.5 C 140 H 15 100 02/27/24 21:20 37.5 C 146 H 14 99 02/27/24 21:10 37.5 C 143 H 17 100 02/27/24 21:00 131/91 02/27/24 21:00 37.4 C 144 H 14 100 02/27/24 20:56 37.4 C 137 H 12 100 02/27/24 20:56 118/84 02/27/24 20:50 37.4 C 121 H 13 98 02/27/24 20:45 132/78 02/27/24 20:45 37.4 C 106 H 20 96 02/27/24 20:40 37.4 C 135 H 15 100 02/27/24 20:30 136/83 02/27/24 20:30 37.3 C 128 H 17 99 02/27/24 20:15 119/88 02/27/24 20:15 37.3 C 98 H 16 97 02/27/24 20:00 144/92 H 02/27/24 20:00 37.1 C 139 H 17 100 02/27/24 19:45 Nasal Cannula 4 02/27/24 19:42 37.0 C 101 H 14 133/84 98 4 02/27/24 19:30 36.9 C 86 15 100 02/27/24 19:30 133/84 Resident Activity Tracking Resident Involvement: Resident Care Provided Care Provided: Adult Hospital Medicine
[2024-02-28 08:04] LABS: Hemoglobin 7.3 g/dl (12.0-16.0)
--- NOTE | 2024-02-28 09:00 | Anesthesiology Consultation ---
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 Priscilla Wells Jr, MD Height/Weight Height: 5 ft 4 in Weight: 72.6 kg Allergies Allergy/AdvReac Type Severity Reaction Status Date / Time latex Allergy Intermediate Rash Verified 02/27/24 16:20 [id number] Reductase Allergy Unknown PER Verified 02/27/24 16:20 Inhibitor [facility] soy AdvReac Mild Dizziness Verified 02/27/24 16:20 adhesive AdvReac Unknown PER Verified 02/27/24 16:20 [facility] cat dander AdvReac Unknown PER Verified 02/27/24 16:20 [facility] ezetimibe [From Zetia] AdvReac Unknown PER Verified 02/27/24 16:20 [facility] Medications Home Medications Medication Instructions Recorded Confirmed Last Taken lisinopril 5 mg tablet 5 mg PO QAM 03/28/21 02/27/24 06/04/21 warfarin 5 mg tablet 5 mg PO DIRECTED 03/28/21 02/27/24 06/04/21 potassium chloride 10 mEq 10 meq PO DAILY 06/05/21 02/27/24 10/01/21 tablet,extended release(part/cryst) ipratropium bromide 21 mcg (0.03 2 spray intranasal TID 09/26/21 02/27/24 Unknown %) nasal spray furosemide 20 mg tablet 20 mg PO DAILY 10/01/21 02/27/24 09/30/21 diltiazem HCl 240 mg 240 mg PO QAM #30 caps 10/11/21 02/27/24 Unknown capsule,extended release 24 hr amoxicillin 500 mg capsule 2,000 mg PO DIRECTED PRN 1 HR 02/27/24 02/27/24 Unknown PRIOR TO DENTAL PROCEDURES aspirin 81 mg chewable tablet 81 mg PO QAM 02/27/24 02/27/24 Unknown metoprolol succinate 100 mg 100 mg PO BID 02/27/24 02/27/24 Unknown tablet,extended release 24 hr Active Medications Generic Name Dose Route Start Last Admin Trade Name Freq PRN Reason Stop Dose Admin Pantoprazole Sodium 40 mg/ 100 mls @ 20 mls/hr 02/27/24 21:30 02/28/24 06:46 Dextrose IV 05/10/24 21:29 8 mg/hr Q5H LIZA 20 mls/hr Administration 8 MG/HR Parenteral Electrolytes 1,000 mls @ 80 mls/hr 02/27/24 21:45 02/27/24 21:48 Plasma-Lyte A Ph 7.4 IV 03/28/24 21:44 80 mls/hr .[id number] LIZA Administration Diltiazem HCl 125 mg/ Dextrose 125 mls @ 15 mls/hr 02/27/24 22:45 02/28/24 06:47 IV 03/28/24 22:44 15 mg/hr .[id number] LIZA 15 mls/hr Administration Protocol 15 MG/HR Miscellaneous 1 each 02/27/24 21:00 02/28/24 07:17 Icu Protocol For Hyperglycemia N/A 02/29/24 20:59 Not Given ACHS LIZA Past Medical History Medical History CAD (coronary artery disease) Permanent atrial fibrillation CKD (chronic kidney disease) stage 3, GFR 30-59 ml/min CHAVEZ (nonalcoholic steatohepatitis) Pre-diabetes History of bladder cancer s/op TURBT UD (generalized anxiety disorder) HLD (hyperlipidemia) A-fib HTN (hypertension) Past Family History Family History Brother Myocardial infarction, Onset Age: 52 Father Myocardial infarction, Onset Age: 52 Sister Coronary heart disease Atrial fibrillation Mother , 21 [place] Past Surgical History Surgical History S/P TAVR (transcatheter aortic valve replacement) History of toe surgery bunion History of hysterectomy with oophorectomy History of esophagogastroduodenoscopy (EGD) History of cardioversion multiple attempts, last in 2017 History of radiofrequency ablation procedure for cardiac arrhythmia Social History Smoking Status: Never smoker Hx Alcohol Use: No Alcohol type: wine alcohol intake frequency: holidays/special occasions only Hx Substance Use: No Physical Exam Vital Signs Last Vital Signs Temp 98.8 F 02/28/24 06:01 Pulse 88 02/28/24 06:01 Resp 11 L 02/28/24 06:01 BP 122/63 02/28/24 06:01 Pulse Ox 94 02/28/24 06:01 O2 Del Method Nasal Cannula 02/27/24 19:45 O2 Flow Rate 1 02/28/24 04:00 Testing Laboratory Results 02/28/24 07:34 02/28/24 03:19 PT 16.7 Seconds (9.0-12.0) H 02/28/24 03:19 INR 1.6 (0.9-1.1) H 02/28/24 03:19 APTT 24 Seconds (21-31) 02/28/24 03:19 Blood Type A Positive 02/27/24 15:01 Antibody Screen NEGATIVE 02/27/24 15:01 02/28/24 02/27/24 07:14 21:03 POC Glucose 116 H 136 H Electrocardiogram Date: 02/28/24 Atrial fibrillation, rate 96 bpm Left axis deviation Low voltage QRS Possible Anterolateral infarct , age undetermined Abnormal ECG When compared with ECG of 27-FEB-2024 17:14, (unconfirmed) Atrial fibrillation has replaced Wide QRS rhythm Vent. rate has increased BY 50 BPM
--- NOTE | 2024-02-28 09:04 | Cardiology Consultation ---
Date of Consultation February 28, 2024 Assessment & Plan (1) Acute GI bleeding: (2) Symptomatic anemia: (3) Permanent atrial fibrillation: (4) Demand ischemia: (5) Elevated troponin: (6) ASCVD (arteriosclerotic cardiovascular disease): Plan 83-year-old female with history of severe aortic valve stenosis status post October 02, 2023 TAVR (#26 mm Villasenor FABBY S3 Ultra valve) with post procedure left bundle branch block, moderate ASCVD, pulmonary hypertension, and chronic atrial fibrillation admitted. Patient admitted with melena x 3 days duration, likely acute upper GI bleeding. Hemoglobin 5.7 on presentation, status post 2 U pRBC's. INR supratherapeutic, reversed with Vitamin K and Kcentra. Patient initially hypotensive and with heart block/junctional escape, receiving glucagon, calcium gluconate, and low-dose atropine with improvement. Patient is currently on an IV diltiazem infusion at 15 mg/hr with (chronic) atrial fibrillation RVR. High-sensitivity troponin elevated, representing demand ischemia with patient denying symptoms suggestive of an acute coronary syndrome. Recommendations: 1. OK to proceed with EGD from a cardiac standpoint. 2. When able to take PO would gradually reintroduce metoprolol, concurrently weaning diltiazem infusion. 3. Pacemaker implantation likely needed at some point (not urgently) for the Tachy-Dany Syndrome. 4. Resume ASA and Anticoagulation when determined to be safe. I spent a total of 75 minutes on the date of service in preparation, delivery, and documentation of the care provided to this patient excluding any time spent in the performance of separately billed services. This visit was a split-shared visit with the substantive portion of the medical decision making performed by the supervising transport engineer/billing provider. Supervising Physician Co-Signing Physician Notes I have reviewed the advance practitioner's documentation, and I agree with, and take responsibility for the plan of care. 83-year-old female presenting with symptomatic anemia, supratherapeutic INR, hypotension, and junctional bradycardia. Reports melena and episode of coffee- ground emesis occurring intermittently prior to admission. Chronically a nticoagulated with warfarin due to history of permanent atrial fibrillation. Symptoms present for approximately 3 days. Seen examined the bedside in the intensive care unit. Feeling better status post transfusion. Hemodynamically stable. Converted from junctional bradycardia to atrial fibrillation rapid ventricular response in the ICU. Intravenous diltiazem infusing. Patient denies palpitations or chest discomfort. Resting comfortably. PE: VSS. Gen: NAD, AAO x3. Heart: Irregular rhythm, normal S1-S2, 2/6 systolic ejection murmur. Lungs: Clear bilateral, no rales, rhonchi, wheeze. Abdomen: Mild tenderness to palpation. No rebound or guarding. Normal bowel sounds. Extremities: No edema. A/P: Symptomatic anemia due to presumed upper GI bleeding. Junctional bradycardia resolved with treatment of hypovolemic shock. Currently treated with IV diltiazem to maintain adequate rate control in the setting of chronic atrial fibrillation. Initiate treatment with beta-ruchi therapy and wean diltiazem infusion when able. Patient may proceed with EGD. Preliminary review of resting 2D transthoracic echocardiogram demonstrates preserved LV systolic function, normal TAVR function, with otherwise mixed valvular heart disease and moderate to severe pulmonary hypertension. Cardiology will continue to follow patient during hospitalization. I spent a total of 40 minutes on the date of service in preparation, delivery, and documentation of the care provided to this patient, excluding any time spent in the performance of separately billed services. History of Present Illness Reason for Consultation: Bradycardia Requesting Physician: Sunita Attending Physician: Rupa History of Present Illness Ms. Angela Blair is a very pleasant 83-year-old female who was in her usual state of health until Sunday when she began to experience weakness and "just did not feel right."On Sunday she began to have black tarry stools along with intermittent nausea, dry heaves, and decreased appetite with associated decreased oral intake. She continue to take her standard medications without interruption. Due to progressive symptoms patient presented to the [facility] ER on February 27, 2024. H&H were 5.7 and 19. INR was supratherapeutic at 5.6. Patient was notably hypotensive and significantly bradycardic with EKG revealing junctional escape rhythm with marked inferior and anterolateral STT wave changes suggestive of ischemia. In the emergency room patient was given Protonix bolus, 10 mg of vitamin K and Kcentra, 2 units of packed red blood cells, glucagon, calcium gluconate, and 0.5 mg of atropine with eventual recovery of heart rate. After admission to the ICU patient was noted to be in atrial fibrillation with a rapid ventricular response leading to initiation of a diltiazem drip which is currently infusing at 15 mg/hour. Patient is currently n.p.o. with GI consultation pending. Patient denies chest pain/discomfort, palpitations, or unusual shortness of breath. No reported orthopnea or PND. Patient with chronic lower extremity peripheral edema with with increased left greater than right lower extremity peripheral edema noted over the last few days. Dizziness occurs with some positional changes. No syncope. No fevers or chills. Problem list: Severe aortic valve stenosis status post October 02, 2020 for TAVR, receiving a #26 mm Villasenor FABBY S3 ultra valve Left bundle branch block observed post TAVR with follow-up ambulatory EKG in September 2024 revealing atrial fibrillation with an average rate of 87 bpm with rare ventricular ectopy and 5 short runs of ventricular tachycardia/complex ventricular ectopy, asymptomatic. August 10, 2023 coronary angiography revealed moderate diffuse disease involving the left anterior descending coronary artery and left circumflex coronary artery with mild diffuse disease observed in the right coronary artery. 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 Brother with an AZ at 52. Mother was struck by lightning at the age of 21. Sister with CAD and atrial fibrillation. Social History: Non-smoker. No significant alcohol. Retired in June 1996. Allergies Allergy/AdvReac Type Severity Reaction Status Date / Time latex Allergy Intermediate Rash Verified 02/27/24 16:20 [id number] Reductase Allergy Unknown PER Verified 02/27/24 16:20 Inhibitor [facility] soy AdvReac Mild Dizziness Verified 02/27/24 16:20 adhesive AdvReac Unknown PER Verified 02/27/24 16:20 [facility] cat dander AdvReac Unknown PER Verified 02/27/24 16:20 [facility] ezetimibe [From Zetia] AdvReac Unknown PER Verified 02/27/24 16:20 [facility] Home Medications Medication Instructions Recorded Confirmed Type lisinopril 5 mg tablet 5 mg PO QAM 03/28/21 02/27/24 History warfarin 5 mg tablet 5 mg PO DIRECTED 03/28/21 02/27/24 History potassium chloride 10 mEq 10 meq PO DAILY 06/05/21 02/27/24 History tablet,extended release(part/cryst) ipratropium bromide 21 mcg (0.03 2 spray intranasal TID 09/26/21 02/27/24 History %) nasal spray furosemide 20 mg tablet 20 mg PO DAILY 10/01/21 02/27/24 History diltiazem HCl 240 mg 240 mg PO QAM #30 caps 10/11/21 02/27/24 Rx capsule,extended release 24 hr amoxicillin 500 mg capsule 2,000 mg PO DIRECTED PRN 1 HR 02/27/24 02/27/24 History PRIOR TO DENTAL PROCEDURES aspirin 81 mg chewable tablet 81 mg PO QAM 02/27/24 02/27/24 History metoprolol succinate 100 mg 100 mg PO BID 02/27/24 02/27/24 History tablet,extended release 24 hr Patient History Medical History CAD (coronary artery disease) Permanent atrial fibrillation CKD (chronic kidney disease) stage 3, GFR 30-59 ml/min CHAVEZ (nonalcoholic steatohepatitis) Pre-diabetes History of bladder cancer s/op TURBT DU (generalized anxiety disorder) HLD (hyperlipidemia) A-fib HTN (hypertension) Surgical History S/P TAVR (transcatheter aortic valve replacement) History of toe surgery bunion History of hysterectomy with oophorectomy History of esophagogastroduodenoscopy (EGD) History of cardioversion multiple attempts, last in 2017 History of radiofrequency ablation procedure for cardiac arrhythmia Family History Brother Myocardial infarction, Onset Age: 52 Father Myocardial infarction, Onset Age: 52 Sister Coronary heart disease Atrial fibrillation Mother , 21 Lightning Social History Smoking Status: Never smoker Hx Alcohol Use: No Hx Substance Use: No Preferred Language: Pashto Communication Ability: Effective 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 NAD. HENT: Normocephalic. Atraumatic. Eyes: PER. Conjunctiva pink, sclera clear. Neck: Carotid bruits. No JVD. Heart: Irregularly irregular at 80 bpm. Soft systolic ejection murmur. No diastolic murmur. Lungs: Clear to auscultation. Abdomen: +BS. Soft. Nontender. No organomegaly. Extremities: 1+ left greater than right lower extremity peripheral edema. + Varicosities. No clubbing. No cyanosis. Limited neurological examination is without focal deficits. Pulses: radial=2/4, posterior tibial=1/4. Results & Data Vital Signs (Past 12 Hours) Vital Signs Temp Pulse Resp BP Pulse Ox O2 Flow Rate 02/28/24 06:01 37.1 C 88 11 L 94 02/28/24 06:01 122/63 02/28/24 06:00 37.1 C 87 14 94 02/28/24 05:30 105/70 02/28/24 05:30 37.1 C 88 20 95 02/28/24 05:00 117/72 02/28/24 05:00 37.1 C 90 0 L 96 02/28/24 04:30 115/56 L 02/28/24 04:30 37.1 C 87 1 L 97 02/28/24 04:00 121/69 02/28/24 04:00 37.1 C 105 H 16 95 1 02/28/24 03:30 127/74 02/28/24 03:30 37.1 C 96 H 13 95 1 02/28/24 03:00 37.2 C 91 H 17 95 1 02/28/24 03:00 121/65 02/28/24 02:30 115/73 02/28/24 02:30 37.3 C 112 H 18 95 02/28/24 02:00 117/72 02/28/24 02:00 37.3 C 109 H 17 96 2 02/28/24 01:30 131/84 02/28/24 01:30 37.4 C 106 H 17 97 04/11/24 01:00 131/76 02/28/24 01:00 37.4 C 122 H 15 98 02/28/24 00:30 113/77 02/28/24 00:30 37.5 C 111 H 18 90 02/28/24 00:00 104/63 02/28/24 00:00 37.6 C H 120 H 12 94 02/27/24 23:56 120 H 02/27/24 23:30 120/68 02/27/24 23:30 37.6 C H 137 H 14 97 02/27/24 23:00 107/78 02/27/24 23:00 37.6 C H 136 H 19 98 02/27/24 22:49 37.6 C H 128 H 19 99 02/27/24 22:49 121/82 02/27/24 22:30 103/65 02/27/24 22:30 37.6 C H 133 H 14 94 02/27/24 22:09 133 H 103/65 02/27/24 22:00 121/75 02/27/24 22:00 37.6 C H 135 H 14 99 02/27/24 21:54 37.6 C H 152 H 15 100 02/27/24 21:54 134/91 02/27/24 21:54 131 H 134/91 02/27/24 21:40 37.5 C 143 H 18 99 02/27/24 21:30 135/66 02/27/24 21:30 37.5 C 140 H 15 100 02/27/24 21:20 37.5 C 146 H 14 99 02/27/24 21:10 37.5 C 143 H 17 100 Laboratory Results Cardiac Enzymes 02/27/24 02/27/24 02/28/24 Range/Units 15:01 21:46 03:19 AST 47 H 439 H 865 H (13-39) U/L Troponin I High Sens 254.7 H* 402.0 H* D 693.2 H* D (0-14) pg/ml Coagulation 02/27/24 02/27/24 02/28/24 Range/Units 15:01 21:46 03:19 PT 55.3 H 15.8 H 16.7 H (9.0-12.0) Seconds APTT 32 H 24 (21-31) Seconds CBC 02/27/24 02/27/24 02/27/24 Range/Units 15:01 21:46 22:57 WBC 11.63 H 12.14 H (4.8-10.8) K/ul RBC 2.24 L 2.78 L (4.20-5.40) M/uL Hgb 5.7 L* 7.6 L 7.2 L (12.0-16.0) g/dl Hct 19.7 L* 23.2 L 22.2 L (37.0-47.0) % Plt Count 292 121 L D (130-400) K/uL Neut # (Auto) 9.96 H (1.40-6.50) K/uL Lymph # (Auto) 0.59 L (1.20-3.40) K/uL [place] # (Auto) 0.94 H (0.11-0.59) K/uL Eos # (Auto) 0.00 (0.00-0.50) K/uL Baso # (Auto) 0.02 (0.00-0.20) K/uL 02/28/24 02/28/24 Range/Units 03:19 07:34 WBC 11.11 H (4.8-10.8) K/ul RBC 2.67 L (4.20-5.40) M/uL Hgb 7.2 L 7.3 L (12.0-16.0) g/dl Hct 22.4 L 22.0 L (37.0-47.0) % Plt Count 117 L (130-400) K/uL Neut # (Auto) 9.54 H (1.40-6.50) K/uL Lymph # (Auto) 0.57 L (1.20-3.40) K/uL [place] # (Auto) 0.92 H (0.11-0.59) K/uL Eos # (Auto) 0.00 (0.00-0.50) K/uL Baso # (Auto) 0.01 (0.00-0.20) K/uL Comprehensive Metabolic Panel 02/27/24 02/27/24 02/28/24 Range/Units 15:01 21:46 03:19 Sodium 138 137 138 (136-145) mmol/L Potassium 4.4 4.6 5.0 (3.5-5.1) mmol/L Chloride 104 104 105 (98-107) mmol/L Carbon Dioxide 11 L 20 L 27 (21-32) mmol/L BUN 91 H 89 H 82 H (6-23) mg/dl Creatinine 1.47 H 1.48 H 1.47 H (0.6-1.2) mg/dl Glucose 145 H 124 H 115 H (70-99(Fasting)) mg/dl Calcium 8.8 9.9 9.3 (8.6-10.3) mg/dl AST 47 H 439 H 865 H (13-39) U/L ALT 37 377 H 587 H (7-52) U/L Alkaline Phosphatase 48 51 48 (34-104) U/L Total Protein 5.6 L 5.7 L 5.6 L (6.0-8.3) gm/dl Albumin 3.4 3.5 3.4 (3.4-5.0) gm/dl Intake and Output 02/27/24 02/28/24 02/28/24 22:59 06:59 14:59 Intake Total 1483 / 1766.166 283.166 / 1766.166 Output Total 765 / 1295 530 / 1295 Balance 718 / 471.166 -246.834 / 471.166 Intake: IV 291 / 574.166 283.166 / 574.166 Calcium Chloride 10% 1,000 mg 60 / 60 In Dextrose 5% 50 ml @ 240 mls/ hr IV NOW STA Rx#:[id number] Calcium Gluconate 1,000 mg In 60 / 60 60 ml @ 240 mls/hr IV ONE STA Rx#:[id number] PANTOprazole 40 mg In Dextrose 183.333 / 183.333 5% Mini-B 100 ml @ 8 MG/HR 20 mls/hr IV Q5H LIZA Rx#:[id number] PANTOprazole 80 mg In Dextrose 120 / 120 5% 100 ml @ 480 mls/hr IV ONE STA Rx#:[id number] Phytonadione 10 mg In Dextrose 51 / 51 5% 50 ml @ 102 mls/hr IV ONE ONE Rx#:[id number] dilTIAZem HCL 125 mg In 99.833 / 99.833 Dextrose 5% 100 ml @ 15 MG/HR 15 mls/hr IV .[id number] [facility] Rx#: [id number] Oral 0 / 0 0 / 0 Intake (Blood Product) Amt 1192 / 1192 Fresh Frozen Plasma Unit 276 / 276 [id number] Fresh Frozen Plasma Unit 296 / 296 [id number] Packed Cells, Leukoreduced 310 / 310 Unit [id number] Packed Cells, Leukoreduced 310 / 310 Unit [id number] Output: Urine Amount (Catheter) 765 / 1295 530 / 1295 Poon/Indwelling 765 / 1295 530 / 1295 Other: Weight 70.9 kg 72.6 kg 72.6 kg Weight Measurement Method [facility] in [facility] Patient Weight 02/29/24 06:59 Weight 72.6 kg Diagnostic Findings Telemetry: Initially atrial fibrillation with a slow ventricular response then with atrial fibrillation with rapid ventricular response. Short episodes of wide-complex tachycardia. Currently atrial fibrillation in the 80s on diltiazem at 15 mg/hour February 01, 2024 TTE Interpretation Summary (as per Dr. Lemus): There was atrial fibrillation during the examination. The left ventricular cavity size is normal. The LV wall thickness is moderately increased (concentric). The septal motion is abnormal consistent with left bundle branch block. The regional left ventricular wall motion is otherwise normal. The qualitative LV ejection fraction is 60-64% (normal). The left atrium is severely enlarged. The right atrium is severely enlarged. The patient is status post TAVR with Fabby type prosthetic valve. The aortic valve prosthesis systolic gradients are normal for this type prosthesis. Significant aortic valve prosthesis regurgitation is absent. There is focal calcification of the anterior leaflet and chordal structure of the mitral valve. Moderate mitral regurgitation is present. Severe tricuspid regurgitation is present. Severe pulmonary hypertension is present. The estimated pulmonary artery systolic pressure is >60mm Hg.
--- NOTE | 2024-02-28 09:47 | Billing Data ---
Date of Service February 28, 2024 Coding Level of Care Code 53655 CRITICAL CARE
[2024-02-28] MEDS ORDERED: METOPROLOL TARTRATE 1 MG/ML VIAL IV PRN (10:12)
--- OUTSIDE RECORDS SUMMARY | 2024-02-28 10:52 | External Medical Summary | Summary of Care ---
Author Name Unknown Organization [facility] Address [address] [facility] [address] Phone [phone] Care Team Providers Care Aircraft Motor Mechanic Name Role Phone Melania Elliott MD Primary Care Provider + Encounter Details Date Type Department Care Team (Late st Contact Info) Description 02/19/2024 Orders Only General Internal Medicine [facility] [place] [address] [facility] [place] [address] Melania Elliott MD [address] [facility] [place] [address] Allergies Active Allergy Reactions Criticality Noted Date Comments Adhesive Tape 10/20/2016 Cat Dander 12/02/2018 sneezing Soy Allergy Other (Please comment) Low 04/07/2014 dizzy Statins 12/08/2013 Ezetimibe 12/08/2013 documented as of this encounter (statuses as of 02/19/2024) Medications Medication Sig Dispensed Refills Start Date End Date Status Zoster Vac Recomb Adjuvanted 50 MCG/0.5ML Intramuscular Suspension Reconstituted (Shingrix)Indication s:Need for shingles vaccine Inject 0.5 mL into a large muscle now and repeat dose in 60 to 180 days 1 Each 1 12/19/2022 Active Ipratropium [place] 0.03 % Nasal Solution (Atrovent) Administer 2 Sprays into nostril in the morning and 2 Sprays at noon and 2 Sprays before bedtime. 30 mL 12 03/30/2023 Active Furosemide 20 MG Oral Tablet (Lasix) Take 1 Tablet by mouth in the morning. 90 Tablet 3 05/16/2023 Active dilTIAZem HCl ER Coated Beads 240 MG Oral Capsule Extended Release 24 Hour (Cardizem CD)Indications:Parox ysmal atrial tachycardia (HCC),Heart failure, systolic, due to CAD (HCC) Take 1 Capsule by mouth in the morning. 30 Capsule 11 05/30/2023 Active Aspirin 81 MG Oral Tablet Chewable Take 1 Tablet by mouth in the morning. 100 Tablet 3 08/10/2023 Active Amoxicillin 500 MG Oral Capsule (Amoxil) Take 4 capsules 1 hour prior to any dental work 4 Capsule 4 10/19/2023 Active Metoprolol Succinate ER 100 MG Oral Tablet Extended Release 24 Hour (toPROL XL)Indications:Sever e aortic stenosis,History of transcatheter aortic valve replacement (TAVR),LBBB (left bundle branch block),Coronary artery disease involving sioux coronary artery of sioux heart without angina pectoris,Permanent atrial fibrillation (HCC),HTN, goal below 140/90 Take 1 Tablet by mouth in the morning and 1 Tablet before bedtime. 200 Tablet 3 11/09/2023 Active Warfarin Sodium 5 MG Oral Tablet (Coumadin)Indication s:Atrial fibrillation, unspecified type (HCC),Chronic atrial fibrillation (HCC) TAKE 1 OR 2 TABLETS BY MOUTH ONCE DAILY OR DIRECTED 180 Tablet 1 11/20/2023 Active Potassium Chloride ER 10 MEQ Oral Capsule Extended Release TAKE ONE CAPSULE BY MOUTH ONCE DAILY 30 Capsule 5 02/01/2024 Active Lisinopril 5 MG Oral Tablet (Prinivil)Indication s:Heart failure, systolic, due to CAD (HCC) Take 1 Tablet by mouth in the morning. 30 Tablet 11 02/15/2024 Active documented as of this encounter (statuses as of 02/19/2024) Active Problems Problem Noted Date Diagnosed Date Acute on chronic heart failu re with preserved ejection fraction 11/07/2023 Nocturnal hypoxia 10/04/2023 History of transcatheter aortic valve replacemen t (TAVR) 10/03/2023 LBBB (left bundle branch block) 10/03/2023 Nonrheumatic aortic valve stenosis 12/19/2022 Statin intolerance 12/19/2022 Vasomotor rhinitis 02/27/2022 Heart failure, systolic, due to CAD 06/09/2021 Permanent atrial fibrillation 12/16/2020 Thornwaldt's cyst 08/04/2020 DU (generalized anxiety disorder) 12/09/2019 Prediabetes 07/02/2018 Overview: Per Prediabetes protocol #1 - DYSLIPIDEMIA, GOAL LDL BELOW 100 11/04/2009 Overview: Per Lipid Taxonomy. Non-toxic multinodular goiter 09/30/2009 Overview: Multiple thyroid nodules, first found be US screening in 2006 and again noted by CT in early 2008; benign bx 07/2009 Paroxysmal atrial fibrillation 06/21/2009 Persistent atrial fibrillation 02/12/2007 snf current use of anticoagulant therapy 0 02/12/2007 Overview: ICD-10 update of inactive term ADVANCE DIRECTIVE INFORMATION 06/29/2006 Overview: No, Advance Directive brochure given to patient at prior appointment. CHAVEZ Overview: Elevated IVETTE, Normal AMSA. ASCVD (arteriosclerotic cardiovascular disease) Overview: anteroseptal LA by ecg only HTN, goal below 140/90 documented as of this encounter (statuses as of 02/19/2024) Resolved Problems Problem Noted Date Diagnosed Date Resolved Date Stage 3a chronic kidney disease 01/03/2024 01/31/2024 Stage 3a chronic kidney disease 12/19/2022 12/19/2022 Kidney disease, chronic, sta ge III (GFR 30-59 ml/min) 06/08/2020 01/31/2024 Longstanding persistent atrial fibrillation 12/09/2019 12/19/2022 Kidney disease, chronic, sta ge III (GFR 30-59 ml/min) 02/01/2015 10/26/2015 Overview: Per CKD protocol #1 Examination following surgery 10/26/2010 12/09/2019 Anticoagulation management encounter 02/12/2007 12/19/2022 PURE HYPERCHOLESTEROLEM 10/25/200510/19 Overview: Per Lipid Taxonomy. HTN, goal below 140/90 09/19 Paroxysmal atrial tachycardia 12/19/2022 Overview: PAF HTN, goal below 140/90 12/24 Overview: Resolved per Duplicate Protocol #2. HTN, white coat 10/30/2017 HTN, white coat 10/30/2017 documented as of this encounter (statuses as of 02/19/2024) Immunizations Name Administration Dates Next Due COVID-19 mRNA, LNP-s, No Pre serve, 2-Dose Series (Pfizer) 09/27/2021,02/03/2021,01/07/2021 Pneumococcal Conjugate Vacc, 13 Valent (Prevnar) 01/29/2017 Pneumococcal Polysaccharide PPV23 (Pneumovax) 01/17/2007 Season Influenza, Quad, PF, Adjuvanted, 65+ Yrs, IM (FLUAD) 12/16/2020 Seasonal Influenza, PF, 6 M & above, IM , (FluLaval or Fluzone) 11/15/2018 Seasonal Influenza, Quadriva lent Hd (Fluzone Hd) 10/10/2023(Deferred: Patient Refused - pt prefers to wait),12/19/2022,11/10/2021 Seasonal Influenza, Quadriva lent, No Preserve, IM 01/29/2017 Seasonal Influenza, Split, I IV3, With Preserve, Inj 09/30/2008 documented as of this encounter Social History Tobacco Use Types Packs/Day Years Used Date Smoking Tobacco: Never Smokeless Tobacco: Never Alcohol Use Standard Drinks/Week Comments Not Currently 0 (1 standard drink = 0.6 oz pur e alcohol) occas, special occasions PHQ-2 Answer Date Recorded PHQ Adult Total Score 0 12/19/2022 Hunger Vital Sign Answer Date Recorded Worried About Running Out of Food in the Last Ye ar Never true 05/27/2019 Ran Out of Food in the Last Year Never true 05/27/2019 Sex and Gender Information Value Date Recorded Sex Assigned at Female 05/27/2019 9:24 AM EDT Gender Identity Female 05/27/2019 9:24 AM EDT Sexual Orientation Straight 05/27/2019 9: 24 AM EDT Job Start Date Occupation Industry Not on file Not on file Not on file documented as of this encounter Functional Status Functional Status Response Date of Assess ment Do you have serious difficul ty walking or climbing stairs? (5 years old or older) No 10/03/2023 documented as of this encounter Plan of Treatment Upcoming Encounters Date Type Department Care Team (Late st Contact Info) Description 02/29/2024 8:50 AM EDT Laboratory Laboratory, [place] [address] [facility] [phone] [facility] [address] [place] [address] 03/03/2024 6:15 AM EDT Anticoagulation Pharmacy Call Center [phone] [facility] [place] [address] [facility] [address] [facility] [place] [address] 03/19/2024 12:30 PM EDT Office Visit [facility] [place] [address] Noa Beasley IV, MD [address] [place], [place] [phone] 03/25/2024 9:20 AM EDT Office Visit Sleep Disorders [facility] [address] [facility] [place] [phone] Nicole Hill DO [address] [facility] [place] [address] 04/04/2024 8:40 AM EDT Office Visit Otolaryngology [address] [place] [address] Rakel Valerio PA-C [address] [place] [address] 07/10/2024 9:40 AM EDT Office Visit General Internal Medicine [facility] 200 [place] [address] Melania Elliott MD [address] [facility] [place], [place] [address] Health Maintenance Due Date Last Done Comments DTaP,Tdap,and Td Vaccines (1 - Tdap) 1959 Zoster Vaccines (1 of 2) 1988 COVID-19 Vaccine (4 - 2022- season) 2023 09/27/2021, 02/03/2021, 01/07/2021 Depression Screening 12/19/2023 12/19/2022 HbA1c 06/20/2024 06/20/2023, 11/20, 06/09/2022, Additional history exists Influenza Vaccine (FLU shot) (Season Ended) 2024 12/19/2022, 11/10/2021, 12/16/2020, Additional history exists DXA Scan 06/07/2025 06/07/2022, 05/20, 06/02/2019, Additional history exists Albumin/Creatinine Ratio 01/23/2026 023, 05/27/2019, 03/16/2015, Additional history exists Pneumococcal Vaccine: 65+ Years Completed 01/29/2017, 01/17/2007 GARDASIL-HPV IMMUNIZATION SERIES Aged Out No longer eligible based on patient's age to complete this topic Hepatitis B Aged Out No longer eligi ble based on patient's age to complete this topic MENINGOCOCCAL (MENACTRA/MENVEO) Aged Out No longer eligible based on patient's age to complete this topic documented as of this encounter Medical Devices Implanted Type Area Batch Blender Device Identifier Shelf Expiration Date Model / Serial / Lot Valve Fabby 3 Ultra 26mm - [id number] Implanted:Qty: 1 on 10/02/2023 by Nawaf Lorenzana MD at [facility] Ardian [id number] 02/02/2024 [id number] / / documented as of this encounter Procedures Procedure Name Priority Date/Time Associated Diagnosis Comments MAMMOGRAM SCREENING BILATERAL Routine 02/15/2024 documented in this encounter Results * MAMMOGRAM SCREENING BILATERAL (02/15/2024) Anatomical Region Laterality Modality Breast Bilateral Other 02/15/2024 Melania Elliott MD RAD MAMMOGRAPHY documented in this encounter Advance Directives Latest Code Status on File Code Status Date Activated Date Inactivated Comments Full Code 10/02/2023 1:44 PM 10/04/2023 7:25 PM Thi s order reflects the patients wishes and were consensually agreed upon. Question Answer Comments Discussion of Advance Directives occurred with: Patient Code Status History Code Status Date Activated Date Inactivated Comments Full Code 01/06/2009 3:03 PM 01/07/2009 4:32 PM Care Teams Aircraft Motor Mechanic Relationship Specialty Start Date End Date Melania Elliott MD [address] [place] [address], [place] [address] PCP - General 02/10/08 documented as of this encounter
--- OUTSIDE RECORDS SUMMARY | 2024-02-28 10:53 | External Medical Summary | Summary of Care ---
Author Name Unknown Organization [facility] Address [address] [facility] [address] Phone [phone] Care Team Providers Care Lie Detector Operator Name Role Phone Melania Elliott MD Primary Care Provider + Reason for Visit * Reason Onset Date Comments Medication Refill 02/15/2024 Encounter Details Date Type Department Care Team (Late st Contact Info) Description 02/15/2024 Refill Cardiology, [facility] [address] [place] [address] MelanieLuz Maria gallegos CRNP [address] [place] [address] Heart failure, systolic, due to CAD (HCC) Allergies Active Allergy Reactions Criticality Noted Date Comments Adhesive Tape 10/20/2016 Cat Dander 12/02/2018 sneezing Soy Allergy Other (Please comment) Low 04/07/2014 dizzy Statins 12/08/2013 Ezetimibe 12/08/2013 documented as of this encounter (statuses as of 02/15/2024) Medications Medication Sig Dispensed Refills Start Date End Date Status Zoster Vac Recomb Adjuvanted 50 MCG/0.5ML Intramuscular Suspension Reconstituted (Shingrix)Indicatio ns:Need for shingles vaccine Inject 0.5 mL into a large muscle now and repeat dose in 60 to 180 days 1 Each 1 12/19/2022 Active Ipratropium [place] 0.03 % Nasal Solution (Atrovent) Administer 2 Sprays into nostril in the morning and 2 Sprays at noon and 2 Sprays before bedtime. 30 mL 12 03/30/2023 Active Furosemide 20 MG Oral Tablet (Lasix) Take 1 Tablet by mouth in the morning. 90 Tablet 3 05/16/2023 Active dilTIAZem HCl ER Coated Beads 240 MG Oral Capsule Extended Release 24 Hour (Cardizem CD)Indications:Paro xysmal atrial tachycardia (HCC),Heart failure, systolic, due to [...] Oral Tablet Extended Release 24 Hour (toPROL XL)Indications:Margarette re aortic stenosis,History of transcatheter aortic valve replacement (TAVR),LBBB (left bundle branch block),Coronary artery disease involving [place] owing[place] coronary artery of [place] heart without angina pectoris,Permanent atrial fibrillation (HCC),HTN, goal below 140/90 Take 1 Tablet by mouth in the morning and 1 Tablet before bedtime. 200 Tablet 3 11/09/2023 Active Warfarin Sodium 5 MG Oral Tablet (Coumadin)Indicatio ns:Atrial fibrillation, unspecified type (HCC),Chronic atrial fibrillation (HCC) TAKE 1 OR 2 TABLETS BY MOUTH ONCE DAILY OR DIRECTED 180 Tablet 1 11/20/2023 Active Potassium Chloride ER 10 MEQ Oral Capsule Extended Release TAKE ONE CAPSULE BY MOUTH ONCE DAILY 30 Capsule 5 02/01/2024 Active Lisinopril 5 MG Oral Tablet (Prinivil)Indicatio ns:Heart failure, systolic, due to CAD (HCC) Take 1 Tablet by mouth in the morning. 30 Tablet 11 02/15/2024 Active Lisinopril 5 MG Oral Tablet (Prinivil)Indicatio ns:Heart failure, systolic, due to CAD (HCC) Take 1 Tablet by mouth in the morning. 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 CHAVEZ Overview: Elevated IVETTE, Normal AMSA. ASCVD (arteriosclerotic cardiovascular disease) Overview: anteroseptal [place] by ecg only HTN, goal below 140/90 documented as of this encounter (statuses as of 02/15/2024) Resolved Problems Problem Noted Date Diagnosed Date [...] as of this encounter (statuses as of 02/15/2024) Immunizations Name Administration Dates Next Due COVID-19 mRNA, LNP-s, No Pre serve, 2-Dose Series (CoContest) 09/27/2021,02/03/2021,01/07/2021 Pneumococcal Conjugate Vacc, 13 Valent (Prevnar) [...] No 10/03/2023 documented as of this encounter Miscellaneous Notes * Telephone Encounter - Luz Maria Blakely CRNP - 02/15/2024 2:49 PM EDT Signed Prescriptions: Disp Refills Lisinopril 5 MG Oral Tablet (Prinivil) 30 Tab*11 Sig: Take 1 Tablet by mouth in the morning. Authorizing Provider: LUZ MARIA BLAKELY * Telephone Encounter - Ioana Gipson, MED ASSIST - 02/15/2024 2:37 PM EDT Please review this script and authorize. Pending Prescriptions: Disp Refills Lisinopril 5 MG Oral Tablet (Prinivil) 30 Tab*11 Sig: Take 1 Tablet by mouth in the morning. 11/09/2023 03/19/2024 Last date the medication was ordered: 02/12/2023 Pharmacy: [facility] [address] Patient Phone Numbers Labs: Lab Results Component Value Date/Time CREATININE - [facility] 1.4 (H) 12/14/2023 08:14 AM CREATININE - [facility] 1.0 07/01/2020 11:15 AM CREATININE, RAND URINE-MET 113 03/29/2011 08:59 AM CREATININE, RANDOM URINE - [facility] 26 01/23/2023 08:03 AM CREATININE, RANDOM URINE - [facility] 59 05/27/2019 10:18 AM CREATININE-OUTSIDE LAB 0.92 04/20/2015 12:00 AM Lab Results Component Value Date/Time POTASSIUM - [facility] 4.3 12/14/2023 08:14 AM POTASSIUM - [facility] 4.0 07/01/2020 11:15 AM POTASSIUM-OUTSIDE LAB 3.6 04/20/2015 12:00 AM Lab Results Component Value Date/Time TSH - [facility] 2.07 05/27/2019 10:18 AM TSH - [facility] 2.93 05/14/2018 10:26 AM Lab Results Component Value Date/Time LDL CHOLESTEROL (CALCULATED) - [facility] 80 12/12/2022 03:00 PM LDL CHOLESTEROL (CALCULATED) - [facility] 82 06/09/2022 08:50 AM LDL CHOLESTEROL (CALCULATED) - [facility] 90 05/27/2019 10:18 AM LDL CHOLESTEROL (CALCULATED) - [facility] 88 11/13/2018 10:21 AM LDL CHOLESTEROL (DIRECT MEASURE) - [facility] 84 06/20/2023 10:25 AM LDL CHOLESTEROL (DIRECT MEASURE) - [facility] 97 12/09/2019 11:13 AM LDL CHOLESTEROL (DIRECT MEASURE) - [facility] NOT APPLICABLE 05/27/2019 10:18 AM LDL CHOLESTEROL (DIRECT MEASURE) - [facility] NOT APPLICABLE 11/13/2018 10:21 AM LDL CHOLESTEROL (DIRECT MEASURE) - [facility] 87 12/20/2015 10:18 AM Lab Results Component Value Date/Time ALT - [facility] 35 10/01/2023 08:54 AM ALT - [facility] 32 12/09/2019 11:13 AM No components found for: "[id number]" Labs: Lab Results Component Value Date/Time CREAT 1.4 (H) 12/14/2023 08:14 AM CREAT 1.0 07/01/2020 11:15 AM POTASSIUM 4.3 12/14/2023 08:14 AM POTASSIUM 4.0 07/01/2020 11:15 AM TSH 2.07 05/27/2019 10:18 AM LDLCALC 80 12/12/2022 03:00 PM LDLCALC 90 05/27/2019 10:18 AM LDLDIRECT 84 06/20/2023 10:25 AM LDLDIRECT 97 12/09/2019 11:13 AM ALT 35 10/01/2023 08:54 AM ALT 32 12/09/2019 11:13 AM HGBA1C 6.2 (H) 06/20/2023 10:25 AM HGBA1C 6.1 (H) 09/01/2020 09:55 AM documented in this encounter Plan of Treatment Upcoming Encounters Date Type Department Care Team (Late st Contact Info) Description 02/29/2024 8:50 AM EDT Laboratory Laboratory, [place] [address] [place] [phone] [facility] [address] [place] [address] 03/03/2024 6:15 AM EDT Anticoagulation Pharmacy Call Center [address] [place] [address] [facility], [facility] [address] [place] [address] 03/19/2024 12:30 PM EDT Office Visit Cardiology, [facility] 132 [place] [address] Noa Beasley IV, MD [address] [place] [address] 03/25/2024 9:20 AM EDT Office Visit [facility] Disorders [facility] [phone] Nicole [facility] DO [address] [facility] [address] 04/04/2024 8:40 AM EDT Office Visit Otolaryngology [address] [place] [address] [place] [phone] Rakel Valerio PA-C [address] [place] [address] 07/10/2024 9:40 AM EDT Office Visit General Internal Medicine [facility] [place] [address] [place] [address] Melania Elliott MD [address] [facility] [address] Health Maintenance Due Date Last Done Comments DTaP,Tdap,and Td Vaccines (1 - Tdap) 1959 Zoster Vaccines (1 of 2) 1988 COVID-19 Vaccine (4 - season) 2023 09/27/2021, 02/03/2021, 01/07/2021 Influenza Vaccine (FLU shot) (#1) 2023 12/19/2022, 11/10/2021, 12/16/2020, Additional history exists Depression Screening 12/19/2023 12/19/2022 HbA1c 06/20/2024 06/20/2023, 11/20, 06/09/2022, Additional history exists DXA Scan 06/07/2025 06/07/2022, [...] this encounter Medical Devices Implanted Type Area Radiator Fitter Device Identifier Shelf Expiration Date Model / Serial / Lot Valve Fabby 3 Ultra 26mm - [id number] Implanted:Qty: 1 on 10/02/2023 by Nawaf Lorenzana MD at [facility] [employer] [id number] 02/02/2024 [id number] / / documented as of this encounter Visit Diagnoses Diagnosis Heart failure, systolic, due to CAD (HCC) Unspecified systolic heart failure documented in this encounter Advance Directives Latest [...] 3:03 PM 01/07/2009 4:32 PM Care Teams Lie Detector Operator Relationship Specialty Start Date End Date Melania Elliott MD 200 [facility] [address] PCP - General 02/10/08 documented as of this encounter
[2024-02-28 12:30] LABS: Hematocrit (blood only) 21.8 % (37.0-47.0); Hemoglobin 7.2 g/dl (12.0-16.0)
--- NOTE | 2024-02-28 12:47 | Gastrointestinal Consultation ---
Date of Consultation February 28, 2024 Assessment & Plan (1) Acute GI bleeding: Pleasant woman with gi bleed and iatrogenic coagulopathy. I plan EGD. Procedure and risks discussed, she agrees. She could have ulcer disease but often we see people with iatrogenic coagulopathy bleed from normal mucosa. History of Present Illness Reason for Consultation: melena Attending Physician: Cami Goode MD History of Present Illness 83 year old female who came in to the ER with three days melenic stools. She denies issues with abdominal pain. She said she wanted to vomit but couldn't. She denies heartburn or indigestion. She denies NSAIDs. She is on warfarin and came in with INR about 6. Documented in the chart is a brown formed stool. INR today about 1.5 Allergies Allergy/AdvReac Type Severity Reaction Status Date / Time latex Allergy Intermediate Rash Verified 02/27/24 16:20 [id number] Reductase Allergy Unknown PER Verified 02/27/24 16:20 Inhibitor [facility] soy AdvReac Mild Dizziness Verified 02/27/24 16:20 adhesive AdvReac Unknown PER Verified 02/27/24 16:20 [facility] cat dander AdvReac Unknown PER Verified 02/27/24 16:20 [facility] ezetimibe [From Zetia] AdvReac Unknown PER Verified 02/27/24 16:20 [facility] Home Medications Medication Instructions Recorded Confirmed Type lisinopril 5 mg tablet 5 mg PO QAM 03/28/21 02/27/24 History warfarin 5 mg tablet 5 mg PO DIRECTED 03/28/21 02/27/24 History potassium chloride 10 mEq 10 meq PO DAILY 06/05/21 02/27/24 History tablet,extended release(part/cryst) ipratropium bromide 21 mcg (0.03 2 spray intranasal TID 09/26/21 02/27/24 History %) nasal spray furosemide 20 mg tablet 20 mg PO DAILY 10/01/21 02/27/24 History diltiazem HCl 240 mg 240 mg PO QAM #30 caps 10/11/21 02/27/24 Rx capsule,extended release 24 hr amoxicillin 500 mg capsule 2,000 mg PO DIRECTED PRN 1 HR 02/27/24 02/27/24 History PRIOR TO DENTAL PROCEDURES aspirin 81 mg chewable tablet 81 mg PO QAM 02/27/24 02/27/24 History metoprolol succinate 100 mg 100 mg PO BID 02/27/24 02/27/24 History tablet,extended release 24 hr Patient History Medical History CAD (coronary artery disease) Permanent atrial fibrillation CKD (chronic kidney disease) stage 3, GFR 30-59 ml/min CHAVEZ (nonalcoholic steatohepatitis) Pre-diabetes History of bladder cancer s/op TURBT DU (generalized anxiety disorder) HLD (hyperlipidemia) A-fib HTN (hypertension) Surgical History S/P TAVR (transcatheter aortic valve replacement) History of toe surgery bunion History of hysterectomy with oophorectomy History of esophagogastroduodenoscopy (EGD) History of cardioversion multiple attempts, last in 2017 History of radiofrequency ablation procedure for cardiac arrhythmia Family History Brother Myocardial infarction, Onset Age: 52 Father Myocardial infarction, Onset Age: 52 Sister Coronary heart disease Atrial fibrillation Mother , 21 [place] Social History Smoking Status: Never smoker Hx Alcohol Use: No Hx Substance Use: No Preferred Language: Sami Communication Ability: Effective Yarder Puncher Required: No Beliefs That Will Affect Care: None marital status: Current Living Situation: Spouse current occupational status: retired Other Information That Helps Us Care for You: No Feels Safe at Home: Yes Safety Concerns: Feels Safe At This Time Assistive Devices: Cane and Walker Review of Systems Review of Systems: All systems reviewed & are unremarkable except as noted in HPI & below Physical Exam Constitutional: WD/WN, vitals as above Neck: trachea midline, no thyromegaly Respiratory: normal respiratory effort, lungs clear to auscultation Cardiovascular: RRR, no murmur, no edema Gastrointestinal (Abdomen): normal bowel sounds, soft, nontender, no hepatosplenomegaly Results & Data Vital Signs (Past 12 Hours) Vital Signs Temp Pulse Resp BP Pulse Ox O2 Del Method O2 Flow Rate 02/28/24 12:35 37.1 C 113 H 20 127/73 92 Nasal Cannula 2 04/11/24 11:00 37.1 C 89 18 95 02/28/24 11:00 125/69 02/28/24 10:00 131/71 02/28/24 10:00 37.1 C 89 15 92 02/28/24 09:46 124/61 02/28/24 09:46 37.1 C 76 12 96 02/28/24 09:00 37.0 C 79 16 95 02/28/24 09:00 124/68 02/28/24 08:00 37.1 C 90 16 98 02/28/24 08:00 123/69 02/28/24 08:00 Nasal Cannula 3 02/28/24 07:30 125/64 02/28/24 07:30 37.2 C 90 4 L 91 02/28/24 07:00 121/66 02/28/24 07:00 37.2 C 92 H 14 93 02/28/24 06:01 37.1 C 88 11 L 94 02/28/24 06:01 122/63 02/28/24 06:00 37.1 C 87 14 94 02/28/24 05:30 105/70 02/28/24 05:30 37.1 C 88 20 95 02/28/24 05:00 117/72 02/28/24 05:00 37.1 C 90 0 L 96 02/28/24 04:30 115/56 L 02/28/24 04:30 37.1 C 87 1 L 97 02/28/24 04:00 121/69 02/28/24 04:00 37.1 C 105 H 16 95 1 02/28/24 03:30 127/74 02/28/24 03:30 37.1 C 96 H 13 95 1 02/28/24 03:00 37.2 C 91 H 17 95 1 02/28/24 03:00 121/65 02/28/24 02:30 115/73 02/28/24 02:30 37.3 C 112 H 18 95 02/28/24 02:00 117/72 02/28/24 02:00 37.3 C 109 H 17 96 2 02/28/24 01:30 131/84 02/28/24 01:30 37.4 C 106 H 17 97 02/28/24 01:00 131/76 02/28/24 01:00 37.4 C 122 H 15 98 Laboratory Results 02/28/24 02/28/24 02/28/24 Range/Units 12:07 11:37 07:34 WBC (4.8-10.8) K/ul RBC (4.20-5.40) M/uL Hgb 7.2 L 7.3 L (12.0-16.0) g/dl POC Hgb (12.0-16.0) g/dl Hct 21.8 L 22.0 L (37.0-47.0) % POC Hct (37-47) % MCV (80.0-100.0) fL MCH (25.0-34.0) pg MCHC (32.0-36.0) g/dL RDW Std Deviation (36.4-46.3) fL RDW Coeff of Serg (11.5-14.5) % Plt Count (130-400) K/uL MPV (9.4-12.4) fL Immature Gran % (Auto) % Neut % (Auto) % Lymph % (Auto) % Cecil % (Auto) % Eos % (Auto) % Baso % (Auto) % Neut # (Auto) (1.40-6.50) K/uL Lymph # (Auto) (1.20-3.40) K/uL Cecil # (Auto) (0.11-0.59) K/uL Eos # (Auto) (0.00-0.50) K/uL Baso # (Auto) (0.00-0.20) K/uL Immature Gran # (Auto) (0.01-0.20) K/uL Platelet Estimate (Normal) Polychromasia Hypochromasia Echinocytes PT (9.0-12.0) Seconds POC INR (0.9-1.1) INR (0.9-1.1) APTT (21-31) Seconds PTT Ratio Fibrinogen (184-400) mg/dl VBG pH (7.36-7.41) VBG pCO2 (38-50) mmHg VBG pO2 mmHg VBG HCO3 mmol/L VBG O2 Saturation % VBG Base Excess mEq/L POC Sodium (135-144) mmol/L Sodium (136-145) mmol/L POC Potassium (3.3-5.0) mmol/L Potassium (3.5-5.1) mmol/L POC Chloride (101-112) mmol/L Chloride (98-107) mmol/L Carbon Dioxide (21-32) mmol/L POC Total CO2 (24-31) mmol/L Anion Gap (3-11) POC Anion Gap (16-25) mmol/L POC BUN (7-18) mg/dl BUN (6-23) mg/dl Creatinine (0.6-1.2) mg/dl POC Creatinine (0.6-1.3) mg/dl Est Cr Clr Drug Dosing Est GFR ( Amer) ml/min Est GFR (Non-Af Amer) ml/min BUN/Creatinine Ratio (10-20) Glucose (70-99(Fasting)) mg/dl POC Glucose 108 H (70-99) mg/dl POC Glucose (other) (70-99) mg/dl Lactate (0.4-2.0) mmol/L Calcium (8.6-10.3) mg/dl POC Ioniz Calcium Patty (1.12-1.32) mmol/l Phosphorus (2.5-4.9) mg/dl Magnesium (1.7-2.4) mg/dl Iron (35-150) mcg/dl TIBC (250-450) mcg/dl Unsaturated IBC (155-355) mcg/dl Transferrin % Sat (15-50) % Total Bilirubin (0.2-1.0) mg/dl AST (13-39) U/L ALT (7-52) U/L Alkaline Phosphatase (34-104) U/L Troponin I High Sens (0-14) pg/ml Total Protein (6.0-8.3) gm/dl Albumin (3.4-5.0) gm/dl Globulin (2.5-4.0) gm/dl Albumin/Globulin Ratio (0.9-2) Nasal Screen MRSA (PCR) (Negative) Blood Type Blood Type Recheck Antibody Screen Crossmatch 02/28/24 02/28/24 02/27/24 Range/Units 07:14 03:19 22:57 WBC 11.11 H (4.8-10.8) K/ul RBC 2.67 L (4.20-5.40) M/uL Hgb 7.2 L 7.2 L (12.0-16.0) g/dl POC Hgb (12.0-16.0) g/dl Hct 22.4 L 22.2 L (37.0-47.0) % POC Hct (37-47) % MCV 83.9 (80.0-100.0) fL MCH 27.0 (25.0-34.0) pg MCHC 32.1 (32.0-36.0) g/dL RDW Std Deviation 47.2 H (36.4-46.3) fL RDW Coeff of Serg 15.8 H (11.5-14.5) % Plt Count 117 L (130-400) K/uL MPV 10.8 (9.4-12.4) fL Immature Gran % (Auto) 0.6 % Neut % (Auto) 85.9 % Lymph % (Auto) 5.1 % Cecil % (Auto) 8.3 % Eos % (Auto) 0.0 % Baso % (Auto) 0.1 % Neut # (Auto) 9.54 H (1.40-6.50) K/uL Lymph # (Auto) 0.57 L (1.20-3.40) K/uL Cecil # (Auto) 0.92 H (0.11-0.59) K/uL Eos # (Auto) 0.00 (0.00-0.50) K/uL Baso # (Auto) 0.01 (0.00-0.20) K/uL Immature Gran # (Auto) 0.07 (0.01-0.20) K/uL Platelet Estimate (Normal) Polychromasia 1+ Hypochromasia Echinocytes PT 16.7 H (9.0-12.0) Seconds POC INR (0.9-1.1) INR 1.6 H (0.9-1.1) APTT 24 (21-31) Seconds PTT Ratio 0.9 Fibrinogen (184-400) mg/dl VBG pH (7.36-7.41) VBG pCO2 (38-50) mmHg VBG pO2 mmHg VBG HCO3 mmol/L VBG O2 Saturation % VBG Base Excess mEq/L POC Sodium (135-144) mmol/L Sodium 138 (136-145) mmol/L POC Potassium (3.3-5.0) mmol/L Potassium 5.0 (3.5-5.1) mmol/L POC Chloride (101-112) mmol/L Chloride 105 (98-107) mmol/L Carbon Dioxide 27 (21-32) mmol/L POC Total CO2 (24-31) mmol/L Anion Gap 6 (3-11) POC Anion Gap (16-25) mmol/L POC BUN (7-18) mg/dl BUN 82 H (6-23) mg/dl Creatinine 1.47 H (0.6-1.2) mg/dl POC Creatinine (0.6-1.3) mg/dl Est Cr Clr Drug Dosing 27.0 Est GFR ( Amer) 37.3 ml/min Est GFR (Non-Af Amer) 32.2 ml/min BUN/Creatinine Ratio 55.8 H (10-20) Glucose 115 H (70-99(Fasting)) mg/dl POC Glucose 116 H (70-99) mg/dl POC Glucose (other) (70-99) mg/dl Lactate 1.9 3.5 H* (0.4-2.0) mmol/L Calcium 9.3 (8.6-10.3) mg/dl POC Ioniz Calcium Patty (1.12-1.32) mmol/l Phosphorus 5.0 H (2.5-4.9) mg/dl Magnesium 1.9 (1.7-2.4) mg/dl Iron (35-150) mcg/dl TIBC (250-450) mcg/dl Unsaturated IBC (155-355) mcg/dl Transferrin % Sat (15-50) % Total Bilirubin 1.6 H (0.2-1.0) mg/dl AST 865 H (13-39) U/L ALT 587 H (7-52) U/L Alkaline Phosphatase 48 (34-104) U/L Troponin I High Sens 693.2 H* D (0-14) pg/ml Total Protein 5.6 L (6.0-8.3) gm/dl Albumin 3.4 (3.4-5.0) gm/dl Globulin 2.2 L (2.5-4.0) gm/dl Albumin/Globulin Ratio 1.5 (0.9-2) Nasal Screen MRSA (PCR) (Negative) Blood Type Blood Type Recheck Antibody Screen Crossmatch 02/27/24 02/27/24 02/27/24 Range/Units 21:46 21:03 18:19 WBC 12.14 H (4.8-10.8) K/ul RBC 2.78 L (4.20-5.40) M/uL Hgb 7.6 L (12.0-16.0) g/dl POC Hgb (12.0-16.0) g/dl Hct 23.2 L (37.0-47.0) % POC Hct (37-47) % MCV 83.5 D (80.0-100.0) fL MCH 27.3 (25.0-34.0) pg MCHC 32.8 D (32.0-36.0) g/dL RDW Std Deviation 47.4 H (36.4-46.3) fL RDW Coeff of Serg 15.7 H (11.5-14.5) % Plt Count 121 L D (130-400) K/uL MPV 10.3 (9.4-12.4) fL Immature Gran % (Auto) % Neut % (Auto) % Lymph % (Auto) % Cecil % (Auto) % Eos % (Auto) % Baso % (Auto) % Neut # (Auto) (1.40-6.50) K/uL Lymph # (Auto) (1.20-3.40) K/uL Cecil # (Auto) (0.11-0.59) K/uL Eos # (Auto) (0.00-0.50) K/uL Baso # (Auto) (0.00-0.20) K/uL Immature Gran # (Auto) (0.01-0.20) K/uL Platelet Estimate Decreased L (Normal) Polychromasia Hypochromasia Echinocytes PT 15.8 H (9.0-12.0) Seconds POC INR (0.9-1.1) INR 1.5 H (0.9-1.1) APTT (21-31) Seconds PTT Ratio Fibrinogen 230 (184-400) mg/dl VBG pH 7.35 L (7.36-7.41) VBG pCO2 38 (38-50) mmHg VBG pO2 41 mmHg VBG HCO3 21 mmol/L VBG O2 Saturation 65.9 % VBG Base Excess -4.2 mEq/L POC Sodium (135-144) mmol/L Sodium 137 (136-145) mmol/L POC Potassium (3.3-5.0) mmol/L Potassium 4.6 (3.5-5.1) mmol/L POC Chloride (101-112) mmol/L Chloride 104 (98-107) mmol/L Carbon Dioxide 20 L (21-32) mmol/L POC Total CO2 (24-31) mmol/L Anion Gap 13 H (3-11) POC Anion Gap (16-25) mmol/L POC BUN (7-18) mg/dl BUN 89 H (6-23) mg/dl Creatinine 1.48 H (0.6-1.2) mg/dl POC Creatinine (0.6-1.3) mg/dl Est Cr Clr Drug Dosing 26.8 Est GFR ( Amer) 37.0 ml/min Est GFR (Non-Af Amer) 32.0 ml/min BUN/Creatinine Ratio 60.1 H (10-20) Glucose 124 H (70-99(Fasting)) mg/dl POC Glucose 136 H 132 H (70-99) mg/dl POC Glucose (other) (70-99) mg/dl Lactate 5.3 H* (0.4-2.0) mmol/L Calcium 9.9 (8.6-10.3) mg/dl POC Ioniz Calcium Patty (1.12-1.32) mmol/l Phosphorus (2.5-4.9) mg/dl Magnesium (1.7-2.4) mg/dl Iron (35-150) mcg/dl TIBC (250-450) mcg/dl Unsaturated IBC (155-355) mcg/dl Transferrin % Sat (15-50) % Total Bilirubin 1.8 H D (0.2-1.0) mg/dl AST 439 H (13-39) U/L ALT 377 H (7-52) U/L Alkaline Phosphatase 51 (34-104) U/L Troponin I High Sens 402.0 H* D (0-14) pg/ml Total Protein 5.7 L (6.0-8.3) gm/dl Albumin 3.5 (3.4-5.0) gm/dl Globulin 2.2 L (2.5-4.0) gm/dl Albumin/Globulin Ratio 1.6 (0.9-2) Nasal Screen MRSA (PCR) (Negative) Blood Type Blood Type Recheck Antibody Screen Crossmatch 02/27/24 02/27/24 02/27/24 Range/Units 18:15 16:29 16:08 WBC (4.8-10.8) K/ul RBC (4.20-5.40) M/uL Hgb (12.0-16.0) g/dl POC Hgb (12.0-16.0) g/dl Hct (37.0-47.0) % POC Hct (37-47) % MCV (80.0-100.0) fL MCH (25.0-34.0) pg MCHC (32.0-36.0) g/dL RDW Std Deviation (36.4-46.3) fL RDW Coeff of Serg (11.5-14.5) % Plt Count (130-400) K/uL MPV (9.4-12.4) fL Immature Gran % (Auto) % Neut % (Auto) % Lymph % (Auto) % Cecil % (Auto) % Eos % (Auto) % Baso % (Auto) % Neut # (Auto) (1.40-6.50) K/uL Lymph # (Auto) (1.20-3.40) K/uL Cecil # (Auto) (0.11-0.59) K/uL Eos # (Auto) (0.00-0.50) K/uL Baso # (Auto) (0.00-0.20) K/uL Immature Gran # (Auto) (0.01-0.20) K/uL Platelet Estimate (Normal) Polychromasia Hypochromasia Echinocytes PT (9.0-12.0) Seconds POC INR (0.9-1.1) INR (0.9-1.1) APTT (21-31) Seconds PTT Ratio Fibrinogen (184-400) mg/dl VBG pH (7.36-7.41) VBG pCO2 (38-50) mmHg VBG pO2 mmHg VBG HCO3 mmol/L VBG O2 Saturation % VBG Base Excess mEq/L POC Sodium (135-144) mmol/L Sodium (136-145) mmol/L POC Potassium (3.3-5.0) mmol/L Potassium (3.5-5.1) mmol/L POC Chloride (101-112) mmol/L Chloride (98-107) mmol/L Carbon Dioxide (21-32) mmol/L POC Total CO2 (24-31) mmol/L Anion Gap (3-11) POC Anion Gap (16-25) mmol/L POC BUN (7-18) mg/dl BUN (6-23) mg/dl Creatinine (0.6-1.2) mg/dl POC Creatinine (0.6-1.3) mg/dl Est Cr Clr Drug Dosing Est GFR ( Amer) ml/min Est GFR (Non-Af Amer) ml/min BUN/Creatinine Ratio (10-20) Glucose (70-99(Fasting)) mg/dl POC Glucose 146 H (70-99) mg/dl POC Glucose (other) (70-99) mg/dl Lactate (0.4-2.0) mmol/L Calcium (8.6-10.3) mg/dl POC Ioniz Calcium Patty (1.12-1.32) mmol/l Phosphorus (2.5-4.9) mg/dl Magnesium (1.7-2.4) mg/dl Iron (35-150) mcg/dl TIBC (250-450) mcg/dl Unsaturated IBC (155-355) mcg/dl Transferrin % Sat (15-50) % Total Bilirubin (0.2-1.0) mg/dl AST (13-39) U/L ALT (7-52) U/L Alkaline Phosphatase (34-104) U/L Troponin I High Sens (0-14) pg/ml Total Protein (6.0-8.3) gm/dl Albumin (3.4-5.0) gm/dl Globulin (2.5-4.0) gm/dl Albumin/Globulin Ratio (0.9-2) Nasal Screen MRSA (PCR) Negative (Negative) Blood Type Blood Type Recheck A Positive Antibody Screen Crossmatch 02/27/24 02/27/24 02/27/24 Range/Units 15:53 15:11 15:01 WBC 11.63 H (4.8-10.8) K/ul RBC 2.24 L (4.20-5.40) M/uL Hgb 5.7 L* (12.0-16.0) g/dl POC Hgb 6.1 L* (12.0-16.0) g/dl Hct 19.7 L* (37.0-47.0) % POC Hct 18 L* (37-47) % MCV 87.9 (80.0-100.0) fL MCH 25.4 (25.0-34.0) pg MCHC 28.9 L (32.0-36.0) g/dL RDW Std Deviation 57.0 H (36.4-46.3) fL RDW Coeff of Serg 17.9 H (11.5-14.5) % Plt Count 292 (130-400) K/uL MPV 10.8 (9.4-12.4) fL Immature Gran % (Auto) 1.0 % Neut % (Auto) 85.6 % Lymph % (Auto) 5.1 % Cecil % (Auto) 8.1 % Eos % (Auto) 0.0 % Baso % (Auto) 0.2 % Neut # (Auto) 9.96 H (1.40-6.50) K/uL Lymph # (Auto) 0.59 L (1.20-3.40) K/uL Cecil # (Auto) 0.94 H (0.11-0.59) K/uL Eos # (Auto) 0.00 (0.00-0.50) K/uL Baso # (Auto) 0.02 (0.00-0.20) K/uL Immature Gran # (Auto) 0.12 (0.01-0.20) K/uL Platelet Estimate (Normal) Polychromasia 1+ Hypochromasia Present Echinocytes 2+ PT 55.3 H (9.0-12.0) Seconds POC INR 5.8 H* (0.9-1.1) INR 5.6 H* (0.9-1.1) APTT 32 H (21-31) Seconds PTT Ratio 1.1 Fibrinogen (184-400) mg/dl VBG pH (7.36-7.41) VBG pCO2 (38-50) mmHg VBG pO2 mmHg VBG HCO3 mmol/L VBG O2 Saturation % VBG Base Excess mEq/L POC Sodium 135 (135-144) mmol/L Sodium 138 (136-145) mmol/L POC Potassium 4.3 (3.3-5.0) mmol/L Potassium 4.4 (3.5-5.1) mmol/L POC Chloride 103 (101-112) mmol/L Chloride 104 (98-107) mmol/L Carbon Dioxide 11 L (21-32) mmol/L POC Total CO2 12 L (24-31) mmol/L Anion Gap 23 H (3-11) POC Anion Gap 25.0 (16-25) mmol/L POC BUN 96 H (7-18) mg/dl BUN 91 H (6-23) mg/dl Creatinine 1.47 H (0.6-1.2) mg/dl POC Creatinine 1.6 H (0.6-1.3) mg/dl Est Cr Clr Drug Dosing Not Reportable Est GFR ( Amer) 37.3 ml/min Est GFR (Non-Af Amer) 32.2 ml/min BUN/Creatinine Ratio 61.9 H (10-20) Glucose 145 H (70-99(Fasting)) mg/dl POC Glucose (70-99) mg/dl POC Glucose (other) 135 H (70-99) mg/dl Lactate (0.4-2.0) mmol/L Calcium 8.8 (8.6-10.3) mg/dl POC Ioniz Calcium Patty 1.12 (1.12-1.32) mmol/l Phosphorus (2.5-4.9) mg/dl Magnesium 2.0 (1.7-2.4) mg/dl Iron 26 L (35-150) mcg/dl TIBC 374 (250-450) mcg/dl Unsaturated IBC 348 (155-355) mcg/dl Transferrin % Sat 7 L (15-50) % Total Bilirubin 0.8 (0.2-1.0) mg/dl AST 47 H (13-39) U/L ALT 37 (7-52) U/L Alkaline Phosphatase 48 (34-104) U/L Troponin I High Sens 254.7 H* (0-14) pg/ml Total Protein 5.6 L (6.0-8.3) gm/dl Albumin 3.4 (3.4-5.0) gm/dl Globulin 2.2 L (2.5-4.0) gm/dl Albumin/Globulin Ratio 1.5 (0.9-2) Nasal Screen MRSA (PCR) (Negative) Blood Type A Positive Blood Type Recheck Antibody Screen NEGATIVE Crossmatch See Detail
--- NOTE | 2024-02-28 13:02 | GI REPORT ---
Patient Name: Angela Blair Procedure Date: 02/28/2024 12:10 PM Date of : 1940 Admit Type: Inpatient Age: 83 Gender: Female Attending MD: Mary Lou Wells MD, Procedure: Upper GI endoscopy Providers: Mary Lou Wells MD Referring MD: Cami Goode Md Indications: Melena Medicines: Propofol per Anesthesia Complications: No immediate complications. Estimated Blood Loss: Estimated blood loss: none. Procedure: Pre-Anesthesia Assessment: - Prior to the procedure, a History and Physical was performed, and patient medications and allergies were reviewed. The patient's tolerance of previous anesthesia was also reviewed. The risks and benefits of the procedure and the sedation options and risks were discussed with the patient. All questions were answered, and informed consent was obtained. Prior Anticoagulants: The patient has taken no anticoagulant or antiplatelet agents. ASA Grade Assessment: III - A patient with severe systemic disease. After reviewing the risks and benefits, the patient was deemed in satisfactory condition to undergo the procedure. After obtaining informed consent, the endoscope was passed under direct vision. Throughout the procedure, the patient's blood pressure, pulse, and oxygen saturations were monitored continuously. The Endoscope was introduced through the mouth, and advanced to the second part of duodenum. The upper GI endoscopy was accomplished without difficulty. The patient tolerated the procedure well. Findings: The esophagus was normal. One non-bleeding cratered gastric ulcer with no stigmata of bleeding was found in the prepyloric region of the stomach. The lesion was 4 mm in largest dimension. The exam of the stomach was otherwise normal. The examined duodenum was normal. Impression: - Normal esophagus. - Non-bleeding gastric ulcer with no stigmata of bleeding. - Normal examined duodenum. - No specimens collected. Recommendation: - Return patient to ICU for ongoing care. Mary Lou Wells MD 02/28/2024 1:02:34 PM Note Initiated On: 02/28/2024 12:10 PM Number of Addenda: 0 I attest to the content of the Intraoperative Record and orders documented therein, exceptions below {[id number]}
--- NOTE | 2024-02-28 13:22 | Anesthesiology Progress Note ---
Date of Service February 28, 2024 Anesthesia Post Procedure Vital Signs Vital Signs: Temp Pulse Resp BP Pulse Ox O2 Del Method O2 Flow Rate 02/28/24 13:21 102 H 16 118/65 93 Nasal Cannula 2 02/28/24 13:05 104 H 16 113/70 93 Oxymask 2 02/28/24 12:35 98.8 F 113 H 20 127/73 92 Nasal Cannula 2 02/28/24 11:00 98.8 F 89 18 95 02/28/24 11:00 125/69 02/28/24 10:00 131/71 02/28/24 10:00 98.8 F 89 15 92 02/28/24 09:46 124/61 02/28/24 09:46 98.8 F 76 12 96 02/28/24 09:00 98.6 F 79 16 95 02/28/24 09:00 124/68 02/28/24 08:00 98.8 F 90 16 98 02/28/24 08:00 123/69 02/28/24 08:00 Nasal Cannula 3 02/28/24 07:30 125/64 02/28/24 07:30 99.0 F 90 4 L 91 02/28/24 07:00 121/66 02/28/24 07:00 99.0 F 92 H 14 93 02/28/24 06:01 98.8 F 88 11 L 94 02/28/24 06:01 122/63 02/28/24 06:00 98.8 F 87 14 94 02/28/24 05:30 105/70 02/28/24 05:30 98.8 F 88 20 95 02/28/24 05:00 117/72 02/28/24 05:00 98.8 F 90 0 L 96 02/28/24 04:30 115/56 L 02/28/24 04:30 98.8 F 87 1 L 97 02/28/24 04:00 121/69 02/28/24 04:00 98.8 F 105 H 16 95 1 02/28/24 03:30 127/74 02/28/24 03:30 98.8 F 96 H 13 95 1 02/28/24 03:00 99.0 F 91 H 17 95 1 02/28/24 03:00 121/65 02/28/24 02:30 115/73 02/28/24 02:30 99.1 F 112 H 18 95 02/28/24 02:00 117/72 02/28/24 02:00 99.1 F 109 H 17 96 2 02/28/24 01:30 131/84 02/28/24 01:30 99.3 F 106 H 17 97 02/28/24 01:00 131/76 02/28/24 01:00 99.3 F 122 H 15 98 02/28/24 00:30 113/77 02/28/24 00:30 99.5 F 111 H 18 90 02/28/24 00:00 104/63 02/28/24 00:00 99.7 F H 120 H 12 94 02/27/24 23:56 120 H 02/27/24 23:30 120/68 02/27/24 23:30 99.7 F H 137 H 14 97 02/27/24 23:00 107/78 02/27/24 23:00 99.7 F H 136 H 19 98 02/27/24 22:49 99.7 F H 128 H 19 99 02/27/24 22:49 121/82 02/27/24 22:30 103/65 02/27/24 22:30 99.7 F H 133 H 14 94 02/27/24 22:09 133 H 103/65 02/27/24 22:00 121/75 02/27/24 22:00 99.7 F H 135 H 14 99 02/27/24 21:54 99.7 F H 152 H 15 100 02/27/24 21:54 134/91 02/27/24 21:54 131 H 134/91 02/27/24 21:40 99.5 F 143 H 18 99 02/27/24 21:30 135/66 02/27/24 21:30 99.5 F 140 H 15 100 02/27/24 21:20 99.5 F 146 H 14 99 02/27/24 21:10 99.5 F 143 H 17 100 02/27/24 21:00 131/91 02/27/24 21:00 99.3 F 144 H 14 100 02/27/24 20:56 99.3 F 137 H 12 100 02/27/24 20:56 118/84 02/27/24 20:50 99.3 F 121 H 13 98 02/27/24 20:45 132/78 02/27/24 20:45 99.3 F 106 H 20 96 02/27/24 20:40 99.3 F 135 H 15 100 02/27/24 20:30 136/83 02/27/24 20:30 99.1 F 128 H 17 99 02/27/24 20:15 119/88 02/27/24 20:15 99.1 F 98 H 16 97 02/27/24 20:00 144/92 H 02/27/24 20:00 98.8 F 139 H 17 100 02/27/24 19:45 Nasal Cannula 4 02/27/24 19:42 98.6 F 101 H 14 133/84 98 4 02/27/24 19:30 98.4 F 86 15 100 02/27/24 19:30 133/84 02/27/24 19:15 151/63 H 02/27/24 19:15 98.2 F 48 L 17 100 02/27/24 19:06 483 H 02/27/24 19:00 98.1 F 48 L 18 100 02/27/24 18:45 97.9 F 53 L 22 100 02/27/24 18:33 97.7 F 02/27/24 18:30 97.5 F L 45 L 21 97 02/27/24 18:29 Nasal Cannula 02/27/24 18:20 97.5 F L 45 L 20 100 Nasal Cannula 02/27/24 18:18 97.3 F L 50 L 17 100 Nasal Cannula 02/27/24 18:18 100/58 L 02/27/24 18:10 98 Nasal Cannula 02/27/24 18:08 Room Air 02/27/24 18:00 99/63 L 02/27/24 18:00 96 Nasal Cannula 02/27/24 17:56 97.2 F L 42 L 26 H 118/37 L 97 4 02/27/24 17:55 96 Nasal Cannula 02/27/24 17:40 26 H 118/37 L 97 Nasal Cannula 02/27/24 17:33 136/55 L 02/27/24 17:33 54 L 19 100 02/27/24 17:30 99 02/27/24 17:28 43 L 20 80/63 L 96 02/27/24 17:21 80/63 L 02/27/24 17:21 96 02/27/24 17:20 96 02/27/24 17:18 97.2 F L 44 L 28 H 80/63 L 98 4 02/27/24 17:10 97 02/27/24 17:03 97.0 F L 52 L 30 H 115/74 100 4 02/27/24 17:02 115/47 L 02/27/24 17:02 49 L 18 100 02/27/24 17:00 98/76 L 02/27/24 17:00 99 02/27/24 17:00 70 19 99 02/27/24 16:51 64 23 99 02/27/24 16:51 154/55 H 02/27/24 16:50 97 02/27/24 16:49 149/62 H 02/27/24 16:49 96 02/27/24 16:48 95.2 F L 49 L 18 149/62 H 100 4 02/27/24 16:45 125/73 02/27/24 16:45 54 L 20 94 02/27/24 16:40 38 L 19 100 02/27/24 16:33 41 L 19 100 02/27/24 16:33 78/27 L 02/27/24 16:31 42 L 94 Room Air 02/27/24 16:30 54 L 16 100 02/27/24 16:25 41 L 18 100 02/27/24 16:25 98/69 L 02/27/24 16:24 42 L 18 100 02/27/24 16:24 96/69 L 02/27/24 16:21 41 L 20 93 02/27/24 16:21 96/39 L 02/27/24 16:20 41 L 18 96 02/27/24 16:10 17 95 02/27/24 16:04 98/46 L 02/27/24 16:04 50 L 21 02/27/24 16:00 99 02/27/24 15:50 91/44 L 02/27/24 15:50 51 L 21 98 02/27/24 15:49 54 L 02/27/24 15:42 41 L 21 99 02/27/24 15:10 40 L 18 86 L 02/27/24 15:00 42 L 21 73 L 02/27/24 14:55 43 L 22 90 02/27/24 14:42 97.7 F 74 20 112/63 98 Transfer of Care Handoff Completed per policy Notes Mental Status: alert / awake / arousable and participated in evaluation Patient Amnestic to Procedure: Yes Nausea / Vomiting: adequately controlled Pain: adequately controlled Airway Patency, RR, SpO2: stable & adequate BP & HR: stable & adequate Hydration State: stable & adequate Anesthetic Complications: no major complications apparent and Pt Satisfied with anesthetic care
--- NOTE | 2024-02-28 13:30 | Communication Note ---
Date of Service: February 28, 2024 Discussed findings with patient. Would treat with PPI indefinitely. I am going off service tomorrow. Please call GI boom conveyor operator if GI needed
[2024-02-28] MEDS: PROPOFOL IV EMULSION 10 MG/ML 20 ML VIAL IV ONE (14:55)
[2024-02-28] MEDS: SODIUM CHLORIDE 0.9% 500 ML IV SCH (14:55)
[2024-02-28] MEDS: LIDOCAINE 2% 2 ML VIAL/AMP(20MG/ML) INFIL ONE (14:55)
--- NOTE | 2024-02-28 15:09 | Hospitalist Progress Note ---
Date of Service February 28, 2024 Assessment & Plan (1) Acute GI bleeding: (2) Melena: (3) Supratherapeutic INR: (4) Anemia: (5) Hypotension: Plan: 83 year old female with PMH aortic stenosis s/p TAVR 09/2023, permanent atrial fibrillation anticoagulated on Coumadin, LBBB, Nonobstructive CAD on cath 07/2023, HTN, dyslipidemia, CHAVEZ, nocturnal hypoxia presented to ER with c/o melena x 3 days. In ER, she was found to be significantly bradycardic and hypotensive. Rectal exam with dark black stool. Labs with significant anemia with H/H: 5.7/19 and INR: 5.6. She was given Protonix bolus, Vitamin K 10mg IV, KCentra. Typed and cross PRBC. However patient continued hypotension so uncrossed blood being transfused and FFP ordered. She was also given glucagon, calcium gluconate and atropine. Was started on a PPI drip. She was admitted to the ICU. Got 2 PRBC and 2 FFP Continue to hold aspirin, warfarin Was evaluated by GI and had EGD today. EGD noted normal esophagus, 1 nonbleeding cratered gastric ulcer with no stigmata of bleeding in the prepyloric region of the stomach, lesion was 4 mm in largest diameter. Exam of the stomach was otherwise normal. Examined duodenum was normal. Discussed with GI Dr. Wells via TT who recommends switching to p.o. PPI twice daily going forward Monitor hemoglobin and keep above 7 (6) Elevated troponin: Plan: Troponin: 254->>693 Likely demand ischemia Echocardiogram noted EF of 55 to 60%, moderate concentric LVH, mildly dilated LV, normal LV SF, severe biatrial enlargement, status post TAVR, severe mitral annular calcification, moderate MR, moderate to severe TR, estimated PASP of 59 (7) Aortic stenosis: Plan: S/P TAVR 10/02/2023 [place] [facility] [place] (8) Symptomatic bradycardia: (9) Permanent atrial fibrillation: Plan: On presentation, patient had hypotension and junctional bradycardia. Converted from junctional bradycardia to A-fib with rapid ventricular rate in ICU. Cardiology evaluation and recommendation appreciated. On Cardizem. Was anticoagulated on Coumadin at home, currently held due to bleeding as above. Plan to reintroduce metoprolol and wean Cardizem drip per cardiology recommendations. (10) CAD (coronary artery disease): Plan: History nonobstructive CAD on preop TAVR cath 08/10/2023 Aspirin on hold due to acute GI bleed (11) HTN (hypertension): Plan: Home antihypertensives held as above (12) HLD (hyperlipidemia): Plan: History of statin intolerance DVT Prophylaxis SCDs Full Code I spent a total of 50 minutes coordinating, documenting and providing care for this patient excluding time spent in performance of separately billed services Admission and Anticipated Discharge Date Admission Date: February 27, 2024 Subjective Patient seen and examined this afternoon. Had EGD earlier today. Reports at this time. Denies any dizziness, headache, abdominal pain, nausea Denies chest pain, cough, palpitation or shortness of breath Reports feeling tired. Physical Exam Constitutional: + well hydrated; no acute distress Elderly woman Eyes: PERRL, conjunctivae normal, anicteric sclerae ENMT: external ear and nose normal, oropharynx normal Respiratory: normal respiratory effort, lungs clear to auscultation Cardiovascular: Rate/Rhythm: + tachycardic and + irregularly irregular S1-S2 Gastrointestinal (Abdomen): normal bowel sounds, soft, nontender, no hepatosplenomegaly Musculoskeletal: +pedal edema Neurologic: PERRL, EOMI, accommodation nl, no face palsy, no dysarthria Psychiatric: Alert, Euthymic affect Results & Data Results & Data Vital Signs (Past 12 Hours) Vital Signs Temp Pulse Resp BP Pulse Ox O2 Del Method O2 Flow Rate 02/28/24 13:34 102 H 16 121/54 L 92 Nasal Cannula 2 02/28/24 13:21 102 H 16 118/65 93 Nasal Cannula 2 02/28/24 13:05 104 H 16 113/70 93 Oxymask 2 02/28/24 12:35 37.1 C 113 H 20 127/73 92 Nasal Cannula 2 02/28/24 11:00 37.1 C 89 18 95 02/28/24 11:00 125/69 02/28/24 10:00 131/71 02/28/24 10:00 37.1 C 89 15 92 02/28/24 09:46 124/61 02/28/24 09:46 37.1 C 76 12 96 02/28/24 09:00 37.0 C 79 16 95 02/28/24 09:00 124/68 02/28/24 08:00 37.1 C 90 16 98 02/28/24 08:00 123/69 02/28/24 08:00 Nasal Cannula 3 02/28/24 07:30 125/64 02/28/24 07:30 37.2 C 90 4 L 91 02/28/24 07:00 121/66 02/28/24 07:00 37.2 C 92 H 14 93 02/28/24 06:01 37.1 C 88 11 L 94 02/28/24 06:01 122/63 02/28/24 06:00 37.1 C 87 14 94 02/28/24 05:30 105/70 02/28/24 05:30 37.1 C 88 20 95 02/28/24 05:00 117/72 02/28/24 05:00 37.1 C 90 0 L 96 02/28/24 04:30 115/56 L 02/28/24 04:30 37.1 C 87 1 L 97 02/28/24 04:00 121/69 02/28/24 04:00 37.1 C 105 H 16 95 1 02/28/24 03:30 127/74 02/28/24 03:30 37.1 C 96 H 13 95 1 Laboratory Results Abnormal lab results 02/27/24 02/27/24 02/27/24 Range/Units 15:01 15:53 16:29 WBC 11.63 H (4.8-10.8) K/ul RBC 2.24 L (4.20-5.40) M/uL Hgb 5.7 L* (12.0-16.0) g/dl Hct 19.7 L* (37.0-47.0) % MCHC 28.9 L (32.0-36.0) g/dL RDW Std Deviation 57.0 H (36.4-46.3) fL RDW Coeff of Serg 17.9 H (11.5-14.5) % Plt Count (130-400) K/uL Neut # (Auto) 9.96 H (1.40-6.50) K/uL Lymph # (Auto) 0.59 L (1.20-3.40) K/uL [place] # (Auto) 0.94 H (0.11-0.59) K/uL Platelet Estimate (Normal) PT 55.3 H (9.0-12.0) Seconds POC INR 5.8 H* (0.9-1.1) INR 5.6 H* (0.9-1.1) APTT 32 H (21-31) Seconds VBG pH (7.36-7.41) Carbon Dioxide 11 L (21-32) mmol/L Anion Gap 23 H (3-11) BUN 91 H (6-23) mg/dl Creatinine 1.47 H (0.6-1.2) mg/dl BUN/Creatinine Ratio 61.9 H (10-20) Glucose 145 H (70-99(Fasting)) mg/dl POC Glucose 146 H (70-99) mg/dl Lactate (0.4-2.0) mmol/L Phosphorus (2.5-4.9) mg/dl Iron 26 L (35-150) mcg/dl Transferrin % Sat 7 L (15-50) % Total Bilirubin (0.2-1.0) mg/dl AST 47 H (13-39) U/L ALT (7-52) U/L Troponin I High Sens 254.7 H* (0-14) pg/ml Total Protein 5.6 L (6.0-8.3) gm/dl Globulin 2.2 L (2.5-4.0) gm/dl Crossmatch See Detail 02/27/24 02/27/24 02/27/24 Range/Units 18:19 21:03 21:46 WBC 12.14 H (4.8-10.8) K/ul RBC 2.78 L (4.20-5.40) M/uL Hgb 7.6 L (12.0-16.0) g/dl Hct 23.2 L (37.0-47.0) % MCHC (32.0-36.0) g/dL RDW Std Deviation 47.4 H (36.4-46.3) fL RDW Coeff of Serg 15.7 H (11.5-14.5) % Plt Count 121 L D (130-400) K/uL Neut # (Auto) (1.40-6.50) K/uL Lymph # (Auto) (1.20-3.40) K/uL [place] # (Auto) (0.11-0.59) K/uL Platelet Estimate Decreased L (Normal) PT 15.8 H (9.0-12.0) Seconds POC INR (0.9-1.1) INR 1.5 H (0.9-1.1) APTT (21-31) Seconds VBG pH 7.35 L (7.36-7.41) Carbon Dioxide 20 L (21-32) mmol/L Anion Gap 13 H (3-11) BUN 89 H (6-23) mg/dl Creatinine 1.48 H (0.6-1.2) mg/dl BUN/Creatinine Ratio 60.1 H (10-20) Glucose 124 H (70-99(Fasting)) mg/dl POC Glucose 132 H 136 H (70-99) mg/dl Lactate 5.3 H* (0.4-2.0) mmol/L Phosphorus (2.5-4.9) mg/dl Iron (35-150) mcg/dl Transferrin % Sat (15-50) % Total Bilirubin 1.8 H D (0.2-1.0) mg/dl AST 439 H (13-39) U/L ALT 377 H (7-52) U/L Troponin I High Sens 402.0 H* D (0-14) pg/ml Total Protein 5.7 L (6.0-8.3) gm/dl Globulin 2.2 L (2.5-4.0) gm/dl Crossmatch 02/27/24 02/28/24 02/28/24 Range/Units 22:57 03:19 07:14 WBC 11.11 H (4.8-10.8) K/ul RBC 2.67 L (4.20-5.40) M/uL Hgb 7.2 L 7.2 L (12.0-16.0) g/dl Hct 22.2 L 22.4 L (37.0-47.0) % MCHC (32.0-36.0) g/dL RDW Std Deviation 47.2 H (36.4-46.3) fL RDW Coeff of Serg 15.8 H (11.5-14.5) % Plt Count 117 L (130-400) K/uL Neut # (Auto) 9.54 H (1.40-6.50) K/uL Lymph # (Auto) 0.57 L (1.20-3.40) K/uL [place] # (Auto) 0.92 H (0.11-0.59) K/uL Platelet Estimate (Normal) PT 16.7 H (9.0-12.0) Seconds POC INR (0.9-1.1) INR 1.6 H (0.9-1.1) APTT (21-31) Seconds VBG pH (7.36-7.41) Carbon Dioxide (21-32) mmol/L Anion Gap (3-11) BUN 82 H (6-23) mg/dl Creatinine 1.47 H (0.6-1.2) mg/dl BUN/Creatinine Ratio 55.8 H (10-20) Glucose 115 H (70-99(Fasting)) mg/dl POC Glucose 116 H (70-99) mg/dl Lactate 3.5 H* (0.4-2.0) mmol/L Phosphorus 5.0 H (2.5-4.9) mg/dl Iron (35-150) mcg/dl Transferrin % Sat (15-50) % Total Bilirubin 1.6 H (0.2-1.0) mg/dl AST 865 H (13-39) U/L ALT 587 H (7-52) U/L Troponin I High Sens 693.2 H* D (0-14) pg/ml Total Protein 5.6 L (6.0-8.3) gm/dl Globulin 2.2 L (2.5-4.0) gm/dl Crossmatch 02/28/24 02/28/24 02/28/24 Range/Units 07:34 11:37 12:07 WBC (4.8-10.8) K/ul RBC (4.20-5.40) M/uL Hgb 7.3 L 7.2 L (12.0-16.0) g/dl Hct 22.0 L 21.8 L (37.0-47.0) % MCHC (32.0-36.0) g/dL RDW Std Deviation (36.4-46.3) fL RDW Coeff of Serg (11.5-14.5) % Plt Count (130-400) K/uL Neut # (Auto) (1.40-6.50) K/uL Lymph # (Auto) (1.20-3.40) K/uL [place] # (Auto) (0.11-0.59) K/uL Platelet Estimate (Normal) PT (9.0-12.0) Seconds POC INR (0.9-1.1) INR (0.9-1.1) APTT (21-31) Seconds VBG pH (7.36-7.41) Carbon Dioxide (21-32) mmol/L Anion Gap (3-11) BUN (6-23) mg/dl Creatinine (0.6-1.2) mg/dl BUN/Creatinine Ratio (10-20) Glucose (70-99(Fasting)) mg/dl POC Glucose 108 H (70-99) mg/dl Lactate (0.4-2.0) mmol/L Phosphorus (2.5-4.9) mg/dl Iron (35-150) mcg/dl Transferrin % Sat (15-50) % Total Bilirubin (0.2-1.0) mg/dl AST (13-39) U/L ALT (7-52) U/L Troponin I High Sens (0-14) pg/ml Total Protein (6.0-8.3) gm/dl Globulin (2.5-4.0) gm/dl Crossmatch
[2024-02-28 18:15] LABS: Hematocrit (blood only) 23.5 % (37.0-47.0); Hemoglobin 7.7 g/dl (12.0-16.0)
[2024-02-28] MEDS: MAGNESIUM SULFATE / D5W 1 GM/100 ML BAG IV SCH (18:21)
[2024-02-28] MEDS: PANTOprazole 40 MG TAB PO SCH (20:18)
[2024-02-29 07:07] LABS: Basophils # (auto) 0.02 K/uL (0.00-0.20); Basophils % (auto) 0.3 %; Eosinophils # (auto) 0.02 K/uL (0.00-0.50); Eosinophils % (auto) 0.3 %; Hematocrit (blood only) 23.9 % (37.0-47.0); Hemoglobin 7.4 g/dl (12.0-16.0); Immature Granulocytes # (auto) 0.05 K/uL (0.01-0.20); Immature Granulocytes % (auto) 0.7 %; Lymphocytes # (auto) 0.34 K/uL (1.20-3.40); Lymphocytes % (auto) 4.6 %; Mean Corpuscular Hemoglobin 26.7 pg (25.0-34.0); Mean Corpuscular Volume 86.3 fL (80.0-100.0); Monocytes # (auto) 0.63 K/uL (0.11-0.59); Monocytes % (auto) 8.6 %; Neutrophils % (auto) 85.5 %; Platelet Count 106 K/uL (130-400); RDW Coefficient of Variation 16.6 % (11.5-14.5); RDW Standard Deviation 50.7 fL (36.4-46.3); Red Blood Count 2.77 M/uL (4.20-5.40); White Blood Count 7.36 K/ul (4.8-10.8)
[2024-02-29 07:36] LABS: INR 1.2 (0.9-1.1); Partial Thromboplastin Ratio 0.9; Partial Thromboplastin Time 25 Seconds (21-31); Prothrombin Time 13.5 Seconds (9.0-12.0)
[2024-02-29 08:01] LABS: Albumin Globulin Ratio 1.5 (0.9-2); Albumin Level 3.2 gm/dl (3.4-5.0); BUN Creatinine Ratio 48.3 (10-20); Bilirubin,Total 1.3 mg/dl (0.2-1.0); Calcium 8.7 mg/dl (8.6-10.3); Creatinine Clr Calc Pharmacy 34.9 ml/min; Est GFR (African American) 49.7 ml/min; Est GFR (Non-African American) 42.9 ml/min; Globulin 2.2 gm/dl (2.5-4.0); Magnesium 2.1 mg/dl (1.7-2.4); Phosphorus 3.2 mg/dl (2.5-4.9); Potassium 4.1 mmol/L (3.5-5.1); Total Protein 5.4 gm/dl (6.0-8.3)
[2024-02-29 08:18] LABS: Polychromasia 1+
[2024-02-29] MEDS: METOPROLOL TARTRATE 100 MG TAB PO SCH (09:04)
[2024-02-29] MEDS: dilTIAZem HCL 240 MG CAPCR PO SCH (10:04)
--- NOTE | 2024-02-29 11:22 | Hospitalist Progress Note ---
Date of Service February 29, 2024 Assessment & Plan (1) Acute GI bleeding: (2) Melena: (3) Supratherapeutic INR: (4) Anemia: (5) Hypotension: Plan: 83 year old female with PMH aortic stenosis s/p TAVR 09/2023, permanent atrial fibrillation anticoagulated on Coumadin, LBBB, Nonobstructive CAD on cath 07/2023, HTN, dyslipidemia, CHAVEZ, nocturnal hypoxia presented to ER with c/o melena x 3 days. In ER, she was found to be significantly bradycardic and hypotensive. Rectal exam with dark black stool. Labs with significant anemia with H/H: 5.7/19 and INR: 5.6. She was given Protonix bolus, Vitamin K 10mg IV, KCentra. Typed and cross PRBC. However patient continued hypotension so uncrossed blood being transfused and FFP ordered. She was also given glucagon, calcium gluconate and atropine. Was started on a PPI drip. She was admitted to the ICU. Got 2 PRBC and 2 FFP Continue to hold aspirin, warfarin Was evaluated by GI and had EGD on 02/28/24 EGD noted normal esophagus, 1 nonbleeding cratered gastric ulcer with no stigmata of bleeding in the prepyloric region of the stomach, lesion was 4 mm in largest diameter. Exam of the stomach was otherwise normal. Examined duodenum was normal. Hb remains stable Currently on PO PPI BID (6) Elevated troponin: Plan: Troponin: 254->>693 Likely demand ischemia Echocardiogram noted EF of 55 to 60%, moderate concentric LVH, mildly dilated LV, normal LV SF, severe biatrial enlargement, status post TAVR, severe mitral annular calcification, moderate MR, moderate to severe TR, estimated PASP of 59 (7) Aortic stenosis: Plan: S/P TAVR 10/02/2023 at [facility] [place] (8) Symptomatic bradycardia: (9) Permanent atrial fibrillation: Plan: On presentation, patient had hypotension and junctional bradycardia. Converted from junctional bradycardia to A-fib with rapid ventricular rate in ICU. Cardiology evaluation and recommendation appreciated. Got Cardizem IV initially, now off Was anticoagulated on Coumadin at home, currently on hold Resumed BB with metoprolol tartarate and home cardizem this morning Will monitor (10) CAD (coronary artery disease): Plan: History nonobstructive CAD on preop TAVR cath 08/10/2023 Aspirin on hold due to acute GI bleed Plan to resume if remains stable and ok with GI (11) HTN (hypertension): Plan: Home antihypertensives held as above (12) HLD (hyperlipidemia): Plan: History of statin intolerance DVT Prophylaxis SCDs Full Code PT/OT eval Remove jones Wean off oxygen I spent a total of 50 minutes coordinating, documenting and providing care for this patient excluding time spent in performance of separately billed services Admission and Anticipated Discharge Date Admission Date: February 27, 2024 Subjective Patient seen and examined Reports feeling better today. Reports dry cough. Denies any shortness of breath, palpitation or chest pain Denies any nausea, vomiting, diarrhea. Denies any fevers or chills. Physical Exam Constitutional: + well hydrated; no acute distress Eyes: PERRL, conjunctivae normal, anicteric sclerae ENMT: external ear and nose normal, oropharynx normal Respiratory: normal respiratory effort, lungs clear to auscultation Cardiovascular: Rate/Rhythm: + tachycardic and + irregularly irregular S1-S2 Gastrointestinal (Abdomen): normal bowel sounds, soft, nontender, no hepatosplenomegaly Musculoskeletal: No pedal edema Neurologic: PERRL, EOMI, accommodation nl, no face palsy, no dysarthria Psychiatric: A+Ox3, euthymic affect Genitourinary: Jones in situ Results & Data Results & Data Vital Signs (Past 12 Hours) Vital Signs Temp Pulse Pulse Resp BP Pulse Ox O2 Del Method 02/29/24 07:11 Oxymask 02/29/24 07:11 119 H 02/29/24 02:33 36.4 C L 123 H 20 102/72 96 Oxymask O2 Flow Rate 02/29/24 07:11 3 02/29/24 07:11 02/29/24 02:33 1 Laboratory Results Abnormal lab results 02/28/24 02/28/24 02/29/24 Range/Units 16:24 18:03 06:13 RBC 2.77 L (4.20-5.40) M/uL Hgb 7.7 L 7.4 L (12.0-16.0) g/dl Hct 23.5 L 23.9 L (37.0-47.0) % MCHC 31.0 L (32.0-36.0) g/dL RDW Std Deviation 50.7 H (36.4-46.3) fL RDW Coeff of Serg 16.6 H (11.5-14.5) % Plt Count 106 L (130-400) K/uL Lymph # (Auto) 0.34 L (1.20-3.40) K/uL [place] # (Auto) 0.63 H (0.11-0.59) K/uL PT 13.5 H (9.0-12.0) Seconds INR 1.2 H (0.9-1.1) BUN 56 H D (6-23) mg/dl BUN/Creatinine Ratio 48.3 H (10-20) POC Glucose 102 H (70-99) mg/dl Total Bilirubin 1.3 H (0.2-1.0) mg/dl AST 525 H (13-39) U/L ALT 514 H (7-52) U/L Total Protein 5.4 L (6.0-8.3) gm/dl Albumin 3.2 L (3.4-5.0) gm/dl Globulin 2.2 L (2.5-4.0) gm/dl
--- NOTE | 2024-02-29 12:16 | Cardiology Progress Note ---
Date of Service February 29, 2024 Assessment & Plan (1) Acute GI bleeding: (2) Symptomatic anemia: (3) Permanent atrial fibrillation: (4) Demand ischemia: (5) Elevated troponin: (6) ASCVD (arteriosclerotic cardiovascular disease): Plan 83-year-old female with history of severe aortic valve stenosis status post October 02, 2023 TAVR (#26 mm [place] GENA S3 Ultra valve) with post procedure left bundle branch block, moderate ASCVD, pulmonary hypertension, and chronic atrial fibrillation admitted with melena x 3 days duration. Hemoglobin 5.7 on presentation, receiving 2 U pRBC's without difficulty. INR supratherapeutic at 5.6 on presentation, reversed with Vitamin K and Kcentra. Patient initially hypotensive with junctional bradycardia resolving with treatment of hypovolemic shock. High-sensitivity troponin elevated, representing demand ischemia with patient denying symptoms suggestive of an acute coronary syndrome. February 28, 2024 EGD revealing a nonbleeding cratered gastric ulcer with no stigmata of bleeding. PPI therapy recommended indefinitely. No documented recommendations from GI regarding resumption of anticoagulation Recommendations: Agree with resumption of beta-ruchi therapy and diltiazem. Transition to metoprolol succinate prior to discharge. 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 Please resume ASA and Anticoagulation when determined to be safe. I spent a total of 33 minutes on the date of service in preparation, delivery, and documentation of the care provided to this patient excluding any time spent in the performance of separately billed services. This visit was a split-shared visit with the substantive portion of the medical decision making performed by the supervising cloth shrinking machine operator helper/billing provider. Admission and Anticipated Discharge Date Admission Date: February 27, 2024 Supervising Physician Co-Signing Physician Notes I have reviewed the advance practitioner's documentation, and I agree with, and take responsibility for the plan of care. 83-year-old female presenting with symptomatic anemia, supratherapeutic INR, hypotension, and junctional bradycardia. Reports melena and episode of coffee- ground emesis occurring intermittently prior to admission. Chronically anticoagulated with warfarin due to history of permanent atrial fibrillation. Symptoms present for approximately 3 days. Seen examined the bedside in the intensive care unit. Feeling better status post transfusion. Hemodynamically stable. Converted from junctional bradycardia to atrial fibrillation rapid ventricular response in the ICU. Intravenous diltiazem infusing. Patient denies palpitations or chest discomfort. Resting comfortably. PE: VSS. Gen: NAD, AAO x3. Heart: Irregular rhythm, normal S1-S2, 2/6 systolic ejection murmur. Lungs: Clear bilateral, no rales, rhonchi, wheeze. Abdomen: Mild tenderness to palpation. No rebound or guarding. Normal bowel sounds. Extremities: No edema. A/P: Symptomatic anemia due to presumed upper GI bleeding. EGD with evidence of cratered ulcer. Hemoglobin stable. Junctional bradycardia resolved with treatment of hypovolemic shock. Metoprolol and diltiazem restarted. Resume antiplatelet anticoagulation when deemed safe. I spent a total of 25 minutes on the date of service in preparation, delivery, and documentation of the care provided to this patient, excluding any time spent in the performance of separately billed services. Subjective Patient seen and examined. Chart, medications, and telemetry reviewed. Status post February 28, 2024 EGD revealing a nonbleeding cratered gastric ulcer with no stigmata of bleeding. PPI therapy recommended indefinitely. No documented recommendations from GI regarding resumption of anticoagulation. Feeling better overall. No chest pain. No difficulty breathing. Telemetry: Atrial fibrillation with a rapid ventricular response, heart rates predominantly between 100 and 150 bpm. Beta-ruchi therapy resumed this morning in the form of metoprolol tartrate. Diltiazem administered just prior to my evaluation Review of Systems Review of Systems: Complete review of systems is otherwise as stated above, negative, or noncontributory Physical Exam Physical Exam: General: A&Ox3. NAD. HENT: Normocephalic. Atraumatic. Eyes: PER. Conjunctiva pink, sclera clear. Neck: Carotid bruits. No JVD. Heart: Irregularly irregular at 110 bpm. Soft systolic ejection murmur. No diastolic murmur. Lungs: Clear to auscultation. Abdomen: +BS. Soft. Nontender. No organomegaly. Extremities: Minimal edema. Varicosities. No clubbing. No cyanosis. Limited neurological examination is without focal deficits. Pulses: radial=2/4, posterior tibial=1/4. Results & Data Vital Signs (Past 12 Hours) Vital Signs Temp Pulse Pulse Resp BP Pulse Ox O2 Del Method 02/29/24 11:30 36.7 C 115 H 20 103/61 98 Nasal Cannula 02/29/24 07:11 Oxymask 02/29/24 07:11 119 H 02/29/24 02:33 36.4 C L 123 H 20 102/72 96 Oxymask O2 Flow Rate 02/29/24 11:30 3 02/29/24 07:11 3 02/29/24 07:11 02/29/24 02:33 1 Laboratory Results Cardiac Enzymes 02/29/24 Range/Units 06:13 AST 525 H (13-39) U/L Coagulation 02/29/24 Range/Units 06:13 PT 13.5 H (9.0-12.0) Seconds APTT 25 (21-31) Seconds CBC 02/28/24 02/28/24 02/29/24 Range/Units 12:07 18:03 06:13 WBC 7.36 (4.8-10.8) K/ul RBC 2.77 L (4.20-5.40) M/uL Hgb 7.2 L 7.7 L 7.4 L (12.0-16.0) g/dl Hct 21.8 L 23.5 L 23.9 L (37.0-47.0) % Plt Count 106 L (130-400) K/uL Neut # (Auto) 6.30 (1.40-6.50) K/uL Lymph # (Auto) 0.34 L (1.20-3.40) K/uL [place] # (Auto) 0.63 H (0.11-0.59) K/uL Eos # (Auto) 0.02 (0.00-0.50) K/uL Baso # (Auto) 0.02 (0.00-0.20) K/uL Comprehensive Metabolic Panel 02/29/24 Range/Units 06:13 Sodium 140 (136-145) mmol/L Potassium 4.1 (3.5-5.1) mmol/L Chloride 107 (98-107) mmol/L Carbon Dioxide 27 (21-32) mmol/L BUN 56 H D (6-23) mg/dl Creatinine 1.16 D (0.6-1.2) mg/dl Glucose 82 (70-99(Fasting)) mg/dl Calcium 8.7 (8.6-10.3) mg/dl AST 525 H (13-39) U/L ALT 514 H (7-52) U/L Alkaline Phosphatase 48 (34-104) U/L Total Protein 5.4 L (6.0-8.3) gm/dl Albumin 3.2 L (3.4-5.0) gm/dl Intake and Output 02/28/24 02/29/24 02/29/24 22:59 06:59 14:59 Intake Total 1152.667 / 2490.751 200 / 2490.751 1000 / 1000 Output Total 550 / 1400 400 / 1400 Balance 602.667 / 1090.751 -200 / 5720.981 0261 / 1000 Intake: IV 1002.667 / 2140.751 1000 / 1000 PANTOprazole 40 mg In Dextrose 100 / 194.667 5% Mini-B 100 ml @ 8 MG/HR 20 mls/hr IV Q5H [facility] Rx#:[id number] Plasma-Lyte A 1,000 ml @ 80 mls 902.667 / 9381.592 0149 / 1000 /hr IV .[id number] [facility]ZA Rx#: [id number] dilTIAZem HCL 125 mg In 0 / 52.750 Dextrose 5% 100 ml @ 0 MG/HR IV .Q0M [facility]ZA Rx#:[id number] Oral 150 / 350 200 / 350 Output: Urine 200 / 200 Urine Amount (Catheter) 350 / 1200 400 / 1200 Poon/Indwelling 350 / 1200 400 / 1200 Other: Weight 74 kg Weight Measurement Method Built in [facility]
[2024-02-29] MEDS: SODIUM CHLORIDE 0.9% 500 ML IV SCH (14:56)
[2024-02-29] MEDS: SODIUM CHLORIDE 0.9% 500 ML IV ONE (14:56)
--- NOTE | 2024-02-29 21:35 | Electrocardiogram Report ---
Test Reason : Blood Pressure : / mmHG Vent. Rate : 049 BPM Atrial Rate : 234 BPM P-R Int : 000 ms QRS Dur : 126 ms QT Int : 606 ms P-R-T Axes : 000 037 233 degrees QTc Int : 547 ms Junctional bradycardia Right bundle branch block Possible Septal infarct (cited on or before 21-APR-2004) T wave abnormality, consider anterolateral ischemia Abnormal ECG When compared with ECG of 09-OCT-2021 14:43, Junctional bradycardia has replaced Atrial fibrillation Right bundle branch block is now Present Questionable change in initial forces of Anterior leads Confirmed by Jeyson Penaloza ([id number]) on 02/29/2024 9:35:50 PM Referred By: REFERRED SELF Confirmed By:Jeyson Penaloza
--- NOTE | 2024-02-29 23:54 | Electrocardiogram Report ---
Test Reason : Blood Pressure : / mmHG Vent. Rate : 096 BPM Atrial Rate : 098 BPM P-R Int : 000 ms QRS Dur : 120 ms QT Int : 364 ms P-R-T Axes : 000 -41 180 degrees QTc Int : 459 ms Atrial fibrillation Left axis deviation Low voltage QRS Anterior infarct Non-specific intra-ventricular conduction block Abnormal ECG When compared with ECG of 27-FEB-2024 17:14, Atrial fibrillation has replaced Junctional bradycardia Vent. rate has increased BY 50 BPM T wave inversion no longer evident in Anterolateral leads Confirmed by Jeyson Penaloza ([id number]) on 02/29/2024 11:54:29 PM Referred By: REFERRED SELF Confirmed By:Jeyson Penaloza
[2024-03-01] MEDS ORDERED: STAT IV Infusion **Titration per Protocol STA (00:56)
--- NOTE | 2024-03-01 01:03 | Critical Care Consultation ---
Date of Consultation March 01, 2024 Assessment & Plan (1) Tachy-gladys syndrome: (2) Symptomatic bradycardia: (3) A-fib: (4) HTN (hypertension): (5) CHAVEZ (nonalcoholic steatohepatitis): (6) HLD (hyperlipidemia): (7) Aortic stenosis: Plan Reason Critically Ill: 83 YOF transferred to ICU for conduction pauses resulting in syncope. Now in Afib HR 90s- being followed by cardiology for tachy-gladys syndrome with discussion of PPM. Neuro - Syncope CAM ICU: Negative - See below likely primary cardiac syncope- she is without any focal deficits Cardiac - Symptomatic Bradycardia, Tachy-gladys syndrome, afib, HTN, HLD, Elevated HsCTNI - Patient presents to ICU secondary to multiple pauses on telemetry since ~ 2129 this evening- associated with fuzzy vision, cold sweats, and dizziness x2, with one episode of passing out - Dopamine 2.5mcg/kg/min- follow HR - will stop if HR 110s-120s- appreciate cardiology assistance - IF ectopy or becomes too tachycardic and still with chronotropic need could also consider isoproterenol. - Continue bedside connection to Where I've Been with pads and leads in place incase emergent pacing would be required - If pauses continue she may need emergent TVP - Hold BB and CA channel ruchi - NPO until evaluated in am for PPM/TVP - No ischemic symptoms- Troponin Elevation likely demand type II- continues to downtrend Respiratory - No acute needs - NC maintain spo2 >94 GI - GI bleed, CHAVEZ, elevated LFTS - GI bleed evaluated earlier in stay by GI- Continue PPI - BUN downtrending, HGB stable - Elevated LFTs on day 1 of hospital stay- Likely related to her hypotension on arrival as peak INR was 5.6- downtrending at this time- follow RENAL/LYTES - BRITTANY - Resolving with TRAFFIC SIGN ERECTION SUPERVISOR back to baseline in - Continue to follow BUN - No acute needs ENDO - No acute need HEME - Anemia, Thrombocytopenia - Platelet count likely consumptive in light of GI bleed, is not on any thinners or DVT prophy - If continues to decrease - consider peripheral smear - Anemia appears combination of AOCD and acute loss ID - NO acute concern at this time for infective process LINES/IV ACCESS - PIV Continue use of these lines DVT PROPHYLAXIS - SCDS- continue to hold chemoprophylaxis DISPO: ICU until hemodynamics are proven stable I have personally spent 40 minutes of critical care time in the direct management of this patient. This is a life/limb threatening event. This includes time spent evaluating patient, direct bedside care, chart review, placing orders, interpretation of diagnostic studies, discussion with consultants, patient, and family members, as well as other required patient management activities. This time is exclusive of all separately billable procedures, and separate from and in addition to any other critical care service time. Thank you for allowing us to participate in the care of this patient. Please refer to my attending physician's documentation for any further recommendations. History of Present Illness Reason for Consultation: symptomatic bradycardia Requesting Physician: Parker See MD Attending Physician: Cami Goode MD History of Present Illness 83 YOF previously known to the ICU service from 02/26-02/28 24 where she was admitted for afib with RVR and GI bleed. She was initiated on Diltiazem drip and then transitioned to PCU on IV metoprolol, then followed to oral Metoprolol Tartrate 50mg PO BID (last dose at 2100 on 02/29/24 and Diltiazem 240mg CD (last dose 02/29/24 0900) She had ECO repeated with EF 55-60% and EGD completed noting cratered ulcer and recommendations for PPI. On 02/29/24 she was initiated on Metoprolol 100mg BID as well as Diltiazem 240mg daily with last doses as above. This evening she was noted to have pauses that were reported as becoming more frequent, in which her last pause was recorded as 9 seconds with reports of patient passing out. Rapid Response was called, patient was with adequate blood pressure and mentating well as well as without chest pain. Telemetry review has ~ 6 pauses since 2129 this evening with varying times of 3-9 seconds. Attending physician responded and discussed case with covering heating systems installer, with recommendations to transfer to ICU, initiate Dopamine at 2.5mcg/kg/min. Will need to follow her HR with her previous afib with RVR and what appears now as tachy-gladys syndrome. If symptomatic pauses continue she may need TVP. She will remain in ICU until hemodynamics proven stable. Patient arrives to the ICU awake and alert, following commands with HR 90-100 afib appearing. On oxygen and in no apparent distress. CODE: FULL Allergies Allergy/AdvReac Type Severity Reaction Status Date / Time latex Allergy Intermediate Rash Verified 02/27/24 16:20 [id number] Reductase Allergy Unknown PER Verified 02/27/24 16:20 Inhibitor [facility] soy AdvReac Mild Dizziness Verified 02/27/24 16:20 adhesive AdvReac Unknown PER Verified 02/27/24 16:20 [facility] cat dander AdvReac Unknown PER Verified 02/27/24 16:20 [facility] ezetimibe [From Zetia] AdvReac Unknown PER Verified 02/27/24 16:20 [facility] Home Medications Medication Instructions Recorded Confirmed Type lisinopril 5 mg tablet 5 mg PO QAM 03/28/21 02/27/24 History warfarin 5 mg tablet 5 mg PO DIRECTED 03/28/21 02/27/24 History potassium chloride 10 mEq 10 meq PO DAILY 06/05/21 02/27/24 History tablet,extended release(part/cryst) ipratropium bromide 21 mcg (0.03 2 spray intranasal TID 09/26/21 02/27/24 History %) nasal spray furosemide 20 mg tablet 20 mg PO DAILY 10/01/21 02/27/24 History diltiazem HCl 240 mg 240 mg PO QAM #30 caps 10/11/21 02/27/24 Rx capsule,extended release 24 hr amoxicillin 500 mg capsule 2,000 mg PO DIRECTED PRN 1 HR 02/27/24 02/27/24 History PRIOR TO DENTAL PROCEDURES aspirin 81 mg chewable tablet 81 mg PO QAM 02/27/24 02/27/24 History metoprolol succinate 100 mg 100 mg PO BID 02/27/24 02/27/24 History tablet,extended release 24 hr Patient History Medical History CAD (coronary artery disease) Permanent atrial fibrillation CKD (chronic kidney disease) stage 3, GFR 30-59 ml/min CHAVEZ (nonalcoholic steatohepatitis) Pre-diabetes History of bladder cancer s/op TURBT DU (generalized anxiety disorder) HLD (hyperlipidemia) A-fib HTN (hypertension) Surgical History S/P TAVR (transcatheter aortic valve replacement) History of toe surgery bunion History of hysterectomy with oophorectomy History of esophagogastroduodenoscopy (EGD) History of cardioversion multiple attempts, last in 2017 History of radiofrequency ablation procedure for cardiac arrhythmia Family History Brother Myocardial infarction, Onset Age: 52 Father Myocardial infarction, Onset Age: 52 Sister Coronary heart disease Atrial fibrillation Mother , 21 [place] Social History Smoking Status: Never smoker Hx Alcohol Use: No Hx Substance Use: No Preferred Language: Greenlandic Communication Ability: Effective Mushroom Press 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 Required: No Beliefs That Will Affect Care: None marital status: Current Living Situation: Spouse current occupational status: retired Other Information That Helps Us Care for You: No Feels Safe at Home: Yes Safety Concerns: Feels Safe At This Time Assistive Devices: Cane and Walker Review of Systems Review of Systems: REVIEW OF SYSTEMS: Constitutional: No fever, sweats or chills Eyes: No diplopia, no worsening or blurred vision Respiratory: No cough, sputum, dyspnea at rest or on exertion Cardiovascular: (+) dizziness with eppisodes, No chest pain, tightness or palpitations Abdomen: No pain, nausea, vomiting, diarrhea or constipation Musculoskeletal: No joint pain, calf pain, swelling Neurologic: No weakness, numbness/tingling, or balance problems Psychiatric: No anxiety or depression Skin: No rash or itch Physical Exam Physical Exam: PHYSICAL EXAM: General: awake, alert, no apparent distress Head: Normocephalic, atraumatic ENT: PERRLA, EOMI, no pharyngeal exudate, mucous membranes moist Neuro: AAO x 3, speech clear and appropriate, strength intact bilaterally 5/5, sensation intact and equal all extremities and dermatomes, no pronator drift Chest: equal rise and fall of the chest, no accessory muscle use, no heaves or thrills, decreased in bases on 2L NC Cardiac: Regular rate and rhythm, telemetry reviewed- NSR and Afib, skin warm dry, cap refill <3 seconds, peripheral pulses +2 no JVD,, trace peripheral edema GI: NABS x 4 quadrants, soft, nontender to palpation, no rebound, guarding or tenderness : Spontaneously voiding, no pain, no CVA tenderness, Psych: Normal mood and affect Results & Data Results & Data Vital Signs (Past 12 Hours) Vital Signs Temp Pulse Pulse Resp BP Pulse Ox O2 Del Method 02/29/24 22:38 36.5 C 97 H 18 121/71 97 Room Air 02/29/24 19:00 36.3 C L 102 H 16 119/68 96 Nasal Cannula 02/29/24 16:00 72 02/29/24 14:36 36.5 C 71 18 113/60 95 Room Air 02/29/24 13:45 77 109/58 L 91 Nasal Cannula 02/29/24 13:41 88 77/42 L 90 Nasal Cannula O2 Flow Rate 02/29/24 22:38 02/29/24 19:00 1 02/29/24 16:00 02/29/24 14:36 02/29/24 13:45 3 02/29/24 13:41 3 Laboratory Results Abnormal lab results 02/29/24 Range/Units 06:13 RBC 2.77 L (4.20-5.40) M/uL Hgb 7.4 L (12.0-16.0) g/dl Hct 23.9 L (37.0-47.0) % MCHC 31.0 L (32.0-36.0) g/dL RDW Std Deviation 50.7 H (36.4-46.3) fL RDW Coeff of Serg 16.6 H (11.5-14.5) % Plt Count 106 L (130-400) K/uL Lymph # (Auto) 0.34 L (1.20-3.40) K/uL [place] # (Auto) 0.63 H (0.11-0.59) K/uL PT 13.5 H (9.0-12.0) Seconds INR 1.2 H (0.9-1.1) BUN 56 H D (6-23) mg/dl BUN/Creatinine Ratio 48.3 H (10-20) Total Bilirubin 1.3 H (0.2-1.0) mg/dl AST 525 H (13-39) U/L ALT 514 H (7-52) U/L Total Protein 5.4 L (6.0-8.3) gm/dl Albumin 3.2 L (3.4-5.0) gm/dl Globulin 2.2 L (2.5-4.0) gm/dl Medications Administered Home Medications lisinopril 5 mg tablet 5 mg PO QAM 03/28/21 [History Confirmed 02/27/24] warfarin 5 mg tablet 5 mg PO DIRECTED 03/28/21 [History Confirmed 02/27/24] potassium chloride 10 mEq tablet,extended release(part/cryst) 10 meq PO DAILY 06/05/21 [History Confirmed 02/27/24] ipratropium bromide 21 mcg (0.03 %) nasal spray 2 spray intranasal TID 09/26/21 [History Confirmed 02/27/24] furosemide 20 mg tablet 20 mg PO DAILY 10/01/21 [History Confirmed 02/27/24] diltiazem HCl 240 mg capsule,extended release 24 hr 240 mg PO QAM #30 caps 10/11/21 [Rx Confirmed 02/27/24] amoxicillin 500 mg capsule 2,000 mg PO DIRECTED PRN 1 HR PRIOR TO DENTAL PROCEDURES 02/27/24 [History Confirmed 02/27/24] aspirin 81 mg chewable tablet 81 mg PO QAM 02/27/24 [History Confirmed 02/27/24] metoprolol succinate 100 mg tablet,extended release 24 hr 100 mg PO BID 02/27/24 [History Confirmed 02/27/24] Active Medications Diltiazem HCl (Diltiazem Hcl 240 Mg Capcr) 240 mg PO QAM LIZA Stop: 03/30/24 09:44 Last Admin: 02/29/24 10:04 Dose: 240 mg Sodium Chloride (Nss) 500 mls @ 125 mls/hr IV .Q4H [facility] Stop: 03/30/24 14:44 Last Admin: 02/29/24 22:55 Dose: 125 mls/hr Dopamine HCl/Dextrose (Dopamine / D5w) 400 mg in 250 mls @ 6.938 mls/hr IV .Q24H [facility] Stop: 03/31/24 00:59 Metoprolol Tartrate (Metoprolol Tartrate 100 Mg Tab) 100 mg PO BID LIZA Stop: 03/30/24 08:59 Last Admin: 02/29/24 20:45 Dose: 100 mg Pantoprazole Sodium (Pantoprazole 40 Mg Tab) 40 mg PO BID LIZA Stop: 03/29/24 20:59 Last Admin: 02/29/24 20:44 Dose: 40 mg Coding Level of Care Code 99183 CRITICAL CARE 1ST 30-74M Diagnoses Tachy-gladys syndrome I49.5 Symptomatic bradycardia R00.1 A-fib I48.91 HTN (hypertension) I10 CHAVEZ (nonalcoholic steatohepatitis) K75.81 HLD (hyperlipidemia) E78.5 Aortic stenosis I35.0
[2024-03-01 01:06] LABS: BUN Creatinine Ratio 37.4 (10-20); Calcium 8.6 mg/dl (8.6-10.3); Est GFR (African American) 46.3 ml/min; Potassium 4.3 mmol/L (3.5-5.1)
[2024-03-01] MEDS: DOPamine / D5W 400 MG/250 ML BAG IV SCH (01:12)
[2024-03-01 01:17] LABS: Basophils # (auto) 0.02 K/uL (0.00-0.20); Basophils % (auto) 0.2 %; Eosinophils # (auto) 0.04 K/uL (0.00-0.50); Eosinophils % (auto) 0.5 %; Hematocrit (blood only) 26.4 % (37.0-47.0); Immature Granulocytes # (auto) 0.04 K/uL (0.01-0.20); Immature Granulocytes % (auto) 0.5 %; Lymphocytes # (auto) 0.42 K/uL (1.20-3.40); Lymphocytes % (auto) 4.8 %; Mean Corpuscular Hemoglobin 27.1 pg (25.0-34.0); Mean Corpuscular Hgb Conc 30.3 g/dL (32.0-36.0); Mean Corpuscular Volume 89.5 fL (80.0-100.0); Mean Platelet Volume 11.5 fL (9.4-12.4); Monocytes # (auto) 0.85 K/uL (0.11-0.59); Monocytes % (auto) 9.7 %; Neutrophils # (auto) 7.38 K/uL (1.40-6.50); Neutrophils % (auto) 84.3 %; Platelet Count 99 K/uL (130-400); Platelet Estimate Decreased (Normal); RDW Coefficient of Variation 17.3 % (11.5-14.5); RDW Standard Deviation 54.5 fL (36.4-46.3); Red Blood Count 2.95 M/uL (4.20-5.40); White Blood Count 8.75 K/ul (4.8-10.8)
[2024-03-01] MEDS: DOPamine 400MG / 250ML D5W IV ONE (01:27)
[2024-03-01 01:37] LABS: Albumin Globulin Ratio 1.5 (0.9-2); Albumin Level 3.5 gm/dl (3.4-5.0); Bilirubin,Total 1.3 mg/dl (0.2-1.0); Globulin 2.4 gm/dl (2.5-4.0); Magnesium 2.1 mg/dl (1.7-2.4); Phosphorus 2.7 mg/dl (2.5-4.9); Total Protein 5.9 gm/dl (6.0-8.3); Troponin I High Sensitivity 272.4 pg/ml (0-14)
[2024-03-01 04:59] LABS: Hematocrit (blood only) 27.4 % (37.0-47.0); Hemoglobin 8.6 g/dl (12.0-16.0); Mean Corpuscular Hemoglobin 27.5 pg (25.0-34.0); Mean Corpuscular Hgb Conc 31.4 g/dL (32.0-36.0); Mean Corpuscular Volume 87.5 fL (80.0-100.0); Mean Platelet Volume 11.1 fL (9.4-12.4); Platelet Count 139 K/uL (130-400); RDW Coefficient of Variation 17.3 % (11.5-14.5); Red Blood Count 3.13 M/uL (4.20-5.40); White Blood Count 9.62 K/ul (4.8-10.8)
[2024-03-01 05:16] LABS: BUN Creatinine Ratio 36.8 (10-20); Calcium 8.8 mg/dl (8.6-10.3); Creatinine Clr Calc Pharmacy 35.6 ml/min; Est GFR (African American) 50.8 ml/min; Est GFR (Non-African American) 43.8 ml/min; Potassium 3.9 mmol/L (3.5-5.1)
[2024-03-01 05:41] LABS: Albumin Globulin Ratio 1.3 (0.9-2); Albumin Level 3.7 gm/dl (3.4-5.0); Bilirubin,Total 1.5 mg/dl (0.2-1.0); Globulin 2.8 gm/dl (2.5-4.0); Magnesium 2.2 mg/dl (1.7-2.4); Phosphorus 2.8 mg/dl (2.5-4.9); Total Protein 6.5 gm/dl (6.0-8.3)
--- NOTE | 2024-03-01 07:31 | Communication Note ---
Date of Service: March 01, 2024 Last night patient was having long pauses. Already received metoprolol. Cardizem and metoprolol held. Around midnight patient had long pause of 9 sec and was unresponsive for few seconds . Code stephanie was called. Seen patient. patient after episode alert and oriented. Denies chest pain or sob or any other complaints. SBP in 150's. HR 80- 110. In a. fib. Pacer pads placed.Saturating fine. Notified cardiology. Cardiology recommended transfer to ICU and place on dopamine drip 2.5mcg and if still has pauses on dopamine drip to call heart alert for temporary pace maker. Labs electrolytes were ok. ICU was aware and patient was transferred to ICU.Notified am providers.
--- NOTE | 2024-03-01 11:01 | Cardiology Progress Note ---
Date of Service March 01, 2024 Assessment & Plan (1) Symptomatic bradycardia: (2) Tachy-gladys syndrome: (3) Acute GI bleeding: (4) Symptomatic anemia: (5) Permanent atrial fibrillation: (6) ASCVD (arteriosclerotic cardiovascular disease): Plan 83-year-old female with history of severe aortic valve stenosis status post October 02, 2023 TAVR (#26 mm [place] GENA S3 Ultra valve) with post procedure left bundle branch block, moderate ASCVD, pulmonary hypertension, and chronic atrial fibrillation admitted with melena x 3 days duration. Hemoglobin 5.7 on presentation, receiving 2 U pRBC's without difficulty. INR supratherapeutic at 5.6 on presentation, reversed with Vitamin K and Kcentra. Patient initially hypotensive with junctional bradycardia resolving with treatment of hypovolemic shock. High-sensitivity troponin elevated, representing demand ischemia with patient denying symptoms suggestive of an acute coronary syndrome. February 28, 2024 EGD revealing a nonbleeding cratered gastric ulcer with no stigmata of bleeding. PPI therapy recommended indefinitely. Beta-ruchi and diltiazem resumed 02/29/2024 with significant bradycardia and symptomatic pauses overnight requiring treatment with intravenous dopamine. AV katiuska agents remain on hold. I discussed indication for pacemaker implantation to allow for resumption of AV katiuska blocking agents and adequate treatment of permanent atrial fibrillation with rapid ventricular response. Patient voiced understanding. Will coordinate with electrophysiology. I spent a total of 45 minutes on the date of service in preparation, delivery, and documentation of the care provided to this patient, excluding any time spent in the performance of separately billed services. Admission and Anticipated Discharge Date Admission Date: February 27, 2024 Subjective Patient seen examined the bedside. Multiple 5-9-second pause recorded overnight beginning at approximately 9 PM. The longest pause lasting 9 seconds associated with near syncope. Patient transferred to the intensive care unit and treated with IV dopamine infusion which has since been discontinued. She remains in atrial fibrillation with controlled ventricular response currently. No recurrent pauses or bradycardia. Diltiazem and metoprolol on hold. Anticoagulation on hold due to admission with symptomatic anemia and evidence of crater ulcer on EGD. Review of Systems Review of Systems: All systems reviewed & are unremarkable except as noted in Subjective Physical Exam Constitutional: well nourished; no acute distress Respiratory: no respiratory distress, no labored breathing and no retractions Auscultation: no crackles, no rales, no rhonchi and no wheezes Cardiovascular: Rate/Rhythm: + irregularly irregular Heart Sounds: normal S1 and normal S2; no murmur Vessels: radial pulses present; no JVD and no carotid bruit Extremities: no edema Gastrointestinal (Abdomen): Inspection/Auscultation: normal bowel sounds; abdomen not distended Percussion/Palpation: abdomen soft; abdomen nontender, no guarding and abdomen not rigid Neurologic: CN's II-XI intact bilaterally and moves all extremities Results & Data Vital Signs (Past 12 Hours) Vital Signs Temp Pulse Resp BP Pulse Ox O2 Del Method O2 Flow Rate 03/01/24 07:57 122 H 03/01/24 07:30 134/88 03/01/24 07:30 124 H 19 96 03/01/24 07:00 141/75 H 03/01/24 07:00 107 H 14 94 03/01/24 06:00 140/93 03/01/24 06:00 102 H 8 L 97 03/01/24 05:00 135/78 03/01/24 05:00 115 H 13 95 03/01/24 04:50 36.6 C 03/01/24 04:00 126/88 03/01/24 04:00 111 H 11 L 89 L 03/01/24 03:00 133/80 03/01/24 03:00 117 H 23 95 03/01/24 02:00 134/79 03/01/24 02:00 116 H 15 93 03/01/24 01:07 114/75 03/01/24 01:07 97 H 20 96 03/01/24 01:06 108 H 03/01/24 01:05 Nasal Cannula 5 03/01/24 01:05 36.8 C Laboratory Results Cardiac Enzymes 03/01/24 03/01/24 Range/Units 00:25 04:30 AST 428 H 437 H (13-39) U/L Troponin I High Sens 272.4 H* D (0-14) pg/ml CBC 03/01/24 03/01/24 Range/Units 00:25 04:30 WBC 8.75 9.62 (4.8-10.8) K/ul RBC 2.95 L 3.13 L (4.20-5.40) M/uL Hgb 8.0 L 8.6 L (12.0-16.0) g/dl Hct 26.4 L 27.4 L (37.0-47.0) % Plt Count 99 L 139 (130-400) K/uL Neut # (Auto) 7.38 H (1.40-6.50) K/uL Lymph # (Auto) 0.42 L (1.20-3.40) K/uL [place] # (Auto) 0.85 H (0.11-0.59) K/uL Eos # (Auto) 0.04 (0.00-0.50) K/uL Baso # (Auto) 0.02 (0.00-0.20) K/uL Comprehensive Metabolic Panel 03/01/24 03/01/24 Range/Units 00:25 04:30 Sodium 138 137 (136-145) mmol/L Potassium 4.3 3.9 (3.5-5.1) mmol/L Chloride 107 105 (98-107) mmol/L Carbon Dioxide 24 27 (21-32) mmol/L BUN 46 H 42 H (6-23) mg/dl Creatinine 1.23 H 1.14 (0.6-1.2) mg/dl Glucose 107 H 112 H (70-99(Fasting)) mg/dl Calcium 8.6 8.8 (8.6-10.3) mg/dl AST 428 H 437 H (13-39) U/L ALT 530 H 558 H (7-52) U/L Alkaline Phosphatase 55 62 (34-104) U/L Total Protein 5.9 L 6.5 (6.0-8.3) gm/dl Albumin 3.5 3.7 (3.4-5.0) gm/dl Intake and Output 02/29/24 03/01/24 03/01/24 22:59 06:59 14:59 Intake Total 1339.583 / 2852.578 512.995 / 2852.578 27.066 / 27.066 Output Total 500 / 1300 800 / 1300 450 / 450 Balance 839.583 / 1552.578 -287.005 / 1552.578 -422.934 / -422.934 Intake: IV 964.583 / 2477.578 512.995 / 2477.578 27.066 / 27.066 DOPamine / D5W 400 mg In 250 ml 12.995 / 12.995 27.066 / 27.066 @ 0 MCG/KG/MIN IV .Q0M [facility] Rx# :[id number] Sodium Chloride 0.9% 500 ml @ 964.583 / 1464.583 500 / 1464.583 125 mls/hr IV .Q4H [facility] Rx#: [id number] Oral 375 / 375 0 / 375 Output: Urine 800 / 800 450 / 450 Urine Amount (Catheter) 500 / 500 Poon/Indwelling 500 / 500 Other: # Unmeasured Voids 0 Weight 74.3 kg Weight Measurement Method Built in Bedscale
--- NOTE | 2024-03-01 12:15 | Electrocardiogram Report ---
Test Reason : Blood Pressure : / mmHG Vent. Rate : 094 BPM Atrial Rate : 089 BPM P-R Int : 000 ms QRS Dur : 126 ms QT Int : 414 ms P-R-T Axes : 000 -69 153 degrees QTc Int : 517 ms Atrial fibrillation Left axis deviation Left bundle branch block Abnormal ECG When compared with ECG of 28-FEB-2024 05:35, Left bundle branch block is now Present Borderline criteria for Anterior infarct are no longer Present Borderline criteria for Anterolateral infarct are no longer Present Confirmed by Ross Wiley ([id number]) on 03/01/2024 12:14:59 PM Referred By: REFERRED SELF Confirmed By:Ross Wiley
--- NOTE | 2024-03-01 14:15 | Hospitalist Progress Note ---
Date of Service March 01, 2024 Assessment & Plan (1) Acute GI bleeding: (2) Melena: (3) Supratherapeutic INR: (4) Anemia: (5) Hypotension: Plan: 83 year old female with PMH aortic stenosis s/p TAVR 09/2023, permanent atrial fibrillation anticoagulated on Coumadin, LBBB, Nonobstructive CAD on cath 07/2023, HTN, dyslipidemia, CHAVEZ, nocturnal hypoxia presented to ER with c/o melena x 3 days. In ER, she was found to be significantly bradycardic and hypotensive. Rectal exam with dark black stool. Labs with significant anemia with H/H: 5.7/19 and INR: 5.6. She was given Protonix bolus, Vitamin K 10mg IV, KCentra. Typed and cross PRBC. However patient continued hypotension so uncrossed blood being transfused and FFP ordered. She was also given glucagon, calcium gluconate and atropine. Was started on a PPI drip. She was admitted to the ICU. Got 2 PRBC and 2 FFP Continue to hold aspirin, warfarin Was evaluated by GI and had EGD on 02/28/24 EGD noted normal esophagus, 1 nonbleeding cratered gastric ulcer with no stigmata of bleeding in the prepyloric region of the stomach, lesion was 4 mm in largest diameter. Exam of the stomach was otherwise normal. Examined duodenum was normal. Hb remains stable Currently on PO PPI BID (6) Symptomatic bradycardia: (7) Permanent atrial fibrillation: Plan: On presentation, patient had hypotension and junctional bradycardia. Converted from junctional bradycardia to A-fib with rapid ventricular rate in ICU. Cardiology evaluation and recommendation appreciated. Got Cardizem IV initially, now off Was transferred initially from ICU to PCU Betablocker and cardizem was resumed Had symptomatic bradycardia/pauses overnight of 02/28-03/01 Was transferred back to ICU Continue to hold AVN blockers Cardiology evaluated and planning for possible pacemaker Will keep NPO PMN Sunday night Was anticoagulated on Coumadin at home, currently on hold (8) Elevated troponin: Plan: Troponin: 254->>693 Likely demand ischemia Echocardiogram noted EF of 55 to 60%, moderate concentric LVH, mildly dilated LV, normal LV SF, severe biatrial enlargement, status post TAVR, severe mitral annular calcification, moderate MR, moderate to severe TR, estimated PASP of 59 (9) Aortic stenosis: Plan: S/P TAVR 10/02/2023 at [facility] [place] (10) CAD (coronary artery disease): Plan: History nonobstructive CAD on preop TAVR cath 08/10/2023 Aspirin on hold due to acute GI bleed and possible procedure (11) HTN (hypertension): Plan: Home antihypertensives held as above (12) HLD (hyperlipidemia): Plan: History of statin intolerance DVT Prophylaxis SCDs Full Code I spent a total of 50 minutes coordinating, documenting and providing care for this patient excluding time spent in performance of separately billed services Admission and Anticipated Discharge Date Admission Date: February 27, 2024 Subjective Patient seen and examined. Patient had bradycardia with symptomatic pauses overnight. Rapid response was called and patient was transferred to the ICU and started on dopamine drip. Patient reports feeling better this morning. Reports mild cough. Denies shortness of breath, chest pain. Reported palpitations earlier. Denies nausea, vomiting abdominal pain. Reports some constipation Physical Exam Constitutional: + well hydrated; no acute distress Eyes: PERRL, conjunctivae normal, anicteric sclerae ENMT: external ear and nose normal, oropharynx normal Respiratory: normal respiratory effort, lungs clear to auscultation Cardiovascular: Rate/Rhythm: + tachycardic and + irregularly irregular Gastrointestinal (Abdomen): normal bowel sounds, soft, nontender, no hepatosplenomegaly Musculoskeletal: +Pedal edema Neurologic: PERRL, EOMI, accommodation nl, no face palsy, no dysarthria Psychiatric: A+Ox3, euthymic affect Results & Data Results & Data Vital Signs (Past 12 Hours) Vital Signs Temp Pulse Resp BP Pulse Ox O2 Del Method O2 Flow Rate 03/01/24 11:01 111 H 14 100 03/01/24 11:01 131/92 03/01/24 11:00 112 H 13 98 03/01/24 10:30 117/75 03/01/24 10:30 95 H 18 97 03/01/24 10:00 146/94 H 03/01/24 10:00 101 H 12 100 03/01/24 09:30 114/87 03/01/24 09:30 121 H 15 97 03/01/24 09:00 148/87 H 03/01/24 09:00 107 H 15 95 Nasal Cannula 4 03/01/24 08:30 121/64 04/13/24 08:30 101 H 12 87 L 03/01/24 08:00 154/90 H 03/01/24 08:00 114 H 13 93 03/01/24 07:57 122 H 03/01/24 07:30 134/88 03/01/24 07:30 124 H 19 96 03/01/24 07:00 141/75 H 03/01/24 07:00 107 H 14 94 03/01/24 06:00 140/93 03/01/24 06:00 102 H 8 L 97 03/01/24 05:00 135/78 03/01/24 05:00 115 H 13 95 03/01/24 04:50 36.6 C 03/01/24 04:00 126/88 03/01/24 04:00 111 H 11 L 89 L 03/01/24 03:00 133/80 03/01/24 03:00 117 H 23 95
--- NOTE | 2024-03-01 15:49 | Critical Care Progress Note ---
Date of Service March 01, 2024 Assessment & Plan (1) Tachy-gladys syndrome: (2) Symptomatic bradycardia: (3) A-fib: (4) HTN (hypertension): (5) CHAVEZ (nonalcoholic steatohepatitis): (6) HLD (hyperlipidemia): (7) Aortic stenosis: Plan Reason Critically Ill: 83 YOF transferred to ICU for conduction pauses resulting in syncope. Now in Afib HR 90s- being followed by cardiology for tachy-gladys syndrome with discussion of PPM. Neuro - Syncope CAM ICU: Negative - See below likely primary cardiac syncope- she is without any focal deficits Cardiac - Symptomatic Bradycardia, Tachy-gladys syndrome, afib, HTN, HLD, Elevated HsCTNI - Patient presents to ICU secondary to multiple pauses on telemetry since ~ 2129 this evening- associated with fuzzy vision, cold sweats, and dizziness x2, with one episode of passing out -Attempting to wean off dopamine. Patient's blood pressure improved however she is in A-fib with rapid ventricular response -Reviewed cardiology's note, anticipate plan for permanent pacemaker and then resumption of AV katiuska blocking agents Respiratory - No acute needs - NC maintain spo2 >94 GI - GI bleed, CHAVEZ, elevated LFTS - GI bleed evaluated earlier in stay by GI- Continue PPI - BUN downtrending, HGB stable - Elevated LFTs on day 1 of hospital stay- Likely related to her hypotension on arrival as peak INR was 5.6- downtrending at this time- follow RENAL/LYTES - BRITTANY: Improved - Resolving with [employer] back to baseline in - Continue to follow BUN - No acute needs ENDO - No acute need HEME - Anemia, Thrombocytopenia - Platelet count likely consumptive in light of GI bleed, is not on any thinners or DVT prophy - If continues to decrease - consider peripheral smear - Anemia appears combination of AOCD and acute loss -Indication for systemic anticoagulation is atrial fibrillation, anticipate patient to have pacemaker in 24 to 48 hours. Reviewed GI notes, no clear indication as to timeline to restart systemic anticoagulation. Given the cratered ulcer with no stigmata of bleeding and the upcoming procedure I feel it is reasonable to not initiate systemic anticoagulation in the interim for very small thrombotic risks ID - NO acute concern at this time for infective process LINES/IV ACCESS - PIV Continue use of these lines DVT PROPHYLAXIS - SCDS- continue to hold chemoprophylaxis DISPO: ICU while awaiting permanent pacemaker Admission and Anticipated Discharge Date Admission Date: February 27, 2024 Supervising Physician Co-Signing Physician Notes I have personally spent 35 minutes of critical care time in the direct management of this patient. This is a life/limb threatening event. This includes time spent evaluating patient, direct bedside care, chart review, placing orders, interpretation of diagnostic studies, discussion with consultants, patient, and/or family members regarding treatment decisions, as well as other required patient management activities. This time is exclusive of all separately billable procedures, and teaching time and separate from and in addition to any other critical care service time. Physical Exam Physical Exam: General: Alert. nontoxic. Skin: Warm, dry, Head: Atraumatic Ears, nose, mouth and throat: airway patent Cardiovascular: Normal peripheral perfusion Respiratory: no respiratory distress Gastrointestinal: Non distended Musculoskeletal: No deformity Results & Data Results & Data Vital Signs (Past 12 Hours) Vital Signs Temp Pulse Resp BP Pulse Ox O2 Del Method O2 Flow Rate 03/01/24 11:01 111 H 14 100 03/01/24 11:01 131/92 03/01/24 11:00 112 H 13 98 03/01/24 10:30 117/75 03/01/24 10:30 95 H 18 97 03/01/24 10:00 146/94 H 03/01/24 10:00 101 H 12 100 03/01/24 09:30 114/87 03/01/24 09:30 121 H 15 97 03/01/24 09:00 148/87 H 03/01/24 09:00 107 H 15 95 Nasal Cannula 4 03/01/24 08:30 121/64 03/01/24 08:30 101 H 12 87 L 03/01/24 08:00 154/90 H 03/01/24 08:00 114 H 13 93 03/01/24 07:57 122 H 03/01/24 07:30 134/88 03/01/24 07:30 124 H 19 96 03/01/24 07:00 141/75 H 03/01/24 07:00 107 H 14 94 03/01/24 06:00 140/93 03/01/24 06:00 102 H 8 L 97 03/01/24 05:00 135/78 03/01/24 05:00 115 H 13 95 03/01/24 04:50 36.6 C 03/01/24 04:00 126/88 03/01/24 04:00 111 H 11 L 89 L Critical Care Results & Data Vital Signs (Past 12 Hours) Vital Signs Temp Pulse Resp BP Pulse Ox O2 Del Method O2 Flow Rate 03/01/24 11:01 111 H 14 100 03/01/24 11:01 131/92 03/01/24 11:00 112 H 13 98 03/01/24 10:30 117/75 03/01/24 10:30 95 H 18 97 03/01/24 10:00 146/94 H 03/01/24 10:00 101 H 12 100 03/01/24 09:30 114/87 03/01/24 09:30 121 H 15 97 03/01/24 09:00 148/87 H 03/01/24 09:00 107 H 15 95 Nasal Cannula 4 03/01/24 08:30 121/64 03/01/24 08:30 101 H 12 87 L 03/01/24 08:00 154/90 H 03/01/24 08:00 114 H 13 93 03/01/24 07:57 122 H 03/01/24 07:30 134/88 03/01/24 07:30 124 H 19 96 03/01/24 07:00 141/75 H 03/01/24 07:00 107 H 14 94 03/01/24 06:00 140/93 03/01/24 06:00 102 H 8 L 97 03/01/24 05:00 135/78 03/01/24 05:00 115 H 13 95 03/01/24 04:50 36.6 C 03/01/24 04:00 126/88 03/01/24 04:00 111 H 11 L 89 L Lab & Micro Results (Past 24 Hours) RBC 3.13 M/uL (4.20-5.40) L 03/01/24 WBC 9.62 K/ul (4.8-10.8) 03/01/24 Hgb 8.6 g/dl (12.0-16.0) L 03/01/24 Hct 27.4 % (37.0-47.0) L 03/01/24 MCV 87.5 fL (80.0-100.0) 03/01/24 MCH 27.5 pg (25.0-34.0) 03/01/24 MCHC 31.4 g/dL (32.0-36.0) L 03/01/24 RDW Standard Deviation 53.0 fL (36.4-46.3) H 03/01/24 RDW Coefficient of Variation 17.3 % (11.5-14.5) H 03/01/24 Plt Count 139 K/uL (130-400) 03/01/24 MPV 11.1 fL (9.4-12.4) 03/01/24 Neutrophils (%) (Auto) 84.3 % 03/01/24 Lymphocytes (%) (Auto) 4.8 % 03/01/24 Monocytes # (Auto) 0.85 K/uL (0.11-0.59) H 03/01/24 Eosinophils # (Auto) 0.04 K/uL (0.00-0.50) 03/01/24 Immature Granulocyte % (Auto) 0.5 % 03/01/24 Neutrophils # (Auto) 7.38 K/uL (1.40-6.50) H 03/01/24 Lymphocytes # (Auto) 0.42 K/uL (1.20-3.40) L 03/01/24 Monocytes # (Auto) 0.85 K/uL (0.11-0.59) H 03/01/24 Eosinophils # (Auto) 0.04 K/uL (0.00-0.50) 03/01/24 Basophils # (Auto) 0.02 K/uL (0.00-0.20) 03/01/24 Immature Granulocyte # (Auto) 0.04 K/uL (0.01-0.20) 4 Na 137 mmol/L (136-145) 03/01/24 K 3.9 mmol/L (3.5-5.1) 03/01/24 Cl 105 mmol/L (98-107) 03/01/24 CO2 27 mmol/L (21-32) 03/01/24 Anion Gap 5 (3-11) 03/01/24 BUN 42 mg/dl (6-23) H 03/01/24 Creatinine 1.14 mg/dl (0.6-1.2) 03/01/24 Estimated GFR ( Amer) 50.8 ml/min 03/01/24 Estimated GFR (Non-Af Amer) 43.8 ml/min 03/01/24 BUN/Creatinine Ratio 36.8 (10-20) H 03/01/24 Glu 112 mg/dl (70-99(Fasting)) H 03/01/24 Ca 8.8 mg/dl (8.6-10.3) 03/01/24 Phosphorus Level 2.8 mg/dl (2.5-4.9) 03/01/24 Total Bilirubin 1.5 mg/dl (0.2-1.0) H 03/01/24 AST 437 U/L (13-39) H 03/01/24 ALT 558 U/L (7-52) H 03/01/24 Alkaline Phosphatase 62 U/L (34-104) 03/01/24 TP 6.5 gm/dl (6.0-8.3) 03/01/24 Albumin 3.7 gm/dl (3.4-5.0) 03/01/24 Globulin 2.8 gm/dl (2.5-4.0) 03/01/24 Albumin/Globulin Ratio 1.3 (0.9-2) 03/01/24 Mg 2.2 mg/dl (1.7-2.4) 03/01/24 04:30 Calcium Level 8.8 mg/dl (8.6-10.3) 03/01/24 04:30 I & O Totals 24 Hours 02/29/24 03/01/24 03/02/24 06:59 06:59 06:59 Intake Total 2490.751 / 2490.751 2852.578 / 2852.578 1027.066 / 1027.066 Output Total 1400 / 1400 1300 / 1300 450 / 450 Balance 1090.751 / 3195.024 0345.578 / 1552.578 577.066 / 577.066 Cumulative 02/27/24 14:11 thru 03/01/24 14:40 Intake Total 8136.561 Output Total 4445 Balance 3691.561 RT Ventilator Mngmt (Last Documented) Ventilator Ordered Settings Respiratory Rate 14 03/01/24 11 :01 Ventilator - PT Measurements Respiratory Rate 14 Coding Level of Care Code 06175 CRITICAL CARE 1ST 30-74M Diagnoses Tachy-gladys syndrome I49.5 Symptomatic bradycardia R00.1 A-fib I48.91 HTN (hypertension) I10 CHAVEZ (nonalcoholic steatohepatitis) K75.81 HLD (hyperlipidemia) E78.5 Aortic stenosis I35.0
[2024-03-01] MEDS: POLYETHYLENE (MIRALAX) 17 GM PACK PO PRN (16:21)
[2024-03-01] MEDS: SENNA 8.6 MG TAB PO SCH (17:20)
[2024-03-02 04:25] LABS: Hematocrit (blood only) 26.6 % (37.0-47.0); Hemoglobin 7.9 g/dl (12.0-16.0); Mean Corpuscular Hgb Conc 29.7 g/dL (32.0-36.0); Mean Corpuscular Volume 90.8 fL (80.0-100.0); Mean Platelet Volume 10.9 fL (9.4-12.4); Platelet Count 106 K/uL (130-400); RDW Coefficient of Variation 17.4 % (11.5-14.5); RDW Standard Deviation 56.9 fL (36.4-46.3); Red Blood Count 2.93 M/uL (4.20-5.40); White Blood Count 7.17 K/ul (4.8-10.8)
[2024-03-02 04:42] LABS: BUN Creatinine Ratio 31.6 (10-20); Calcium 8.7 mg/dl (8.6-10.3); Creatinine Clr Calc Pharmacy 41.4 ml/min; Est GFR (Non-African American) 52.6 ml/min; Phosphorus 2.5 mg/dl (2.5-4.9)
[2024-03-02] MEDS: MAGNESIUM SULFATE / D5W 1 GM/100 ML BAG IV SCH (05:46)
[2024-03-02] MEDS: METOPROLOL TARTRATE 25 MG TAB PO ONE (07:36)
--- NOTE | 2024-03-02 11:10 | Cardiology Progress Note ---
Date of Service March 02, 2024 Assessment & Plan (1) Atrial fibrillation with rapid ventricular response: (2) Tachy-gladys syndrome: (3) Symptomatic bradycardia: (4) Acute GI bleeding: (5) Symptomatic anemia: (6) ASCVD (arteriosclerotic cardiovascular disease): Plan 83-year-old female with history of severe aortic valve stenosis status post October 02, 2023 TAVR (#26 mm [place] GENA S3 Ultra valve) with post procedure left bundle branch block, moderate ASCVD, pulmonary hypertension, and chronic atrial fibrillation admitted with melena x 3 days duration. Hemoglobin 5.7 on presentation, receiving 2 U pRBC's without difficulty. INR supratherapeutic at 5.6 on presentation, reversed with Vitamin K and Kcentra. Patient initially hypotensive with junctional bradycardia resolving with treatment of hypovolemic shock. High-sensitivity troponin elevated, representing demand ischemia with patient denying symptoms suggestive of an acute coronary syndrome. February 28, 2024 EGD revealing a nonbleeding cratered gastric ulcer with no stigmata of bleeding. PPI therapy recommended indefinitely. Oral anticoagulation on hold. Beta-ruchi and diltiazem resumed 02/29/2024 with significant bradycardia and symptomatic pauses overnight requiring treatment with intravenous dopamine. AV katiuska agents remain on hold with patient developing rapid ventricular response overnight. No associated symptoms. Recommend resumption of low-dose beta- ruchi, metoprolol 25 mg 3 times daily. Continue to monitor telemetry. If unable to control heart rate adequately with reduced dose beta-ruchi and/or she experiences recurrent episodes of symptomatic bradycardia, will pursue perma nent pacemaker implantation. I spent a total of 45 minutes on the date of service in preparation, delivery, and documentation of the care provided to this patient, excluding any time spent in the performance of separately billed services. Admission and Anticipated Discharge Date Admission Date: February 27, 2024 Subjective 83-year-old female seen and examined at the bedside. Heart rate elevated overnight. No recurrent bradycardia or significant pauses. Denies chest pain or shortness of breath. Feeling better today. No signs/symptoms of GI blood loss. Review of Systems Review of Systems: All systems reviewed & are unremarkable except as noted in Subjective Physical Exam Constitutional: well nourished; no acute distress Respiratory: no respiratory distress, no labored breathing and no retractions Auscultation: no crackles, no rales, no rhonchi and no wheezes Cardiovascular: Rate/Rhythm: + tachycardic and + irregularly irregular Heart Sounds: normal S1 and normal S2; no murmur Vessels: radial pulses present; no JVD and no carotid bruit Extremities: no edema Gastrointestinal (Abdomen): Inspection/Auscultation: normal bowel sounds; abdomen not distended Percussion/Palpation: abdomen soft; abdomen nontender, no guarding and abdomen not rigid Neurologic: CN's II-XI intact bilaterally and moves all extremities Results & Data Vital Signs (Past 12 Hours) Vital Signs Temp Pulse Resp BP Pulse Ox O2 Del Method O2 Flow Rate 03/02/24 10:30 105 H 19 99 03/02/24 10:30 136/88 03/02/24 10:00 97 H 24 100 03/02/24 10:00 112/71 03/02/24 09:30 98 H 15 100 03/02/24 09:30 127/79 03/02/24 09:00 119/68 03/02/24 09:00 99 H 17 96 03/02/24 08:30 144 H 13 100 03/02/24 08:30 117/90 03/02/24 08:00 134 H 15 98 03/02/24 08:00 Nasal Cannula 4 03/02/24 07:00 146 H 27 H 99 03/02/24 07:00 159/93 H 03/02/24 06:00 157/89 H 03/02/24 06:00 139 H 14 100 03/02/24 05:30 120 H 18 90 03/02/24 05:30 142/95 H 03/02/24 05:00 121 H 18 95 03/02/24 04:30 120 H 24 90 03/02/24 04:30 129/88 03/02/24 04:00 132 H 20 97 03/02/24 04:00 145/92 H 03/02/24 03:00 142/93 H 03/02/24 03:00 127 H 16 100 03/02/24 02:56 36.7 C 03/02/24 02:00 135 H 25 H 100 03/02/24 02:00 145/95 H 03/02/24 01:30 120 H 18 100 03/02/24 01:30 147/107 H 03/02/24 01:00 135/87 03/02/24 01:00 125 H 14 98 03/02/24 00:30 122 H 20 98 03/02/24 00:30 140/84 03/02/24 00:22 36.7 C 03/02/24 00:00 131/82 03/02/24 00:00 122 H 14 100 03/01/24 23:30 125 H 15 99 03/01/24 23:30 132/100 Laboratory Results CBC 03/02/24 Range/Units 04:15 WBC 7.17 (4.8-10.8) K/ul RBC 2.93 L (4.20-5.40) M/uL Hgb 7.9 L (12.0-16.0) g/dl Hct 26.6 L (37.0-47.0) % Plt Count 106 L (130-400) K/uL Comprehensive Metabolic Panel 03/02/24 Range/Units 04:15 Sodium 139 (136-145) mmol/L Potassium 4.0 (3.5-5.1) mmol/L Chloride 106 (98-107) mmol/L Carbon Dioxide 28 (21-32) mmol/L BUN 31 H (6-23) mg/dl Creatinine 0.98 (0.6-1.2) mg/dl Glucose 109 H (70-99(Fasting)) mg/dl Calcium 8.7 (8.6-10.3) mg/dl Intake and Output 03/01/24 03/02/24 03/02/24 22:59 06:59 14:59 Intake Total 250 / 1277.066 450 / 450 Output Total 0 / 450 Balance 250 / 827.066 450 / 450 Intake: IV 200 / 200 Magnesium Sulfate / D5w 1 gm In 200 / 200 100 ml @ 50 mls/hr IV Q2H [facility] Rx#:[id number] Oral 250 / 250 250 / 250 Output: Urine 0 / 450 Other: # Unmeasured Voids 0 0 0 Weight 73.8 kg Weight Measurement Method Built in [facility]
--- NOTE | 2024-03-02 12:47 | Critical Care Progress Note ---
Date of Service March 02, 2024 Assessment & Plan (1) Tachy-gladys syndrome: (2) Symptomatic bradycardia: (3) A-fib: (4) HTN (hypertension): (5) CHAVEZ (nonalcoholic steatohepatitis): (6) HLD (hyperlipidemia): (7) Aortic stenosis: Plan Reason Critically Ill: 83 YOF transferred to ICU for conduction pauses resulting in syncope. Now in Afib HR 90s- being followed by cardiology for tachy-gladys syndrome with discussion of PPM. Neuro - Syncope CAM ICU: Negative -Cardiac in origin Cardiac - Symptomatic Bradycardia, Tachy-gladys syndrome, afib, HTN, HLD, Elevated HsCTNI -Reviewed cardiology notes. Respiratory - No acute needs - NC maintain spo2 >94 GI - GI bleed, CHAVEZ, elevated LFTS -Recent EGD discovery of cratered ulcer continue PPI RENAL/LYTES - BRITTANY: Improved - No acute needs ENDO - No acute need HEME - Anemia, Thrombocytopenia -Indication for systemic anticoagulation includes chronic atrial fibrillation. Risk factors for bleeding includes recent cratered ulcer. Has been on PPI. Discordance between notes and patient's reports of need for permanent pacemaker which could possibly be placed Sunday. Will defer to consultants cardiology versus GI with regard initiation of systemic anticoagulation. ID - NO acute concern at this time for infective process LINES/IV ACCESS - PIV Continue use of these lines DVT PROPHYLAXIS - SCDS- DISPO: Critical care needs have resolved stable for downgrade out of ICU Admission and Anticipated Discharge Date Admission Date: February 27, 2024 Subjective Feels improved. Reports that when she discussed with cardiology the pacer may not need to be required and they are going to attempt additional medical management Physical Exam Physical Exam: General: Alert. nontoxic. Skin: Warm, dry, Head: Atraumatic Ears, nose, mouth and throat: airway patent Cardiovascular: Normal peripheral perfusion Respiratory: no respiratory distress Gastrointestinal: Non distended Musculoskeletal: No deformity Results & Data Results & Data Vital Signs (Past 12 Hours) Vital Signs Temp Pulse Resp BP Pulse Ox O2 Del Method O2 Flow Rate 03/02/24 12:00 115 H 18 96 03/02/24 12:00 130/88 03/02/24 11:31 118 H 18 98 03/02/24 11:31 119/73 03/02/24 11:00 120 H 17 100 03/02/24 11:00 141/93 H 03/02/24 10:30 105 H 19 99 03/02/24 10:30 136/88 03/02/24 10:00 97 H 24 100 03/02/24 10:00 112/71 03/02/24 09:30 98 H 15 100 03/02/24 09:30 127/79 03/02/24 09:00 119/68 03/02/24 09:00 99 H 17 96 03/02/24 08:30 144 H 13 100 03/02/24 08:30 117/90 03/02/24 08:00 134 H 15 98 03/02/24 08:00 Nasal Cannula 4 03/02/24 07:00 146 H 27 H 99 03/02/24 07:00 159/93 H 03/02/24 06:00 157/89 H 03/02/24 06:00 139 H 14 100 03/02/24 05:30 120 H 18 90 03/02/24 05:30 142/95 H 03/02/24 05:00 121 H 18 95 03/02/24 04:30 120 H 24 90 03/02/24 04:30 129/88 03/02/24 04:00 132 H 20 97 03/02/24 04:00 145/92 H 03/02/24 03:00 142/93 H 03/02/24 03:00 127 H 16 100 03/02/24 02:56 36.7 C 03/02/24 02:00 135 H 25 H 100 03/02/24 02:00 145/95 H 03/02/24 01:30 120 H 18 100 03/02/24 01:30 147/107 H 03/02/24 01:00 135/87 03/02/24 01:00 125 H 14 98 Critical Care Results & Data Vital Signs (Past 12 Hours) Vital Signs Temp Pulse Resp BP Pulse Ox O2 Del Method O2 Flow Rate 03/02/24 12:00 115 H 18 96 03/02/24 12:00 130/88 03/02/24 11:31 118 H 18 98 03/02/24 11:31 119/73 03/02/24 11:00 120 H 17 100 03/02/24 11:00 141/93 H 03/02/24 10:30 105 H 19 99 03/02/24 10:30 136/88 03/02/24 10:00 97 H 24 100 03/02/24 10:00 112/71 03/02/24 09:30 98 H 15 100 03/02/24 09:30 127/79 03/02/24 09:00 119/68 03/02/24 09:00 99 H 17 96 03/02/24 08:30 144 H 13 100 03/02/24 08:30 117/90 03/02/24 08:00 134 H 15 98 03/02/24 08:00 Nasal Cannula 4 03/02/24 07:00 146 H 27 H 99 03/02/24 07:00 159/93 H 03/02/24 06:00 157/89 H 03/02/24 06:00 139 H 14 100 03/02/24 05:30 120 H 18 90 03/02/24 05:30 142/95 H 03/02/24 05:00 121 H 18 95 03/02/24 04:30 120 H 24 90 03/02/24 04:30 129/88 03/02/24 04:00 132 H 20 97 03/02/24 04:00 145/92 H 03/02/24 03:00 142/93 H 03/02/24 03:00 127 H 16 100 03/02/24 02:56 36.7 C 03/02/24 02:00 135 H 25 H 100 03/02/24 02:00 145/95 H 03/02/24 01:30 120 H 18 100 03/02/24 01:30 147/107 H 03/02/24 01:00 135/87 03/02/24 01:00 125 H 14 98 Lab & Micro Results (Past 24 Hours) RBC 2.93 M/uL (4.20-5.40) L 03/02/24 WBC 7.17 K/ul (4.8-10.8) 03/02/24 Hgb 7.9 g/dl (12.0-16.0) L 03/02/24 Hct 26.6 % (37.0-47.0) L 03/02/24 MCV 90.8 fL (80.0-100.0) 03/02/24 MCH 27.0 pg (25.0-34.0) 03/02/24 MCHC 29.7 g/dL (32.0-36.0) L 03/02/24 RDW Standard Deviation 56.9 fL (36.4-46.3) H 03/02/24 RDW Coefficient of Variation 17.4 % (11.5-14.5) H 03/02/24 Plt Count 106 K/uL (130-400) L 03/02/24 MPV 10.9 fL (9.4-12.4) 03/02/24 Na 139 mmol/L (136-145) 03/02/24 K 4.0 mmol/L (3.5-5.1) 03/02/24 Cl 106 mmol/L (98-107) 03/02/24 CO2 28 mmol/L (21-32) 03/02/24 Anion Gap 5 (3-11) 03/02/24 BUN 31 mg/dl (6-23) H 03/02/24 Creatinine 0.98 mg/dl (0.6-1.2) 03/02/24 Estimated GFR ( Amer) 61.0 ml/min 03/02/24 Estimated GFR (Non-Af Amer) 52.6 ml/min 03/02/24 BUN/Creatinine Ratio 31.6 (10-20) H 03/02/24 Glu 109 mg/dl (70-99(Fasting)) H 03/02/24 Ca 8.7 mg/dl (8.6-10.3) 03/02/24 Phosphorus Level 2.5 mg/dl (2.5-4.9) 03/02/24 Mg 2.0 mg/dl (1.7-2.4) 03/02/24 04:15 Calcium Level 8.7 mg/dl (8.6-10.3) 03/02/24 04:15 I & O Totals 24 Hours 03/01/24 03/02/24 03/03/24 06:59 06:59 06:59 Intake Total 2852.578 / 2852.578 1277.066 / 1277.066 700 / 700 Output Total 1300 / 1300 450 / 450 Balance 1552.578 / 1552.578 827.066 / 827.066 700 / 700 Cumulative 02/27/24 14:11 thru 03/02/24 12:00 Intake Total 9086.561 Output Total 4445 Balance 4641.561 RT Ventilator Mngmt (Last Documented) Ventilator Ordered Settings Respiratory Rate 18 03/02/24 12:00 Ventilator - PT Measurements Respiratory Rate 18 Coding Level of Care Code 29487 SUB INP/OBS CARE 2/35MIN Diagnoses Tachy-gladys syndrome I49.5 Symptomatic bradycardia R00.1 A-fib I48.91 HTN (hypertension) I10 CHAVEZ (nonalcoholic steatohepatitis) K75.81 HLD (hyperlipidemia) E78.5 Aortic stenosis I35.0
[2024-03-02] MEDS: METOPROLOL TARTRATE 25 MG TAB PO SCH (13:39)
--- NOTE | 2024-03-02 14:11 | Hospitalist Progress Note ---
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 In ER, she was found to be significantly bradycardic and hypotensive. Rectal exam with dark black stool. Labs with significant anemia with H/H: 5.7/19 and INR: 5.6. She was given Protonix bolus, Vitamin K 10mg IV, KCentra. Typed and cross PRBC. However patient continued hypotension so uncrossed blood being transfused and FFP ordered. She was also given glucagon, calcium gluconate and atropine. Was started on a PPI drip. She was admitted to the ICU. Got 2 PRBC and 2 FFP Continue to hold aspirin, warfarin Was evaluated by GI and had EGD on 02/28/24 EGD noted normal esophagus, 1 nonbleeding cratered gastric ulcer with no stigmata of bleeding in the prepyloric region of the stomach, lesion was 4 mm in largest diameter. Exam of the stomach was otherwise normal. Examined duodenum was normal. Hb remains stable Currently on PO PPI BID (6) Symptomatic bradycardia: (7) Permanent atrial fibrillation: Plan: On presentation, patient had hypotension and junctional bradycardia. Converted from junctional bradycardia to A-fib with rapid ventricular rate in ICU. Cardiology evaluation and recommendation appreciated. Got Cardizem IV initially, now off Was transferred initially from ICU to PCU Betablocker and cardizem was resumed Had symptomatic bradycardia/pauses overnight of 02/28-03/01 Was transferred back to ICU Continue to hold AVN blockers Cardiology evaluated and recommendations noted Cardiology started low dose lopressor 25mg q8h Will follow up with Cardiology about plans for possible PPM Was anticoagulated on Coumadin at home, currently on hold Will determine correction plans regarding anticoag once medically stable with patient/Cardiology (8) Elevated troponin: Plan: Troponin: 254->>693 Likely demand ischemia Echocardiogram noted EF of 55 to 60%, moderate concentric LVH, mildly dilated LV, normal LV SF, severe biatrial enlargement, status post TAVR, severe mitral annular calcification, moderate MR, moderate to severe TR, estimated PASP of 59 (9) Aortic stenosis: Plan: S/P TAVR 10/02/2023 at [facility] (10) CAD (coronary artery disease): Plan: History nonobstructive CAD on preop TAVR cath 08/10/2023 Aspirin on hold due to acute GI bleed and possible procedure (11) HTN (hypertension): Plan: Home antihypertensives held as above (12) HLD (hyperlipidemia): Plan: History of statin intolerance DVT Prophylaxis SCDs Full Code Updated Downgrade to PCU I spent a total of 50 minutes coordinating, documenting and providing care for this patient excluding time spent in performance of separately billed services Admission and Anticipated Discharge Date Admission Date: February 27, 2024 Subjective Patient seen and examined. Reports mild cough. Denies shortness of breath, palpitations or chest pain. Denies nausea, vomiting, abdominal pain. Had a BM earlier. Per RN, there was no hematochezia or melena Physical Exam Constitutional: + well hydrated; no acute distress Eyes: PERRL, conjunctivae normal, anicteric sclerae ENMT: external ear and nose normal, oropharynx normal Respiratory: normal respiratory effort, lungs clear to auscultation Cardiovascular: Rate/Rhythm: + tachycardic and + irregularly irregular S1 S2 Gastrointestinal (Abdomen): normal bowel sounds, soft, nontender, no hepat osplenomegaly Musculoskeletal: +Pedal edema Neurologic: PERRL, EOMI, accommodation nl, no face palsy, no dysarthria Psychiatric: A+Ox3, euthymic affect Results & Data Results & Data Vital Signs (Past 12 Hours) Vital Signs Temp Pulse Resp BP Pulse Ox O2 Del Method O2 Flow Rate 03/02/24 12:00 115 H 18 96 03/02/24 12:00 130/88 03/02/24 11:31 118 H 18 98 03/02/24 11:31 119/73 03/02/24 11:00 120 H 17 100 03/02/24 11:00 141/93 H 03/02/24 10:30 105 H 19 99 03/02/24 10:30 136/88 03/02/24 10:00 97 H 24 100 03/02/24 10:00 112/71 03/02/24 09:30 98 H 15 100 03/02/24 09:30 127/79 03/02/24 09:00 119/68 03/02/24 09:00 99 H 17 96 03/02/24 08:30 144 H 13 100 03/02/24 08:30 117/90 03/02/24 08:00 134 H 15 98 03/02/24 08:00 Nasal Cannula 4 03/02/24 07:00 146 H 27 H 99 03/02/24 07:00 159/93 H 03/02/24 06:00 157/89 H 03/02/24 06:00 139 H 14 100 03/02/24 05:30 120 H 18 90 03/02/24 05:30 142/95 H 03/02/24 05:00 121 H 18 95 03/02/24 04:30 120 H 24 90 03/02/24 04:30 129/88 03/02/24 04:00 132 H 20 97 03/02/24 04:00 145/92 H 03/02/24 03:00 142/93 H 03/02/24 03:00 127 H 16 100 03/02/24 02:56 36.7 C Laboratory Results Abnormal lab results 03/02/24 Range/Units 04:15 RBC 2.93 L (4.20-5.40) M/uL Hgb 7.9 L (12.0-16.0) g/dl Hct 26.6 L (37.0-47.0) % MCHC 29.7 L (32.0-36.0) g/dL RDW Std Deviation 56.9 H (36.4-46.3) fL RDW Coeff of Serg 17.4 H (11.5-14.5) % Plt Count 106 L (130-400) K/uL BUN 31 H (6-23) mg/dl BUN/Creatinine Ratio 31.6 H (10-20) Glucose 109 H (70-99(Fasting)) mg/dl
[2024-03-03 04:59] LABS: Hematocrit (blood only) 26.9 % (37.0-47.0); Hemoglobin 8.1 g/dl (12.0-16.0); Mean Corpuscular Hemoglobin 26.7 pg (25.0-34.0); Mean Corpuscular Hgb Conc 30.1 g/dL (32.0-36.0); Mean Corpuscular Volume 88.8 fL (80.0-100.0); Mean Platelet Volume 11.3 fL (9.4-12.4); Nucleated RBC # (auto) 0.02 K/uL (0.00-0.12); Nucleated RBC % (auto) 0.4 %; Platelet Count 119 K/uL (130-400); RDW Coefficient of Variation 17.6 % (11.5-14.5); RDW Standard Deviation 55.5 fL (36.4-46.3); Red Blood Count 3.03 M/uL (4.20-5.40); White Blood Count 5.57 K/ul (4.8-10.8)
[2024-03-03 05:08] LABS: BUN Creatinine Ratio 25.6 (10-20); Calcium 8.4 mg/dl (8.6-10.3); Est GFR (African American) 67.6 ml/min; Est GFR (Non-African American) 58.3 ml/min; Magnesium 2.2 mg/dl (1.7-2.4); Phosphorus 2.5 mg/dl (2.5-4.9); Potassium 4.1 mmol/L (3.5-5.1)
[2024-03-03] MEDS: FUROSEMIDE 20 MG TAB PO SCH (08:53)
--- NOTE | 2024-03-03 10:33 | Cardiology Progress Note ---
Date of Service March 03, 2024 Assessment & Plan (1) Atrial fibrillation with rapid ventricular response: (2) Tachy-gladys syndrome: (3) Symptomatic bradycardia: (4) Acute GI bleeding: (5) Symptomatic anemia: (6) ASCVD (arteriosclerotic cardiovascular disease): Plan 83-year-old female with history of severe aortic valve stenosis status post October 02, 2023 TAVR (#26 mm [place] GENA S3 Ultra valve) with post procedure left bundle branch block, moderate ASCVD, pulmonary hypertension, and chronic atrial fibrillation admitted with melena x 3 days duration. Hemoglobin 5.7 on presentation, receiving 2 U pRBC's without difficulty. INR supratherapeutic at 5.6 on presentation, reversed with Vitamin K and Kcentra. Patient initially hypotensive with junctional bradycardia resolving with treatment of hypovolemic shock. High-sensitivity troponin elevated, representing demand ischemia with patient denying symptoms suggestive of an acute coronary syndrome. February 28, 2024 EGD revealing a nonbleeding cratered gastric ulcer with no stigmata of bleeding. PPI therapy recommended indefinitely. Oral anticoagulation on hold. Beta-ruchi and diltiazem resumed 02/29/2024 with significant bradycardia and symptomatic pauses overnight requiring treatment with intravenous dopamine. AV katiuska agents remain on hold with patient developing rapid ventricular response overnight. No associated symptoms. Recommend resumption of low-dose beta- ruchi, metoprolol 25 mg 3 times daily. Continue to monitor telemetry. If unable to control heart rate adequately with reduced dose beta-ruchi and/or she experiences recurrent episodes of symptomatic bradycardia, will pursue perma nent pacemaker implantation. 03/03/2024 patient hemodynamically stable but still with elevated atrial fibrillation ventricular response rates. Previously required high-dose beta-ruchi and diltiazem to control. Underlying issues include valvular heart disease post post TAVR with transient left bundle branch block Clinical course consistent with tachybradycardia syndrome exacerbated by acute GI bleeding Plan: Change metoprolol to tartrate to metoprolol succinate 50 twice daily Will consult EP for pacemaker insertion this admission No signs of active bleeding I spent a total of 45 minutes on the date of service in preparation, delivery, and documentation of the care provided to this patient, excluding any time spent in the performance of separately billed services. Admission and Anticipated Discharge Date Admission Date: February 27, 2024 Subjective Patient was seen and examined, chart, medications, telemetry reviewed. Remains in atrial fibrillation as in past. Atrial fibrillation rates trending higher. In the past has required significant amounts of AV katiuska blocking drugs for rate control. No further pauses or significant bradycardia arrhythmias since early a.m. 03/01/2024. Patient still having dark stools per patient. No overt bleeding hemoglobin stable Review of Systems Review of Systems: All systems reviewed & are unremarkable except as noted in Subjective Physical Exam Constitutional: + thin; no acute distress ENMT: external ear and nose normal, oropharynx normal Neck: trachea midline, no thyromegaly Respiratory: no respiratory distress, no labored breathing and no retractions Auscultation: no crackles, no rales, no rhonchi and no wheezes Cardiovascular: Rate/Rhythm: + tachycardic and + irregularly irregular Heart Sounds: normal S1, normal S2 and + murmur (Grade 1/6 systolic murmur) Vessels: radial pulses present; no JVD and no carotid bruit Extremities: no edema Gastrointestinal (Abdomen): Inspection/Auscultation: normal bowel sounds; a bdomen not distended Percussion/Palpation: abdomen soft; abdomen nontender, no guarding and abdomen not rigid Neurologic: CN's II-XI intact bilaterally and moves all extremities Results & Data Vital Signs (Past 12 Hours) Vital Signs Temp Pulse Pulse Pulse Resp BP BP 03/03/24 08:00 108 H 03/03/24 07:55 36.6 C 119 H 20 96/62 L 03/03/24 06:00 114 H 19 03/03/24 05:44 122/81 03/03/24 05:44 117 H 15 03/03/24 05:00 122 H 12 03/03/24 04:00 115 H 12 03/03/24 03:00 116 H 14 03/03/24 02:31 36.6 C 113 H 18 132/91 03/03/24 02:30 132/91 03/03/24 02:30 114 H 17 03/03/24 02:00 110 H 13 03/03/24 01:00 116 H 15 03/03/24 00:00 126 H 15 03/03/24 00:00 114 H 03/02/24 23:10 36.9 C 111 H 20 127/77 03/02/24 23:09 125/77 03/02/24 23:09 126 H 24 03/02/24 23:00 105 H 12 Pulse Ox O2 Del Method O2 Flow Rate 03/03/24 08:00 03/03/24 07:55 94 Nasal Cannula 2 03/03/24 06:00 98 03/03/24 05:44 03/03/24 05:44 97 03/03/24 05:00 95 03/03/24 04:00 98 03/03/24 03:00 100 03/03/24 02:31 100 Nasal Cannula 3 03/03/24 02:30 03/03/24 02:30 98 03/03/24 02:00 100 03/03/24 01:00 99 03/03/24 00:00 98 03/03/24 00:00 03/02/24 23:10 97 Nasal Cannula 4 03/02/24 23:09 03/02/24 23:09 99 03/02/24 23:00 97 Laboratory Results Laboratory Results - last 24 hr 03/03/24 04:36 WBC 5.57 RBC 3.03 L Hgb 8.1 L Hct 26.9 L MCV 88.8 MCH 26.7 MCHC 30.1 L RDW Std Deviation 55.5 H RDW Coeff of Serg 17.6 H Plt Count 119 L MPV 11.3 Absolute Nucleated RBC 0.02 Nucleated RBC % (auto) 0.4 Sodium 137 Potassium 4.1 Chloride 105 Carbon Dioxide 28 Anion Gap 4 BUN 23 Creatinine 0.90 Est Cr Clr Drug Dosing 45.0 Est GFR ( Amer) 67.6 Est GFR (Non-Af Amer) 58.3 BUN/Creatinine Ratio 25.6 H Glucose 105 H Calcium 8.4 L Phosphorus 2.5 Magnesium 2.2
[2024-03-03] MEDS: METOPROLOL SUCC 25MG EXT REL TAB PO ONE (11:12)
--- NOTE | 2024-03-03 14:18 | Communication Note ---
Date of Service: March 03, 2024 Discussed management in detail with patient Patient scheduled for single-chamber pacemaker insertion in a.m. N.p.o. after midnight
--- NOTE | 2024-03-03 15:11 | Hospitalist Progress Note ---
Date of Service March 03, 2024 Assessment & Plan (1) Acute GI bleeding: (2) Melena: (3) Supratherapeutic INR: (4) Anemia: (5) Hypotension: Plan: 83 year old female with PMH aortic stenosis s/p TAVR 09/2023, permanent atrial fibrillation anticoagulated on Coumadin, LBBB, Nonobstructive CAD on cath 07/2023, HTN, dyslipidemia, CHAVEZ, nocturnal hypoxia presented to ER with c/o melena x 3 days. In ER, she was found to be significantly bradycardic and hypotensive. Rectal exam with dark black stool. Labs with significant anemia with H/H: 5.7/19 and INR: 5.6. She was given Protonix bolus, Vitamin K 10mg IV, KCentra. Typed and cross PRBC. However patient continued hypotension so uncrossed blood being transfused and FFP ordered. She was also given glucagon, calcium gluconate and atropine. Was started on a PPI drip. She was admitted to the ICU. Got 2 PRBC and 2 FFP Continue to hold aspirin, warfarin Was evaluated by GI and had EGD on 02/28/24 EGD noted normal esophagus, 1 nonbleeding cratered gastric ulcer with no stigmata of bleeding in the prepyloric region of the stomach, lesion was 4 mm in largest diameter. Exam of the stomach was otherwise normal. Examined duodenum was normal. Hb remains stable Currently on PO PPI BID (6) Symptomatic bradycardia: (7) Permanent atrial fibrillation: Plan: On presentation, patient had hypotension and junctional bradycardia. Converted from junctional bradycardia to A-fib with rapid ventricular rate in ICU. Cardiology evaluation and recommendation appreciated. Got Cardizem IV initially, now off Was transferred initially from ICU to PCU Betablocker and cardizem was resumed Had symptomatic bradycardia/pauses overnight of 02/28-03/01 Was transferred back to ICU Cardiology evaluated and recommendations noted Cardiology adjusting dose of beta ruchi Plan for PPM in AM. NPO PMN tonight Home lasix had been resumed this AM. Will hold for tomorrow since patient will be NPO till procedure. Reassess later Was anticoagulated on Coumadin at home, currently on hold Will determine shelter plans regarding anticoag once medically stable with patient/Cardiology (8) Elevated troponin: Plan: Troponin: 254->>693 Likely demand ischemia Echocardiogram noted EF of 55 to 60%, moderate concentric LVH, mildly dilated LV, normal LV SF, severe biatrial enlargement, status post TAVR, severe mitral annular calcification, moderate MR, moderate to severe TR, estimated PASP of 59 (9) Aortic stenosis: Plan: S/P TAVR 10/02/2023 at [facility] (10) CAD (coronary artery disease): Plan: History nonobstructive CAD on preop TAVR cath 08/10/2023 Aspirin on hold due to acute GI bleed and planned procedure (11) HTN (hypertension): Plan: Normal BP Monitor Home antihypertensives on hold (12) HLD (hyperlipidemia): Plan: History of statin intolerance DVT Prophylaxis SCDs Full Code I spent a total of 45 minutes coordinating, documenting and providing care for this patient excluding time spent in performance of separately billed services Admission and Anticipated Discharge Date Admission Date: February 27, 2024 Subjective Patient seen and examined. Reports mild dry cough. Denies shortness of breath, palpitations or chest pain. Denies nausea, vomiting, abdominal pain. No melena or hematochezia Physical Exam Constitutional: + well hydrated; no acute distress Eyes: PERRL, conjunctivae normal, anicteric sclerae ENMT: external ear and nose normal, oropharynx normal Respiratory: normal respiratory effort, lungs clear to auscultation Cardiovascular: Rate/Rhythm: + tachycardic and + irregularly irregular S1 S2 Gastrointestinal (Abdomen): normal bowel sounds, soft, nontender, no h epatosplenomegaly Musculoskeletal: Trace pedal edema Neurologic: PERRL, EOMI, accommodation nl, no face palsy, no dysarthria Psychiatric: A+Ox3, euthymic affect Results & Data Results & Data Vital Signs (Past 12 Hours) Vital Signs Temp Pulse Pulse Resp BP BP Pulse Ox 03/03/24 11:11 36.7 C 143 H 18 104/81 96 03/03/24 08:00 108 H 03/03/24 07:55 36.6 C 119 H 20 96/62 L 94 03/03/24 07:30 03/03/24 06:00 114 H 19 98 03/03/24 05:44 122/81 03/03/24 05:44 117 H 15 97 03/03/24 05:00 122 H 12 95 03/03/24 04:00 115 H 12 98 O2 Del Method O2 Flow Rate 03/03/24 11:11 Nasal Cannula 2 03/03/24 08:00 03/03/24 07:55 Nasal Cannula 2 03/03/24 07:30 Nasal Cannula 2 03/03/24 06:00 03/03/24 05:44 03/03/24 05:44 03/03/24 05:00 03/03/24 04:00 Laboratory Results Abnormal lab results 03/03/24 Range/Units 04:36 RBC 3.03 L (4.20-5.40) M/uL Hgb 8.1 L (12.0-16.0) g/dl Hct 26.9 L (37.0-47.0) % MCHC 30.1 L (32.0-36.0) g/dL RDW Std Deviation 55.5 H (36.4-46.3) fL RDW Coeff of Serg 17.6 H (11.5-14.5) % Plt Count 119 L (130-400) K/uL BUN/Creatinine Ratio 25.6 H (10-20) Glucose 105 H (70-99(Fasting)) mg/dl Calcium 8.4 L (8.6-10.3) mg/dl
[2024-03-03] MEDS: METOPROLOL SUCC 50MG EXT REL TAB PO SCH (20:43)
[2024-03-04 04:58] LABS: Hematocrit (blood only) 27.7 % (37.0-47.0); Hemoglobin 8.2 g/dl (12.0-16.0); Mean Corpuscular Hemoglobin 26.6 pg (25.0-34.0); Mean Corpuscular Hgb Conc 29.6 g/dL (32.0-36.0); Mean Corpuscular Volume 89.9 fL (80.0-100.0); Mean Platelet Volume 11.4 fL (9.4-12.4); Platelet Count 140 K/uL (130-400); RDW Coefficient of Variation 17.4 % (11.5-14.5); RDW Standard Deviation 56.4 fL (36.4-46.3); Red Blood Count 3.08 M/uL (4.20-5.40); White Blood Count 5.48 K/ul (4.8-10.8)
[2024-03-04 05:10] LABS: BUN Creatinine Ratio 21.6 (10-20); Calcium 8.5 mg/dl (8.6-10.3); Creatinine Clr Calc Pharmacy 36.6 ml/min; Est GFR (African American) 52.4 ml/min; Est GFR (Non-African American) 45.2 ml/min; Phosphorus 2.8 mg/dl (2.5-4.9); Potassium 4.1 mmol/L (3.5-5.1)
--- NOTE | 2024-03-04 07:51 | History & Physical Bridge Note ---
Date of Service March 04, 2024 History & Physical Bridge Note I have examined the patient, reviewed the History & Physical and in the interval since the performance of the History & Physical I have noted the following changes of clinical significance: Pt was admitted for GIB but during her hospitalization she has been having Tachy-gladys syndrome and recommended a pacemaker prior to discharge.
--- NOTE | 2024-03-04 07:52 | Pre Anesthesia Assessment ---
Date of Service March 04, 2024 Pre Sedation Assessment Vital Signs Temp Pulse Pulse Resp BP BP Pulse Ox 03/04/24 07:22 129 H 19 149/97 H 93 03/04/24 07:22 36.8 C 03/04/24 04:36 89/63 L 03/04/24 04:36 126 H 22 03/04/24 04:00 112 H 18 03/04/24 04:00 37.0 C 03/04/24 02:00 141 H 16 03/04/24 00:00 133 H 14 03/04/24 00:00 136 H 03/04/24 00:00 36.9 C 03/03/24 23:26 128 H 24 03/03/24 23:26 86/50 L 03/03/24 22:00 126 H 17 03/03/24 20:35 128 H 21 03/03/24 20:35 120/92 03/03/24 20:00 134 H 16 03/03/24 20:00 36.8 C 03/03/24 20:00 03/03/24 20:00 36.8 C 131 H 15 120/92 93 03/03/24 18:00 142 H 19 98 03/03/24 16:06 36.6 C 142 H 17 113/90 92 03/03/24 16:00 150 H 03/03/24 11:11 36.7 C 143 H 18 104/81 96 03/03/24 08:00 108 H 03/03/24 07:55 36.6 C 119 H 20 96/62 L 94 O2 Del Method O2 Flow Rate 03/04/24 07:22 Nasal Cannula 1 03/04/24 07:22 03/04/24 04:36 03/04/24 04:36 03/04/24 04:00 03/04/24 04:00 03/04/24 02:00 03/04/24 00:00 03/04/24 00:00 03/04/24 00:00 03/03/24 23:26 03/03/24 23:26 03/03/24 22:00 03/03/24 20:35 03/03/24 20:35 03/03/24 20:00 03/03/24 20:00 03/03/24 20:00 Nasal Cannula 1 03/03/24 20:00 Nasal Cannula 1 03/03/24 18:00 03/03/24 16:06 Nasal Cannula 1 03/03/24 16:00 03/03/24 11:11 Nasal Cannula 2 03/03/24 08:00 03/03/24 07:55 Nasal Cannula 2 Cardiovascular + tachycardic and + irregularly irregular Respiratory normal respiratory effort, lungs clear to auscultation Pre-Sedation Airway Assessment Smoking Status: Never smoker Hx Sleep Apnea: No Short, Thick Neck: No Thyromental Distance: > or= 3.5 Finger Breadths Oral Cavity: + WNL Mallampati Class: IV ASA: ASA4 NPO Status Date of Last Intake of Fluids: 03/03/24 Date of Last Intake of Solid Food: 03/03/24 Procedure Planning Contraindications for Sedation: none Current Medications Reviewed: Yes Notes The planned sedation has been discussed with the patient. Informed Consent was obtained. I have identified the patient, determined the appropriateness of sedation and have assessed the patient immediately prior to the procedure. All medicine(s) and interventions are by my order.
[2024-03-04] MEDS: VANCOMYCIN HCL 1000MG/20ML VIAL ONE (08:59)
[2024-03-04] MEDS: ceFAZolin 330 MG/ML 1 GM VIAL ONE (08:59)
[2024-03-04] MEDS: WATER, STERILE FOR INJ 10 ML VIAL ONE (08:59)
[2024-03-04] MEDS: LIDOCAINE 1% LOCAL 20 ML VIAL ONE (08:59)
[2024-03-04] MEDS: BUPIVACAINE 0.25% PF 30 ML VIAL ONE (08:59)
[2024-03-04] MEDS: METOPROLOL TARTRATE 1 MG/ML VIAL IV ONE ×2 (09:10→09:20)
--- NOTE | 2024-03-04 09:35 | Post Anesthesia Assessment ---
Date of Service March 04, 2024 Post Sedation Assessment Vital Signs Temp Pulse Pulse Resp BP BP Pulse Ox 03/04/24 07:22 129 H 19 149/97 H 93 03/04/24 07:22 36.8 C 03/04/24 04:36 89/63 L 03/04/24 04:36 126 H 22 03/04/24 04:00 112 H 18 03/04/24 04:00 37.0 C 03/04/24 02:00 141 H 16 03/04/24 00:00 133 H 14 03/04/24 00:00 136 H 03/04/24 00:00 36.9 C 03/03/24 23:26 128 H 24 03/03/24 23:26 86/50 L 03/03/24 22:00 126 H 17 03/03/24 20:35 128 H 21 03/03/24 20:35 120/92 03/03/24 20:00 134 H 16 03/03/24 20:00 36.8 C 03/03/24 20:00 03/03/24 20:00 36.8 C 131 H 15 120/92 93 03/03/24 18:00 142 H 19 98 03/03/24 16:06 36.6 C 142 H 17 113/90 92 03/03/24 16:00 150 H 03/03/24 11:11 36.7 C 143 H 18 104/81 96 O2 Del Method O2 Flow Rate 03/04/24 07:22 Nasal Cannula 1 03/04/24 07:22 03/04/24 04:36 03/04/24 04:36 03/04/24 04:00 03/04/24 04:00 03/04/24 02:00 03/04/24 00:00 03/04/24 00:00 03/04/24 00:00 03/03/24 23:26 03/03/24 23:26 03/03/24 22:00 03/03/24 20:35 03/03/24 20:35 03/03/24 20:00 03/03/24 20:00 03/03/24 20:00 Nasal Cannula 1 03/03/24 20:00 Nasal Cannula 1 03/03/24 18:00 03/03/24 16:06 Nasal Cannula 1 03/03/24 16:00 03/03/24 11:11 Nasal Cannula 2 Recovery Score Activity: Moves 4 extremities Respiration: Deep Breath/Cough Circulation: +/-20% PreAnes Value Consciousness: Fully Awake Oxygen Saturation: > 92% On Room Air Post Anesthesia Score: 10 Discharge Sedation Level of Care: Fast Track Phase II Post Sedation Plan On clinical assessment, the patient appears to have tolerated the sedation without complications. Patient is recovering as anticipated. Patient will continue to be monitored by nursing and may be discharged when sedation discharge criteria are met per below protocol. Upon Completions of procedure up to 15 minutes continue every 5 minute vital signs and the P.A.R. score; then discharge to a Phase I or Fast Track to Phase II per the following guidelines: * Discharge Patient to appropriate Phase II area if PAR is 8 or greater or return to pre- procedure baseline. The post - procedure orders will be as directed. * If PAR score is less than 8 or not return to pre-procedure baseline then patient will follow Phase I monitoring till PAR is reached for Phase II. The Phase I may be done in procedure room or may call to secure a Phase I area. * If naloxone or flumazenil are used for reversal, hold in Phase I for continued monitoring from when last reversal dose was given for a minimum of 60 minutes or longer pending the nurse and/or physician discretion of patient condition before discharge to Phase II. Please call the Sedation Physician to re-evaluate and complete post-note for discharge to Phase II area. Do NOT discharge from procedure sedation or Phase 1 until post- sedation evaluation note is complete by procedure /sedation MD Sedation Discharge Instructions to be given to the patient at discharge to home.
[2024-03-04] MEDS: MIDAZOLAM HCL 5 MG/ML 1 ML VIAL ONE (09:41)
[2024-03-04] MEDS: fentaNYL citrate PF 100 MCG/2 ML VIAL ONE (09:41)
[2024-03-04] MEDS: dilTIAZem HCL 30 MG TAB PO SCH (10:30)
--- NOTE | 2024-03-04 11:02 | Hospitalist Progress Note ---
Date of Service March 04, 2024 Assessment & Plan (1) Acute GI bleeding: (2) Melena: (3) Supratherapeutic INR: (4) Anemia: (5) Hypotension: Plan: 83 year old female with PMH aortic stenosis s/p TAVR 09/2023, permanent atrial fibrillation anticoagulated on Coumadin, LBBB, Nonobstructive CAD on cath 07/2023, HTN, dyslipidemia, CHAVEZ, nocturnal hypoxia presented to ER with c/o melena x 3 days. In ER, she was found to be significantly bradycardic and hypotensive. Rectal exam with dark black stool. Labs with significant anemia with H/H: 5.7/19 and INR: 5.6. She was given Protonix bolus, Vitamin K 10mg IV, KCentra. Typed and cross PRBC. However patient continued hypotension so uncrossed blood being transfused and FFP ordered. She was also given glucagon, calcium gluconate and atropine. Was started on a PPI drip. She was admitted to the ICU. Got 2 PRBC and 2 FFP Continue to hold aspirin, warfarin Was evaluated by GI and had EGD on 02/28/24 EGD noted normal esophagus, 1 nonbleeding cratered gastric ulcer with no stigmata of bleeding in the prepyloric region of the stomach, lesion was 4 mm in largest diameter. Exam of the stomach was otherwise normal. Examined duodenum was normal. Hb remains stable Currently on PO PPI BID (6) Symptomatic bradycardia: (7) Permanent atrial fibrillation: Plan: On presentation, patient had hypotension and junctional bradycardia. Converted from junctional bradycardia to A-fib with rapid ventricular rate in ICU. Cardiology evaluation and recommendation appreciated. Got Cardizem IV initially, now off Was transferred initially from ICU to PCU Betablocker and cardizem was resumed Had symptomatic bradycardia/pauses overnight of 02/28-03/01 Was transferred back to ICU Cardiology evaluated and recommendations noted Status post pacemaker placement today. Started on Cardizem 30 mg 3 times daily and metoprolol succinate increased to 75 mg twice daily by cardiology. Was anticoagulated on Coumadin at home, currently on hold Will determine terminal clerk plans regarding anticoag once medically stable with patient/Cardiology (8) Elevated troponin: Plan: Troponin: 254->>693 Likely demand ischemia Echocardiogram noted EF of 55 to 60%, moderate concentric LVH, mildly dilated LV, normal LV SF, severe biatrial enlargement, status post TAVR, severe mitral annular calcification, moderate MR, moderate to severe TR, estimated PASP of 59 (9) Aortic stenosis: Plan: S/P TAVR 10/02/2023 at [facility] [place] (10) CAD (coronary artery disease): Plan: History nonobstructive CAD on preop TAVR cath 08/10/2023 Aspirin on hold due to acute GI bleed. Follow-up cardiology when to resume. Home Lasix resumed (11) HTN (hypertension): Plan: Normal BP Monitor (12) HLD (hyperlipidemia): Plan: History of statin intolerance DVT Prophylaxis SCDs Full Code I spent a total of 45 minutes coordinating, documenting and providing care for this patient excluding time spent in performance of separately billed services Admission and Anticipated Discharge Date Admission Date: February 27, 2024 Subjective Patient seen and examined after returning from pacemaker placement. Denies any complaints at this time. Denies palpitation. Denies any pain at this time. Physical Exam Constitutional: + well hydrated; no acute distress Eyes: PERRL, conjunctivae normal, anicteric sclerae ENMT: external ear and nose normal, oropharynx normal Respiratory: normal respiratory effort, lungs clear to auscultation Cardiovascular: Rate/Rhythm: + tachycardic and + irregularly irregular S1-S2 Gastrointestinal (Abdomen): normal bowel sounds, soft, nontender, no hepatosplenomegaly Musculoskeletal: Pedal edema Neurologic: PERRL, EOMI, accommodation nl, no face palsy, no dysarthria Psychiatric: A+Ox3, euthymic affect Results & Data Results & Data Vital Signs (Past 12 Hours) Vital Signs Temp Pulse Pulse Resp BP BP Pulse Ox 03/04/24 10:15 113 H 18 110/83 94 03/04/24 10:13 120 H 22 90/60 L 94 03/04/24 09:55 117 H 18 124/87 96 03/04/24 09:40 127 H 18 115/83 97 03/04/24 07:22 129 H 19 149/97 H 93 03/04/24 07:22 36.8 C 03/04/24 04:36 89/63 L 03/04/24 04:36 126 H 22 03/04/24 04:00 112 H 18 03/04/24 04:00 37.0 C 03/04/24 02:00 141 H 16 04/16/24 00:00 133 H 14 03/04/24 00:00 136 H 03/04/24 00:00 36.9 C 03/03/24 23:26 128 H 24 03/03/24 23:26 86/50 L O2 Del Method O2 Flow Rate 03/04/24 10:15 Nasal Cannula 2 03/04/24 10:13 Nasal Cannula 2 03/04/24 09:55 Room Air 03/04/24 09:40 Room Air 03/04/24 07:22 Nasal Cannula 1 03/04/24 07:22 03/04/24 04:36 03/04/24 04:36 03/04/24 04:00 03/04/24 04:00 03/04/24 02:00 03/04/24 00:00 03/04/24 00:00 03/04/24 00:00 03/03/24 23:26 03/03/24 23:26 Laboratory Results Abnormal lab results 03/04/24 Range/Units 04:10 RBC 3.08 L (4.20-5.40) M/uL Hgb 8.2 L (12.0-16.0) g/dl Hct 27.7 L (37.0-47.0) % MCHC 29.6 L (32.0-36.0) g/dL RDW Std Deviation 56.4 H (36.4-46.3) fL RDW Coeff of Serg 17.4 H (11.5-14.5) % Sodium 135 L (136-145) mmol/L BUN 24 H (6-23) mg/dl BUN/Creatinine Ratio 21.6 H (10-20) Glucose 107 H (70-99(Fasting)) mg/dl Calcium 8.5 L (8.6-10.3) mg/dl
--- NOTE | 2024-03-04 12:28 | Ultrasound Report ---
RIGHT UPPER EXTREMITY VENOUS DOPPLER HISTORY: Right arm swelling COMPARISON STUDY: None. FINDINGS: The right internal jugular vein is patent. There is normal flow within the right subclavian vein. There is normal flow and compressibility within the right axillary, basilic, brachial, radial, and ulnar veins. Superficial thrombus within the cephalic vein from the mid upper arm to the proxima l forearm measuring approximately 8.3 cm in length. IMPRESSION: 1. No DVT within the right upper extremity. 2. Superficial thrombus within the right cephalic vein as described above. ACT 112: Negative or not required by law. Electronically signed by: Nino Degroot M.D. 03/04/2024 12:27 PM
--- NOTE | 2024-03-04 13:06 | XRay Report ---
XR chest 1V portable HISTORY: s/p ppm ensure no PTX COMPARISON: Chest 10/01/2021. FINDINGS: Interval placement of a left-sided single lead pacemaker. The lead appears intact. No pneum othorax. The cardiac silhouette remains mildly enlarged. An aortic valve prosthesis is noted. Linear density within the right midlung zone favors subsegmental atelectasis. There is mild central pulmonar y vascular congestion without overt edema. Trace left pleural effusions. There is a left basilar line ar density also favoring atelectasis. No acute fractures. IMPRESSION: 1. Left-sided single lead pacemaker. No pneumothorax. 2. Cardiomegaly, trace bilateral pleural effusions, and mild congestive change. ACT 112: Negative or not required by law. Electronically signed by: Nino Degroot M.D. 03/04/2024 1:05 PM
--- NOTE | 2024-03-04 13:12 | Cardiology Progress Note ---
Date of Service March 04, 2024 Assessment & Plan (1) Atrial fibrillation with rapid ventricular response: (2) Tachy-gladys syndrome: (3) Symptomatic bradycardia: (4) Acute GI bleeding: (5) Symptomatic anemia: (6) ASCVD (arteriosclerotic cardiovascular disease): Plan 83-year-old female with history of severe aortic valve stenosis status post October 02, 2023 TAVR (#26 mm Villasenor GENA S3 Ultra valve) with post procedure left bundle branch block, moderate ASCVD, pulmonary hypertension, and chronic atrial fibrillation admitted with melena x 3 days duration. Hemoglobin 5.7 on presentation, receiving 2 U pRBC's without difficulty. INR supratherapeutic at 5.6 on presentation, reversed with Vitamin K and Kcentra. Patient initially hypotensive with junctional bradycardia resolving with treatment of hypovolemic shock. High-sensitivity troponin elevated, representing demand ischemia with patient denying symptoms suggestive of an acute coronary syndrome. February 28, 2024 EGD revealing a nonbleeding cratered gastric ulcer with no stigmata of bleeding. PPI therapy recommended indefinitely. Oral anticoagulation on hold. Beta-ruchi and diltiazem resumed 02/29/2024 with significant bradycardia and symptomatic pauses overnight requiring treatment with intravenous dopamine. AV katiuska agents remain on hold with patient developing rapid ventricular response overnight. No associated symptoms. Recommend resumption of low-dose beta- ruchi, metoprolol 25 mg 3 times daily. Continue to monitor telemetry. If unable to control heart rate adequately with reduced dose beta-rucih and/or she experiences recurrent episodes of symptomatic bradycardia, will pursue perma nent pacemaker implantation. 03/03/2024 patient hemodynamically stable but still with elevated atrial fibrillation ventricular response rates. Previously required high-dose beta-ruchi and diltiazem to control. Underlying issues include valvular heart disease post post TAVR with transient left bundle branch block Clinical course consistent with tachybradycardia syndrome exacerbated by acute GI bleeding Plan: Change metoprolol to tartrate to metoprolol succinate 50 twice daily Will consult EP for pacemaker insertion this admission No signs of active bleeding 03/04/2024 Single-chamber pacemaker placed uneventfully Will increase metoprolol succinate to 75 mg twice per day Diltiazem 30 mg 3 times daily initially begun Continue to hold warfarin likely 30-day hold as long as no further bleeding and anemia improved Resume aspirin 2 days at 81 mg per given coronary artery disease, TAVR Mobilize in hospital I spent a total of 45 minutes on the date of service in preparation, delivery, and documentation of the care provided to this patient, excluding any time spent in the performance of separately billed services. Admission and Anticipated Discharge Date Admission Date: February 27, 2024 Subjective Patient was seen and examined, chart, medications, telemetry reviewed Patient seen post pacemaker insertion. Tolerated procedure well Atrial fibrillation still present with elevated ventricular rates minimal bradycardia. No further pauses No overt bleeding. Appetite improving. Hemoglobin stable Physical Exam Constitutional: well nourished and + thin; no acute distress ENMT: external ear and nose normal, oropharynx normal Neck: trachea midline, no thyromegaly Respiratory: no respiratory distress, no labored breathing and no retractions Auscultation: no crackles, no rales, no rhonchi and no wheezes Cardiovascular: Rate/Rhythm: + tachycardic and + irregularly irregular Heart Sounds: normal S1, normal S2 and + murmur (Grade 1/6 systolic murmur) Vessels: radial pulses present; no JVD and no carotid bruit Extremities: no edema Chest (Breasts): Chest: + pacemaker (Left shoulder without hematoma ) Gastrointestinal (Abdomen): Inspection/Auscultation: normal bowel sounds; abdomen not distended Percussion/Palpation: abdomen soft; abdomen nontender, no guarding and abdomen not rigid Neurologic: CN's II-XI intact bilaterally and moves all extremities Results & Data Vital Signs (Past 12 Hours) Vital Signs Temp Pulse Pulse Resp BP BP Pulse Ox 03/04/24 13:00 18 120/81 97 03/04/24 12:31 24 126/85 95 03/04/24 12:15 115 H 20 125/79 96 03/04/24 12:00 130 H 126/74 97 03/04/24 12:00 36.7 C 03/04/24 11:45 111 H 115/76 99 03/04/24 11:30 116 H 94/71 L 96 03/04/24 11:01 03/04/24 11:00 122 H 24 98/65 L 97 03/04/24 10:45 121 H 15 94/74 L 97 03/04/24 10:30 133 H 17 100/73 94 03/04/24 10:15 113 H 18 110/83 94 03/04/24 10:13 120 H 22 90/60 L 94 03/04/24 09:55 117 H 18 124/87 96 03/04/24 09:40 127 H 18 115/83 97 03/04/24 07:22 129 H 19 149/97 H 93 03/04/24 07:22 36.8 C 03/04/24 04:36 89/63 L 03/04/24 04:36 126 H 22 03/04/24 04:00 112 H 18 03/04/24 04:00 37.0 C 03/04/24 02:00 141 H 16 O2 Del Method O2 Flow Rate 03/04/24 13:00 Nasal Cannula 2 03/04/24 12:31 Nasal Cannula 2 03/04/24 12:15 Nasal Cannula 2 03/04/24 12:00 Nasal Cannula 2 03/04/24 12:00 03/04/24 11:45 Nasal Cannula 2 03/04/24 11:30 Nasal Cannula 2 03/04/24 11:01 Nasal Cannula 2 03/04/24 11:00 Nasal Cannula 2 03/04/24 10:45 Nasal Cannula 2 03/04/24 10:30 Nasal Cannula 2 03/04/24 10:15 Nasal Cannula 2 03/04/24 10:13 Nasal Cannula 2 03/04/24 09:55 Room Air 03/04/24 09:40 Room Air 03/04/24 07:22 Nasal Cannula 1 03/04/24 07:22 03/04/24 04:36 03/04/24 04:36 03/04/24 04:00 03/04/24 04:00 03/04/24 02:00 Laboratory Results Laboratory Results - last 24 hr 03/04/24 04:10 WBC 5.48 RBC 3.08 L Hgb 8.2 L Hct 27.7 L MCV 89.9 MCH 26.6 MCHC 29.6 L RDW Std Deviation 56.4 H RDW Coeff of Serg 17.4 H Plt Count 140 MPV 11.4 Sodium 135 L Potassium 4.1 Chloride 102 Carbon Dioxide 28 Anion Gap 5 BUN 24 H Creatinine 1.11 Est Cr Clr Drug Dosing 36.6 Est GFR ( Amer) 52.4 Est GFR (Non-Af Amer) 45.2 BUN/Creatinine Ratio 21.6 H Glucose 107 H Calcium 8.5 L Phosphorus 2.8 Magnesium 2.0
--- NOTE | 2024-03-04 13:50 | Electrocardiogram Report ---
Test Reason : Blood Pressure : / mmHG Vent. Rate : 116 BPM Atrial Rate : 147 BPM P-R Int : 000 ms QRS Dur : 114 ms QT Int : 376 ms P-R-T Axes : 000 110 190 degrees QTc Int : 522 ms Atrial fibrillation with rapid ventricular response Low voltage QRS Left bundle branch block Abnormal ECG Confirmed by Sander Abraham ([id number]) on 03/04/2024 1:49:56 PM Referred By: REFERRED SELF Confirmed By:Micky Abraham
[2024-03-04] MEDS: METOPROLOL SUCC 25MG EXT REL TAB PO ONE (14:20)
[2024-03-04] MEDS: METOPROLOL SUCC 50MG EXT REL TAB PO SCH (21:06)
[2024-03-05 04:57] LABS: Hematocrit (blood only) 27.6 % (37.0-47.0); Hemoglobin 8.1 g/dl (12.0-16.0); Mean Corpuscular Hemoglobin 26.4 pg (25.0-34.0); Mean Corpuscular Hgb Conc 29.3 g/dL (32.0-36.0); Mean Corpuscular Volume 89.9 fL (80.0-100.0); Mean Platelet Volume 11.6 fL (9.4-12.4); Nucleated RBC # (auto) 0.02 K/uL (0.00-0.12); Nucleated RBC % (auto) 0.2 %; Platelet Count 182 K/uL (130-400); RDW Coefficient of Variation 17.2 % (11.5-14.5); RDW Standard Deviation 55.7 fL (36.4-46.3); Red Blood Count 3.07 M/uL (4.20-5.40); White Blood Count 8.16 K/ul (4.8-10.8)
[2024-03-05 05:07] LABS: BUN Creatinine Ratio 24.5 (10-20); Calcium 8.6 mg/dl (8.6-10.3); Creatinine Clr Calc Pharmacy 37.1 ml/min; Est GFR (Non-African American) 45.7 ml/min; Magnesium 1.9 mg/dl (1.7-2.4); Potassium 4.3 mmol/L (3.5-5.1)
[2024-03-05] MEDS: METOPROLOL SUCC 50MG EXT REL TAB PO SCH (09:16)
--- NOTE | 2024-03-05 10:25 | Cardiology Consultation ---
Date of Consultation March 05, 2024 History of Present Illness Attending Physician: Portillo Mcadams MD History of Present Illness Allergies Allergy/AdvReac Type Severity Reaction Status Date / Time latex Allergy Intermediate Rash Verified 02/27/24 16:20 [id number]-USH-[id number] Reductase Allergy Unknown PER Verified 02/27/24 16:20 Inhibitor [facility] soy AdvReac Mild Dizziness Verified 02/27/24 16:20 adhesive AdvReac Unknown PER Verified 02/27/24 16:20 [facility] cat dander AdvReac Unknown PER Verified 02/27/24 16:20 [facility] ezetimibe [From Zetia] AdvReac Unknown PER Verified 02/27/24 16:20 [facility] Home Medications Medication Instructions Recorded Confirmed Type lisinopril 5 mg tablet 5 mg PO QAM 03/28/21 02/27/24 History warfarin 5 mg tablet 5 mg PO DIRECTED 03/28/21 02/27/24 History potassium chloride 10 mEq 10 meq PO DAILY 06/05/21 02/27/24 History tablet,extended release(part/cryst) ipratropium bromide 21 mcg (0.03 2 spray intranasal TID 09/26/21 02/27/24 History %) nasal spray furosemide 20 mg tablet 20 mg PO DAILY 10/01/21 02/27/24 History diltiazem HCl 240 mg 240 mg PO QAM #30 caps 10/11/21 02/27/24 Rx capsule,extended release 24 hr amoxicillin 500 mg capsule 2,000 mg PO DIRECTED PRN 1 HR 02/27/24 02/27/24 History PRIOR TO DENTAL PROCEDURES aspirin 81 mg chewable tablet 81 mg PO QAM 02/27/24 02/27/24 History metoprolol succinate 100 mg 100 mg PO BID 02/27/24 02/27/24 History tablet,extended release 24 hr Patient History Medical History CAD (coronary artery disease) Permanent atrial fibrillation CKD (chronic kidney disease) stage 3, GFR 30-59 ml/min CHAVEZ (nonalcoholic steatohepatitis) Pre-diabetes History of bladder cancer s/op TURBT DU (generalized anxiety disorder) HLD (hyperlipidemia) A-fib HTN (hypertension) Surgical History S/P TAVR (transcatheter aortic valve replacement) History of toe surgery bunion History of hysterectomy with oophorectomy History of esophagogastroduodenoscopy (EGD) History of cardioversion multiple attempts, last in 2017 History of radiofrequency ablation procedure for cardiac arrhythmia Family History Brother Myocardial infarction, Onset Age: 52 Father Myocardial infarction, Onset Age: 52 Sister Coronary heart disease Atrial fibrillation Mother , 21 [place] Social History Smoking Status: Never smoker Hx Alcohol Use: No Hx Substance Use: No Preferred Language: Malaysian Communication Ability: Effective Application Support Engineer Required: No Beliefs That Will Affect Care: None marital status: Current Living Situation: Spouse current occupational status: retired Other Information That Helps Us Care for You: No Feels Safe at Home: Yes Safety Concerns: Feels Safe At This Time Assistive Devices: Cane and Walker Results & Data Vital Signs (Past 12 Hours) Vital Signs Temp Pulse Pulse Resp BP BP Pulse Ox 03/05/24 08:00 03/05/24 08:00 36.8 C 107 H 20 133/92 94 03/05/24 08:00 105 H 03/05/24 05:00 138/82 03/05/24 05:00 117 H 37 H 98 03/05/24 04:00 135/85 03/05/24 04:00 103 H 21 100 03/05/24 04:00 36.7 C 03/05/24 02:00 119/78 03/05/24 02:00 97 H 16 93 03/05/24 00:00 122/84 03/05/24 00:00 114 H 23 92 03/05/24 00:00 36.8 C 03/05/24 00:00 119 H 03/04/24 23:12 108 H 22 100 03/04/24 23:12 119/84 03/04/24 23:12 36.9 C 03/04/24 23:00 117 H 16 100 03/04/24 22:45 124 H 18 94 03/04/24 22:30 134 H 20 97 O2 Del Method 03/05/24 08:00 Room Air 03/05/24 08:00 Room Air 03/05/24 08:00 03/05/24 05:00 03/05/24 05:00 03/05/24 04:00 03/05/24 04:00 03/05/24 04:00 03/05/24 02:00 03/05/24 02:00 03/05/24 00:00 03/05/24 00:00 03/05/24 00:00 03/05/24 00:00 03/04/24 23:12 03/04/24 23:12 03/04/24 23:12 03/04/24 23:00 03/04/24 22:45 03/04/24 22:30
--- NOTE | 2024-03-05 12:06 | Operative Report ---
Post Operative Report DICTATED BY:Melanie Rees D.O. DATE OF PROCEDURE: 03/05/2024. PREOPERATIVE DIAGNOSES: TBS POSTOPERATIVE DIAGNOSIS: Same PROCEDURE: A single-chamber rate responsive permanent pacemaker, along with a peripheral venogram under fluoroscopic guidance. SURGEON: Melanie Rees DO ASSISTANTS: None. ANESTHESIA: Monitored conscious sedation administered under my supervision by Renee Diaz. Start time 08:20, end time 09:26, a total of 2 mg of Versed and 50 mcg of fentanyl. INTRAVENOUS FLUIDS: 220 mL. CONTRAST: 20 mL. ANTIBIOTICS: 1 grams of Ancef. ADDITIONAL MEDICATIONS: 5mg metoprolol x2 BLOOD LOSS: 70 mL. URINE OUTPUT: Not applicable. SPECIMENS: None. FINDINGS: See below. DRAINS: None. COMPLICATIONS: None. CONDITION: Stable. INDICATIONS: This is a 83-year-old female who has a past medical history severe aortic valve stenosis status post October 02, 2023 TAVR (#26 mm Villasenor GENA S3 Ultra valve) with post procedure left bundle branch block, moderate ASCVD, pulmonary hypertension, and chronic atrial fibrillation on high doses of AVN blockers. She was admitted due to severe GIB found to have a gastric ulcer. During her admission though she had evidence of TBS and was recommended a pacemaker prior to discharge. CONSENT: Consent was obtained prior to the patient going into the electrophysiology lab. The patient was informed of the risks, benefits, and alternatives to the procedure. Risks include, but not limited to, sudden cardiac , cardiac arrhythmias, cerebrovascular accident, myocardial infarction, injury to his blood vessels, chamber of the heart and lung, bleeding and infection. The patient understood these risks and agreed to the procedure as planned. Informed consent was obtained. DESCRIPTION OF PROCEDURE: The patient was brought into electrophysiology lab in a fasting state. She was connected to continuous cardiac monitoring. A timeout was performed to ensure the patient's identity and procedure correctly. She was prepped and draped in the left infraclavicular space in normal surgical standard fashion. Monitored conscious sedation was given throughout the procedure for the patient's comfort level. Wisner precautions were maintained throughout the procedure. Prophylactic antibiotics were given prior to incision. A 20 mL of 1% lidocaine and bupivacaine mixture were given in the left deltopectoral groove. An incision was made in the left deltopectoral groove. Blunt dissection was performed down to the pectoralis muscle. Then, using blunt dissection over the pectoralis muscle within the pectoral fascia, a pacemaker pocket was created. Then, a peripheral venogram was performed to identify the axillary vein. Venous axillary access was obtained through a needlestick without any problems.I did have some difficulty getting access; i was concerned the vein might have spasm so did another venogram to ensure the vein was still patent. Then using a micropuncture I was able to get access. A guidewire was inserted without any resistance. A 6-Omani sheath was inserted over the guidewire without any resistance. Dilator was removed and a second guidewire was inserted through the sheath to allow for retained venous access. Then the 6 Omani sheath was readvanced over the one guidewire. The guidewire and dilator were removed. Then a pacing lead was advanced into the RV apex under fluoroscopic guidance to have back up pacing while positioning the left bundle pacing lead since the patient had an underling left bundle branch block. Then a 9 Omani sheath was inserted over one of the guidewires. The guidewire and dilator were removed. Then, the CPS Joiner Helper 3D medium sheath was inserted through the 9-Omani sheath over a Glidewire into the right ventricle. The Glidewire and dilator were removed. Then, the left bundle lead was advanced thr ough the sheath and intracardiac electrogram His bundle recordings were performed when the camera was in DELEON 10. Once I found where the His bundle is, see below for results, I then moved the camera to DELEON 30 and marked where the His bundle was on my fluoroscopy screen. I came down about 2 cm from this in a line that would extend out to the apex and then started coming on pacing. Once I found an area where I had a nice W formed pace complex in my lead V1, I then moved the camera to NEPALI 30. Then the helix was extended into the septum. Then the helix locking tool was placed. Then the lead was screwed further into the septum while pacing by giving slow clockwise turns. The paced complex changed to a nice R' in V1 and the pacing stim to peak QRS in V6 was good. I then gave contrast through the sheath to see how far the lead was into the septum and then I slit the CPS Joiner Helper 3D medium sheath under fluoroscopic guidance and left the 9-Omani sheath. Then the back up lead in the RV apex screw was retracted and the lead was removed from the body along with the 6 Omani sheath. The 9-Omani sheath around the left bundle lead was peeled away and the lead was fixated to pectoralis muscle using 0 silk suture. The pocket was flushed with copious amounts of vancomycin and saline wash and inspected for hemostasis. The lead was then attached to the pulse generator making sure the pin were in appropriate position, passed set screw, and set screw was all tightened. Pulse generator was then placed in the pocket, making sure the leads were lying flat beneath the device. The incision was closed in a 3-layer fashion using 2-0 Vicryl interrupted suture, followed by 3-0 Vicryl interrupted suture, followed by 4-0 Monocryl running stitch. Then a primaseal dressing was placed EQUIPMENT: 1. Pulse generator is a Colatris AssOkeyko MRI Model Number [id number] SN: [id number] 2. Left bundle lead, Colatris Tendril STS [id number] SN: [id number] INTRAPROCEDURAL FINDINGS: 1. Left bundle lead, R waves 6.7 millivolts, impedance 720 ohms, threshold 1 volts at 0.4 milliseconds. FINAL MEASUREMENTS THROUGH THE DEVICE: 1. Left bundle lead, R waves 3.6 millivolts, impedance 600 ohms, threshold 1 volts at 0.4 milliseconds. FINAL PARAMETERS: VVI 60/120, Left bundle lead amplitude 3.5 volts, pulse width 0.4 milliseconds, sensitivity 2 millivolts. IMPRESSION: Successful single chamber rate responsive permanent pacemaker under fluoroscopic guidance along with peripheral venogram, all under fluoroscopic guidance secondary to TBS PLAN: Monitor the patient post-procedure. A 12-lead ECG, chest x-ray. She is not to lift the left elbow or left shoulder for 1 month. She cannot lift more than 10 pounds with the left arm for 2 weeks. She is to keep the dressing on and dry until her wound check next week. Can restart AVN blockers.
--- NOTE | 2024-03-05 13:02 | Cardiology Progress Note ---
Date of Service March 05, 2024 Assessment & Plan (1) Atrial fibrillation with rapid ventricular response: (2) Tachy-gladys syndrome: (3) Symptomatic bradycardia: (4) Acute GI bleeding: (5) Symptomatic anemia: (6) ASCVD (arteriosclerotic cardiovascular disease): Plan 83-year-old female with history of severe aortic valve stenosis status post October 02, 2023 TAVR (#26 mm Villasenor GENA S3 Ultra valve) with post procedure left bundle branch block, moderate ASCVD, pulmonary hypertension, and chronic atrial fibrillation admitted with melena x 3 days duration. Hemoglobin 5.7 on presentation, receiving 2 U pRBC's without difficulty. INR supratherapeutic at 5.6 on presentation, reversed with Vitamin K and Kcentra. Patient initially hypotensive with junctional bradycardia resolving with treatment of hypovolemic shock. High-sensitivity troponin elevated, representing demand ischemia with patient denying symptoms suggestive of an acute coronary syndrome. February 28, 2024 EGD revealing a nonbleeding cratered gastric ulcer with no stigmata of bleeding. PPI therapy recommended indefinitely. Oral anticoagulation on hold. Beta-ruchi and diltiazem resumed 02/29/2024 with significant bradycardia and symptomatic pauses overnight requiring treatment with intravenous dopamine. AV katiuska agents remain on hold with patient developing rapid ventricular response overnight. No associated symptoms. Recommend resumption of low-dose beta- ruchi, metoprolol 25 mg 3 times daily. Continue to monitor telemetry. If unable to control heart rate adequately with reduced dose beta-ruchi and/or she experiences recurrent episodes of symptomatic bradycardia, will pursue perma nent pacemaker implantation. 03/03/2024 patient hemodynamically stable but still with elevated atrial fibrillation ventricular response rates. Previously required high-dose beta-ruchi and diltiazem to control. Underlying issues include valvular heart disease post post TAVR with transient left bundle branch block Clinical course consistent with tachybradycardia syndrome exacerbated by acute GI bleeding Plan: Change metoprolol to tartrate to metoprolol succinate 50 twice daily Will consult EP for pacemaker insertion this admission No signs of active bleeding 03/04/2024 Single-chamber pacemaker placed uneventfully Will increase metoprolol succinate to 75 mg twice per day Diltiazem 30 mg 3 times daily initially begun Continue to hold warfarin likely 30-day hold as long as no further bleeding and anemia improved Resume aspirin 2 days at 81 mg per given coronary artery disease, TAVR Mobilize in hospital 03/05/2024 Patient stable post pacemaker but remains in atrial fibrillation with rapid ventricular response. Exam suggest mild volume overload No further bleeding issues Plan for warfarin and aspirin as above Will continue metoprolol succinate at 100 mg twice per day, increase diltiazem to 30 mg 4 times daily Furosemide 20 mg IV single dose Suspect patient will ultimately require AV junction ablation in the future I spent a total of 40 minutes on the date of service in preparation, delivery, and documentation of the care provided to this patient, excluding any time spent in the performance of separately billed services. Admission and Anticipated Discharge Date Admission Date: February 27, 2024 Subjective Patient was seen and examined, chart, medications, telemetry reviewed reviewed. Patient sitting out of bed in chair no cardiac complaints. Heart rate still elevated but trending slightly lower No irritation at site of pacemaker other than incisional discomfort No overt bleeding issues Review of Systems Review of Systems: All systems reviewed & are unremarkable except as noted in Subjective Physical Exam Constitutional: + thin; no acute distress Eyes: PERRL, conjunctivae normal, anicteric sclerae ENMT: external ear and nose normal, oropharynx normal Neck: trachea midline, no thyromegaly Respiratory: normal respiratory effort, lungs clear to auscultation Cardiovascular: Rate/Rhythm: + tachycardic and + irregularly irregular Heart Sounds: + murmur Vessels: no JVD Extremities: + edema Gastrointestinal (Abdomen): normal bowel sounds, soft, nontender, no hepatosplenomegaly Musculoskeletal: no cyanosis or clubbing, extremities motor strength 5/5 Results & Data Vital Signs (Past 12 Hours) Vital Signs Temp Pulse Pulse Resp BP BP Pulse Ox 03/05/24 11:38 36.6 C 108 H 20 111/74 96 03/05/24 08:00 03/05/24 08:00 36.8 C 107 H 20 133/92 94 03/05/24 08:00 105 H 03/05/24 05:00 138/82 03/05/24 05:00 117 H 37 H 98 03/05/24 04:00 135/85 03/05/24 04:00 103 H 21 100 03/05/24 04:00 36.7 C 03/05/24 02:00 119/78 03/05/24 02:00 97 H 16 93 O2 Del Method O2 Flow Rate 03/05/24 11:38 Nasal Cannula 1 03/05/24 08:00 Room Air 03/05/24 08:00 Room Air 03/05/24 08:00 03/05/24 05:00 03/05/24 05:00 03/05/24 04:00 03/05/24 04:00 03/05/24 04:00 03/05/24 02:00 03/05/24 02:00 Laboratory Results Laboratory Results - last 24 hr 03/05/24 04:01 WBC 8.16 RBC 3.07 L Hgb 8.1 L Hct 27.6 L MCV 89.9 MCH 26.4 MCHC 29.3 L RDW Std Deviation 55.7 H RDW Coeff of Serg 17.2 H Plt Count 182 MPV 11.6 Absolute Nucleated RBC 0.02 Nucleated RBC % (auto) 0.2 Sodium 136 Potassium 4.3 Chloride 103 Carbon Dioxide 28 Anion Gap 5 BUN 27 H Creatinine 1.10 Est Cr Clr Drug Dosing 37.1 Est GFR ( Amer) 53.0 Est GFR (Non-Af Amer) 45.7 BUN/Creatinine Ratio 24.5 H Glucose 121 H Calcium 8.6 Phosphorus 3.0 Magnesium 1.9
[2024-03-05] MEDS: FUROSEMIDE INJ 20 MG/2 ML VIAL IV ONE (13:57)
--- NOTE | 2024-03-05 15:19 | Hospitalist Progress Note ---
Date of Service March 05, 2024 Assessment & Plan (1) Acute GI bleeding: (2) Melena: (3) Supratherapeutic INR: (4) Anemia: (5) Hypotension: Plan: 83 year old female with PMH aortic stenosis s/p TAVR 09/2023, permanent atrial fibrillation anticoagulated on Coumadin, LBBB, Nonobstructive CAD on cath 07/2023, HTN, dyslipidemia, CHAVEZ, nocturnal hypoxia presented to ER with c/o melena x 3 days. In ER, she was found to be significantly bradycardic and hypotensive. Rectal exam with dark black stool. Labs with significant anemia with H/H: 5.7/19 and INR: 5.6. She was given Protonix bolus, Vitamin K 10mg IV, KCentra. Typed and cross PRBC. However patient continued hypotension so uncrossed blood being transfused and FFP ordered. She was also given glucagon, calcium gluconate and atropine. Acute GI bleed Melena Acute blood loss anemia In setting of supratherapeutic INR S/P 2 units PRBC, FFP Coumadin discontinued -S/P EGD:Normal esophagus. Non-bleeding gastric ulcer with no stigmata of bleeding. Normal examined duodenum. No specimens collected. Continue Protonix 40 mg twice a day Monitor CBC Appreciate GI input Will need follow-up with GI as outpatient (6) Symptomatic bradycardia: (7) Permanent atrial fibrillation: Plan: On presentation, patient had hypotension and junctional bradycardia. Converted from junctional bradycardia to A-fib with rapid ventricular rate in ICU. Atrial fibrillation with RVR Tachybradycardia syndrome Pulmonary bradycardia H/O TAVR with transient LBBB S/P single-chamber pacemaker placement on 03/04/2024 by Metoprolol succinate increased to 100 mg twice a day Continue diltiazem 30 mg 4 times daily Appreciate cardiology input Will likely need AV junction ablation eventually Plan to hold Coumadin likely for 30 days given GI bleed (8) Elevated troponin: Plan: Troponin: 254->>693 Likely demand ischemia Echocardiogram noted EF of 55 to 60%, moderate concentric LVH, mildly dilated LV, normal LV SF, severe biatrial enlargement, status post TAVR, severe mitral annular calcification, moderate MR, moderate to severe TR, estimated PASP of 59 (9) Aortic stenosis: Plan: S/P TAVR 10/02/2023 at [facility] [place] (10) CAD (coronary artery disease): Plan: History nonobstructive CAD on preop TAVR cath 08/10/2023 Aspirin resume Continue Lasix per cardiology (11) HTN (hypertension): Plan: Continue diltiazem, metoprolol Lisinopril on hold Monitor BP (12) HLD (hyperlipidemia): Plan: H/O statin intolerance DVT Prophylaxis SCDs CODE STATUS Full Code Admission and Anticipated Discharge Date Admission Date: February 27, 2024 Subjective Patient is seen and examined at bedside States having generalized weakness Also reports transient dizziness this morning which currently resolved Denies any chest pain, dyspnea, nausea, vomiting, abdominal pain No other complaints Tachycardic on monitor Review of Systems Review of Systems: All systems reviewed & are unremarkable except as noted in Subjective Physical Exam Physical Exam: Physical Exam: Vitals signs as noted above General Appearance:Moderately built and nourished, no apparent distress, Elderly Head: normocephalic, Atraumatic Eyes: normal inspection, EOMI Neck: supple, Trachea midline Respiratory/Chest: Normal breath sounds, CTA, No accessory muscle use Cardiovascular: Irregularly irregular, tachycardia, +murmur Abdomen/GI:Soft, Non tender, Bowel sounds present Extremities/Musculoskeletal:normal inspection, 1-2+ edema Neurologic/Psych:AAOX3, grossly no focal neurological deficits Skin: normal color, warm Results & Data Results & Data Vital Signs (Past 12 Hours) Vital Signs Temp Pulse Pulse Resp BP BP Pulse Ox 03/05/24 11:38 36.6 C 108 H 20 111/74 96 03/05/24 08:00 03/05/24 08:00 36.8 C 107 H 20 133/92 94 03/05/24 08:00 105 H 03/05/24 05:00 138/82 03/05/24 05:00 117 H 37 H 98 03/05/24 04:00 135/85 03/05/24 04:00 103 H 21 100 03/05/24 04:00 36.7 C O2 Del Method O2 Flow Rate 03/05/24 11:38 Nasal Cannula 1 03/05/24 08:00 Room Air 03/05/24 08:00 Room Air 03/05/24 08:00 03/05/24 05:00 03/05/24 05:00 03/05/24 04:00 03/05/24 04:00 04/17/24 04:00 Laboratory Results Short CBC 03/05/24 Range/Units 04:01 WBC 8.16 (4.8-10.8) K/ul Hgb 8.1 L (12.0-16.0) g/dl Hct 27.6 L (37.0-47.0) % Plt Count 182 (130-400) K/uL BMP 03/05/24 04:01 Sodium 136 Potassium 4.3 Chloride 103 Carbon Dioxide 28 BUN 27 H Creatinine 1.10 Glucose 121 H Calcium 8.6
--- NOTE | 2024-03-05 15:20 | Communication Note ---
Date of Service: March 05, 2024 Noted hypoxia while sleeping. Will obtain nocturnal oximetry study. May need sleep study as outpatient
[2024-03-05] MEDS: dilTIAZem HCL 30 MG TAB PO SCH (17:05)
[2024-03-06] MEDS: MAGNESIUM SULFATE / D5W 1 GM/100 ML BAG IV ONE (00:35)
[2024-03-06 06:58] LABS: Hematocrit (blood only) 26.7 % (37.0-47.0); Hemoglobin 8.1 g/dl (12.0-16.0)
[2024-03-06] MEDS: dilTIAZem HCL 240 MG CAPCR PO SCH (08:58)
--- NOTE | 2024-03-06 14:28 | Cardiology Progress Note ---
Date of Service March 06, 2024 Assessment & Plan (1) Atrial fibrillation with rapid ventricular response: (2) Tachy-gladys syndrome: (3) Symptomatic bradycardia: (4) Acute GI bleeding: (5) Symptomatic anemia: (6) ASCVD (arteriosclerotic cardiovascular disease): Plan 83-year-old female with history of severe aortic valve stenosis status post October 02, 2023 TAVR (#26 mm Villasenor GENA S3 Ultra valve) with post procedure left bundle branch block, moderate ASCVD, pulmonary hypertension, and chronic atrial fibrillation admitted with melena x 3 days duration. Hemoglobin 5.7 on presentation, receiving 2 U pRBC's without difficulty. INR supratherapeutic at 5.6 on presentation, reversed with Vitamin K and Kcentra. Patient initially hypotensive with junctional bradycardia resolving with treatment of hypovolemic shock. High-sensitivity troponin elevated, representing demand ischemia with patient denying symptoms suggestive of an acute coronary syndrome. February 28, 2024 EGD revealing a nonbleeding cratered gastric ulcer with no stigmata of bleeding. PPI therapy recommended indefinitely. Oral anticoagulation on hold. Beta-ruchi and diltiazem resumed 02/29/2024 with significant bradycardia and symptomatic pauses overnight requiring treatment with intravenous dopamine. AV katiuska agents remain on hold with patient developing rapid ventricular response overnight. No associated symptoms. Recommend resumption of low-dose beta- ruchi, metoprolol 25 mg 3 times daily. Continue to monitor telemetry. If unable to control heart rate adequately with reduced dose beta-ruchi and/or she experiences recurrent episodes of symptomatic bradycardia, will pursue perma nent pacemaker implantation. 03/03/2024 patient hemodynamically stable but still with elevated atrial fibrillation ventricular response rates. Previously required high-dose beta-ruchi and diltiazem to control. Underlying issues include valvular heart disease post post TAVR with transient left bundle branch block Clinical course consistent with tachybradycardia syndrome exacerbated by acute GI bleeding Plan: Change metoprolol to tartrate to metoprolol succinate 50 twice daily Will consult EP for pacemaker insertion this admission No signs of active bleeding 03/04/2024 Single-chamber pacemaker placed uneventfully Will increase metoprolol succinate to 75 mg twice per day Diltiazem 30 mg 3 times daily initially begun Continue to hold warfarin likely 30-day hold as long as no further bleeding and anemia improved Resume aspirin 2 days at 81 mg per given coronary artery disease, TAVR Mobilize in hospital 03/05/2024 Patient stable post pacemaker but remains in atrial fibrillation with rapid ventricular response. Exam suggest mild volume overload No further bleeding issues Plan for warfarin and aspirin as above Will continue metoprolol succinate at 100 mg twice per day, increase diltiazem to 30 mg 4 times daily Furosemide 20 mg IV single dose Suspect patient will ultimately require AV junction ablation in the future 03/06/2024 Patient slowly improving. Hemoglobin remaining stable Atrial fibrillation rate still elevated but trending lower. Patient required high-dose therapy beta-ruchi and calcium channel ruchi prehospitalization. Plan: Continue metoprolol succinate 100 mg twice per day. Simplify diltiazem back to baseline dosing of diltiazem 240 mg daily Will add digoxin 2 doses today and likely low-dose intermittent on discharge Check BMP a.m. Will resume oral furosemide and potassium in a.m. Discussed potential for AV junction ablation if rhythm not controlled. Benefits would be better rhythm control and possible reduction in medical therapy though will require significant hypertensive management Aspirin and warfarin to remain on hold I spent a total of 30 minutes on the date of service in preparation, delivery, and documentation of the care provided to this patient, excluding any time spent in the performance of separately billed services. Admission and Anticipated Discharge Date Admission Date: February 27, 2024 Subjective Patient was seen and examined, chart, medications, telemetry reviewed Heart rate trending improved but requiring significant medical therapies Patient feeling stronger. No further bleeding concerns. No chest pain or discomfort. Pacemaker site healing well. Brisk response to IV diuretics yesterday Review of Systems Review of Systems: All systems reviewed & are unremarkable except as noted in Subjective Physical Exam Constitutional: well nourished and + thin; no acute distress Eyes: PERRL, conjunctivae normal, anicteric sclerae ENMT: external ear and nose normal, oropharynx normal Neck: trachea midline, no thyromegaly Respiratory: normal respiratory effort, lungs clear to auscultation no respiratory distress, no labored breathing and no retractions Auscultation: no crackles, no rales, no rhonchi and no wheezes Cardiovascular: Rate/Rhythm: + tachycardic and + irregularly irregular Heart Sounds: normal S1, normal S2 and + murmur Vessels: radial pulses present; no JVD and no carotid bruit Extremities: + edema Chest (Breasts): Chest: + pacemaker (Left shoulder without hematoma ) Gastrointestinal (Abdomen): normal bowel sounds, soft, nontender, no hepatosplenomegaly Inspection/Auscultation: normal bowel sounds; abdomen not distended Percussion/Palpation: abdomen soft; abdomen nontender, no guarding and abdomen not rigid Musculoskeletal: no cyanosis or clubbing, extremities motor strength 5/5 Neurologic: CN's II-XI intact bilaterally and moves all extremities Results & Data Vital Signs (Past 12 Hours) Vital Signs Temp Pulse Pulse Pulse Pulse Resp BP 03/06/24 11:32 36.9 C 106 H 18 121/74 03/06/24 08:00 90 03/06/24 07:59 36.5 C 105 H 17 127/79 03/06/24 02:56 36.5 C 103 H 18 118/77 03/06/24 02:48 100 H Pulse Ox Pulse Ox O2 Del Method O2 Del Method O2 Flow Rate O2 Flow Rate 03/06/24 11:32 97 Nasal Cannula 1 03/06/24 08:00 03/06/24 07:59 96 Room Air 03/06/24 02:56 96 Nasal Cannula 1 03/06/24 02:48 95 Nasal Cannula 1 Laboratory Results Laboratory Results - last 24 hr 03/06/24 05:36 Hgb 8.1 L Hct 26.7 L
[2024-03-06] MEDS: DIGOXIN 0.125 MG TAB PO ONE (14:56)
--- NOTE | 2024-03-06 18:07 | Hospitalist Progress Note ---
Date of Service March 06, 2024 Assessment & Plan (1) Acute GI bleeding: (2) Melena: (3) Supratherapeutic INR: (4) Anemia: (5) Hypotension: Plan: 83 year old female with PMH aortic stenosis s/p TAVR 09/2023, permanent atrial fibrillation anticoagulated on Coumadin, LBBB, Nonobstructive CAD on cath 07/2023, HTN, dyslipidemia, CHAVEZ, nocturnal hypoxia presented to ER with c/o melena x 3 days. In ER, she was found to be significantly bradycardic and hypotensive. Rectal exam with dark black stool. Labs with significant anemia with H/H: 5.7/19 and INR: 5.6. She was given Protonix bolus, Vitamin K 10mg IV, KCentra. Typed and cross PRBC. However patient continued hypotension so uncrossed blood being transfused and FFP ordered. She was also given glucagon, calcium gluconate and atropine. Acute GI bleed Melena Acute blood loss anemia In setting of supratherapeutic INR S/P 2 units PRBC, FFP Coumadin discontinued -S/P EGD:Normal esophagus. Non-bleeding gastric ulcer with no stigmata of bleeding. Normal examined duodenum. No specimens collected. Continue Protonix 40 mg twice a day Monitor CBC Appreciate GI input Will need follow-up with GI as outpatient Hemoglobin stable (6) Symptomatic bradycardia: (7) Permanent atrial fibrillation: Plan: On presentation, patient had hypotension and junctional bradycardia. Converted from junctional bradycardia to A-fib with rapid ventricular rate in ICU. Atrial fibrillation with RVR Tachybradycardia syndrome Pulmonary bradycardia H/O TAVR with transient LBBB S/P single-chamber pacemaker placement on 03/04/2024 by Metoprolol succinate increased to 100 mg twice a day Continue diltiazem to 40 mg daily Appreciate cardiology input Will likely need AV junction ablation eventually Plan to hold Coumadin likely for 30 days given GI bleed Added digoxin Needs follow-up with cardiology on discharge Nocturnal hypoxia Reviewed nocturnal oximetry study Continue supplemental oxygen at bedtime Will need sleep study as outpatient (8) Elevated troponin: Plan: Troponin: 254->>693 Likely demand ischemia Echocardiogram noted EF of 55 to 60%, moderate concentric LVH, mildly dilated LV, normal LV SF, severe biatrial enlargement, status post TAVR, severe mitral annular calcification, moderate MR, moderate to severe TR, estimated PASP of 59 (9) Aortic stenosis: Plan: S/P TAVR 10/02/2023 at [facility] [place] (10) CAD (coronary artery disease): Plan: History nonobstructive CAD on preop TAVR cath 08/10/2023 Aspirin resume Continue Lasix per cardiology (11) HTN (hypertension): Plan: Continue diltiazem, metoprolol Lisinopril on hold Monitor BP (12) HLD (hyperlipidemia): Plan: H/O statin intolerance DVT Prophylaxis SCDs CODE STATUS Full Code Disposition Rehab as able Admission and Anticipated Discharge Date Admission Date: February 27, 2024 Subjective Patient is seen and examined at bedside Subjectively feels well today Offers no new complaints Heart rate better controlled Denies any chest pain, dyspnea, nausea, vomiting, abdominal pain Review of Systems Review of Systems: All systems reviewed & are unremarkable except as noted in Subjective Physical Exam Physical Exam: Physical Exam: Vitals signs as noted above General Appearance:Moderately built and nourished, no apparent distress, Elderly Head: normocephalic, Atraumatic Eyes: normal inspection, EOMI Neck: supple, Trachea midline Respiratory/Chest: Normal breath sounds, CTA, No accessory muscle use Cardiovascular: Irregularly irregular, +murmur Abdomen/GI:Soft, Non tender, Bowel sounds present Extremities/Musculoskeletal:normal inspection, 1-2+ edema Neurologic/Psych:AAOX3, grossly no focal neurological deficits Skin: normal color, warm Results & Data Results & Data Vital Signs (Past 12 Hours) Vital Signs Temp Pulse Pulse Pulse Resp BP Pulse Ox 03/06/24 16:08 03/06/24 16:00 90 03/06/24 15:51 36.9 C 88 18 122/74 96 03/06/24 14:56 90 03/06/24 11:32 36.9 C 106 H 18 121/74 97 03/06/24 08:00 90 03/06/24 07:59 36.5 C 105 H 17 127/79 96 O2 Del Method O2 Flow Rate 03/06/24 16:08 Nasal Cannula 1 03/06/24 16:00 03/06/24 15:51 Room Air 03/06/24 14:56 03/06/24 11:32 Nasal Cannula 1 03/06/24 08:00 03/06/24 07:59 Room Air Laboratory Results Short CBC 04/18/24 Range/Units 05:36 Hgb 8.1 L (12.0-16.0) g/dl Hct 26.7 L (37.0-47.0) %
[2024-03-07 06:24] LABS: Hematocrit (blood only) 25.7 % (37.0-47.0); Hemoglobin 7.6 g/dl (12.0-16.0); Mean Corpuscular Hemoglobin 25.6 pg (25.0-34.0); Mean Corpuscular Hgb Conc 29.6 g/dL (32.0-36.0); Mean Corpuscular Volume 86.5 fL (80.0-100.0); Platelet Count 188 K/uL (130-400); RDW Standard Deviation 53.5 fL (36.4-46.3); Red Blood Count 2.97 M/uL (4.20-5.40); White Blood Count 6.51 K/ul (4.8-10.8)
[2024-03-07 06:41] LABS: BUN Creatinine Ratio 19.4 (10-20); Calcium 8.4 mg/dl (8.6-10.3); Creatinine Clr Calc Pharmacy 37.4 ml/min; Est GFR (African American) 54.2 ml/min; Est GFR (Non-African American) 46.8 ml/min; Potassium 3.5 mmol/L (3.5-5.1)
[2024-03-07] MEDS: POTASSIUM CHLORIDE CRTAB 20 MEQ TABCR PO ONE (10:46)
--- NOTE | 2024-03-07 11:35 | Cardiology Progress Note ---
Date of Service March 07, 2024 Assessment & Plan (1) Atrial fibrillation with rapid ventricular response: (2) Tachy-gladys syndrome: (3) Symptomatic bradycardia: (4) Acute GI bleeding: (5) Symptomatic anemia: (6) ASCVD (arteriosclerotic cardiovascular disease): Plan 83-year-old female with history of severe aortic valve stenosis status post October 02, 2023 TAVR (#26 mm Villasenor GENA S3 Ultra valve) with post procedure left bundle branch block, moderate ASCVD, pulmonary hypertension, and chronic atrial fibrillation admitted with melena x 3 days duration. Hemoglobin 5.7 on presentation, receiving 2 U pRBC's without difficulty. INR supratherapeutic at 5.6 on presentation, reversed with Vitamin K and Kcentra. Patient initially hypotensive with junctional bradycardia resolving with treatment of hypovolemic shock. High-sensitivity troponin elevated, representing demand ischemia with patient denying symptoms suggestive of an acute coronary syndrome. February 28, 2024 EGD revealing a nonbleeding cratered gastric ulcer with no stigmata of bleeding. PPI therapy recommended indefinitely. Oral anticoagulation on hold. Beta-ruchi and diltiazem resumed 02/29/2024 with significant bradycardia and symptomatic pauses overnight requiring treatment with intravenous dopamine. AV katiuska agents remain on hold with patient developing rapid ventricular response overnight. No associated symptoms. Recommend resumption of low-dose beta- ruchi, metoprolol 25 mg 3 times daily. Continue to monitor telemetry. If unable to control heart rate adequately with reduced dose beta-ruchi and/or she experiences recurrent episodes of symptomatic bradycardia, will pursue perma nent pacemaker implantation. 03/03/2024 patient hemodynamically stable but still with elevated atrial fibrillation ventricular response rates. Previously required high-dose beta-ruchi and diltiazem to control. Underlying issues include valvular heart disease post post TAVR with transient left bundle branch block Clinical course consistent with tachybradycardia syndrome exacerbated by acute GI bleeding Plan: Change metoprolol to tartrate to metoprolol succinate 50 twice daily Will consult EP for pacemaker insertion this admission No signs of active bleeding 03/04/2024 Single-chamber pacemaker placed uneventfully Will increase metoprolol succinate to 75 mg twice per day Diltiazem 30 mg 3 times daily initially begun Continue to hold warfarin likely 30-day hold as long as no further bleeding and anemia improved Resume aspirin 2 days at 81 mg per given coronary artery disease, TAVR Mobilize in hospital 03/05/2024 Patient stable post pacemaker but remains in atrial fibrillation with rapid ventricular response. Exam suggest mild volume overload No further bleeding issues Plan for warfarin and aspirin as above Will continue metoprolol succinate at 100 mg twice per day, increase diltiazem to 30 mg 4 times daily Furosemide 20 mg IV single dose Suspect patient will ultimately require AV junction ablation in the future 03/06/2024 Patient slowly improving. Hemoglobin remaining stable Atrial fibrillation rate still elevated but trending lower. Patient required high-dose therapy beta-ruchi and calcium channel ruchi prehospitalization. Plan: Continue metoprolol succinate 100 mg twice per day. Simplify diltiazem back to baseline dosing of diltiazem 240 mg daily Will add digoxin 2 doses today and likely low-dose intermittent on discharge Check BMP a.m. Will resume oral furosemide and potassium in a.m. Discussed potential for AV junction ablation if rhythm not controlled. Benefits would be better rhythm control and possible reduction in medical therapy though will require significant hypertensive management Aspirin and warfarin to remain on hold 03/07/2024 Plan as above we will continue digoxin 0.125 mg Sunday as heart rates are now better controlled. Other medications as list Anemia needs to be addressed iron deficiency noted Continue furosemide 20 mg p.o. daily and spironolactone 12.5 mg/day as new addition I spent a total of 30 minutes on the date of service in preparation, delivery, and documentation of the care provided to this patient, excluding any time spent in the performance of separately billed services. Admission and Anticipated Discharge Date Admission Date: February 27, 2024 Subjective Patient seen and examined, chart, medications, telemetry reviewed. Slowly improving heart rate better controlled. Lower extremity edema improved Still very significantly anemic there without evidence of active bleeding Physical Exam Physical Exam: General: A&Ox3. NAD. HENT: Normocephalic. Atraumatic. Eyes: PER. Conjunctiva pink, sclera clear. Neck: Carotid bruits. No JVD. Heart: Irregularly irregular at 110 bpm. Soft systolic ejection murmur. No diastolic murmur. Lungs: Clear to auscultation. Abdomen: +BS. Soft. Nontender. No organomegaly. Extremities: Minimal edema. Varicosities. No clubbing. No cyanosis. Limited neurological examination is without focal deficits. Pulses: radial=2/4, posterior tibial=1/4. Constitutional: well nourished and + thin; no acute distress Eyes: PERRL, conjunctivae normal, anicteric sclerae ENMT: external ear and nose normal, oropharynx normal Neck: trachea midline, no thyromegaly Respiratory: normal respiratory effort, lungs clear to auscultation no respiratory distress, no labored breathing and no retractions Auscultation: no crackles, no rales, no rhonchi and no wheezes Cardiovascular: Rate/Rhythm: + tachycardic and + irregularly irregular Heart Sounds: normal S1, normal S2 and + murmur Vessels: radial pulses present; no JVD and no carotid bruit Extremities: + edema Chest (Breasts): Chest: + pacemaker (Left shoulder without hematoma ) Gastrointestinal (Abdomen): normal bowel sounds, soft, nontender, no hep atosplenomegaly Inspection/Auscultation: normal bowel sounds; abdomen not distended Percussion/Palpation: abdomen soft; abdomen nontender, no guarding and abdomen not rigid Musculoskeletal: no cyanosis or clubbing, extremities motor strength 5/5 Neurologic: CN's II-XI intact bilaterally and moves all extremities Results & Data Vital Signs (Past 12 Hours) Vital Signs Temp Pulse Pulse Pulse Resp BP Pulse Ox 03/07/24 07:52 36.6 C 87 17 138/75 95 03/07/24 07:30 87 03/07/24 03:07 36.5 C 78 17 127/68 90 O2 Del Method O2 Flow Rate 03/07/24 07:52 Nasal Cannula 1.0 03/07/24 07:30 03/07/24 03:07 Nasal Cannula 1 Laboratory Results Laboratory Results - last 24 hr 03/07/24 05:52 WBC 6.51 RBC 2.97 L Hgb 7.6 L Hct 25.7 L MCV 86.5 MCH 25.6 MCHC 29.6 L RDW Std Deviation 53.5 H RDW Coeff of Serg 17.0 H Plt Count 188 MPV 11.0 Sodium 137 Potassium 3.5 Chloride 100 Carbon Dioxide 31 Anion Gap 6 BUN 21 Creatinine 1.08 Est Cr Clr Drug Dosing 37.4 Est GFR ( Amer) 54.2 Est GFR (Non-Af Amer) 46.8 BUN/Creatinine Ratio 19.4 Glucose 100 H Calcium 8.4 L
[2024-03-07] MEDS: SPIRONOLACTONE 12.5 MG TAB PO SCH (13:13)
--- NOTE | 2024-03-07 13:14 | Hospitalist Progress Note ---
Date of Service March 07, 2024 Assessment & Plan (1) Acute GI bleeding: (2) Melena: (3) Supratherapeutic INR: (4) Anemia: (5) Hypotension: Plan: 83 year old female with PMH aortic stenosis s/p TAVR 09/2023, permanent atrial fibrillation anticoagulated on Coumadin, LBBB, Nonobstructive CAD on cath 07/2023, HTN, dyslipidemia, CHAVEZ, nocturnal hypoxia presented to ER with c/o melena x 3 days. In ER, she was found to be significantly bradycardic and hypotensive. Rectal exam with dark black stool. Labs with significant anemia with H/H: 5.7/19 and INR: 5.6. She was given Protonix bolus, Vitamin K 10mg IV, KCentra. Typed and cross PRBC. However patient continued hypotension so uncrossed blood being transfused and FFP ordered. She was also given glucagon, calcium gluconate and atropine. Acute GI bleed Melena Acute blood loss anemia In setting of supratherapeutic INR S/P 2 units PRBC, FFP Coumadin discontinued -S/P EGD:Normal esophagus. Non-bleeding gastric ulcer with no stigmata of bleeding. Normal examined duodenum. No specimens collected. Continue Protonix 40 mg twice a day Monitor CBC Appreciate GI input Will need follow-up with GI as outpatient Hemoglobin stable Plan to discharge to rehab facility today (6) Symptomatic bradycardia: (7) Permanent atrial fibrillation: Plan: On presentation, patient had hypotension and junctional bradycardia. Converted from junctional bradycardia to A-fib with rapid ventricular rate in ICU. Atrial fibrillation with RVR Tachybradycardia syndrome Pulmonary bradycardia H/O TAVR with transient LBBB S/P single-chamber pacemaker placement on 03/04/2024 by Metoprolol succinate increased to 100 mg twice a day Continue diltiazem to 240 mg daily Appreciate cardiology input Will likely need AV junction ablation eventually Plan to hold Coumadin likely for 30 days given GI bleed Added digoxin--continue 0.125 mg Sunday. Also added Aldactone 12.5 mg daily Needs follow-up with cardiology on discharge Nocturnal hypoxia Reviewed nocturnal oximetry study Continue supplemental oxygen at bedtime Will need sleep study as outpatient (8) Elevated troponin: Plan: Troponin: 254->>693 Likely demand ischemia Echocardiogram noted EF of 55 to 60%, moderate concentric LVH, mildly dilated LV, normal LV SF, severe biatrial enlargement, status post TAVR, severe mitral annular calcification, moderate MR, moderate to severe TR, estimated PASP of 59 (9) Aortic stenosis: Plan: S/P TAVR 10/02/2023 at [facility] (10) CAD (coronary artery disease): Plan: History nonobstructive CAD on preop TAVR cath 08/10/2023 Aspirin discontinued for now (discussed with cardiology) Continue Lasix per cardiology Added Aldactone as well (11) HTN (hypertension): Plan: Continue diltiazem, metoprolol Lisinopril on hold--continue to hold on discharge for now Monitor BP (12) HLD (hyperlipidemia): Plan: H/O statin intolerance DVT Prophylaxis SCDs CODE STATUS Full Code Disposition Rehab Admission and Anticipated Discharge Date Admission Date: February 27, 2024 Subjective Patient is seen and examined at bedside Offers no new complaints Heart rate well-controlled Discussed with cardiology today Leg edema much improved Denies any chest pain, dyspnea, nausea, vomiting, abdominal pain Plan to be discharged to rehab facility today Review of Systems Review of Systems: All systems reviewed & are unremarkable except as noted in Subjective Physical Exam Physical Exam: Physical Exam: Vitals signs as noted above General Appearance:Moderately built and nourished, no apparent distress, Elderly Head: normocephalic, Atraumatic Eyes: normal inspection, EOMI Neck: supple, Trachea midline Respiratory/Chest: Normal breath sounds, CTA, No accessory muscle use Cardiovascular: Irregularly irregular, +murmur Abdomen/GI:Soft, Non tender, Bowel sounds present Extremities/Musculoskeletal:normal inspection, 1-2+ edema Neurologic/Psych:AAOX3, grossly no focal neurological deficits Skin: normal color, warm Results & Data Results & Data Vital Signs (Past 12 Hours) Vital Signs Temp Pulse Pulse Pulse Resp BP Pulse Ox 03/07/24 11:47 36.6 C 90 17 116/62 93 03/07/24 07:52 36.6 C 87 17 138/75 95 03/07/24 07:30 87 03/07/24 03:07 36.5 C 78 17 127/68 90 O2 Del Method O2 Flow Rate 03/07/24 11:47 Nasal Cannula 1.0 03/07/24 07:52 Nasal Cannula 1.0 03/07/24 07:30 03/07/24 03:07 Nasal Cannula 1 Laboratory Results Short CBC 03/07/24 Range/Units 05:52 WBC 6.51 (4.8-10.8) K/ul Hgb 7.6 L (12.0-16.0) g/dl Hct 25.7 L (37.0-47.0) % Plt Count 188 (130-400) K/uL BMP 03/07/24 05:52 Sodium 137 Potassium 3.5 Chloride 100 Carbon Dioxide 31 BUN 21 Creatinine 1.08 Glucose 100 H Calcium 8.4 L
--- NOTE | 2024-03-07 13:29 | Discharge Summary ---
Date of Service March 07, 2024 Admission HPI Per Admitting Provider Patient is 83 year old female with PMH aortic stenosis s/p TAVR 09/2023, permanent atrial fibrillation anticoagulated on Coumadin, LBBB, Nonobstructive CAD on cath 07/2023, HTN, dyslipidemia, CHAVEZ, nocturnal hypoxia presented to ER with c/o melena x 3 days. History obtained from patients , outpatient and inpatient chart review. states patient has had black color stools for past 3 days. reports patient having some nausea and vomiting. Patient was complaining of some lightheadedness. feels patient was in normal mental state this morning. States today patient seemed weak and was unable to get her up so called EMS. doesn't think patient took medication today. Patient arrived to ER and found to be bradycardic and hypotensive. Rectal exam with dark black stool. Labs with significant anemia with H/H: 5.7/19 and INR: 5.6. She was given Protonix bolus, Vitamin K 10mg IV, KCentra, Uncrossed blood being transfused and FFP ordered. She was also given glucagon, calcium gluconate and atropine. Currently sitting up in bed, very nausous, however able to answer simple questions appropriately. denies any chest pain , shortness of breath or abdominal pain. Moves extremities. Confirms having dark stools for 3 days. Discussed with ED physician at the bedside in detail and contacted cadd drafter - plan to admit pt to ICU. at the bedisde updated about the plan of care a s well. Principal Diagnosis Acute gastrointestinal bleed Acute blood loss anemia Tachybradycardia syndrome Nocturnal hypoxia S/P TAVR Discharge Data Allergies Allergy/AdvReac Type Severity Reaction Status Date / Time latex Allergy Intermediate Rash Verified 02/27/24 16:20 [id number] Reductase Allergy Unknown PER Verified 02/27/24 16:20 Inhibitor [facility] soy AdvReac Mild Dizziness Verified 02/27/24 16:20 adhesive AdvReac Unknown PER Verified 02/27/24 16:20 [facility] cat dander AdvReac Unknown PER Verified 02/27/24 16:20 [facility] ezetimibe [From Zetia] AdvReac Unknown PER Verified 02/27/24 16:20 [facility] Consultations 02/27/24 16:37 ED Decision to Admit Stat 02/27/24 16:38 Consult Offshore Diver Stat 02/27/24 17:02 Consult Gastroenterology Stat 02/27/24 17:14 Consult Cardiology Routine 02/27/24 17:54 Consult Offshore Diver Routine 03/01/24 01:11 Consult Offshore Diver Routine Procedures Performed Operation Date: 03/04/24 08:00 Actual Procedures p Pacer with Ventricular Lead - Melanie Rees, DO Laboratory Results WBC 6.51 K/ul (4.8-10.8) 03/07/24 05:52 RBC 2.97 M/uL (4.20-5.40) L 03/07/24 05:52 Hgb 7.6 g/dl (12.0-16.0) L 03/07/24 05:52 POC Hgb 6.1 g/dl (12.0-16.0) L* 02/27/24 15:11 Hct 25.7 % (37.0-47.0) L 03/07/24 05:52 POC Hct 18 % (37-47) L* 02/27/24 15:11 MCV 86.5 fL (80.0-100.0) 03/07/24 05:52 MCH 25.6 pg (25.0-34.0) 03/07/24 05:52 MCHC 29.6 g/dL (32.0-36.0) L 03/07/24 05:52 RDW Std Deviation 53.5 fL (36.4-46.3) H 03/07/24 05:52 RDW Coeff of Serg 17.0 % (11.5-14.5) H 03/07/24 05:52 Plt Count 188 K/uL (130-400) 03/07/24 05:52 MPV 11.0 fL (9.4-12.4) 03/07/24 05:52 Immature Gran % (Auto) 0.5 % 03/01/24 00:25 Neut % (Auto) 84.3 % 03/01/24 00:25 Lymph % (Auto) 4.8 % 03/01/24 00:25 Reynolds % (Auto) 9.7 % 03/01/24 00:25 Eos % (Auto) 0.5 % 03/01/24 00:25 Baso % (Auto) 0.2 % 03/01/24 00:25 Neut # (Auto) 7.38 K/uL (1.40-6.50) H 03/01/24 00:25 Lymph # (Auto) 0.42 K/uL (1.20-3.40) L 03/01/24 00:25 Reynolds # (Auto) 0.85 K/uL (0.11-0.59) H 03/01/24 00:25 Eos # (Auto) 0.04 K/uL (0.00-0.50) 03/01/24 00:25 Baso # (Auto) 0.02 K/uL (0.00-0.20) 03/01/24 00:25 Immature Gran # (Auto) 0.04 K/uL (0.01-0.20) 03/01/24 00:25 Absolute Nucleated RBC 0.02 K/uL (0.00-0.12) 03/05/24 04:01 Nucleated RBC % (auto) 0.2 % 03/05/24 04:01 Platelet Estimate Decreased (Normal) L 03/01/24 00:25 Polychromasia 1+ 02/29/24 06:13 Hypochromasia Present 02/27/24 15:01 Echinocytes 2+ 02/27/24 15:01 PT 13.5 Seconds (9.0-12.0) H 02/29/24 06:13 POC INR 5.8 (0.9-1.1) H* 02/27/24 15:53 INR 1.2 (0.9-1.1) H 02/29/24 06:13 APTT 25 Seconds (21-31) 02/29/24 06:13 PTT Ratio 0.9 02/29/24 06:13 Fibrinogen 230 mg/dl (184-400) 02/27/24 21:46 VBG pH 7.35 (7.36-7.41) L 02/27/24 21:46 VBG pCO2 38 mmHg (38-50) 02/27/24 21:46 VBG pO2 41 mmHg 02/27/24 21:46 VBG HCO3 21 mmol/L 02/27/24 21:46 VBG O2 Saturation 65.9 % 02/27/24 21:46 VBG Base Excess -4.2 mEq/L 02/27/24 21:46 POC Sodium 135 mmol/L (135-144) 02/27/24 15:11 Sodium 137 mmol/L (136-145) 03/07/24 05:52 POC Potassium 4.3 mmol/L (3.3-5.0) 02/27/24 15:11 Potassium 3.5 mmol/L (3.5-5.1) 03/07/24 05:52 POC Chloride 103 mmol/L (101-112) 02/27/24 15:11 Chloride 100 mmol/L (98-107) 03/07/24 05:52 Carbon Dioxide 31 mmol/L (21-32) 03/07/24 05:52 POC Total CO2 12 mmol/L (24-31) L 02/27/24 15:11 Anion Gap 6 (3-11) 03/07/24 05:52 POC Anion Gap 25.0 mmol/L (16-25) 02/27/24 15:11 POC BUN 96 mg/dl (7-18) H 02/27/24 15:11 BUN 21 mg/dl (6-23) 03/07/24 05:52 Creatinine 1.08 mg/dl (0.6-1.2) 03/07/24 05:52 POC Creatinine 1.6 mg/dl (0.6-1.3) H 02/27/24 15:11 Est Cr Clr Drug Dosing 37.4 ml/min 03/07/24 05:52 Est GFR ( Amer) 54.2 ml/min 03/07/24 05:52 Est GFR (Non-Af Amer) 46.8 ml/min 03/07/24 05:52 BUN/Creatinine Ratio 19.4 (10-20) 03/07/24 05:52 Glucose 100 mg/dl (70-99(Fasting)) H 03/07/24 05:52 POC Glucose 102 mg/dl (70-99) H 02/28/24 16:24 POC Glucose (other) 135 mg/dl (70-99) H 02/27/24 15:11 Lactate 1.9 mmol/L (0.4-2.0) 02/28/24 03:19 Calcium 8.4 mg/dl (8.6-10.3) L 03/07/24 05:52 POC Ioniz Calcium Patty 1.12 mmol/l (1.12-1.32) 02/27/24 15:11 Phosphorus 3.0 mg/dl (2.5-4.9) 03/05/24 04:01 Magnesium 1.9 mg/dl (1.7-2.4) 03/05/24 04:01 Iron 26 mcg/dl (35-150) L 02/27/24 15:01 TIBC 374 mcg/dl (250-450) 02/27/24 15:01 Unsaturated IBC 348 mcg/dl (155-355) 02/27/24 15:01 Transferrin % Sat 7 % (15-50) L 02/27/24 15:01 Total Bilirubin 1.5 mg/dl (0.2-1.0) H 03/01/24 04:30 AST 437 U/L (13-39) H 03/01/24 04:30 ALT 558 U/L (7-52) H 03/01/24 04:30 Alkaline Phosphatase 62 U/L (34-104) 03/01/24 04:30 Troponin I High Sens 272.4 pg/ml (0-14) H* D 03/01/24 00:25 Total Protein 6.5 gm/dl (6.0-8.3) 03/01/24 04:30 Albumin 3.7 gm/dl (3.4-5.0) 03/01/24 04:30 Globulin 2.8 gm/dl (2.5-4.0) 03/01/24 04:30 Albumin/Globulin Ratio 1.3 (0.9-2) 03/01/24 04:30 Nasal Screen MRSA (PCR) Negative (Negative) 02/27/24 18:15 Lyme Disease Screen Negative (Negative) 03/01/24 04:30 Blood Type A Positive 02/27/24 15:01 Blood Type Recheck A Positive 02/27/24 16:08 Antibody Screen NEGATIVE 02/27/24 15:01 Crossmatch See Detail 02/27/24 15:01 Impressions Venous Doppler Study 03/04/24 09:36 RIGHT UPPER EXTREMITY VENOUS DOPPLER HISTORY: Right arm swelling COMPARISON STUDY: None. FINDINGS: The right internal jugular vein is patent. There is normal flow within the right subclavian vein. There is normal flow and compressibility within the right axillary, basilic, brachial, radial, and ulnar veins. Superficial thrombus within the cephalic vein from the mid upper arm to the proximal forearm measuring approximately 8.3 cm in length. IMPRESSION: 1. No DVT within the right upper extremity. 2. Superficial thrombus within the right cephalic vein as described above. ACT 112: Negative or not required by law. Electronically signed by: Nino Degroot M.D. 03/04/2024 12:27 PM Chest X-Ray 03/04/24 11:30 XR chest 1V portable HISTORY: s/p ppm ensure no PTX COMPARISON: Chest 10/01/2021. FINDINGS: Interval placement of a left-sided single lead pacemaker. The lead appears intact. No pneumothorax. The cardiac silhouette remains mildly enlarged. An aortic valve prosthesis is noted. Linear density within the right midlung zone favors subsegmental atelectasis. There is mild central pulmonary vascular congestion without overt edema. Trace left pleural effusions. There is a left basilar linear density also favoring atelectasis. No acute fractures. IMPRESSION: 1. Left-sided single lead pacemaker. No pneumothorax. 2. Cardiomegaly, trace bilateral pleural effusions, and mild congestive change. ACT 112: Negative or not required by law. Electronically signed by: Nino Degroot M.D. 03/04/2024 1:05 PM Ordered Studies 03/04/24 07:15 EP Lab Images for PACS ONCE 03/04/24 09:36 US venous doppler UE RT Routine Hospital Course (1) Acute GI bleeding: (2) Melena: (3) Supratherapeutic INR: (4) Anemia: (5) Hypotension: 83 year old female with PMH aortic stenosis s/p TAVR 09/2023, permanent atrial fibrillation anticoagulated on Coumadin, LBBB, Nonobstructive CAD on cath 07/2023, HTN, dyslipidemia, CHAVEZ, nocturnal hypoxia presented to ER with c/o melena x 3 days. In ER, she was found to be significantly bradycardic and hypotensive. Rectal exam with dark black stool. Labs with significant anemia with H/H: 5.7/19 and INR: 5.6. She was given Protonix bolus, Vitamin K 10mg IV, KCentra. Typed and cross PRBC. However patient continued hypotension so uncrossed blood being transfused and FFP ordered. She was also given glucagon, calcium gluconate and atropine. Acute GI bleed Melena Acute blood loss anemia In setting of supratherapeutic INR S/P 2 units PRBC, FFP Coumadin discontinued -S/P EGD:Normal esophagus. Non-bleeding gastric ulcer with no stigmata of bleeding. Normal examined duodenum. No specimens collected. Continue Protonix 40 mg twice a day Monitor CBC Appreciate GI input Will need follow-up with GI as outpatient Hemoglobin stable Plan to discharge to rehab facility today (6) Symptomatic bradycardia: (7) Permanent atrial fibrillation: On presentation, patient had hypotension and junctional bradycardia. Converted from junctional bradycardia to A-fib with rapid ventricular rate in ICU. Atrial fibrillation with RVR Tachybradycardia syndrome Pulmonary bradycardia H/O TAVR with transient LBBB S/P single-chamber pacemaker placement on 03/04/2024 by Metoprolol succinate increased to 100 mg twice a day Continue diltiazem to 240 mg daily Appreciate cardiology input Will likely need AV junction ablation eventually Plan to hold Coumadin likely for 30 days given GI bleed Added digoxin--continue 0.125 mg Sunday. Also added Aldactone 12.5 mg daily Needs follow-up with cardiology on discharge Nocturnal hypoxia Reviewed nocturnal oximetry study Continue supplemental oxygen at bedtime Will need sleep study as outpatient (8) Elevated troponin: Troponin: 254->>693 Likely demand ischemia Echocardiogram noted EF of 55 to 60%, moderate concentric LVH, mildly dilated LV, normal LV SF, severe biatrial enlargement, status post TAVR, severe mitral annular calcification, moderate MR, moderate to severe TR, estimated PASP of 59 (9) Aortic stenosis: S/P TAVR 10/02/2023 at [facility] (10) CAD (coronary artery disease): History nonobstructive CAD on preop TAVR cath 08/10/2023 Aspirin discontinued for now (discussed with cardiology) Continue Lasix per cardiology Added Aldactone as well (11) HTN (hypertension): Continue diltiazem, metoprolol Lisinopril on hold--continue to hold on discharge for now Monitor BP (12) HLD (hyperlipidemia): H/O statin intolerance DVT Prophylaxis SCDs CODE STATUS Full Code Disposition Rehab Total Time Total Time Spent Total Time Spent (In Minutes): 62 minutes Discharge Plan Discharge Items Patient Disposition: Transfer [facility] Reason For Visit: GI BLEED Discharge Diagnosis: Acute gastrointestinal bleed Acute blood loss anemia Tachybradycardia syndrome Nocturnal hypoxia S/P TAVR Activity: As commented below Activity Comment: do not raise the left elbow over the shoulder for 1 month Lifting: No more than 10 pounds Lifting Comment: do not lift more than 10 pounds with the left arm for 2 weeks Bathing: Keep incision dry Bathing Comment: keep dressing on & dry until wound check Non-emergency contact: Primary Care Provider, [employer] Lieutenant and Travel Ticketing Reviewer Call non-emergency contact if: you have any medication questions, your symptoms worsen, your pain is concerning for you and you have a fever Follow-up/Referrals: Melania Elliott MD [Primary Care Provider] - Diet: Heart Healthy [facility] Attending Provider Instructions: -- Follow-up with your primary care physician Dr. Melania Elliott in 1 week upon discharge from rehab facility --Follow-up with your test engineering intern Dr. Lemus as advised --Follow-up for device and wound check at [facility] next week as recommended by your test engineering intern --Follow-up with your boat deckhand as needed to ensure resolution of gastric ulcer --Use supplemental oxygen 2 L at bedtime. Obtain sleep study (polysomnography) as outpatient --Hold taking aspirin, warfarin for now. Discussed with your physician for further recommendations as outpatient. Do not take group of medications belonging to NSAIDs group -can cause worsening of gastrointestinal/gastric ulcer bleeding List Of these medications includes but not limited to: Diclofenac Ibuprofen, Motrin, Advil Toradol,ketorolac Naproxen, Aleve, Naprosyn You can take Tylenol as needed for pain or fever When buying [id number] pain medications please consult with pharmacy if you are not sure regarding ingredients, as a lot of the pain medications have combination of NSAIDs and Tylenol. Seek immediate medical attention if your symptoms reoccur or worsen Please take all medications as instructed on discharge list below. Please call if you have any questions or problems. You can reach a [facility] hospitalist on duty at 24 hours a day by calling [phone] Kitty Leather Finisher Provider Instructions: ACTIVITY RECOMMENDATIONS: * Do not raise affected arm over head for 2 weeks. SPECIAL CARE INSTRUCTIONS: * If bleeding occurs, apply direct pressure to area for 5 minutes. * Call your doctor if you have severe pain, fever, drainage or bleeding at site. * Keep dressing on and dry for 48 hours then remove. * Keep any scheduled doctor's appointment. * Implant Card - hand held device with website information given. SKIN IRRITATION: * You may experience some redness and/or swelling in the area where radiation was administered. If any skin irritation occurs, please contact your family physician. FOLLOW UP VISIT: Keep any scheduled doctor appointments. Pending Studies at Discharge: No Stand-Alone Forms: [facility] Skilled Items Patient informed of condition?: Yes DNR: No Discharge Level of Care: Skilled Communicable Disease: No Discharge Prognosis: Stable Lines: None Urinary Catheter: No Medications and DC Order Prescriptions: New digoxin [Digitek] 125 mcg (0.125 mg) Tablet 0.125 mg PO UD Qty: 30 0RF Rx Instructions: Sunday, Sunday, Sunday spironolactone 25 mg Tablet 12.5 mg PO DAILY Qty: 30 0RF pantoprazole 40 mg Tablet,Delayed Release (Dr/Ec) 40 mg PO BID Qty: 60 0RF Continued ipratropium bromide 21 mcg (0.03 %) spray,non-aerosol 2 spray INTRANASAL TID furosemide 20 mg tablet 20 mg PO DAILY diltiazem HCl 240 mg Capsule,Extended Release 24hr 240 mg PO QAM Qty: 30 0RF amoxicillin 500 mg Capsule 2,000 mg PO DIRECTED PRN (Reason: 1 HR PRIOR TO DENTAL PROCEDURES) metoprolol succinate 100 mg tablet extended release 24 hr 100 mg PO BID Held warfarin 5 mg tablet 5 mg PO DIRECTED Hold Instructions: Until further recommendations from your primary care physi evelyn/test engineering intern Rx Instructions: 5mg on sun, 10mg on sun, sun, sun, , sun, sat lisinopril 5 mg tablet 5 mg PO QAM Hold Instructions: Until further recommendations from your primary care physician/test engineering intern potassium chloride 10 mEq tablet,ER particles/crystals 10 meq PO DAILY Hold Instructions: Until further recommendations from your primary care physician/test engineering intern aspirin 81 mg tablet,chewable 81 mg PO QAM Hold Instructions: Until further recommendations from your primary care physician/test engineering intern Discharge Orders: Discharge Order (Routine); Ordered 03/07/24 Ordered By: Portillo Mcadams Admission Data Admit Date/Time: 02/27/24 17:08 Attending Provider: Portillo Mcadams Admit Provider: Cesar Wilkerson Primary Care Provider: Melania Elliott Other Providers: Ramsey Dial; [place],[facility]; Cesar iWlkerson; Mary Lou Wells Jr; Vipul Cunha; [place],[facility] [place]; [facility]
[2024-03-07] MEDS ORDERED: DIGOXIN 0.125 MG TAB PO SCH (16:00)
== END 2024-03-07 16:10 | DRG 981 ==
LOC: ED 14:20 → 1E 17:08 → SUATTDRO 17:08 → 1E 18:08 → 2S 02-28 20:58 → 1E 03-01 01:10 → 2S 03-05 22:13